=== PATIENT | male | born 1955 | race Caucasian/White ===

== ENCOUNTER 2020-11-08 12:16 | Outpatient (REF) | payer MEDICARE, MEDICAID, SELFPAY ==
--- NOTE | ~2020-11-08 | XR_ITS ---
EXAMINATION: XR knee LT 2V, XR knee standing BI CLINICAL INFORMATION: Reason for Exam M25.562 - Pain in left knee COMPARISON: None available at the time of this dictation. TECHNIQUE: frontal, lateral, tunnel and patella sunrise views FINDINGS: BONES: No fracture or dislocation is present. JOINTS: Narrowing of joint spaces and developed osteophytes from the edges of articular surfaces suggest degenerative osteoarthritis. SOFT TISSUE: There is knee joint effusion. There is 1.4 cm ossified structure probably accessory ossicle or calcified soft tissue anterior to the distal left femur. XR/XR knee LT 2V IMPRESSION: Moderate Tricompartment degenerative osteoarthritis significantly involving left more than right knee Left knee joint effusion. Accessory ossicle or calcified soft tissue structure found within the soft tissue anterior to the distal femur. MRI could be utilized for further characterization if clinically indicated.
--- NOTE | ~2020-11-08 | XR_ITS ---
EXAMINATION: XR knee LT 2V, XR knee standing BI CLINICAL INFORMATION: Reason for Exam M25.562 - Pain in left knee COMPARISON: None available at the time of this dictation. TECHNIQUE: frontal, lateral, tunnel and patella sunrise views FINDINGS: BONES: No fracture or dislocation is present. JOINTS: Narrowing of joint spaces and developed osteophytes from the edges of articular surfaces suggest degenerative osteoarthritis. SOFT TISSUE: There is knee joint effusion. There is 1.4 cm ossified structure probably accessory ossicle or calcified soft tissue anterior to the distal left femur. XR/XR knee standing BI IMPRESSION: Moderate Tricompartment degenerative osteoarthritis significantly involving left more than right knee Left knee joint effusion. Accessory ossicle or calcified soft tissue structure found within the soft tissue anterior to the distal femur. MRI could be utilized for further characterization if clinically indicated.
== END 2020-11-08 12:17 | disposition home or self-care (01) ==
LOC: HO.HOSX 12:16
PROVIDERS: Visit Provider Physician Assistant
DX: M17.12 Unilateral primary osteoarthritis, left knee (principal); M25.561 Pain in right knee; Z96.641 Presence of right artificial hip joint
CPT/HCPCS: 20610; 73560; 73565; 99202; J1040

== ENCOUNTER 2021-01-22 12:02 | Outpatient (REF) | payer MEDICARE, MEDICAID, SELFPAY ==
--- NOTE | ~2021-01-22 | XR_ITS ---
EXAMINATION: XR PELVIS CLINICAL INFORMATION: Hip pain. COMPARISON: None TECHNIQUE: AP view of the pelvis. FINDINGS: Total hip arthroplasty present on the right. The prosthesis is in good position. Mild degenerative changes present in the left hip with superior joint space narrowing and sclerosis, osteophytes and some subchondral cyst formation. Incidental note made of degenerative changes in the visualized lower lumbosacral spine. XR/XR pelvis 1-2V IMPRESSION: Right hip total arthroplasty intact. Mild degenerative changes left hip.
== END 2021-01-22 12:03 | disposition home or self-care (01) ==
LOC: HO.HOSX 12:02
PROVIDERS: Visit Provider Orthopaedic Surgery
DX: M25.551 Pain in right hip (principal)
CPT/HCPCS: 72170; 99212

== ENCOUNTER → 2021-02-07 13:29 | Outpatient (BNVA) | payer MEDICARE, MEDICAID, SELFPAY | PROVIDERS: Visit Provider Physician Assistant | DX: M17.12 Unilateral primary osteoarthritis, left knee (principal) | CPT/HCPCS: 20610; 99212; J1040 ==

== ENCOUNTER → 2021-05-10 12:50 | Outpatient (BNVA) | payer MEDICARE, MEDICAID, SELFPAY | PROVIDERS: Visit Provider Physician Assistant | DX: M17.12 Unilateral primary osteoarthritis, left knee (principal) | CPT/HCPCS: 20610; 99212; J1040 ==

== ENCOUNTER → 2021-06-18 14:24 | Outpatient (BNVA) | payer MEDICARE, MEDICAID, SELFPAY | PROVIDERS: Visit Provider Orthopaedic Surgery | DX: M75.102 Unspecified rotator cuff tear or rupture of left shoulder, not specified as traumatic (principal); M17.12 Unilateral primary osteoarthritis, left knee | CPT/HCPCS: 20610; 99212; J1100 ==

== ENCOUNTER 2021-06-28 12:51 | Outpatient (REF) | payer MEDICARE, MEDICAID, SELFPAY ==
--- NOTE | ~2021-06-28 | MR_ITS ---
EXAMINATION: MRI SHOULDER WITHOUT CONTRAST, LEFT CLINICAL INFORMATION: Left shoulder pain. Evaluate for rotator cuff tendon tear. COMPARISON: Left shoulder radiograph dated 10/12/2018. TECHNIQUE: Multisequence MR imaging of the left shoulder was obtained without contrast on a high-field strength scanner. FINDINGS: Evaluation significantly limited secondary to patient motion. ROTATOR CUFF: Complete, full-thickness tear of the supraspinatus tendon with a near-complete full-thickness tear of the infraspinatus tendon. There appear to be a few posterior bursal surface infraspinatus tendon fibers remaining intact. Overall tearing measures approximately 4.5 x 4.5 cm (AP by ML) with retraction of the tendon fibers to the level of the glenohumeral articulation. Subscapularis tendinosis with high-grade articular surface partial tearing with probable full-thickness components. This measures up to 4.2 cm in ML dimension and thin bursal surface tendon fibers remaining intact. No muscle atrophy or fatty infiltration. BICEPS: Medial subluxation of the proximal long head biceps tendon over the lesser tuberosity. CORACOACROMIAL ARCH: The undersurface of the acromion is curved with no subacromial spur. Severe acromioclavicular osteoarthritis. LABRUM/CAPSULE: No displaced labral tear. GLENOHUMERAL JOINT/MARROW: Superior subluxation of the humeral head related to the rotator cuff tendon tears. Moderate glenohumeral joint effusion. MR/MR shoulder LT wo con IMPRESSION: 1. Complete tear of the supraspinatus tendon with a near-complete tear of the infraspinatus tendon. There appear to be a few posterior bursal surface tendon fibers remaining intact. Near-complete tear of the subscapularis tendon with a few bursal surface tendon fibers remaining intact. The torn tendon fibers retracted to the level of the glenohumeral articulation. Superior subluxation of the humeral head related to the rotator cuff tendon tears. 2. Medial subluxation of the proximal long head biceps tendon over the lesser tuberosity. 3. Severe acromioclavicular osteoarthritis. 4. Moderate glenohumeral joint effusion.
== END 2021-06-28 12:52 | disposition home or self-care (01) ==
LOC: HO.MRI 12:51
PROVIDERS: Visit Provider Orthopaedic Surgery
DX: M75.102 Unspecified rotator cuff tear or rupture of left shoulder, not specified as traumatic (principal)
CPT/HCPCS: 73221

== ENCOUNTER → 2021-07-19 11:30 | Outpatient (BNVA) | payer MEDICARE, MEDICAID, SELFPAY | PROVIDERS: Visit Provider Orthopaedic Surgery | DX: M75.102 Unspecified rotator cuff tear or rupture of left shoulder, not specified as traumatic (principal) | CPT/HCPCS: Q3014 ==

== ENCOUNTER → 2021-08-09 12:39 | Outpatient (BNVA) | payer MEDICARE, MEDICAID, SELFPAY | PROVIDERS: Visit Provider Physician Assistant | DX: M17.12 Unilateral primary osteoarthritis, left knee (principal) | CPT/HCPCS: 20610; 99212; J1040 ==

== ENCOUNTER → 2021-11-08 13:10 | Outpatient (BNVA) | payer MEDICARE, MEDICAID, SELFPAY | PROVIDERS: Visit Provider Physician Assistant | DX: M75.22 Bicipital tendinitis, left shoulder (principal); M17.12 Unilateral primary osteoarthritis, left knee | CPT/HCPCS: 20610; 99212; J1040 ==

== ENCOUNTER 2021-12-14 14:07 | Outpatient (REF) | payer MEDICARE, MEDICAID, SELFPAY ==
[2021-12-14 15:18] LABS: Estimated Average Glucose 111 mg/dL; Hemoglobin A1c % 5.5 %
== END 2021-12-14 14:08 | disposition home or self-care (01) ==
LOC: HO.LAB 14:07
PROVIDERS: PCP Nurse Practitioner Family; Visit Provider Nurse Practitioner Family
DX: G62.9 Polyneuropathy, unspecified (principal); M75.22 Bicipital tendinitis, left shoulder; M75.102 Unspecified rotator cuff tear or rupture of left shoulder, not specified as traumatic
CPT/HCPCS: 36415; 83036; 99202

== ENCOUNTER → 2021-12-17 10:24 | Outpatient (BNVA) | payer MEDICARE, MEDICAID, SELFPAY | PROVIDERS: PCP Nurse Practitioner Family; Visit Provider Internal Medicine | DX: M75.22 Bicipital tendinitis, left shoulder (principal) | CPT/HCPCS: 20550; J2795; J3300 ==

== ENCOUNTER → 2022-02-01 11:13 | Outpatient (BNVA) | payer MEDICARE, MEDICAID, SELFPAY | PROVIDERS: PCP Nurse Practitioner Family; Visit Provider Internal Medicine | DX: M54.16 Radiculopathy, lumbar region (principal); R20.2 Paresthesia of skin; M75.22 Bicipital tendinitis, left shoulder; M17.12 Unilateral primary osteoarthritis, left knee | CPT/HCPCS: Q3014 ==

== ENCOUNTER → 2022-02-11 12:22 | Outpatient (BNVA) | payer MEDICARE, MEDICAID, SELFPAY | PROVIDERS: PCP Nurse Practitioner Family; Visit Provider Physician Assistant | DX: M17.12 Unilateral primary osteoarthritis, left knee (principal) | CPT/HCPCS: 20610; 99212; J1040 ==

== ENCOUNTER → 2022-03-04 10:37 | Outpatient (BNVA) | payer MEDICARE, MEDICAID, SELFPAY | PROVIDERS: PCP Nurse Practitioner Family; Visit Provider Internal Medicine | DX: M25.562 Pain in left knee (principal); M25.462 Effusion, left knee; M17.12 Unilateral primary osteoarthritis, left knee; M75.22 Bicipital tendinitis, left shoulder; Z96.642 Presence of left artificial hip joint | CPT/HCPCS: Q3014 ==

== ENCOUNTER → 2022-03-18 11:18 | Outpatient (BNVA) | payer MEDICARE, MEDICAID, SELFPAY | PROVIDERS: PCP Nurse Practitioner Family; Visit Provider Nurse Practitioner Family | DX: R13.10 Dysphagia, unspecified (principal); R14.0 Abdominal distension (gaseous); K21.9 Gastro-esophageal reflux disease without esophagitis | CPT/HCPCS: 99202 ==

== ENCOUNTER 2022-05-08 06:18 | Outpatient (REF) | payer MEDICARE, MEDICAID, SELFPAY ==
--- NOTE | ~2022-05-08 | XR_ITS ---
EXAMINATION: XR SHOULDER, RIGHT CLINICAL INFORMATION: Pain COMPARISON: None available. TECHNIQUE: AP external rotation, Grashey, scapular Y, and axillary views of the right shoulder. FINDINGS: No acute fracture or dislocation. There is mild elevation of the humeral head relative to the glenoid fossa which may reflect underlying rotator cuff pathology. Degenerative changes of the right acromioclavicular joint with joint space narrowing and osteophytosis. XR/XR shoulder RT min 2V IMPRESSION: 1. Mild elevation of the humeral head relative to the glenoid fossa which may reflect underlying rotator cuff pathology. 2. Degenerative changes of the right acromioclavicular joint.
--- NOTE | ~2022-05-08 | XR_ITS ---
EXAMINATION: XR HIP, LEFT CLINICAL INFORMATION: Left hip pain. COMPARISON: 01/22/2021 pelvic radiograph. TECHNIQUE: Two views of the left hip. FINDINGS: Mild left hip degenerative joint changes are seen. There is no acute fracture or dislocation. The visualized left ribs are intact with the soft tissues are unremarkable. XR/XR hip LT min 2V IMPRESSION: Mild left hip osteoarthritis without overt acute abnormality.
--- NOTE | ~2022-05-08 | FL_ITS ---
EXAMINATION: XR FLUOROSCOPY WITH IMAGES CLINICAL INFORMATION: Unilateral primary osteoarthritis, left knee. COMPARISON: Plain film study of 11/08/2020. TECHNIQUE: Fluoroscopy Supervised By: Dr. Marciano Bridges. Fluoroscopy Time: 0.4 minutes. Cumulative Dose: 1.45 mGy. DAP: 0.169 Gy-cm2. Images: 4. FINDINGS: Images demonstrate a needle overlying the anterior aspect of the left knee joint space. Contrast is seen within the joint and suprapatellar bursa. Degenerative spurring is identified with some joint space narrowing. Involving the medial and lateral joint space compartments. FL/FL guidance in treatment room IMPRESSION: Intraoperative fluoroscopy for pain management procedure.
== END 2022-05-08 06:19 | disposition home or self-care (01) ==
LOC: HO.XRAY 06:18
PROVIDERS: PCP Nurse Practitioner Family; Visit Provider Internal Medicine
DX: M17.12 Unilateral primary osteoarthritis, left knee (principal); M25.511 Pain in right shoulder; M16.12 Unilateral primary osteoarthritis, left hip
CPT/HCPCS: 20610; 73030; 73502

== ENCOUNTER → 2022-05-24 11:27 | Outpatient (BNVA) | payer MEDICARE, MEDICAID, SELFPAY | PROVIDERS: PCP Nurse Practitioner Family; Visit Provider Internal Medicine | DX: M75.22 Bicipital tendinitis, left shoulder (principal); M54.16 Radiculopathy, lumbar region; M25.511 Pain in right shoulder; M16.12 Unilateral primary osteoarthritis, left hip; M17.12 Unilateral primary osteoarthritis, left knee; Z96.642 Presence of left artificial hip joint | CPT/HCPCS: 20550; 20552; 99212; J2795; J3301 ==

== ENCOUNTER 2022-06-17 08:28 | Outpatient (REF) | payer MEDICARE, MEDICAID, SELFPAY ==
--- NOTE | ~2022-06-17 | XR_ITS ---
EXAMINATION: XR KNEE, AP BILATERAL XR KNEE, LEFT CLINICAL INDICATIONS: Pain. COMPARISON: None available. FINDINGS: AP BILATERAL KNEE: There is severe loss of medial and lateral compartment joint space left knee and mild loss of lateral compartment joint space. No acute fracture or loose body seen. LEFT KNEE: There are hypertrophic enthesophytes along the superior anterior intracondylar surface of distal femur, posterior medial condyle, anterior tibial eminence and posterior tibiofibular joint. No acute fracture or dislocation seen. There is mild suprapatellar joint effusion. XR/XR knee standing BI IMPRESSION: Hypertrophic enthesophytes along the left knee joint space likely from previous traumatic injury or degenerative changes. Severe degenerative changes medial and lateral compartment left knee.
--- NOTE | ~2022-06-17 | XR_ITS ---
EXAMINATION: XR KNEE, AP BILATERAL XR KNEE, LEFT CLINICAL INDICATIONS: Pain. COMPARISON: None available. FINDINGS: AP BILATERAL KNEE: There is severe loss of medial and lateral compartment joint space left knee and mild loss of lateral compartment joint space. No acute fracture or loose body seen. LEFT KNEE: There are hypertrophic enthesophytes along the superior anterior intracondylar surface of distal femur, posterior medial condyle, anterior tibial eminence and posterior tibiofibular joint. No acute fracture or dislocation seen. There is mild suprapatellar joint effusion. XR/XR knee LT 2V IMPRESSION: Hypertrophic enthesophytes along the left knee joint space likely from previous traumatic injury or degenerative changes. Severe degenerative changes medial and lateral compartment left knee.
== END 2022-06-17 08:29 | disposition home or self-care (01) ==
LOC: HO.HOSX 08:28
PROVIDERS: Visit Provider Orthopaedic Surgery
DX: M17.12 Unilateral primary osteoarthritis, left knee (principal); M54.16 Radiculopathy, lumbar region
CPT/HCPCS: 73560; 73565; 99212

== ENCOUNTER 2022-06-24 12:39 | Outpatient (REF) | payer MEDICARE, MEDICAID, SELFPAY ==
[2022-06-24 14:05] LABS: MANUAL DIFF FLAG NO
[2022-06-24 14:22] LABS: Basophils Percent Auto 0.4 % (0-2); Eosinophils Absolute Auto 0.2 X10*3/uL (0.0-0.4); Eosinophils Percent Auto 2.6 % (0-4); Hematocrit 40.2 % (42.0-52.0); Hemoglobin 13.2 g/dl (14.0-18.0); Imm Gran Abs Auto 0.03 X10*3/uL (0.00-0.03); Imm Gran Pct Auto 0.4 % (0.0-0.4); Lymphocytes Absolute Auto 1.1 X10*3/uL (1.2-4.9); Lymphocytes Percent Auto 14.3 % (20-40); Mean Corpuscular HGB Conc 32.8 g/dl (31.0-36.0); Mean Corpuscular Hemoglobin 28.6 pg (27.0-33.0); Mean Platelet Volume 8.8 fL (9.4-12.4); Monocytes Absolute Auto 0.6 X10*3/uL (0.1-1.2); Monocytes Percent Auto 8.5 % (2-11); Neutrophils Absolute Auto 5.5 x10*3/uL (2.0-8.3); Neutrophils Percent Auto 73.8 % (45-73); Platelet Count 326 X10*3/uL (160-400); Red Blood Count 4.62 X10*6/uL (4.60-5.80); Red Cell Distribution Width 13.4 % (11.0-16.0); White Blood Count 7.4 X10*3/uL (4.8-10.8)
[2022-06-24 15:01] LABS: Alanine Aminotransferase 15 U/L (0-40); Albumin Level 4.5 g/dL (3.5-5.0); Alkaline Phosphatase 118 U/L (39-117); Anion Gap 13 (12-20); Aspartate Amino Transferase 18 U/L (5-37); Bilirubin Total 0.5 mg/dL (0.0-1.0); Blood Urea Nitrogen 12 mg/dL (9-16); Calcium 9.6 mg/dL (8.4-10.2); Carbon Dioxide 29 mmol/L (22-29); Chloride 98 mmol/L (96-108); Estimated Glomerular Filt Rate > 60; Glucose Random 108 mg/dL (60-115); Potassium 4.8 mmol/L (3.3-5.1); Sodium 135 mmol/L (135-145)
[2022-06-24 15:24] LABS: Ferritin 248 ng/mL (20-250); Folate 16.9 ng/mL (> or = 4.0); TSH reflex Free T4 1.04 uIU/mL (0.32-4.0); Vitamin B12 441 pg/mL (200-900); Vitamin D 25-OH Total 48.1 ng/mL (>30)
[2022-06-26 18:49] LABS: Gliadin Deamidated IgA Ab <1.0 U/mL; Gliadin Deamidated IgG Ab <1.0 U/mL; Transglutaminase Ab IgG <1.0 U/mL; Transglutaminase IgA <1.0 U/mL
[2022-06-28 14:38] LABS: Zinc 67 mcg/dL (60-130)
[2022-06-28 16:44] LABS: Vitamin B6 24.2 ng/mL (2.1-21.7)
[2022-06-29 14:52] LABS: Vitamin B1 26 nmol/L (8-30)
[2022-06-29 15:43] LABS: Nicotinamide <20 ng/mL; Vit B3 - Nicotinic Acid <20 ng/mL; Vitamin B5 (Pantothenic Acid) 110 ng/mL (<275)
[2022-06-30 18:07] LABS: Vitamin A 37 mcg/dL (38-98)
== END 2022-06-24 12:40 | disposition home or self-care (01) ==
LOC: HO.LAB 12:39
PROVIDERS: PCP Nurse Practitioner Family; Visit Provider Internal Medicine Gastroenterology
DX: R10.33 Periumbilical pain (principal); G89.29 Other chronic pain; G62.9 Polyneuropathy, unspecified; R09.89 Other specified symptoms and signs involving the circulatory and respiratory systems; E46 Unspecified protein-calorie malnutrition; R20.2 Paresthesia of skin; R19.7 Diarrhea, unspecified; K75.81 Nonalcoholic steatohepatitis (NASH)
CPT/HCPCS: 36415; 80053; 82180; 82306; 82607; 82728; 82746; 83088; 83520; 84207; 84425; 84443; 84590; 84591; 84630; 85025; 86258; 86364; 99212

== ENCOUNTER 2022-07-15 15:35 | Outpatient (REF) | payer MEDICARE, MEDICAID, SELFPAY ==
--- NOTE | ~2022-07-15 | CT_ITS ---
EXAMINATION: CT SOFT TISSUE NECK WITH CONTRAST CLINICAL INFORMATION: Globus sensation. Rule out impingement. Retroverted epiglottis. Needle syndrome, other compressive pathology. COMPARISON: None TECHNIQUE: Following the administration of 100 mL of Omnipaque 300 intravenous contrast, helical imaging was performed in the axial plane with generation of coronal and sagittal reformatted images. This CT examination was performed using dose optimization techniques as appropriate, variously including the following: *Automated exposure control *Adjustment of mA and/or kV according to patient size (this includes techniques or standardized protocols for targeted exams where dose is matched to indication/reason for exam; i.e. extremities or head) *Use of iterative reconstruction technique DLP: 304 mGy-cm FINDINGS: The nasopharynx appears normal. The palatine tonsils and base of tongue appear normal. No laryngeal lesion is seen. The epiglottis is unremarkable. The vocal folds appear symmetric. The left styloid processes are elongated and extends to the region of the left base of tongue as seen on series 3 image 210/467. The parotid and submandibular glands appear normal. No enlarged or suspicious appearing cervical chain lymph nodes are seen. The thyroid gland appears normal. There are no enlarged upper mediastinal lymph nodes. There is scarring/pleural parenchymal thickening along the periphery of the left upper lung. There is no acute intracranial abnormality. Multilevel degenerative changes are seen within the spine. There is severe disc height loss with degenerative endplate changes at the C6-C7 level. Degenerative changes are also seen in the thoracic spine. There are postoperative findings related to prior functional endoscopic sinus surgery. There is moderate polypoid thickening within the paranasal sinuses. 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 CT/CT soft tissue neck w IV con IMPRESSION: No neck mass or suspicious lymphadenopathy identified. The left styloid process is elongated and extends to the region of the left base of tongue. Postoperative findings related to prior functional endoscopic sinus surgery. Moderate polypoid thickening throughout the paranasal sinuses.
[2022-07-15] MEDS: iohexoL 350 MG/ML 100 ML INFUS..BTL IV (16:55)
== END 2022-07-15 15:36 | disposition home or self-care (01) ==
LOC: HO.CT 15:35
PROVIDERS: PCP Nurse Practitioner Family; Visit Provider Internal Medicine Gastroenterology
DX: R09.89 Other specified symptoms and signs involving the circulatory and respiratory systems (principal); G62.9 Polyneuropathy, unspecified; E46 Unspecified protein-calorie malnutrition; R20.2 Paresthesia of skin
CPT/HCPCS: 70491; Q9967

== ENCOUNTER 2022-07-17 06:03 | Outpatient (REF) | payer MEDICARE, MEDICAID, SELFPAY ==
--- NOTE | ~2022-07-17 | FL_ITS ---
EXAMINATION: XR FLUOROSCOPY WITH IMAGES CLINICAL INFORMATION: Lumbar radiculopathy COMPARISON: None available. TECHNIQUE: Fluoroscopy Supervised By: Dr. Marciano Bridges. Fluoroscopy Time: 0.2 min. Cumulative Dose: 5 mGy. DAP: 0.3 Gycm2. Images: 2. FINDINGS: Images demonstrate needle placement and contrast injection over the lower lumbar spine FL/FL guidance in treatment room IMPRESSION: Fluoroscopic guidance for pain management procedure.
== END 2022-07-17 06:04 | disposition home or self-care (01) ==
LOC: CF 06:03
PROVIDERS: Visit Provider Internal Medicine
DX: M54.16 Radiculopathy, lumbar region (principal)
CPT/HCPCS: 62323; J1040

== ENCOUNTER 2022-08-06 12:20 | Day surgery (SDC) | payer MEDICARE, MEDICAID, SELFPAY ==
[2022-08-02 11:58] VITALS: BMI 25.6
--- NOTE | 2022-08-05 10:53 | HO.ANESPROP2 ---
Documented by User: Nicole Salinas NP 08/05/22 10:54 HPI - Anesthesia Eval Consult details Narrative: 67yo M for Upper Endo APC Erbe Jet 2 PMFSH Active Problems Active Problems: All Active Problems (Updated 06/24/22 @ 13:20 by Roxanna Aiken MD) Malnutrition (Acute) Globus pharyngeus (Acute) Osteoarthritis of left hip (Acute) Right shoulder pain (Acute) Osteoarthritis of left knee (Acute) Lumbar radiculopathy (Acute) Paresthesia of bilateral legs (Acute) Peripheral neuropathy (Acute) Biceps tendonitis on left (Acute) Left rotator cuff tear (Acute) Piriformis syndrome of right side (Acute) Tricompartment osteoarthritis of left knee (Acute) Past Medical History Medical History Anxiety and depression Diverticulosis Hyperlipidemia Hypertension Insomnia PTSD (post-traumatic stress disorder) Surgical History Surgical History History of left hip replacement Hx of colonoscopy Social History Social History Alcohol intake: never Patient Tobacco Use Status: Former Tobacco user Are you DNR?: No Advance Directives: No Advance Directives Information Provided: Yes Current occupational status: employed and disabled Current occupation: rt handed Meds Allergies Allergy/AdvReac Type Severity Reaction Status Date / Time No Known Allergies Allergy Verified 07/17/22 11:02 Home Medications Medication Instructions Recorded Confirmed Last Taken Type clonidine HCl 0.1 mg tablet 0.1 mg PO BID 05/10/21 08/02/22 Unknown History diazepam 2 mg tablet 4 mg PO BID PRN Anxiety 05/10/21 08/02/22 08/06/22 History lisinopril 30 mg tablet 30 mg PO DAILY 05/10/21 08/02/22 Unknown History pravastatin 10 mg tablet 10 mg PO BEDTIME 05/10/21 08/02/22 Unknown History trazodone 100 mg tablet 100 mg PO BEDTIME 05/10/21 08/02/22 Unknown History esomeprazole magnesium 40 mg 40 mg PO DAILY 06/24/22 08/02/22 Unknown History capsule,delayed release pregabalin 75 mg capsule 75 mg PO BID 06/24/22 08/02/22 08/06/22 History Exam Exam Date and Time: August 05, 2022 1053 Height,Weight and Vital Signs: Height 5 ft 5 in Weight 69.853 kg Pertinent Lab Results Pertinent Lab Results: Laboratory Tests 06/24/22 06/24/22 14:04 14:04 WBC 7.4 Hgb 13.2 L Hct 40.2 L Plt Count 326 Sodium 135 Potassium 4.8 Chloride 98 Carbon Dioxide 29 BUN 12 Creatinine 0.83 Assessment and Plan Assessment Anesthesia Assessment: Chart Reviewed Documented by User: Marciano Bridges MD 08/06/22 13:02 REPLACED BY [facility] Past Medical History Medical History Anxiety and depression Diverticulosis Hyperlipidemia Hypertension Insomnia PTSD (post-traumatic stress disorder) Family History Family history of problems with anesthesia: No Surgical History Surgical History History of left hip replacement Hx of colonoscopy History of Problems with Anesthesia: No Social History Social History Alcohol intake: never Patient Tobacco Use Status: Former Tobacco user Are you DNR?: No Advance Directives: No Advance Directives Information Provided: Yes Current occupational status: employed and disabled Current occupation: rt handed Meds Allergies Allergy/AdvReac Type Severity Reaction Status Date / Time No Known Allergies Allergy Verified 07/17/22 11:02 Home Medications Medication Instructions Recorded Confirmed Last Taken Type clonidine HCl 0.1 mg tablet 0.1 mg PO BID 05/10/21 08/02/22 Unknown History diazepam 2 mg tablet 4 mg PO BID PRN Anxiety 05/10/21 08/02/22 08/06/22 History lisinopril 30 mg tablet 30 mg PO DAILY 05/10/21 08/02/22 Unknown History pravastatin 10 mg tablet 10 mg PO BEDTIME 05/10/21 08/02/22 Unknown History trazodone 100 mg tablet 100 mg PO BEDTIME 05/10/21 08/02/22 Unknown History esomeprazole magnesium 40 mg 40 mg PO DAILY 06/24/22 08/02/22 Unknown History capsule,delayed release pregabalin 75 mg capsule 75 mg PO BID 06/24/22 08/02/22 08/06/22 History Exam Airway Mallampati Class: II TM Dist: >3cm Neck ROM: Full Loose/Missing/Broken Teeth: Yes Assessment and Plan Assessment Anesthesia Assessment: Anesthesia Plan Discussed Final Anesthetic Review Family History of Problems with Anesthesia: No History of Problems with Anesthesia: No NPO: Yes ASA Class: II Final Preanesthetic Review: No Changes in Pt Med Stat, Meds/Allgs Chart Reviewed, Consent Obtained/Reviewed and Anes Risks/Benef Reviewed Patient Risk: Low Procedure Risk: Low Anesthetic Plan Anesthetic Plan: MAC: Disposition: Standard PACU
--- OUTSIDE RECORDS SUMMARY | 2022-08-06 12:23 | XMS_ITS | Continuity of Care Document ---
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 Name Role Phone Nicole Day NP Primary Care Physician Encounter [facility] Date(s): 07/05/22 - 08/04/22 [facility] [address] [place] [address]- Allergies, Adverse Reactions, Alerts No Known Allergies Immunizations Given and Recorded Vaccine Date Status Refusal Reason tetanus/diphtheria/pertussis, acel(Tdap) 07/09/18 Given Medications CeleBREX 200 mg oral capsule 1 capsule = 200 mg, By Mouth, 2 times a day, 0 Refills, Maintenance, 04/30/21 13:17:00 EST, Capsule, Partial fill upon patient request if the prescription is for a schedule II opioid drug. Start Date: 04/30/21 Status: Ordered cloNIDine 0.1 mg oral tablet 1, tablet, By Mouth, 2 times a day, # 180 tablet, Refills 11, Tot. Refills 11, Maintenance, 07/05/22 15:54:00 EDT, Route to Pharmacy Electronically, [facility] #[id number], 165, cm, 06/21/22 14:07:00 EDT, Height, 71.5, kg, 09/20/20 13:46:00 EDT,... Start Date: 07/05/22 Status: Ordered dexlansoprazole 30 mg oral delayed release capsule 1 capsule = 30 mg, By Mouth, Daily, # 30 capsule, 5 Refills, Maintenance, 07/12/19 12:17:00 EDT, [facility]/pharmacy #[id number], 164, cm, 06/30/19 14:28:00 EDT, Height, 79, kg, 04/28/19 12:58:00 EST, Dry Weight Start Date: 07/12/19 Stop Date: 01/08/20 Status: Ordered diazepam 2 mg oral tablet 4 mg, 2, tablet, By Mouth, 2 times a day, # 120 tablet, Refills 6, Tot. Refills 6, Soft Stop, 07/05/22 15:50:00 EDT, Route to Pharmacy Electronically, [facility] #[id number], 165, cm, 06/21/22 14:07:00 EDT, Height, 71.5, kg, 09/20/20 13:46:00 EDT... Start Date: 07/05/22 Stop Date: 01/31/23 Status: Ordered hydrocortisone 1% topical cream 1 application, Topically, 2 times a day, # 45 Gm, 0 Refills, Maintenance, 01/08/21 17:21:00 EST, Cream, [facility]/pharmacy #[id number], Partial fill upon patient request if the prescription is for a schedule II opioid drug., 1 application Topically 2 times a day,... Start Date: 01/08/21 Status: Ordered lisinopril 30 mg oral tablet 1 tablet = 30 mg, By Mouth, Daily, # 90 tablet, 3 Refills, Maintenance, 02/27/21 15:03:00 EST, Tablet, [facility]/pharmacy #[id number], 165, cm, 12/25/20 14:31:00 EDT, Height, 71.5, kg, 09/20/20 13:46:00 EDT, DryWeight Start Date: 02/27/21 Stop Date: 02/22/22 Status: Ordered Multivitamin Daily, 0 Refills, Maintenance, 06/08/18 14:18:26 EDT Start Date: 06/08/18 Status: Ordered pravastatin 10 mg oral tablet 1 tablet, By Mouth, Daily at bedtime, # 90 tablet, 3 Refills, Maintenance, 03/20/22 8:15:00 EST, [id number], 165, cm, 12/19/21 15:12:00 EDT, Height, 71.5, kg, 09/20/20 13:46:00 EDT, Dry Weight Start Date: 03/20/22 Status: Ordered pregabalin 75 mg oral capsule 1 capsule = 75 mg, By Mouth, 2 times a day, # 180 capsule, 0 Refills, Maintenance, 06/21/22 14:10:00 EDT, Capsule, Partial fill upon patient request if the prescription is for a schedule II opioid drug. Start Date: 06/21/22 Status: Ordered traZODone 100 mg oral tablet 1, tablet, By Mouth, Daily at bedtime, # 90 tablet, Refills 11, Tot. Refills 11, 07/05/22 15:53:00 EDT, Route to Pharmacy Electronically, [facility] #[id number], 165, cm, 06/21/22 14:07:00 EDT, Height, 71.5, kg, 09/20/20 13:46:00 EDT, Dry Weight Start Date: 07/05/22 Status: Ordered Problem List Condition Confirmation Course Effective Dates Status H ealth Status Informant Anxiety and depression Confirmed Active Diverticulosis Confirmed Active Dysphagia Confirmed Active Hyperlipidemia Confirmed Active Hypertension Confirmed Active Insomnia Confirmed Active PTSD (post-traumatic stress disorder) Confirmed Active Social History Social History Type Response Smoking Status Never smoker; Type: Cigarettes entered on: 04/14/17 Sex Patient Care team information Care Team Personnel Name: Evelio Serrano MD Position: [facility] Physician - Gastroenterology Member Role: Lifetime Consulting Physician Address: Address: [address] [place] [address], [address] [facility] [place] [address]- Name: Gosia Collins RN Position: [facility] RN Member Role: Primary Care Nurse Name: Nicole Day NP Position: [facility] PCO Associate Professional Member Role: PCP Address: Address: [address] [place] [id number]- Name: Missy Lancaster RN Position: [facility] RN Member Role: Primary Care Nurse Name: Amy Del Toro RN Position: [facility] ED RN W/OE and Tasks Member Role: Primary Care Nurse Name: Rachael Garcia RN Position: [facility] AMB Nurse Member Role: Primary Care Nurse Name: Sole Rodriguez RN Position: [facility] Hospital Software Test And Validation Engineer Member Role: Primary Care Nurse Care Team Related Persons Name: OZIEL MACK Address: [place], [place] Name: OZIEL MACK Address: [place], [place] Name: GHADA QUISPE Address: home [address] [place] [address]
[2022-08-06 12:35] VITALS: BP 138/68; PULSE 74; RESP 20; TEMP 36.4; O2SAT 98
[2022-08-06] MEDS: Lactated Ringers 1,000 ML 100 ML IVCONT (13:12)
--- NOTE | 2022-08-06 13:34 | P.HPSUR_ITS ---
Pre-Procedural Eval Section A Date of Service: 08/06/22 Section B Chief Complaint: globus sensation Relevant Family History (Specify if Yes): No Relevant Social History: None Present Medications: see Short Stay Collaborative assessment Medical History: Significant History (Anxiety and depression Diverticulosis Hyperlipidemia Hypertension Insomnia PTSD (post-traumatic stress disorder)) History of Previous Operations: Relevant previous surgery/procedure and date(s) (hip replacement, EGd,colonoscopy) Allergies: Allergies Allergy/AdvReac Type Severity Reaction Status Date / Time No Known Allergies Allergy Verified 07/17/22 11:02 Review of Systems Sugical H&P ROS: Negative: Constitution, Cardiovascular, Respiratory, Neurological, Psychiatric, Hem-Onc, Allergic/Immunologic, Gastrointestinal, Genitourinary, Musculoskeletal, Integumentary, Endocrine and E yes/Ears/Nose/Throat Exam Surgical H&P Exam: Normal: HEENT, Normal: Heart, Normal: Lungs, Normal: Extremities, Normal: Abdomen, Normal: Skin and Normal: Neurological Plan Diagnosis/Plan: Unchanged I have reviewed the history and physical and performed a pertinent physical examination on my patient. No changes have occurred unless specified. Time Spent With Patient Time: Total time managing care of this patient today ____ minutes.
--- NOTE | 2022-08-06 13:35 | W.PM.OPN ---
Operative Note Operative Note Date of Service: 08/06/22 Narrative: Procedure Description: EGD Indication: globus sensation Anesthesia: MAC FLEXIBLE TRANSORAL UPPER GASTROINTESTINAL ENDOSCOPY UPPER ENDOSCOPY Consent: Indications for the procedure and potential complications of bleeding, perforation, reaction to medications and missed diagnosis were discussed with the patient and informed consent was obtained. Instrument: Olympus GIF H 190 J mid size upper endoscope Monitoring: Vital signs and clinical assessment, continuous EKG monitoring, Pulse oximetry, Carbon Dioxide monitoring and blood pressure monitoring were done throughout the procedure. Procedure: The patient was placed in the left lateral decubitis position and pre-procedure medications were administered and a bite block was placed. The endoscope was inserted into the mouth and advanced under direct vision to the third part of duodenum. A careful inspection was made as the upper endoscope was withdrawn including a retroflexed examination of the proximal stomach; Findings and interventions are described below. Findings: Larynx:normal Esophagus: GE junction at 40 cm, diaphragm hiatus at 40 cm, bogginess and erythema around GEJ, bx taken as well as from distal and proximal esophagus. Savary dilation done using 17 mm bougie over wire. Stomach: Normal mucosa. Grade 2 flap valve on retroflexed examination of the cardia. 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
[2022-08-06 14:12] VITALS: BP 97/55; PULSE 62; RESP 20; TEMP 36.3; O2SAT 99
[2022-08-06 14:27] VITALS: BP 113/80; PULSE 71; RESP 18; O2SAT 99
[2022-08-06 14:42] VITALS: BP 122/71; PULSE 72; RESP 16; TEMP 36.8; O2SAT 99
--- NOTE | 2022-08-06 14:54 | PC.NURSE ---
Carlitos notified that patient is scheduled to take [employer] van home at 4:10 pm. Carlitos approved of this plan. Instructed that patient needs to notify her when he gets home and phone number was provided to the patient. Patient instructed to call [phone]. Patient agreeable of this plan.
--- NOTE | 2022-08-06 15:25 | PC.NURSE ---
Carlitos allowing patient to sit downstairs in the lobby until ride gets here with raphael Winchester.
== END 2022-08-06 15:26 | disposition home or self-care (01) ==
PROVIDERS: Visit Provider Internal Medicine Gastroenterology
PROC: (CPT 43248; principal; 2022-08-06 13:20)
DX: K20.80 Other esophagitis without bleeding (principal); R13.10 Dysphagia, unspecified; K44.9 Diaphragmatic hernia without obstruction or gangrene; F41.8 Other specified anxiety disorders; F43.10 Post-traumatic stress disorder, unspecified; I10 Essential (primary) hypertension; E78.5 Hyperlipidemia, unspecified; G62.9 Polyneuropathy, unspecified; E46 Unspecified protein-calorie malnutrition; Z79.899 Other long term (current) drug therapy; Z87.891 Personal history of nicotine dependence
CPT/HCPCS: 43248; 43239; 88305; C1769

== ENCOUNTER 2022-08-15 | Outpatient (REF) | payer MEDICARE, MEDICAID, SELFPAY | END 2022-08-15 00:01 | disposition home or self-care (01) | LOC: CF | PROVIDERS: Visit Provider Internal Medicine | DX: M75.21 Bicipital tendinitis, right shoulder (principal); M75.22 Bicipital tendinitis, left shoulder | CPT/HCPCS: 20550 ==

== ENCOUNTER → 2022-08-22 12:59 | Outpatient (BNVA) | payer MEDICARE, MEDICAID, SELFPAY | PROVIDERS: PCP Nurse Practitioner Family; Visit Provider Orthopaedic Surgery | DX: M17.12 Unilateral primary osteoarthritis, left knee (principal) | CPT/HCPCS: 99212 ==

== ENCOUNTER 2022-08-26 13:38 | Outpatient (REF) | payer MEDICARE, MEDICAID, SELFPAY ==
--- NOTE | ~2022-08-26 | XR_ITS ---
EXAMINATION: XR CHEST CLINICAL INFORMATION: Weight loss, cough COMPARISON: None available. TECHNIQUE: 2 views of the chest were obtained. FINDINGS: Small left pleural effusion with streaky peripheral opacity in the lateral left upper lobe and linear scarring at the left lung base. The right lung appears clear. Normal cardiomediastinal silhouette. XR/XR chest 2V IMPRESSION: Small left pleural effusion with peripheral opacities in the lateral left upper lobe. These findings could be due to an atypical infectious process. Recommend follow-up to clearing and/or chest CT for further evaluation.
== END 2022-08-26 13:39 | disposition home or self-care (01) ==
LOC: HO.XRAY 13:38
PROVIDERS: Visit Provider Internal Medicine Gastroenterology
DX: E46 Unspecified protein-calorie malnutrition (principal); R63.4 Abnormal weight loss
CPT/HCPCS: 71046; 99212

== ENCOUNTER 2022-08-30 13:07 | Outpatient (REF) | payer MEDICARE, MEDICAID, SELFPAY ==
[2022-08-30 13:24] LABS: Anion Gap 14 (12-20); Blood Urea Nitrogen 18 mg/dL (9-16); Calcium 9.8 mg/dL (8.4-10.2); Carbon Dioxide 25 mmol/L (22-29); Chloride 99 mmol/L (96-108); Estimated Glomerular Filt Rate > 60; Glucose Random 108 mg/dL (60-115); Potassium 4.6 mmol/L (3.3-5.1); Sodium 133 mmol/L (135-145)
== END 2022-08-30 13:08 | disposition home or self-care (01) ==
LOC: HO.CT 13:07
PROVIDERS: PCP Nurse Practitioner Family; Visit Provider Internal Medicine Gastroenterology
DX: N18.30 Chronic kidney disease, stage 3 unspecified (principal); R63.4 Abnormal weight loss
CPT/HCPCS: 36415; 74177; 80048; Q9967

== ENCOUNTER 2022-10-07 10:45 | Outpatient (REF) | payer MEDICARE, MEDICAID, SELFPAY ==
--- NOTE | ~2022-10-07 | CT_ITS ---
EXAMINATION: CT CHEST WITH CONTRAST CLINICAL INFORMATION: Pleural effusion, not elsewhere classified. Abnormal chest x-ray with pleural effusion. COMPARISON: Chest x-ray August [address] of the abdomen and pelvis August 2022. TECHNIQUE: Multidetector volumetric CT imaging of the chest was obtained after the administration of 65 mL of Omnipaque 350 intravenous contrast without immediate adverse reactions. Axial MIP volume rendering provided. Sagittal and coronal reformatted images were obtained. This CT examination was performed using dose optimization techniques as appropriate, variously including the following: *Automated exposure control *Adjustment of mA and/or kV according to patient size (this includes techniques or standardized protocols for targeted exams where dose is matched to indication/reason for exam; i.e. extremities or head) *Use of iterative reconstruction technique DLP: 142 mGy-cm FINDINGS: LUNGS: 3 mm calcified left upper lobe nodule axial image 71 series 5. 3 mm right upper lobe nodule axial image 85 series 5. Increased linear markings in the left upper and left lower lobes probably representing scarring or chronic subsegmental atelectasis. MEDIASTINUM: Small mediastinal and bilateral hilar lymph nodes. Some mediastinal lymph nodes may be calcified. Small cardiophrenic angle or anterior diaphragmatic mediastinal lymph nodes. Normal heart size. Mild coronary artery calcification. No pericardial effusion. Question pericardial calcification versus diaphragmatic calcification. Normal caliber thoracic aorta. Question wall thickening and edema of the distal thoracic esophagus. PLEURA: Small left pleural effusion and pleural thickening. No right pleural effusion. AXILLA: No lymphadenopathy. UPPER ABDOMEN: Unremarkable OSSEOUS STRUCTURES: Unremarkable. CT/CT chest w IV con IMPRESSION: Small left pleural effusion and pleural thickening. Extensive adjacent left upper and left lower lobe scarring or subsegmental atelectasis. This is similar to previous chest x-ray and abdominal and pelvic CT August 2022. Small 3 mm calcified and noncalcified pulmonary nodules. According to the UPDATED 2017 Fleischner Society recommendations, the advised follow-up imaging for less than 6 mm solid nodule: Low risk, no chest CT followup and high risk, optional chest CT followup in one year. If followup chest CT is stable, no additional followup recommended. Question old granulomatous disease. Question wall thickening and edema of the distal thoracic esophagus. Fleischner guidelines were followed.
[2022-10-07] MEDS: iohexoL 350 MG/ML 100 ML INFUS..BTL 65 ML IV (11:14)
== END 2022-10-07 10:46 | disposition home or self-care (01) ==
LOC: HO.CT 10:45
PROVIDERS: PCP Nurse Practitioner Family; Visit Provider Internal Medicine Gastroenterology
DX: J90 Pleural effusion, not elsewhere classified (principal); R93.89 Abnormal findings on diagnostic imaging of other specified body structures
CPT/HCPCS: 71260; Q9967

== ENCOUNTER 2022-10-09 06:06 | Outpatient (REF) | payer MEDICARE, MEDICAID, SELFPAY ==
--- NOTE | ~2022-10-09 | FL_ITS ---
EXAMINATION: XR FLUOROSCOPY WITH IMAGES CLINICAL INFORMATION: Unilateral primary osteoarthritis, left knee. COMPARISON: Knee radiographs 06/17/2022. TECHNIQUE: Fluoroscopy Supervised By: Dr. Adriane Bui. Fluoroscopy Time: 0.1 minute. Cumulative Dose: 0.520 mGy. DAP: 0.0966 Gycm2. Images: 3. FINDINGS: 3 images again demonstrate marked degenerative changes in the knee along with a needle in the joint space with contrast injection. Please see Dr. Adriane Bui's procedure note for complete details. FL/FL guidance in treatment room IMPRESSION: Fluoroscopy and spot films provided during left knee injection.
== END 2022-10-09 06:07 | disposition home or self-care (01) ==
LOC: CF 06:06
PROVIDERS: Visit Provider Internal Medicine
DX: M17.12 Unilateral primary osteoarthritis, left knee (principal)
CPT/HCPCS: 20610

== ENCOUNTER 2022-10-09 10:51 | Outpatient (AMB) | payer MEDICARE, MEDICAID, SELFPAY ==
[2022-10-09 10:57] VITALS: BP 120/64; PULSE 78; RESP 14; O2SAT 100
--- NOTE | 2022-10-09 10:57 | A.OFFVIS_ITS ---
Intake Vital Signs 10/09/22 10:57 10/09/22 11:31 BP 120/64 118/68 Blood Pressure Location Rt brachial Rt brachial Position Sitting Standing Respiration 14 14 Pulse 78 78 Pulse Source Pulse Oximeter Pulse Oximeter Pulse Oximetry (%) 100 100 Oxygen Delivery Method Room Air Room Air Intake Visit Reasons: synvisc one left knee Allergies No Known Allergies Allergy (Verified 08/26/22 13:58) HPI synvisc one left knee HPI Details Patient presents for scheduled procedure. Denies any recent cough, cold, infection, fever or other significant changes in medical history since last office visit. [facility] Medical History (Updated 09/10/22 @ 07:18 by Roxanna Aiken MD) Anxiety and depression Diverticulosis Hyperlipidemia Hypertension Insomnia PTSD (post-traumatic stress disorder) Surgical History (Updated 08/26/22 @ 13:58 by GURPREET Barrera) History of esophagogastroduodenoscopy (EGD) History of left hip replacement Hx of colonoscopy Social History Alcohol intake: never Patient Tobacco Use Status: Former Tobacco user Current occupational status: employed and disabled Current occupation: rt handed Physical Exam Vital Signs: Last Vital Signs Pulse 78 10/09/22 10:57 Resp 14 10/09/22 10:57 BP 120/64 10/09/22 10:57 Pulse Ox 100 10/09/22 10:57 Oxygen Delivery Method Room Air 10/09/22 10:57 Office Procedures Joint Injection/Drain Joint Injection/Drain Primary Site: left knee Prep: site was prepped using sterile technique Injected: in the joint and other (Synvisc One) Approach Used: anterolateral Procedure: The patient tolerated the procedure well Coding 58361 - Large joint (under fluoroscopy) Procedure code (CPT) selection complete Assessment & Plan Assessment & Plan (1) Osteoarthritis of left knee: Code(s): M17.12 - Unilateral primary osteoarthritis, left knee Plan Patient is status post left knee Synvisc One injection intra-articularly under fluoroscopy. Patient tolerated procedure well and was discharged home in stable condition with discharge instructions. All questions were answered. We will follow-up via telephone or in clinic to assess response to therapy. A follow-up appointment was made during today's visit. Orders: Orders FL guidance in treatment room Today M17.12 - Unilateral primary osteoarthritis, left knee Coding Level of Care Code Procedure Only Diagnoses Osteoarthritis of left knee M17.12 CPT Codes Coding - 23531 Large joint: 30697 - Large joint ([id number])
[2022-10-09 11:31] VITALS: BP 118/68; PULSE 78; RESP 14; O2SAT 100
== END 2022-10-09 11:29 | disposition home or self-care (01) ==
PROVIDERS: PCP Nurse Practitioner Family; Visit Provider Internal Medicine
DX: M17.12 Unilateral primary osteoarthritis, left knee (principal)
CPT/HCPCS: 20610; 77002

== ENCOUNTER 2022-10-16 06:01 | Outpatient (REF) | payer MEDICARE, MEDICAID, SELFPAY ==
--- NOTE | ~2022-10-16 | FL_ITS ---
EXAMINATION: XR FLUOROSCOPY WITH IMAGES CLINICAL INFORMATION: Radiculopathy, lumbar region. COMPARISON: None available. TECHNIQUE: Fluoroscopy Supervised By: Dr. Marciano Bridges. Fluoroscopy Time: 0.2 minutes. Cumulative Dose: 2.98 mGy. DAP: 0.293 Gycm2. Images: 4. FINDINGS: Images demonstrate needle and and left epidural contrast injection at the L5-S1 level FL/FL guidance in treatment room IMPRESSION: Fluoroscopy guidance for pain procedure
== END 2022-10-16 06:02 | disposition home or self-care (01) ==
LOC: CF 06:01
PROVIDERS: Visit Provider Internal Medicine
DX: M54.16 Radiculopathy, lumbar region (principal)
CPT/HCPCS: 62323; J1040; Q9967

== ENCOUNTER 2022-10-16 11:27 | Outpatient (AMB) | payer MEDICARE, MEDICAID, SELFPAY ==
[2022-10-16 13:01] VITALS: BP 130/72; PULSE 76; RESP 14; O2SAT 100
--- NOTE | 2022-10-16 13:01 | A.OFFVIS_ITS ---
Intake Vital Signs 10/16/22 13:01 10/16/22 13:02 BP 130/72 140/70 H Blood Pressure Location Rt brachial Rt brachial Position Sitting Sitting Respiration 14 14 Pulse 76 78 Pulse Source Pulse Oximeter Pulse Oximeter Pulse Oximetry (%) 100 100 Oxygen Delivery Method Room Air Room Air Intake Visit Reasons: right L5-S1 interlaminar parasagittal JOYCE Allergies No Known Allergies Allergy (Verified 08/26/22 13:58) HPI right L5-S1 interlaminar parasagittal JOYCE HPI Details Patient presents for scheduled procedure. Denies any recent cough, cold, infection, fever or other significant changes in medical history since last office visit. [facility] Medical History (Updated 10/16/22 @ 12:13 by Marciano Bridges MD) Anxiety and depression Diverticulosis Hyperlipidemia Hypertension Insomnia PTSD (post-traumatic stress disorder) Surgical History (Updated 08/26/22 @ 13:58 by GURPREET Barrera) History of esophagogastroduodenoscopy (EGD) History of left hip replacement Hx of colonoscopy Social History Alcohol intake: never Patient Tobacco Use Status: Former Tobacco user Current occupational status: employed and disabled Current occupation: rt handed Physical Exam Vital Signs: Last Vital Signs Pulse 78 10/16/22 13:02 Resp 14 10/16/22 13:02 BP 140/70 H 10/16/22 13:02 Pulse Ox 100 10/16/22 13:02 Oxygen Delivery Method Room Air 10/16/22 13:02 Office Procedures Joint Injection/Drain Joint Injection/Drain Details: Interlaminar epidural steroid injection, L5-S1, right parasaggital After obtaining written consent, pre-procedure blood pressure and heart rate were stable and recorded in the nursing record. The patient was placed in the prone position. The lumbosacral area was widely prepped with chloraprep and draped in sterile fashion. Fluoroscopic guidance was used to identify the L5/S1 interlaminar space and for needle placement. Subcutaneous 0.5% lidocaine was used to anesthetize the skin overlying the target. A 20-gauge Randle needle was advanced to the epidural space using loss of resistance to contrast technique under fluoroscopic AP and contralateral oblique views. There was no evidence of heme or CSF and no paresthesias were elicited with needle placement. Confirmation of epidural needle placement was performed with 1cc of omnipaque 180. Next 3 ml 0.5% lidocaine mixed with 80 mg methylprednisolone was administered epidurally with no pain elicited on injection. The needle tract tubing was then cleared with 1 ml of 0.5% lidocaine. The needle was removed, skin cleansed and a sterile bandage was applied. The patient tolerated the procedure well and no complications were encountered. Following the procedure the patient's vital signs were stable. The patient was discharged home in good condition with post-procedural instructions. Time Out: Immediately prior to the procedure, the following was verbally confirmed that there is a signed consent form and that the correct patient, planned procedure, site and side are consistent with documentation and that necessary equipment and/or blood products are available prior to the start of the case. Complications: none EBL: <5 cc Coding 31955 - Caudal/Lumbar Epidural/Interlaminar with fluoroscopy Procedure code (CPT) selection complete Results Reviewed Results Reviewed: 10/16/22 11:31 methylPREDNISolone acetate [DEPO-MedroL] 80 mg .ROUTE .STK-MED ONE 10/16/22 11:35 Lidocaine HCl 2 % MPF [Xylocaine 2 % MPF] 5 ml .ROUTE .STK-MED ONE Assessment & Plan Assessment & Plan (1) Abnormal CT lung screening: Code(s): R91.8 - Other nonspecific abnormal finding of lung field (2) Lumbar radiculopathy: Code(s): M54.16 - Radiculopathy, lumbar region Plan Patient is status post right parasagittal interlaminar L5-S1 JOYCE. Patient tolerated procedure well and was discharged home in stable condition with discharge instructions. All questions were answered. We will follow-up via telephone or in clinic to assess response to therapy. A follow-up appointment was made during today's visit. The patient also brought results of his recent chest CT showing multiple small nodules as well as pleural thickening and requested a discussion of these results. Per his request a referral was placed for pulmonary medicine consult for further evaluation and planning of testing as indicated. Orders: Orders FL guidance in treatment room Today M54.16 - Radiculopathy, lumbar region Adriane Bui, [employer], [employer]IVIL [employer] CLERK Referrals Pulmonary Medicine Referral R91.8 - Other nonspecific abnormal finding of lung field Marciano Bridges MD Coding Level of Care Code Procedure Only Diagnoses Abnormal CT lung screening R91.8 Lumbar radiculopathy M54.16 CPT Codes Coding - Joint 11: 69015 - Caudal/Lumbar Epidural/Interlaminar with fluoroscopy ([id number])
[2022-10-16 13:02] VITALS: BP 140/70; PULSE 78; RESP 14; O2SAT 100
== END 2022-10-16 12:06 | disposition home or self-care (01) ==
LOC: HO.PMCPRC 11:27
PROVIDERS: PCP Nurse Practitioner Family; Visit Provider Internal Medicine
DX: M54.16 Radiculopathy, lumbar region (principal); R91.8 Other nonspecific abnormal finding of lung field
CPT/HCPCS: 62323

== ENCOUNTER 2022-11-04 12:41 | Outpatient (AMB) | payer MEDICARE, MEDICAID, SELFPAY ==
--- NOTE | 2022-11-04 12:46 | A.OFFVIS_ITS ---
Intake Intake Visit Reasons: latanya biceps tendonitis inj Allergies No Known Allergies Allergy (Verified 08/26/22 13:58) HPI latanya biceps tendonitis inj HPI Details 67-year-old male presenting today for a bilateral biceps? tendonitis injection. Denies any recent cough, cold, infection, fever or other significant changes in medical history since last office visit. Past procedures 10/16/22: Interlaminar epidural steroid injection, L5-S1, right parasaggital: 60% relief. 10/09/22: left knee Synvisc One injectio n intra-articular: 75% relief. 08/15/22: bilateral bicipital tendon inj ections: 80% relief. 07/17/22: Interlaminar epidural steroid injection, L5/S1, Right parasaggital: 60% relief. 05/24/22: right bicipital tendon and sup raspinatus tendon injection: 80% relief. 05/08/2022: Left knee Synvisc one inject ion under fluoroscopy - 75% relief for 2 weeks. 12/17/21: Left Bicep Tendon Injection US guided ? 90% relief for 3 months. [facility] Medical History (Updated 10/16/22 @ 12:13 by Marciano Bridges MD) Anxiety and depression Diverticulosis Hyperlipidemia Hypertension Insomnia PTSD (post-traumatic stress disorder) Surgical History (Updated 08/26/22 @ 13:58 by GURPREET Barrera) History of esophagogastroduodenoscopy (EGD) Hx of colonoscopy History of left hip replacement Social History Alcohol intake: never Patient Tobacco Use Status: Former Tobacco user Current occupational status: employed and disabled Current occupation: rt handed Review of Systems Const All systems reviewed & are unremarkable except as noted in HPI and below Physical Exam General: Appears afebrile. Alert and oriented. Mood and affect appropriate. Follows and participates in conversation appropriately. Respiratory effort is unlabored. Able to transition from sit to stand unassisted. Ambulates with bilaterally normal heel strike and toe off. Office Procedures Joint Injection/Drain Joint Injection/Drain Primary Site: right shoulder Secondary Site: left shoulder Prep: site was prepped using sterile technique Injected: 20 mg of, Kenalog, with 1 mL of, 0.25% bupivacaine and other (in the bicipital groove) Approach Used: anterior Procedure: The patient tolerated the procedure well Coding Details: A permanent US image of the injection was saved in the patient's record. 13131 - Bicipital Groove Injection (under US guidance) Procedure code (CPT) selection complete Results Reviewed Results Reviewed: No imaging is available for review. Assessment & Plan Assessment & Plan (1) Biceps tendonitis of both shoulders: Code(s): M75.21 - Bicipital tendinitis, right shoulder; M75.22 - Bicipital tendinitis, left shoulder Plan Patient is status post bilateral biceps? tendonitis injection. Patient tolerated procedure well and was discharged home in stable condition with discharge instructions. All questions were answered. We will follow-up in two weeks via telephone or in clinic to assess response to therapy. A follow-up appointment was made during today's visit. Scribed for Dr. Bridges by Jermain Chris, medical record administrator, on 11/04/2022. I, Dr. Bridges, have personally reviewed and agree with the information entered by the scribe. Coding Level of Care Code Procedure Only Diagnoses Biceps tendonitis of both shoulders M75.21; M75.22 CPT Codes Coding - Joint 1: 44379 - Bicipital Groove Injection ([id number])
== END 2022-11-04 13:09 | disposition home or self-care (01) ==
PROVIDERS: PCP Nurse Practitioner Family; Visit Provider Internal Medicine
DX: M75.21 Bicipital tendinitis, right shoulder (principal); M75.22 Bicipital tendinitis, left shoulder
CPT/HCPCS: 20550

== ENCOUNTER → 2022-11-04 12:41 | Outpatient (BNVA) | payer MEDICARE, MEDICAID, SELFPAY | PROVIDERS: PCP Nurse Practitioner Family; Visit Provider Internal Medicine | DX: M75.21 Bicipital tendinitis, right shoulder (principal); M75.22 Bicipital tendinitis, left shoulder | CPT/HCPCS: 20550; J3301 ==

== ENCOUNTER 2022-11-18 14:10 | Outpatient (AMB) | payer MEDICARE, MEDICAID, SELFPAY ==
--- NOTE | 2022-11-18 14:30 | A.OFFVIS_ITS ---
Intake Vital Signs 11/18/22 14:42 Height 5 ft 5 in Weight 152 lb 5.177 oz BMI 25.3 Intake Visit Reasons: 2 month follow up Intake Note: Mateus presents in the office as a 2 month follow up. CC: He states that he fees like Dr Jo Ann albertsed [facility] He was advised to take nitroglycerin for the episodes he has that are anxiety and they seem to work. Allergies No Known Allergies Allergy (Verified 11/18/22 14:43) HPI 2 month follow up HPI Details 67 yr old m here for f/u RECAP: Saw Arlene originally he had been having issues with dysphagia had balloon dilations x 5 with variable success he has had manometry at [facility] as well he had low vit A which has been replaced He had EGD 07/2022-- dilated with 17 mm bougie --there was no inlet patch He had seen Jo Ann recently, and was given nitroglycerin CT chest with scarred lungs and nodules INTERIM: He tried the Nitroglyverin and he was v happy with it He takes it as needed he wants clarification on why it is working he was referred to ENT for further assessment 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 VITAL SIGNS:see workflow HEENT: Nonicteric sclerae, PERRLA, EOMI. Oropharynx clear. Moist mucous membranes. Conjunctivae appear well perfused. No thyroid mass. CHEST: Chest wall is nontender. HEART: Regular rate and rhythm without murmurs. LUNGS: Clear to auscultation bilaterally. ABDOMEN: Soft, positive bowel sounds, tender epigastrium, no organomegaly.no flank tenderness SKIN: No rash, no excessive bruising, petechiae, or purpura. NEUROLOGIC: Cranial nerves II-XII intact without motor/sensory deficit. Pscyh: pressure of speech A/P: 1/ glbus sensation, possible mechanical, nutritonal, functional, eagles syndrome from the elongated styloid process, or post nasal drip, imrpovement with Nitro prn 2/ Concern for weight loss with poor alyson etite, ? related to lung disease, thinks may have had asbestos inhalation in past PLAN: 1/ cont with Vit A 2/ cont nexium, anit histamine, flonase and cromolyn 3/ await ENT for assessement for Carlin s yndrome [facility] Medical History Anxiety and depression Diverticulosis Hyperlipidemia Hypertension Insomnia PTSD (post-traumatic stress disorder) Surgical History History of esophagogastroduodenoscopy (EGD) Hx of colonoscopy History of left hip replacement Social History Alcohol intake: never Patient Tobacco Use Status: Former Tobacco user Current occupational status: employed and disabled Current occupation: rt handed Physical Exam Vital Signs: BMI result Body Mass Index 25.3 Coding Level of Care Code Est Pt Level 3 (63613)
[2022-11-18 14:42] VITALS: BMI 25.3
== END 2022-11-18 15:21 | disposition home or self-care (01) ==
PROVIDERS: PCP Nurse Practitioner Family; Visit Provider Internal Medicine Gastroenterology
DX: J84.10 Pulmonary fibrosis, unspecified (principal)
CPT/HCPCS: 99213

== ENCOUNTER → 2022-11-18 14:10 | Outpatient (BNVA) | payer MEDICARE, MEDICAID, SELFPAY | PROVIDERS: Visit Provider Internal Medicine Gastroenterology | DX: R09.89 Other specified symptoms and signs involving the circulatory and respiratory systems (principal); J84.10 Pulmonary fibrosis, unspecified | CPT/HCPCS: 99212 ==

== ENCOUNTER 2022-11-19 10:43 | Outpatient (AMB) | payer MEDICARE, MEDICAID, SELFPAY ==
[2022-11-19 10:55] VITALS: BP 138/68; PULSE 76; O2SAT 99; BMI 25.7
--- NOTE | 2022-11-19 10:55 | A.OFFVIS_ITS ---
Intake Vital Signs 11/19/22 10:55 Height 5 ft 5 in Weight 154 lb 5.177 oz BMI 25.7 BP 138/68 Blood Pressure Location Rt brachial Position Sitting Pulse 76 Pulse Source Doppler Pulse Oximetry (%) 99 Oxygen Delivery Method Room Air Intake Visit Reasons: Pulmonary nodules Allergies No Known Allergies Allergy (Verified 11/19/22 10:59) HPI Pulmonary nodules HPI Details 67-year-old gentleman, minimal smoker in his 20, with no history of exposure to industrial dusts referred for evaluation of abnormal CT scan that showed left diffuse pleural thickening and small 3 mm pulmonary nodules. Patient denies unintended weight loss or chest pain. He does have family history of lung cancer in his father. [facility] Medical History Anxiety and depression Diverticulosis Hyperlipidemia Hypertension Insomnia PTSD (post-traumatic stress disorder) Surgical History History of esophagogastroduodenoscopy (EGD) Hx of colonoscopy History of left hip replacement Social History Alcohol intake: never Patient Tobacco Use Status: Former Tobacco user Current occupational status: employed and disabled Current occupation: rt handed Review of Systems Const Denies daytime sleepiness, Denies excessive sweating, Denies fatigue, Denies fever(s), Denies lethargy, Denies malaise, Denies night sweats, Denies snoring and Denies weight loss Eyes Denies blurry vision and Denies itchy eyes ENT Denies nasal congestion, Denies post nasal drip, Denies sinus pain, Denies sinus pressure and Denies other ( Thrush) Card Denies chest pain, Denies pedal edema, Denies dyspnea, Denies orthopnea and Denies paroxysmal nocturnal dyspnea Resp Denies cough, Denies hemoptysis, Denies excessive phlegm production, Denies dyspnea, Denies snoring and Denies wheezing GI Denies abdominal pain and Denies heartburn Musc Denies myalgias, Denies arthralgias and Denies joint swelling Skin/Breast Denies rash Neuro Denies memory loss and Denies seizure-like activity Psych Denies abnormal sleep pattern, Denies anxiety and Denies memory loss Endo Denies excessive sweating, Denies fatigue and Denies heat intolerance Balwinder/Lymph Denies easy bruising Aller/Immun Denies itchy eyes, Denies seasonal rhinorrhea and Denies wheezing Physical Exam Vital Signs: Last Vital Signs Pulse 76 11/19/22 10:55 BP 138/68 11/19/22 10:55 Pulse Ox 99 11/19/22 10:55 Oxygen Delivery Method Room Air 11/19/22 10:55 BMI result Body Mass Index 25.7 Const General: no acute distress and alert Nutritional Appearance: not obese Orientation/consciousness: Other orientation findings ( oriented) HEENT Head: Yes atraumatic Eyes General: appearance normal, both eyes and all related structures Sclerae: sclerae normal EOM: EOMs intact bilaterally Neck Neck: Yes supple Lymphatic: no lymphadenopathy noted Resp Effort & Inspection: normal respiratory effort and no use of accessory muscles Auscultation: clear to auscultation bilaterally Cardio Rate: regular rate Rhythm: regular rhythm Heart sounds: no gallops, no murmurs and no rubs Skin General skin exam: other ( warm) Extrem General: No clubbing, No cyanosis and No edema Assessment & Plan Assessment & Plan (1) Abnormal CT lung screening: Code(s): R91.8 - Other nonspecific abnormal finding of lung field (2) Pulmonary nodules: Code(s): R91.8 - Other nonspecific abnormal finding of lung field Plan Diffuse left-sided pleural thickening of unclear etiology and significance. Small pulmonary nodules. No history of prolonged asbestos or other industrial dusts exposure. No history of trauma or systemic inflammatory diseases. Will repeat CT chest in 6 months. Orders: Orders CT chest wo IV con 04/30/23 R91.8 - Other nonspecific abnormal finding of lung field Coding Level of Care Code New Pt Level 4 (91746) Diagnoses Abnormal CT lung screening R91.8 Pulmonary nodules R91.8
== END 2022-11-19 11:31 | disposition home or self-care (01) ==
PROVIDERS: PCP Nurse Practitioner Family; Visit Provider Internal Medicine Pulmonary Disease
DX: R91.8 Other nonspecific abnormal finding of lung field (principal)
CPT/HCPCS: 99204

== ENCOUNTER → 2022-11-19 10:43 | Outpatient (BNVA) | payer MEDICARE, MEDICAID, SELFPAY | PROVIDERS: PCP Nurse Practitioner Family; Visit Provider Internal Medicine Pulmonary Disease ==

== ENCOUNTER 2023-01-08 06:16 | Outpatient (REF) | payer MEDICARE, MEDICAID, SELFPAY | END 2023-01-08 06:17 | disposition home or self-care (01) | LOC: CF 06:16 | PROVIDERS: Visit Provider Internal Medicine | DX: M17.12 Unilateral primary osteoarthritis, left knee (principal) | CPT/HCPCS: 20610; J2795; J3301 ==

== ENCOUNTER 2023-01-08 10:54 | Outpatient (AMB) | payer MEDICARE, MEDICAID, SELFPAY ==
--- OUTSIDE RECORDS SUMMARY | 2023-01-08 10:56 | XMS_ITS | Continuity of Care Document ---
Author Name Unknown Organization [facility] Address [address] [place] [address]- Care Team Providers Care Fleet Assistant Name Role Phone Nicole Day NP Primary Care Physician Encounter [facility] Date(s): 02/01/22 - 08/16/22 [facility] [address] [place] [address]- Attending Physician: Nicole Day NP Allergies, Adverse Reactions, Alerts No Known Allergies [...] 07/05/22 15:54:00 EDT, [id number], 165, cm, 06/21/22 14:07:00 EDT, Height, 71.5, kg, 09/20/20 13:46:00 EDT,... Start Date: 07/05/22 Status: Ordered dexlansoprazole 30 mg oral delayed release capsule 1 capsule = 30 mg, By Mouth, Daily, # 30 capsule, 5 Refills, Maintenance, 07/12/19 12:17:00 EDT, [facility]pharmacy [id number], 164, cm, 06/30/19 14:28:00 EDT, Height, 79, kg, 04/28/19 12:58:00 EST, Dry Weight Start Date: 07/12/19 Stop Date: 01/08/20 Status: Ordered diazepam 2 mg oral tablet 4 mg, 2, tablet, By Mouth, 2 times a day, # 120 tablet, Refills 6, Tot. Refills 6, Soft Stop, 07/05/22 15:50:00 EDT, Route to Pharmacy Electronically, [facility] #[id number], 165, cm, 06/21/22 14:07:00 EDT, Height, 71.5, kg, 09/20/20 13:46:00 EDT... Start Date: 07/05/22 Stop Date: 01/31/23 Status: Ordered hydrocortisone 1% topical cream 1 application, Topically, 2 times a day, # 45 Gm, 0 Refills, Maintenance, 01/08/21 17:21:00 EST, Cream, [facility]/pharmacy #[id number], Partial fill upon patient request if the prescription is for a schedule II opioid drug., 1 application Topically 2 times a day,... Start Date: 01/08/21 Status: Ordered lisinopril 30 mg oral tablet 1 tablet = 30 mg, By Mouth, Daily, # 90 tablet, 3 Refills, Maintenance, 02/27/21 15:03:00 EST, Tablet, [facility]/pharmacy #[id number], 165, cm, 12/25/20 14:31:00 EDT, Height, 71.5, kg, 09/20/20 13:46:00 EDT, DryWeight Start Date: 02/27/21 Stop Date: 02/22/22 Status: Ordered Multivitamin Daily, 0 Refills, Maintenance, 06/08/18 14:18:26 EDT Start Date: 06/08/18 Status: Ordered pravastatin 10 mg oral tablet 1 tablet, By Mouth, Daily at bedtime, # 90 tablet, 3 Refills, Maintenance, 03/20/22 8:15:00 EST, [id number], 165, cm, 12/19/21 15:12:00 EDT, Height, 71.5, [...] 07/05/22 15:53:00 EDT, Route to Pharmacy Electronically, [facility] #[id number], 165, cm, 06/21/22 14:07:00 EDT, Height, 71.5, [...] Team Personnel Name: Evelio Serrano MD Position: [facility] Physician - Gastroenterology Member Role: Lifetime Consulting Physician Address: Address: [address] [place] [address], [address] [facility] [place] [address]- Name: Gosia Collins RN Position: [facility] RN Member Role: Primary Care Nurse Name: Nicole Day NP Position: [facility] PCO Associate Professional Member Role: PCP Address: Address: [address] [place] [address] 3rd [place] [address]- Name: Missy Lancaster RN Position: [facility] RN Member Role: Primary Care Nurse Name: Amy Del Toro RN Position: [facility] ED RN W/OE and Tasks Member Role: Primary Care Nurse Name: Rachael Garcia RN Position: [facility] AMB Nurse Member Role: Primary Care Nurse Name: Sole Rodriguez RN Position: [facility] Hospital Informatics Scientist Member Role: Primary Care Nurse Care Team Related Persons Name: OZIEL MACK Address: [place] [address] Name: OZIEL MACK Address: home [place], [place] Name: GHADA QUISPE Address: home [address] [place] [id number]
--- OUTSIDE RECORDS SUMMARY | 2023-01-08 10:56 | XMS_ITS | Continuity of Care Document ---
Author Name Unknown Organization [facility] Address [address] [place] [address]- Care Team Providers Care Solar Photovoltaic Installer Name Role Phone Shay MCDOWELL, Nicole Grider Primary Care Physician Encounter [facility] [place] [place] Date(s): 10/10/22 - 11/09/22 [facility] [address] [place] [address]- [place] Allergies, Adverse Reactions, Alerts No Known Allergies [...] 07/05/22 15:54:00 EDT, [id number], 165, cm, 06/21/22 14:07:00 EDT, Height, 71.5, kg, 09/20/20 13:46:00 EDT,... Start Date: 07/05/22 Status: Ordered dexlansoprazole 30 mg oral delayed release capsule 1 capsule = 30 mg, By Mouth, Daily, # 30 capsule, 5 Refills, Maintenance, 07/12/19 12:17:00 EDT, [facility]/pharmacy #[id number], 164, cm, 06/30/19 14:28:00 EDT, Height, 79, kg, 04/28/19 12:58:00 EST, Dry Weight Start Date: 07/12/19 Stop Date: 01/08/20 Status: Ordered diazepam 2 mg oral tablet 4 mg, 2, tablet, By Mouth, 2 times a day, # 120 tablet, Refills 6, Tot. Refills 6, Soft Stop, 07/05/22 15:50:00 EDT, Route to Pharmacy Electronically, [facility] #[id number], 165, cm, 06/21/22 14:07:00 EDT, Height, 71.5, kg, 09/20/20 13:46:00 EDT... Start Date: 07/05/22 Stop Date: 01/31/23 Status: Ordered hydrocortisone 1% topical cream 1 application, Topically, 2 times a day, # 45 Gm, 0 Refills, Maintenance, 01/08/21 17:21:00 EST, Cream, [facility]/pharmacy #[id number], Partial fill upon patient request if the prescription is for a schedule II opioid drug., 1 application Topically 2 times a day,... Start Date: 01/08/21 Status: Ordered lisinopril 30 mg oral tablet 1 tablet = 30 mg, By Mouth, Daily, # 90 tablet, 3 Refills, Maintenance, 02/27/21 15:03:00 EST, Tablet, [facility]/pharmacy #[id number], 165, cm, 12/25/20 14:31:00 EDT, Height, 71.5, kg, 09/20/20 13:46:00 EDT, DryWeight Start Date: 02/27/21 Stop Date: 02/22/22 Status: Ordered Multivitamin Daily, 0 Refills, Maintenance, 06/08/18 14:18:26 EDT Start Date: 06/08/18 Status: Ordered nitroglycerin 0.4 mg sublingual tablet 1 tablet = 0.4 mg, Sublingual, Every 5 minutes, PRN for chest pain, # 100 tablet, 1 Refills, Maintenance, 09/02/22 13:18:00 EDT, Tablet, [facility] #[id number], Partial fill upon patient requestif the prescription is for a schedule II opioid uma... Start Date: 09/02/22 Status: Ordered pravastatin 10 mg oral tablet 1 tablet, By Mouth, Daily at bedtime, # 90 tablet, 3 Refills, Maintenance, 03/20/22 8:15:00 EST, [id number], 165, cm, 12/19/21 15:12:00 EDT, Height, 71.5, [...] 07/05/22 15:53:00 EDT, [id number], 165, cm, 06/21/22 14:07:00 EDT, Height, 71.5, [...] Team Personnel Name: Evelio Serrano MD Position: [facility] Physician - Gastroenterology Member Role: Lifetime Consulting Physician Address: Address: [address] [place] [address], [address] [facility] [place] [address]- Name: Gosia Collins RN Position: [facility] RN Member Role: Primary Care Nurse Name: Nicole Day NP Position: [facility] PCO Associate Professional Member Role: PCP Address: Address: [address] [place] [address] 3rd [place] [address]- Name: Missy Lancaster RN Position: [facility] RN Member Role: Primary Care Nurse Name: Amy Del Toro RN Position: [facility] ED RN W/OE and Tasks Member Role: Primary Care Nurse Name: Rachael Garcia RN Position: [facility] AMB Nurse Member Role: Primary Care Nurse Name: Sole Rodriguez RN Position: [facility] Associate Judge Member Role: Primary Care Nurse Care Team Related Persons Name: OZIEL MACK Address: [place] [address] Name: OZIEL MACK Address: [place] [address] Name: GHADA QUISPE Address: home [address] [place] [address]
--- OUTSIDE RECORDS SUMMARY | 2023-01-08 10:56 | XMS_ITS | Continuity of Care Document ---
Author Name Unknown Organization [facility] Address [address] [place] [address]- Care Team Providers Care Floor Mechanic Name Role Phone Nicole Day NP Primary Care Physician En[facility] Date(s): 11/15/22 - 12/15/22 [facility] [address] [place] [address]- Allergies, Adverse Reactions, Alerts No Known Allergies [...] 07/05/22 15:54:00 EDT, Route to Pharmacy Electronically, [facility] #[id number], 165, cm, 06/21/22 14:07:00 EDT, Height, 71.5, kg, 09/20/20 13:46:00 EDT,... Start Date: 07/05/22 Status: Ordered dexlansoprazole 30 mg oral delayed release capsule 1 capsule = 30 mg, By Mouth, Daily, # 30 capsule, 5 Refills, Maintenance, 07/12/19 12:17:00 EDT, [facility]/pharmacy #1706, 164, cm, 06/30/19 14:28:00 EDT, Height, 79, kg, 04/28/19 12:58:00 EST, Dry Weight Start Date: 07/12/19 Stop Date: 01/08/20 Status: Ordered diazepam 2 mg oral tablet 4 mg, 2, tablet, By Mouth, 2 times a day, # 120 tablet, Refills 6, Tot. Refills 6, Soft Stop, 07/05/22 15:50:00 EDT, Route to Pharmacy Electronically, [facility] #[id number], 165, cm, 06/21/22 14:07:00 EDT, Height, 71.5, kg, 09/20/20 13:46:00 EDT... Start Date: 07/05/22 Stop Date: 01/31/23 Status: Ordered hydrocortisone 1% topical cream 1 application, Topically, 2 times a day, # 45 Gm, 0 Refills, Maintenance, 01/08/21 17:21:00 EST, Cream, [facility]/pharmacy #[id number], Partial fill upon patient request if the prescription is for a schedule II opioid drug., 1 application Topically 2 times a day,... Start Date: 01/08/21 Status: Ordered lisinopril 30 mg oral tablet 1 tablet = 30 mg, By Mouth, Daily, # 90 tablet, 1 Refills, Maintenance, 11/15/22 13:42:00 EDT, Tablet, [facility] #[id number], 165, cm, 06/21/22 14:07:00 EDT, Height Start Date: 11/15/22 Status: Ordered Multivitamin Daily, 0 Refills, Maintenance, 06/08/18 14:18:26 EDT Start Date: 06/08/18 Status: Ordered nitroglycerin 0.4 mg sublingual tablet 1 tablet = 0.4 mg, Sublingual, Every 5 minutes, PRN for chest pain, # 100 tablet, 9 Refills, Maintenance, 12/09/22 11:18:00 EDT, Tablet, [facility] #[id number], Partial fill upon patient requestif the prescription is for a schedule II opioid uma... Start Date: 12/09/22 Status: Ordered pravastatin 10 mg oral tablet 1 tablet, By Mouth, Daily at bedtime, # 90 tablet, 3 Refills, Maintenance, 03/20/22 8:15:00 EST, [facility], 165, cm, 12/19/21 15:12:00 EDT, Height, 71.5, [...] 07/05/22 15:53:00 EDT, Route to Pharmacy Electronically, [facility] #[id number], 165, cm, 06/21/22 14:07:00 EDT, Height, 71.5, [...] Team Personnel Name: Evelio Serrano MD Position: [facility] Physician - Gastroenterology Member Role: Lifetime Consulting Physician Address: Address: [address] [place] [address], [address] [facility] [place] [address]- Name: Gosia Collins RN Position: [facility] RN Member Role: Primary Care Nurse Name: Nicole Day NP Position: [facility] PCO Associate Professional Member Role: PCP Address: Address: [address] [place] [address] [address] [place] [address]- Name: Missy Lancaster RN Position: [facility] RN Member Role: Primary Care Nurse Name: Amy Del Toro RN Position: [facility] ED RN W/OE and Tasks Member Role: Primary Care Nurse Name: Rachael Garcia RN Position: [facility] AMB Nurse Member Role: Primary Care Nurse Name: Sole Rodriguez RN Position: [facility] Change Agent Member Role: Primary Care Nurse Care Team Related Persons Name: OZIEL MACK Address: [place] [address] Name: OZIEL MACK Address: [place] [address] Name: GHADA QUISPE Address: home [address] [place] [address]
--- OUTSIDE RECORDS SUMMARY | 2023-01-08 10:57 | XMS_ITS | Continuity of Care Document ---
Author Name Unknown Organization [facility] Address [address] [place] [address]- Care Team Providers Care Game Tester Name Role Phone Nicole Day NP Primary Care Physician Encounter [facility] [place] Date(s): 08/07/22 - 09/06/22 [facility] [address] [place] [address]- Allergies, Adverse Reactions, Alerts No Known Allergies [...] 07/05/22 15:54:00 EDT, Route to Pharmacy Electronically, [facility] #[id number], 165, cm, 06/21/22 14:07:00 EDT, Height, 71.5, kg, 09/20/20 13:46:00 EDT,... Start Date: 07/05/22 Status: Ordered dexlansoprazole 30 mg oral delayed release capsule 1 capsule = 30 mg, By Mouth, Daily, # 30 capsule, 5 Refills, Maintenance, 07/12/19 12:17:00 EDT, [facility]/pharmacy #[id number], 164, cm, 06/30/19 14:28:00 EDT, Height, 79, kg, 04/28/19 12:58:00 EST, Dry Weight Start Date: 07/12/19 Stop Date: 01/08/20 Status: Ordered diazepam 2 mg oral tablet 4 mg, 2, tablet, By Mouth, 2 times a day, # 120 tablet, Refills 6, Tot. Refills 6, Soft Stop, 07/05/22 15:50:00 EDT, Route to Pharmacy Electronically, [facility] #[id number], 165, cm, 06/21/22 14:07:00 EDT, Height, 71.5, kg, 09/20/20 13:46:00 EDT... Start Date: 07/05/22 Stop Date: 01/31/23 Status: Ordered hydrocortisone 1% topical cream 1 application, Topically, 2 times a day, # 45 Gm, 0 Refills, Maintenance, 01/08/21 17:21:00 EST, Cream, [facility]/pharmacy #[id number], Partial fill upon patient request if the prescription is for a schedule II opioid drug., 1 application Topically 2 times a day,... Start Date: 01/08/21 Status: Ordered lisinopril 30 mg oral tablet 1 tablet = 30 mg, By Mouth, Daily, # 90 tablet, 3 Refills, Maintenance, 02/27/21 15:03:00 EST, Tablet, [facility]/pharmacy #[id number], 165, cm, 12/25/20 14:31:00 EDT, Height, 71.5, kg, 09/20/20 13:46:00 EDT, DryWeight Start Date: 02/27/21 Stop Date: 02/22/22 Status: Ordered Multivitamin Daily, 0 Refills, Maintenance, 06/08/18 14:18:26 EDT Start Date: 06/08/18 Status: Ordered nitroglycerin 0.4 mg sublingual tablet 1 tablet = 0.4 mg, Sublingual, Every 5 minutes, PRN for chest pain, # 100 tablet, 1 Refills, Maintenance, 09/02/22 13:18:00 EDT, Tablet, [facility] #[id number], Partial fill upon patient requestif the prescription is for a schedule II opioid uma... Start Date: 09/02/22 Status: Ordered pravastatin 10 mg oral tablet 1 tablet, By Mouth, Daily at bedtime, # 90 tablet, 3 Refills, Maintenance, 03/20/22 8:15:00 EST, [id number], 165, cm, 12/19/21 15:12:00 EDT, Height, 71.5, [...] 07/05/22 15:53:00 EDT, Route to Pharmacy Electronically, [facility] #[id number], 165, cm, 06/21/22 14:07:00 EDT, Height, 71.5, [...] Team Personnel Name: Evelio Serrano MD Position: [facility] Physician - Gastroenterology Member Role: Lifetime Consulting Physician Address: Address: [address] [place] [address], [address] [facility] [place] [address]- Name: Gosia Collins RN Position: [facility] RN Member Role: Primary Care Nurse Name: Nicole Day NP Position: [facility] PCO Associate Professional Member Role: PCP Address: Address: [address] [place] [address] 3rd [place] [address]- Name: Missy Lancaster RN Position: [facility] RN Member Role: Primary Care Nurse Name: Amy Del Toro RN Position: [facility] ED RN W/OE and Tasks Member Role: Primary Care Nurse Name: Rachael Garcia RN Position: [facility] Nurse Member Role: Primary Care Nurse Name: Sole Rodriguez RN Position: [facility] Hospital Event Promotions Coordinator Member Role: Primary Care Nurse Care Team Related Persons Name: OZIEL MACK Address: [place] [address] Name: OZIEL MACK Address: [place] [address] Name: GHADA QUISPE Address: home [address] [place] [address]
--- OUTSIDE RECORDS SUMMARY | 2023-01-08 10:58 | XMS_ITS | Continuity of Care Document ---
Author Name Unknown Organization [facility] Address [facility] [place] [address]- Care Team Providers Care Arboriculture Teacher Name Role Phone Shay MCDOWELL, Nicole Grider Primary [id number] Date[facility]s): 07/30/22 - 09/04/22 [facility] [address] [place] [address]- Attending Physician: Miguel Cherry MD Admitting Physician: Miguel Cherry MD Referring Physician: Nicole Day NP Allergies, Adverse Reactions, [...] 07/05/22 15:54:00 EDT, [facility] to [facility]ically[facility][id number], 165, cm, 06/21/22 14:07:00 EDT, Height, 71.5, kg, 09/20/20 13:46:00 EDT,... Start Date: 07/05/22 Status: Ordered dexlansoprazole 30 mg oral delayed release capsule 1 capsule = 30 mg, By Mouth, Daily, # 30 capsule, 5 Refills, Maintenance, 07/12/19 12:17:00 EDT, [facility]/pharmacy #1206, 164, cm, 06/30/19 14:28:00 EDT, Height, 79, kg, 04/28/19 12:58:00 EST, Dry Weight Start Date: 07/12/19 Stop Date: 01/08/20 Status: Ordered diazepam 2 mg oral tablet 4 mg, 2, tablet, By Mouth, 2 times a day, # 120 tablet, Refills 6, Tot. Refills 6, Soft Stop, 07/05/22 15:50:00 EDT, Route to Pharmacy Electronically, [facility] #[id number], 165, cm, 06/21/22 14:07:00 EDT, Height, 71.5, [...] 1 Refills, Maintenance, 09/02/22 13:18:00 EDT, Tablet, [facility] #[id number], Partial fill upon patient requestif the prescription is for a schedule II opioid uma... Start Date: 09/02/22 Status: Ordered pravastatin 10 mg oral tablet 1 tablet, By Mouth, Daily at bedtime, # 90 tablet, 3 Refills, Maintenance, 03/20/22 8:15:00 EST, [facility] 98[facility], 165, cm, 12/19/21 15:12:00 EDT, Height, 71.5, [...] 07/05/22 15:53:00 EDT, Route to Pharmacy Electronically, [facility] #[id number], 165, cm, 06/21/22 14:07:00 EDT, Height, 71.5, [...] Team Personnel Name: Evelio Serrano MD Position: [facility] Physician - Gastroenterology Member Role: Lifetime Consulting Physician Address: Address: [address] [place] [address], [address] [facility] [place] [address]- Name: Gosia Collins RN Position: [facility] RN Member Role: Primary Care Nurse Name: Nicole Day NP Position: [facility] PCO Associate Professional Member Role: PCP Address: Address: [address] [place] [address] 3rd [place] [address]- Name: Missy Lancaster RN Position: S RN Member Role: Primary Care Nurse Name: Amy Del Toro RN Position: [facility] ED RN W/OE and Tasks Member Role: Primary Care Nurse Name: Rachael Garcia RN Position: [facility] Nurse Member Role: Primary Care Nurse Name: Sole Rodriguez RN Position: [facility] Hospital Jet Blade Polisher Member Role: Primary Care Nurse Care Team Related Persons Name: OZIEL MACK Address: [place] [address] Name: OZIEL MACK Address: [place] [address] Name: GHADA QUISPE Address: home [address] [place] [address]
--- OUTSIDE RECORDS SUMMARY | 2023-01-08 11:00 | XMS_ITS | Continuity of Care Document ---
Author Name Unknown Organization [facility] Address [address] [place] [address]- Care Team Providers Care Prospecting Observer Name Role Phone Shay MCDOWELL, Nicole Grider Primary Care Physician Encounter [facility] [place] Date(s): 07/31/22 - 08/30/22 [facility] [address] [place] [address]- [place] Allergies, Adverse Reactions, Alerts No Known [...] 07/05/22 15:54:00 EDT, [id number], 165, cm, 06/21/22 14:07:00 EDT, Height, 71.5, kg, 09/20/20 13:46:00 EDT,... Start Date: 07/05/22 Status: Ordered dexlansoprazole 30 mg oral delayed release capsule 1 capsule = 30 mg, By Mouth, Daily, # 30 capsule, 5 Refills, Maintenance, 07/12/19 12:17:00 EDT, [facility]/pharmacy #[id number], 164, cm, 06/30/19 14:28:00 EDT, Height, 79, kg, 04/28/19 12:58:00 EST, Dry Weight Start Date: 07/12/19 Stop Date: 01/08/20 Status: Ordered diazepam 2 mg oral tablet 4 mg, 2, tablet, By Mouth, 2 times a day, # 120 tablet, Refills 6, Tot. Refills 6, Soft Stop, 07/05/22 15:50:00 EDT, Route to Pharmacy Electronically, [facility] #[id number], 165, cm, 06/21/22 14:07:00 EDT, Height, 71.5, kg, 09/20/20 13:46:00 EDT... Start Date: 07/05/22 Stop Date: 01/31/23 Status: Ordered hydrocortisone 1% topical cream 1 application, Topically, 2 times a day, # 45 Gm, 0 Refills, Maintenance, 01/08/21 17:21:00 EST, Cream, [facility]/pharmacy #[id number], Partial fill upon patient request if the prescription is for a schedule II opioid drug., 1 application Topically 2 times a day,... Start Date: 01/08/21 Status: Ordered lisinopril 30 mg oral tablet 1 tablet = 30 mg, By Mouth, Daily, # 90 tablet, 3 Refills, Maintenance, 02/27/21 15:03:00 EST, Tablet, [facility]/pharmacy #2476, 165, cm, 12/25/20 14:31:00 EDT, Height, 71.5, kg, 09/20/20 13:46:00 EDT, DryWeight Start Date: 02/27/21 Stop Date: 02/22/22 Status: Ordered Multivitamin Daily, 0 Refills, Maintenance, 06/08/18 14:18:26 EDT Start Date: 06/08/18 Status: Ordered pravastatin 10 mg oral tablet 1 tablet, By Mouth, Daily at bedtime, # 90 tablet, 3 Refills, Maintenance, 03/20/22 8:15:00 EST, [id number], 165, cm, 12/19/21 15:12:00 EDT, Height, 71.5, [...] 07/05/22 15:53:00 EDT, Route to Pharmacy Electronically, [facility] #[id number], 165, cm, 06/21/22 14:07:00 EDT, Height, 71.5, [...] Team Personnel Name: Evelio Serrano MD Position: [facility] Physician - Gastroenterology Member Role: Lifetime Consulting Physician Address: Address: [address] [place] [address], [address] [facility] [place] [address]- Name: Gosia Collins RN Position: [facility] RN Member Role: Primary Care Nurse Name: Niocle Day NP Position: [facility] PCO Associate Professional Member Role: PCP Address: Address: [address] [place] [address] 3rd [place] [address]- Name: Missy Lancaster RN Position: [facility] RN Member Role: Primary Care Nurse Name: Amy Del Toro RN Position: [facility] ED RN W/OE and Tasks Member Role: Primary Care Nurse Name: Rachael Garcia RN Position: [facility] AMB Nurse Member Role: Primary Care Nurse Name: Sole Rodriguez RN Position: [facility] Hospital Community Facilitator Member Role: Primary Care Nurse Care Team Related Persons Name: OZIEL MACK Address: home [place], [place] Name: OZIEL MACK Address: home [place], [place] Name: GHADA QUISPE Address: home [address] [place] [id number]
--- OUTSIDE RECORDS SUMMARY | 2023-01-08 11:01 | XMS_ITS | Continuity of Care Document ---
Author Name Unknown Organization [facility] Address [facility] [place] [address]- Care Team Providers Care Concrete Crusher Loader Operator Name Role Phone Shay MCDOWELL, Nicole Grider Primary Care Physician [place] [facility] [place](s): 07/30/22 - 08/29/22 [facility] [address] [place] [phone]- [place] Allergies, Adverse Reactions, Alerts No Known [...] 07/05/22 15:54:00 EDT, [id number], 165, cm, 06/21/22 14:07:00 EDT, Height, 71.5, kg, 09/20/20 13:46:00 EDT,... Start Date: 07/05/22 Status: Ordered dexlansoprazole 30 mg oral delayed release capsule 1 capsule = 30 mg, By Mouth, Daily, # 30 capsule, 5 Refills, Maintenance, 07/12/19 12:17:00 EDT, [facility]/pharmacy #[id number], 164, cm, 06/30/19 14:28:00 EDT, Height, 79, kg, 04/28/19 12:58:00 EST, Dry Weight Start Date: 07/12/19 Stop Date: 01/08/20 Status: Ordered diazepam 2 mg oral tablet 4 mg, 2, tablet, By Mouth, 2 times a day, # 120 tablet, Refills 6, Tot. Refills 6, Soft Stop, 07/05/22 15:50:00 EDT, Route to Pharmacy Electronically, [facility] #[id number], 165, cm, 06/21/22 14:07:00 EDT, Height, 71.5, kg, 09/20/20 13:46:00 EDT... Start Date: 07/05/22 Stop Date: 01/31/23 Status: Ordered hydrocortisone 1% topical cream 1 application, Topically, 2 times a day, # 45 Gm, 0 Refills, Maintenance, 01/08/21 17:21:00 EST, Cream, [facility]/pharmacy #[id number], Partial fill upon patient request if the prescription is for a schedule II opioid drug., 1 application Topically 2 times a day,... Start Date: 01/08/21 Status: Ordered lisinopril 30 mg oral tablet 1 tablet = 30 mg, By Mouth, Daily, # 90 tablet, 3 Refills, Maintenance, 02/27/21 15:03:00 EST, Tablet, [facility]/pharmacy #[id number], 165, cm, 12/25/20 14:31:00 EDT, Height, 71.5, kg, 09/20/20 13:46:00 EDT, DryWeight Start Date: 02/27/21 Stop Date: 02/22/22 Status: Ordered Multivitamin Daily, 0 Refills, Maintenance, 06/08/18 14:18:26 EDT Start Date: 06/08/18 Status: Ordered pravastatin 10 mg oral tablet 1 tablet, By Mouth, Daily at bedtime, # 90 tablet, 3 Refills, Maintenance, 03/20/22 8:15:00 EST, [id number], 165, cm, 12/19/21 15:12:00 EDT, Height, 71.5, [...] 07/05/22 15:53:00 EDT, Route to Pharmacy Electronically, [facility] #[id number], 165, cm, 06/21/22 14:07:00 EDT, Height, 71.5, [...] Team Personnel Name: Evelio Serrano MD Position: [facility] Physician - Gastroenterology Member Role: Lifetime Consulting Physician Address: Address: [address] [place] [address], [address] [facility] [place] [address]- Name: Gosia Collins RN Position: [facility] RN Member Role: Primary Care Nurse Name: Nicole Day NP Position: [facility] PCO Associate Professional Member Role: PCP Address: Address: [address] [place] [address] 3rd [place] [address]- Name: Missy Lancaster RN Position: [facility] RN Member Role: Primary Care Nurse Name: Amy Del Toro RN Position: [facility] ED RN W/OE and Tasks Member Role: Primary Care Nurse Name: Rachael Garcia RN Position: [facility] AMB Nurse Member Role: Primary Care Nurse Name: Sole Rodriguez RN Position: [facility] Hospital Digital Marketing Officer Member Role: Primary Care Nurse Care Team Related Persons Name: OZIEL MACK Address: home [place], [place] Name: OZIEL MACK Address: home [place], [place] Name: GHADA QUISPE Address: home [address] [place] [address]
[2023-01-08 11:03] VITALS: BP 126/70; PULSE 84; RESP 12; O2SAT 99
--- NOTE | 2023-01-08 11:03 | MHC.OFFVIS ---
Intake Vital Signs 01/08/23 11:03 BP 126/70 Blood Pressure Location Rt brachial Position Sitting Respiration 12 Pulse 84 Pulse Source Pulse Oximeter Pulse Oximetry (%) 99 Oxygen Delivery Method Room Air Intake Visit Reasons: Left knee steroid inj Allergies No Known Allergies Allergy (Verified 01/08/23 11:04) HPI Left knee steroid inj HPI Details Patient presents for scheduled procedure. Denies any recent cough, cold, infection, fever or other significant changes in medical history since last office visit. ON LICENSE OF [facility] Medical History Anxiety and depression Diverticulosis Hyperlipidemia Hypertension Insomnia PTSD (post-traumatic stress disorder) Surgical History History of esophagogastroduodenoscopy (EGD) Hx of colonoscopy History of left hip replacement Social History Alcohol intake: never Patient Tobacco Use Status: Former Tobacco user Current occupational status: employed and disabled Current occupation: rt handed Physical Exam Vital Signs: Last Vital Signs Pulse 84 01/08/23 11:03 Resp 12 01/08/23 11:03 BP 126/70 01/08/23 11:03 Pulse Ox 99 01/08/23 11:03 Oxygen Delivery Method Room Air 01/08/23 11:03 Office Procedures Joint Injection/Drain Joint Injection/Drain Primary Site: left knee Injected: 40 mg of, Kenalog, with 3 mL of (ropivacaine 0.5%) and in the joint Approach Used: anteromedial Procedure: The patient tolerated the procedure well Coding 66309 - Large joint Procedure code (CPT) selection complete Results Reviewed Results Reviewed: 01/08/23 11:12 Triamcinolone Acetonide [Kenalog-40] 40 mg .ROUTE .STK-MED ONE 01/08/23 11:13 ROPivacaine HCl/PF 0.5% [Naropin 0.5%] 150 mg .ROUTE .STK-MED ONE Assessment & Plan Assessment & Plan (1) Osteoarthritis of left knee: Code(s): M17.12 - Unilateral primary osteoarthritis, left knee Plan Patient is status post left knee intra-articular corticosteroid injection. Patient tolerated procedure well and was discharged home in stable condition with discharge instructions. All questions were answered. We will follow-up via telephone or in clinic to assess response to therapy. A follow-up appointment was made during today's visit. Orders: Orders FL guidance in treatment room Today M17.12 - Unilateral primary osteoarthritis, left knee Coding Level of Care Code Procedure Only Diagnoses Osteoarthritis of left knee M17.12 CPT Codes Coding - 94043 Large joint: 20757 - Large joint ([id number])
== END 2023-01-08 11:27 | disposition home or self-care (01) ==
LOC: HO.PMCPRC 10:54
PROVIDERS: PCP Nurse Practitioner Family; Visit Provider Internal Medicine
DX: M17.12 Unilateral primary osteoarthritis, left knee (principal)
CPT/HCPCS: 20610

== ENCOUNTER 2023-02-10 12:30 | Outpatient (AMB) | payer MEDICARE, MEDICAID, SELFPAY ==
--- OUTSIDE RECORDS SUMMARY | 2023-02-10 12:32 | XMS_ITS | Continuity of Care Document ---
Author Name Unknown Organization [facility] Address [address] [place] [address]- Care Team Providers Care Laborer Driver Name Role Phone Shay MCDOWELL, Nicole Grider Primary Care Physician [place] [facility] [place](s): 09/11/22 - 01/09/23 [facility] [address] [place] [address]- Attending Physician: Miguel Cherry MD Admitting Physician: [...] 07/05/22 15:54:00 EDT, [id number], 165, cm, 06/21/22 14:07:00 EDT, Height, 71.5, kg, 09/20/20 13:46:00 EDT,... Start Date: 07/05/22 Status: Ordered dexlansoprazole 30 mg oral delayed release capsule 1 capsule = 30 mg, By Mouth, Daily, # 30 capsule, 5 Refills, Maintenance, 07/12/19 12:17:00 EDT, [facility]/pharmacy #[id number], 164, cm, 06/30/19 14:28:00 EDT, Height, 79, kg, 04/28/19 12:58:00 EST, Dry Weight Start Date: 07/12/19 Stop Date: 01/08/20 Status: Ordered diazepam 2 mg oral tablet 4 mg, 2, tablet, By Mouth, 2 times a day, # 120 tablet, Refills 6, Tot. Refills 6, Soft Stop, 07/05/22 15:50:00 EDT, Route to Pharmacy Electronically, [facility] #[id number], 165, cm, 06/21/22 14:07:00 EDT, Height, 71.5, kg, 09/20/20 13:46:00 EDT... Start Date: 07/05/22 Stop Date: 01/31/23 Status: Ordered hydrocortisone 1% topical cream 1 application, Topically, 2 times a day, # 45 Gm, 0 Refills, Maintenance, 01/08/21 17:21:00 EST, Cream, [facility]/pharmacy #[id number], Partial fill upon patient request if the prescription is for a schedule II opioid drug., 1 application Topically 2 times a day,... Start Date: 01/08/21 Status: Ordered lisinopril 30 mg oral tablet 1 tablet = 30 mg, By Mouth, Daily, # 90 tablet, 1 Refills, Maintenance, 11/15/22 13:42:00 EDT, Tablet, [facility] #[id number], 165, cm, 06/21/22 14:07:00 EDT, Height Start Date: 11/15/22 Status: Ordered Multivitamin Daily, 0 Refills, Maintenance, 06/08/18 14:18:26 EDT Start Date: 06/08/18 Status: Ordered nitroglycerin 0.4 mg sublingual tablet 1 tablet = 0.4 mg, Sublingual, Every 5 minutes, PRN for chest pain, # 100 tablet, 9 Refills, Maintenance, 12/09/22 11:18:00 EDT, Tablet, [facility] #[id number], Partial fill upon patient requestif the prescription is for a schedule II opioid uma... Start Date: 12/09/22 Status: Ordered pravastatin 10 mg oral tablet 1 tablet, By Mouth, Daily at bedtime, # 90 tablet, 3 Refills, Maintenance, 03/20/22 8:15:00 EST, [id number], 165, cm, 12/19/21 15:12:00 EDT, Height, 71.5, [...] 07/05/22 15:53:00 EDT, [id number], 165, cm, 06/21/22 14:07:00 EDT, Height, 71.5, [...] Team Personnel Name: Evelio Serrano MD Position: [facility] Physician - Gastroenterology Member Role: Lifetime Consulting Physician Address: Address: [address] [place] [address], [address] [facility] [place] [address]- Name: Gosia Collins RN Position: [facility] RN Member Role: Primary Care Nurse Name: Nicole Day NP Position: [facility] PCO Associate Professional Member Role: PCP Address: Address: [address] [place] [address] 3rd [place] [address]- Name: Missy Lancaster RN Position: [facility] RN Member Role: Primary Care Nurse Name: Amy Del Toro RN Position: [facility] ED RN W/OE and Tasks Member Role: Primary Care Nurse Name: Rachael Garcia RN Position: [facility] AMB Nurse Member Role: Primary Care Nurse Name: Sole Rodriguez RN Position: [facility] Photo Editor Member Role: Primary Care Nurse Care Team Related Persons Name: OZIEL MACK Address: [place] [address] Name: OZIEL MACK Address: [place] [address] Name: GHADA QUISPE Address: home [address] [place] [address]
--- OUTSIDE RECORDS SUMMARY | 2023-02-10 12:34 | XMS_ITS | Continuity of Care Document ---
Author Name Unknown Organization [facility] Address [address] [place] [address]- Care Team Providers Care Inspector Wire Products Name Role Phone Shay MCDOWELL, Nicole Grider Primary Care Physician [place] [facility] [place] 12/09/22 - 01/08/23 [facility] [address] [place] [address]- [place] Allergies, Adverse Reactions, Alerts No Known [...] 07/05/22 15:54:00 EDT, Route to Pharmacy Electronically, [facility] #[id number], 165, cm, 06/21/22 14:07:00 EDT, Height, 71.5, kg, 09/20/20 13:46:00 EDT,... Start Date: 07/05/22 Status: Ordered dexlansoprazole 30 mg oral delayed release capsule 1 capsule = 30 mg, By Mouth, Daily, # 30 capsule, 5 Refills, Maintenance, 07/12/19 12:17:00 EDT, [facility]/pharmacy #[id number], 164, cm, 06/30/19 14:28:00 EDT, Height, 79, kg, 04/28/19 12:58:00 EST, Dry Weight Start Date: 07/12/19 Stop Date: 01/08/20 Status: Ordered diazepam 2 mg oral tablet 4 mg, 2, tablet, By Mouth, 2 times a day, # 120 tablet, Refills 6, Tot. Refills 6, Soft Stop, 07/05/22 15:50:00 EDT, Route to Pharmacy Electronically, [facility] #[id number], 165, cm, 06/21/22 14:07:00 EDT, Height, 71.5, kg, 09/20/20 13:46:00 EDT... Start Date: 07/05/22 Stop Date: 01/31/23 Status: Ordered hydrocortisone 1% topical cream 1 application, Topically, 2 times a day, # 45 Gm, 0 Refills, Maintenance, 01/08/21 17:21:00 EST, Cream, [facility]/pharmacy #[id number], Partial fill upon patient request if the prescription is for a schedule II opioid drug., 1 application Topically 2 times a day,... Start Date: 01/08/21 Status: Ordered lisinopril 30 mg oral tablet 1 tablet = 30 mg, By Mouth, Daily, # 90 tablet, 1 Refills, Maintenance, 11/15/22 13:42:00 EDT, Tablet, [facility] #[id number], 165, cm, 06/21/22 14:07:00 EDT, Height Start Date: 11/15/22 Status: Ordered Multivitamin Daily, 0 Refills, Maintenance, 06/08/18 14:18:26 EDT Start Date: 06/08/18 Status: Ordered nitroglycerin 0.4 mg sublingual tablet 1 tablet = 0.4 mg, Sublingual, Every 5 minutes, PRN for chest pain, # 100 tablet, 9 Refills, Maintenance, 12/09/22 11:18:00 EDT, Tablet, [facility] #10735, Partial fill upon patient requestif the prescription is for a schedule II opioid uma... Start Date: 12/09/22 Status: Ordered pravastatin 10 mg oral tablet 1 tablet, By Mouth, Daily at bedtime, # 90 tablet, 3 Refills, Maintenance, 03/20/22 8:15:00 EST, [facility], 165, cm, 12/19/21 15:12:00 EDT, Height, 71.5, [...] 07/05/22 15:53:00 EDT, Route to Pharmacy Electronically, [facility] #[id number], 165, cm, 06/21/22 14:07:00 EDT, Height, 71.5, [...] Team Personnel Name: Evelio Serrano MD Position: [facility] Physician - Gastroenterology Member Role: Lifetime Consulting Physician Address: Address: [address] [place] [address], [address] [place] [address]- Name: Gosia Collins RN Position: [facility] RN Member Role: Primary Care Nurse Name: Nicole Day NP Position: [facility] PCO Associate Professional Member Role: PCP Address: Address: [address] [place] [address] 3rd [place] [address]- Name: Missy Lancaster RN Position: [facility] RN Member Role: Primary Care Nurse Name: Amy Del Toro RN Position: [facility] ED RN W/OE and Tasks Member Role: Primary Care Nurse Name: Rachael Garcia RN Position: [facility] AMB Nurse Member Role: Primary Care Nurse Name: Sole Rodriguez RN Position: [facility] Hospital Seismographer Member Role: Primary Care Nurse Care Team Related Persons Name: OZIEL MACK Address: [place] [address] Name: OZIEL MACK Address: [place] [address] Name: GHADA QUISPE Address: home [address] [place] [address]
--- OUTSIDE RECORDS SUMMARY | 2023-02-10 12:35 | XMS_ITS | Continuity of Care Document ---
Author Name Unknown Organization [facility] Address [address] [place] [address]- Care Team Providers Care Cereal Maker Name Role Phone Nicole Day NP Primary Care Physician Encounter [facility] [place] Date(s): 12/13/22 - 01/12/23 [facility] [address] [place] [address]- Allergies, Adverse Reactions, Alerts No Known Allergies [...] 07/05/22 15:54:00 EDT, [id number], 165, cm, 06/21/22 14:07:00 EDT, Height, 71.5, kg, 09/20/20 13:46:00 EDT,... Start Date: 07/05/22 Status: Ordered dexlansoprazole 30 mg oral delayed release capsule 1 capsule = 30 mg, By Mouth, Daily, # 30 capsule, 5 Refills, Maintenance, 07/12/19 12:17:00 EDT, [facility]/pharmacy #[id number], 164, cm, 06/30/19 14:28:00 EDT, Height, 79, kg, 04/28/19 12:58:00 EST, Dry Weight Start Date: 07/12/19 Stop Date: 01/08/20 Status: Ordered diazepam 2 mg oral tablet 4 mg, 2, tablet, By Mouth, 2 times a day, # 120 tablet, Refills 6, Tot. Refills 6, Soft Stop, 07/05/22 15:50:00 EDT, Route to Pharmacy Electronically, [facility] #[id number], 165, cm, 06/21/22 14:07:00 EDT, Height, 71.5, kg, 09/20/20 13:46:00 EDT... Start Date: 07/05/22 Stop Date: 01/31/23 Status: Ordered hydrocortisone 1% topical cream 1 application, Topically, 2 times a day, # 45 Gm, 0 Refills, Maintenance, 01/08/21 17:21:00 EST, Cream, [facility]/pharmacy #[id number], Partial fill upon patient request if the prescription is for a schedule II opioid drug., 1 application Topically 2 times a day,... Start Date: 01/08/21 Status: Ordered lisinopril 30 mg oral tablet 1 tablet = 30 mg, By Mouth, Daily, # 90 tablet, 1 Refills, Maintenance, 11/15/22 13:42:00 EDT, Tablet, [facility] #[id number], 165, cm, 06/21/22 14:07:00 EDT, Height Start Date: 11/15/22 Status: Ordered Multivitamin Daily, 0 Refills, Maintenance, 06/08/18 14:18:26 EDT Start Date: 06/08/18 Status: Ordered nitroglycerin 0.4 mg sublingual tablet 1 tablet = 0.4 mg, Sublingual, Every 5 minutes, PRN for chest pain, # 100 tablet, 9 Refills, Maintenance, 12/09/22 11:18:00 EDT, Tablet, [facility] #[id number], Partial fill upon patient requestif the prescription is for a schedule II opioid uma... Start Date: 12/09/22 Status: Ordered pravastatin 10 mg oral tablet 1 tablet, By Mouth, Daily at bedtime, # 90 tablet, 3 Refills, Maintenance, 03/20/22 8:15:00 EST, [facility], 165, cm, 12/19/21 15:12:00 EDT, Height, 71.5, [...] 07/05/22 15:53:00 EDT, Route to Pharmacy Electronically, [facility] #[id number], 165, cm, 06/21/22 14:07:00 EDT, Height, 71.5, [...] Team Personnel Name: Evelio Serrano MD Position: [facility] Physician - Gastroenterology Member Role: Lifetime Consulting Physician Address: Address: [address] [place] [address], [address] [facility] [place] [address]- Name: Gosia Collins RN Position: [facility] RN Member Role: Primary Care Nurse Name: Nicole Day NP Position: [facility] PCO Associate Professional Member Role: PCP Address: Address: [address] [place] [address] [address] [place] [address]- Name: Missy Lancaster RN Position: [facility] RN Member Role: Primary Care Nurse Name: Amy Del Toro RN Position: [facility] ED RN W/OE and Tasks Member Role: Primary Care Nurse Name: Rachael Garcia RN Position: [facility] AMB Nurse Member Role: Primary Care Nurse Name: Sole Rodriguez RN Position: [facility] Software Design Analyst Member Role: Primary Care Nurse Care Team Related Persons Name: OZIEL MACK Address: [place] [address] Name: OZIEL MACK Address: [place] [address] Name: GHADA QUISPE Address: home [address] [place] [address]
--- OUTSIDE RECORDS SUMMARY | 2023-02-10 12:36 | XMS_ITS | Continuity of Care Document ---
Author Name Unknown Organization [facility] Address [address] [place] [address]- Care Team Providers Care Green Inspector Name Role Phone Shay MCDOWELL, Nicole Grider Primary Care Physician Encounter [facility] Date(s): 12/23/22 - 01/22/23 [facility] [address] [place] [address]- [place] Allergies, Adverse Reactions, Alerts No Known [...] 07/05/22 15:54:00 EDT, [facility] to [facility], [id number], 165, cm, 06/21/22 14:07:00 EDT, Height, 71.5, kg, 09/20/20 13:46:00 EDT,... Start Date: 07/05/22 Status: Ordered dexlansoprazole 30 mg oral delayed release capsule 1 capsule = 30 mg, By Mouth, Daily, # 30 capsule, 5 Refills, Maintenance, 07/12/19 12:17:00 EDT, [facility]/pharmacy #7656, 164, cm, 06/30/19 14:28:00 EDT, Height, 79, kg, 04/28/19 12:58:00 EST, Dry Weight Start Date: 07/12/19 Stop Date: 01/08/20 Status: Ordered diazepam 2 mg oral tablet 4 mg, 2, tablet, By Mouth, 2 times a day, # 120 tablet, Refills 6, Tot. Refills 6, Soft Stop, 07/05/22 15:50:00 EDT, Route to Pharmacy Electronically, [facility] #[id number], 165, cm, 06/21/22 14:07:00 EDT, Height, 71.5, kg, 09/20/20 13:46:00 EDT... Start Date: 07/05/22 Stop Date: 01/31/23 Status: Ordered hydrocortisone 1% topical cream 1 application, Topically, 2 times a day, # 45 Gm, 0 Refills, Maintenance, 01/08/21 17:21:00 EST, Cream, [facility]/pharmacy #[id number], Partial fill upon patient request if the prescription is for a schedule II opioid drug., 1 application Topically 2 times a day,... Start Date: 01/08/21 Status: Ordered lisinopril 30 mg oral tablet 1 tablet = 30 mg, By Mouth, Daily, # 90 tablet, 1 Refills, Maintenance, 11/15/22 13:42:00 EDT, Tablet, [facility] #[id number], 165, cm, 06/21/22 14:07:00 EDT, Height Start Date: 11/15/22 Status: Ordered Multivitamin Daily, 0 Refills, Maintenance, 06/08/18 14:18:26 EDT Start Date: 06/08/18 Status: Ordered nitroglycerin 0.4 mg sublingual tablet 1 tablet = 0.4 mg, Sublingual, Every 5 minutes, PRN for chest pain, # 100 tablet, 9 Refills, Maintenance, 12/09/22 11:18:00 EDT, Tablet, [facility] #[id number], Partial fill upon patient requestif the prescription is for a schedule II opioid uma... Start Date: 12/09/22 Status: Ordered pravastatin 10 mg oral tablet 1 tablet, By Mouth, Daily at bedtime, # 90 tablet, 3 Refills, Maintenance, 03/20/22 8:15:00 EST, [facility], 165, cm, 12/19/21 15:12:00 EDT, Height, 71.5, [...] 07/05/22 15:53:00 EDT, Route to Pharmacy Electronically, [facility] #[id number], 165, cm, 06/21/22 14:07:00 EDT, Height, 71.5, [...] Personnel Name: Evelio Serrano MD Position: [facility] Physician - Gastroenterology Member Role: Lifetime Consulting Physician Address: Address: [address] [place] [address], [address] [place] [address]- Name: Gosia Collins RN Position: [facility] RN Member Role: Primary Care Nurse Name: Nicole Day NP Position: [facility] PCO Associate Professional Member Role: PCP Address: Address: [address] [place] [address] 3rd [place] [address]- Name: Missy Lancaster RN Position: [facility] RN Member Role: Primary Care Nurse Name: Amy Del Toro RN Position: [facility] ED RN W/OE and Tasks Member Role: Primary Care Nurse Name: Rachael Garcia RN Position: [facility] AMB Nurse Member Role: Primary Care Nurse Name: Sole Rodriguez RN Position: [facility] Hospital Construction Sales Representative Member Role: Primary Care Nurse Care Team Related Persons Name: OZIEL MACK Address: [place] [address] Name: OZIEL MACK Address: [place] [address] Name: GHADA QUISPE Address: home [address] [place] [address]
[2023-02-10 13:00] VITALS: BP 136/84; PULSE 73; RESP 12; BMI 25.6
--- NOTE | 2023-02-10 13:00 | MHC.OFFVIS ---
Intake Vital Signs 02/10/23 13:00 Height 5 ft 5 in Weight 154 lb BMI 25.6 BP 136/84 Blood Pressure Location Lt brachial Position Sitting Respiration 12 Pulse 73 Pulse Source Pulse Oximeter Intake Visit Reasons: Parth bicipital tendinitis inj Allergies No Known Allergies Allergy (Verified 02/10/23 13:01) Medication List - Last Reconciled 02/10/23 by Chelsea Delaney LPN celecoxib 200 mg PO BID clonidine HCl 0.1 mg PO BID cromolyn 200 mg (10 mL) PO QID 30 days diazepam 4 mg PO BID PRN esomeprazole magnesium 40 mg PO DAILY fexofenadine (Carolyn Allergy) 180 mg PO DAILY fluticasone propionate 50 mcg/actuation 1 spray intranasal BID lisinopril 30 mg PO DAILY loratadine (Claritin) 10 mg PO DAILY nitroglycerin mg sublingual pravastatin 10 mg PO BEDTIME pregabalin 75 mg PO BID trazodone 100 mg PO BEDTIME vitamin A 1 cap PO DAILY HPI Parth bicipital tendinitis inj HPI Details 67-year-old male who presents today to the office for a bilateral bicipital tendon injection. Denies any recent cough, cold, infection, fever or other significant changes in medical history since last office visit. The patient reports worsening knee and shoulder pain. He performs exercises twice every day. He reports pain in the arm while doing a pushup. He had difficulty climbing stairs, and his pain is worse when going down. His recent imaging showed a spot on his lungs, and he will follow up with a electrical maintenance supervisor in May 2023. He has a history of behavioral problems and PTSD. He is on disability. Past procedures 01/08/23: left knee intra-articular corticosteroid injection: 50% relief for 3-4 weeks. 10/16/22: Interlaminar epidural steroid injection, L5-S1, right parasaggital: 60% relief. 10/09/22: left knee Synvisc One injection intra-articular: 75% relief. 08/15/22: bilateral bicipital tendon injections: 80% relief. 07/17/22: Interlaminar epidural steroid injection, L5/S1, Right parasaggital: 60% relief. 05/24/22: right bicipital tendon and supraspinatus tendon injection: 80% relief. 05/08/2022: Left knee Synvisc one injection under fluoroscopy - 75% relief for 2 weeks. 12/17/21: Left Bicep Tendon Injection US guided ? 90% relief for 3 months. [facility] Medical History Anxiety and depression Diverticulosis Hyperlipidemia Hypertension Insomnia PTSD (post-traumatic stress disorder) Surgical History History of esophagogastroduodenoscopy (EGD) Hx of colonoscopy History of left hip replacement Social History Alcohol intake: never Patient Tobacco Use Status: Former Tobacco user Current occupational status: employed and disabled Current occupation: rt handed Review of Systems Const All systems reviewed & are unremarkable except as noted in HPI and below Physical Exam Vital Signs: Last Vital Signs Pulse 73 02/10/23 13:00 Resp 12 02/10/23 13:00 BP 136/84 02/10/23 13:00 BMI result Body Mass Index 25.6 General: Appears afebrile. Alert and oriented. Mood and affect appropriate. Follows and participates in conversation appropriately. Respiratory effort is unlabored. Able to transition from sit to stand unassisted. Ambulates with bilaterally normal heel strike and toe off. Office Procedures Joint Injection/Drain Joint Injection/Drain Details: Bilateral bicipital tendon injections, ultrasound guided Primary Site: left shoulder Secondary Site: right shoulder Prep: site was prepped using aseptic technique and site was prepped using sterile technique Injected: 40 mg of, Kenalog, with 3 mL of, 1% plain lidocaine and other (around each tendon) Approach Used: anterior Procedure: The patient tolerated the procedure well Coding Details: An ultrasound image of the injection was taken and stored in the permanent record. 38137 - Bicipital Groove Injection (bilateral, ultrasound guided) Procedure code (CPT) selection complete Results Reviewed Results Reviewed: No imaging is available for review. Assessment & Plan Assessment & Plan (1) Biceps tendonitis of both shoulders: Code(s): M75.21 - Bicipital tendinitis, right shoulder; M75.22 - Bicipital tendinitis, left shoulder (2) Osteoarthritis of left knee: Code(s): M17.12 - Unilateral primary osteoarthritis, left knee Plan Mateus is quite disappointed that he has been ruled out for a left knee replacement despite having significant osteoarthritis and pain. He requested that I arrange for him to see a different orthopedic surgeon to get his knee replaced. I encouraged him to follow-up with the orthopedics office and apprise them of his current situation. For today he is status post bilateral bicipital tendon injections, ultrasound guided. Patient tolerated procedure well and was discharged home in stable condition with discharge instructions. All questions were answered. Scribed for Dr. Bridges by Jermain Chris, medical diagnostic radiographer, on 02/10/2023. I, Dr. Bridges, have personally reviewed and agree with the information entered by the scribe. Coding Level of Care Code Est Pt Level 3 (48093) Diagnoses Biceps tendonitis of both shoulders M75.21; M75.22 Osteoarthritis of left knee M17.12 CPT Codes Coding - Joint 1: 54676 - Bicipital Groove Injection ([id number])
== END 2023-02-10 13:44 | disposition home or self-care (01) ==
PROVIDERS: PCP Nurse Practitioner Family; Visit Provider Internal Medicine
DX: M75.21 Bicipital tendinitis, right shoulder (principal); M75.22 Bicipital tendinitis, left shoulder
CPT/HCPCS: 20550

== ENCOUNTER → 2023-02-10 12:30 | Outpatient (BNVA) | payer MEDICARE, MEDICAID, SELFPAY | PROVIDERS: PCP Nurse Practitioner Family; Visit Provider Internal Medicine | DX: M75.21 Bicipital tendinitis, right shoulder (principal); M75.22 Bicipital tendinitis, left shoulder; M17.12 Unilateral primary osteoarthritis, left knee | CPT/HCPCS: 20550; J0665; J3301 ==

== ENCOUNTER 2023-03-20 06:21 | Outpatient (REF) | payer MEDICARE, MEDICAID, SELFPAY ==
--- NOTE | ~2023-03-20 | FL_ITS ---
EXAMINATION: XR FLUOROSCOPY WITH IMAGES CLINICAL INFORMATION: Knee pain. Unilateral primary osteoarthritis of left knee. COMPARISON: 10/09/2022 TECHNIQUE: Fluoroscopy Supervised By: Dr. Bui. Fluoroscopy Time: 6.7 sec Cumulative Dose: 0.45 mGy. DAP: This information is not given on the dose data summary sheet. Images: 1 FL/FL guidance in treatment room FINDINGS AND IMPRESSION: Lateral view of the left knee shows chronic osteoarthritic deformity and osteochondral bodies of the knee. There is a well-positioned injection needle with iodinated contrast opacification seen within the tibiofemoral joint space. Please refer to the procedure report.
--- NOTE | ~2023-03-20 | FL_ITS ---
EXAMINATION: XR FLUOROSCOPY WITH IMAGES CLINICAL INFORMATION: L5-S1 epidural steroid injection. COMPARISON: 10/16/2022 TECHNIQUE: Fluoroscopy Supervised By: Dr. Bui. Fluoroscopy Time: 12.9 sec Cumulative Dose: 3.45 mGy. DAP: This information is not provided on the dose summary sheet. Images: 4 FL/FL guidance in treatment room FINDINGS AND IMPRESSION: Multilevel degenerative loss of disc height and osteophyte formation of lumbar spine. Mild degenerative retrolisthesis at L3-L4 and L4-L5. Fluoroscopic imaging equipment was utilized during the epidural steroid injection procedure at L5-S1 level by Dr. Bui. Please refer to the procedure report.
== END 2023-03-20 06:22 | disposition home or self-care (01) ==
LOC: CF 06:21
PROVIDERS: Visit Provider Internal Medicine
DX: M17.12 Unilateral primary osteoarthritis, left knee (principal); M54.16 Radiculopathy, lumbar region
CPT/HCPCS: 20610; 62323; J1100; J2795; J3301; Q9967

== ENCOUNTER 2023-03-20 14:02 | Outpatient (AMB) | payer MEDICARE, MEDICAID, SELFPAY ==
[2023-03-20 14:04] VITALS: BP 162/100; PULSE 118; O2SAT 99
--- NOTE | 2023-03-20 14:04 | A.OFFVIS_ITS ---
Intake Vital Signs 03/20/23 14:04 03/20/23 15:20 Height 5 ft 5 in BP 162/100 H 144/78 H Blood Pressure Location Lt brachial Lt brachial Position Sitting Sitting Pulse 118 H 82 Pulse Source Doppler Doppler Pulse Oximetry (%) 99 98 Oxygen Delivery Method Room Air Room Air Intake Visit Reasons: r L5-S1 parasag interlaminar JOYCE/L knee synvisc Allergies No Known Allergies Allergy (Verified 02/10/23 13:01) HPI r L5-S1 parasag interlaminar JOYCE/L knee synvisc HPI Details Patient presents for scheduled procedure. Denies any recent cough, cold, infection, fever or other significant changes in medical history since last office visit. [facility] Medical History Anxiety and depression Diverticulosis Hyperlipidemia Hypertension Insomnia PTSD (post-traumatic stress disorder) Surgical History History of esophagogastroduodenoscopy (EGD) Hx of colonoscopy History of left hip replacement Social History Alcohol intake: never Patient Tobacco Use Status: Former Tobacco user Current occupational status: employed and disabled Current occupation: rt handed Physical Exam Vital Signs: Last Vital Signs Pulse 82 03/20/23 15:20 BP 144/78 H 03/20/23 15:20 Pulse Ox 98 03/20/23 15:20 Oxygen Delivery Method Room Air 03/20/23 15:20 Office Procedures Joint Injection/Drain Joint Injection/Drain Details: Interlaminar epidural steroid injection, L5-S1, right parasaggital After obtaining written consent, pre-procedure blood pressure and heart rate were stable and recorded in the nursing record. The patient was placed in the prone position. The lumbosacral area was widely prepped with chloraprep and draped in sterile fashion. Fluoroscopic guidance was used to identify the desired interlaminar space and for needle placement. Subcutaneous 0.5% lidocaine was used to anesthetize the skin overlying the targe t. A 20-gauge Randle needle was advanced to the epidural space using loss of resistance to contrast technique under fluoroscopic AP and contralateral oblique views. There was no evidence of heme or CSF and no paresthesias were elicited with needle placement. Confirmation of epidural needle placement was performed with 1cc of omnipaque 180. Next 3 ml 0.5% lidocaine mixed with 80 mg triamcinolone was administered epidurally with no pain elicited on injection. The needle tract tubing was then cleared with 1 ml of 0.5% lidocaine. The needle was removed, skin cleansed and a sterile bandage was applied. The patient tolerated the procedure well and no complications were encountered. Following the procedure the patient's vital signs were stable. The patient was discharged home in good condition with post-procedural instructions. Time Out: Immediately prior to the procedure, the following was verbally confirmed that there is a signed consent form and that the correct patient, planned procedure, site and side are consistent with documentation and that necessary equipment and/or blood products are available prior to the start of the case. Complications: none EBL: <5 cc Coding 52533 - Caudal/Lumbar Epidural/Interlaminar with fluoroscopy Procedure code (CPT) selection complete Joint Injection/Drain Joint Injection/Drain Primary Site: left knee Prep: site was prepped using sterile technique Approach Used: anteromedial Coding Details: The left knee was visualized using fluoroscopy. A 25 gauge needle was advanced intra-articularly under fluoroscopy and placement was confirmed with Omnipaque 1 cc 180 milligrams/mL. Following intra-articular confirmation, the prepackaged Synvisc-One syringe was retrieved and administered to the joint. The patient tolerated the procedure well. Synvisc Lot # [id number] Exp Date 2025-08-23 - Large joint (Hylan Injection ) Procedure code (CPT) selection complete Assessment & Plan Assessment & Plan (1) Osteoarthritis of left knee: Code(s): M17.12 - Unilateral primary osteoarthritis, left knee (2) Lumbar radiculopathy: Code(s): M54.16 - Radiculopathy, lumbar region Plan Patient is status post right parasagittal L5-S1 interlaminar JOYCE as well as left knee intra-articular Synvisc-One injection. Patient tolerated procedure well and was discharged home in stable condition with discharge instructions. All questions were answered. We will follow-up via telephone or in clinic to assess response to therapy. A follow-up appointment was made during today's visit. Orders: Orders FL guidance in treatment room 03/20/23 M54.16 - Radiculopathy, lumbar region FL guidance in treatment room 03/20/23 M17.12 - Unilateral primary osteoarthritis, left knee Coding Level of Care Code Procedure Only Diagnoses Osteoarthritis of left knee M17.12 Lumbar radiculopathy M54.16 CPT Codes Coding - Joint 11: 39417 - Caudal/Lumbar Epidural/Interlaminar with fluoroscopy ([id number]) Coding - 73592 Large joint: 45000 - Large joint ([id number])
--- OUTSIDE RECORDS SUMMARY | 2023-03-20 14:07 | XMS_ITS | Continuity of Care Document ---
Author Name Unknown Organization [facility] Address [facility] [place] [address]- Care Team Providers Care Supervisor Telephone Clerks Name Role Phone Shay MCDOWELL, Nicole Grider Primary Care Physician [place] [facility] [place]): 01/13/23 - 02/12/23 [facility] [address] [place] [address]- [place] Allergies, Adverse Reactions, Alerts No Known [...] 07/05/22 15:54:00 EDT, [id number], 165, cm, 06/21/22 14:07:00 EDT, Height, 71.5, kg, 09/20/20 13:46:00 EDT,... Start Date: 07/05/22 Status: Ordered dexlansoprazole 30 mg oral delayed release capsule 1 capsule = 30 mg, By Mouth, Daily, # 30 capsule, 5 Refills, Maintenance, 07/12/19 12:17:00 EDT, [facility]/pharmacy #[id number], 164, cm, 06/30/19 14:28:00 EDT, Height, 79, kg, 04/28/19 12:58:00 EST, Dry Weight Start Date: 07/12/19 Stop Date: 01/08/20 Status: Ordered diazepam 2 mg oral tablet 4 mg, 2, tablet, By Mouth, 2 times a day, # 120 tablet, Refills 6, Tot. Refills 6, Soft Stop, 07/05/22 15:50:00 EDT, Route to Pharmacy Electronically, [facility] #[id number], 165, cm, 06/21/22 14:07:00 EDT, Height, 71.5, kg, 09/20/20 13:46:00 EDT... Start Date: 07/05/22 Stop Date: 01/31/23 Status: Ordered hydrocortisone 1% topical cream 1 application, Topically, 2 times a day, # 45 Gm, 0 Refills, Maintenance, 01/08/21 17:21:00 EST, Cream, [facility]/pharmacy #[id number], Partial fill upon patient request if the prescription is for a schedule II opioid drug., 1 application Topically 2 times a day,... Start Date: 01/08/21 Status: Ordered lisinopril 30 mg oral tablet 1 tablet = 30 mg, By Mouth, Daily, # 90 tablet, 1 Refills, Maintenance, 11/15/22 13:42:00 EDT, Tablet, [facility] #[id number], 165, cm, 06/21/22 14:07:00 EDT, Height Start Date: 11/15/22 Status: Ordered Multivitamin Daily, 0 Refills, Maintenance, 06/08/18 14:18:26 EDT Start Date: 06/08/18 Status: Ordered nitroglycerin 0.4 mg sublingual tablet 1 tablet = 0.4 mg, Sublingual, Every 5 minutes, PRN for chest pain, # 100 tablet, 9 Refills, Maintenance, 12/09/22 11:18:00 EDT, Tablet, [facility] #[id number], Partial fill upon patient requestif the prescription is for a schedule II opioid uma... Start Date: 12/09/22 Status: Ordered pravastatin 10 mg oral tablet 1 tablet, By Mouth, Daily at bedtime, # 90 tablet, 3 Refills, Maintenance, 03/20/22 8:15:00 EST, [id number], 165, cm, 12/19/21 15:12:00 EDT, Height, 71.5, [...] 07/05/22 15:53:00 EDT, Route to Pharmacy Electronically, [facility] #[id number], 165, cm, 06/21/22 14:07:00 EDT, Height, 71.5, [...] Team Personnel Name: Evelio Serrano MD Position: [facility] Physician - Gastroenterology Member Role: Lifetime Consulting Physician Address: Address: [address] [place] [address], [address] [place] [address]- Name: Gosia Collins RN Position: [facility] RN Member Role: Primary Care Nurse Name: Nicole Day NP Position: [facility] PCO Associate Professional Member Role: PCP Address: Address: [address] [place] [address] [address] [place] [address]- Name: Missy Lancaster RN Position: [facility] RN Member Role: Primary Care Nurse Name: Amy Del Toro RN Position: [facility] ED RN W/OE and Tasks Member Role: Primary Care Nurse Name: Rachael Garcia RN Position: [facility] AMB Nurse Member Role: Primary Care Nurse Name: Sole Rodriguez RN Position: [facility] Hospital Stretcher And Drier Member Role: Primary Care Nurse Care Team Related Persons Name: OZIEL MACK Address: [place] [address] Name: OZIEL MACK Address: [place] [address] Name: GHADA QUISPE Address: home [address] [place] [address]
--- OUTSIDE RECORDS SUMMARY | 2023-03-20 14:09 | XMS_ITS | Continuity of Care Document ---
Author Name Unknown Organization [facility] Address [address] [place] [address]- Care Team Providers Care Sponge Buffer Name Role Phone Shay MCDOWELL, Nicole Grider Primary [id number] Date(s[facility]/09/22 - 03/06/23 [facility] [address] [place] [address]- Attending Physician: Miguel Cherry MD Admitting Physician: [...] 07/05/22 15:54:00 EDT, [id number], 165, cm, 06/21/22 14:07:00 EDT, Height, 71.5, kg, 09/20/20 13:46:00 EDT,... Start Date: 07/05/22 Status: Ordered dexlansoprazole 30 mg oral delayed release capsule 1 capsule = 30 mg, By Mouth, Daily, # 30 capsule, 5 Refills, Maintenance, 07/12/19 12:17:00 EDT, [facility]/pharmacy #[id number], 164, cm, 06/30/19 14:28:00 EDT, Height, 79, kg, 04/28/19 12:58:00 EST, Dry Weight Start Date: 07/12/19 Stop Date: 01/08/20 Status: Ordered diazepam 2 mg oral tablet 4 mg, 2, tablet, By Mouth, 2 times a day, # 120 tablet, Refills 6, Tot. Refills 6, Soft Stop, 07/05/22 15:50:00 EDT, Route to Pharmacy Electronically, [facility] #[id number], 165, cm, 06/21/22 14:07:00 EDT, Height, 71.5, kg, 09/20/20 13:46:00 EDT... Start Date: 07/05/22 Stop Date: 01/31/23 Status: Ordered hydrocortisone 1% topical cream 1 application, Topically, 2 times a day, # 45 Gm, 0 Refills, Maintenance, 01/08/21 17:21:00 EST, Cream, [facility]/pharmacy #[id number], Partial fill upon patient request if the prescription is for a schedule II opioid drug., 1 application Topically 2 times a day,... Start Date: 01/08/21 Status: Ordered lisinopril 30 mg oral tablet 1 tablet = 30 mg, By Mouth, Daily, # 90 tablet, 1 Refills, Maintenance, 11/15/22 13:42:00 EDT, Tablet, [facility] #[id number], 165, cm, 06/21/22 14:07:00 EDT, Height Start Date: 11/15/22 Status: Ordered Multivitamin Daily, 0 Refills, Maintenance, 06/08/18 14:18:26 EDT Start Date: 06/08/18 Status: Ordered nitroglycerin 0.4 mg sublingual tablet 1 tablet = 0.4 mg, Sublingual, Every 5 minutes, PRN for chest pain, # 100 tablet, 9 Refills, Maintenance, 12/09/22 11:18:00 EDT, Tablet, [facility] #[id number], Partial fill upon patient requestif the prescription is for a schedule II opioid uma... Start Date: 12/09/22 Status: Ordered pravastatin 10 mg oral tablet 1 tablet, By Mouth, Daily at bedtime, # 90 tablet, 3 Refills, Maintenance, 03/20/22 8:15:00 EST, [id number], 165, cm, 12/19/21 15:12:00 EDT, Height, 71.5, [...] 07/05/22 15:53:00 EDT, [id number], 165, cm, 06/21/22 14:07:00 EDT, Height, 71.5, [...] Member Role: Lifetime Consulting Physician Address: Address: [address] [place] [address], [address] [facility] [place] [address]- Name: Gosia Collins RN Position: [facility] RN Member Role: Primary Care Nurse Name: Nicole Day NP Position: [facility] PCO Associate Professional Member Role: PCP Address: Address: [address] [place] [address] [address] [place] [address]- Name: Missy Lancaster RN Position: [facility] RN Member Role: Primary Care Nurse Name: Amy Del Toro RN Position: [facility] ED RN W/OE and Tasks Member Role: Primary Care Nurse Name: Rachael Garcia RN Position: [facility] AMB Nurse Member Role: Primary Care Nurse Name: Sole Rodriguez RN Position: [facility] Yacht Rigger Member Role: Primary Care Nurse Care Team Related Persons Name: OZIEL MACK Address: [place] [address] Name: OZIEL MACK Address: [place] [address] Name: GHADA QUISPE Address: home [address] [place] [id number]
[2023-03-20 15:20] VITALS: BP 144/78; PULSE 82; O2SAT 98
== END 2023-03-20 15:15 | disposition home or self-care (01) ==
LOC: HO.PMCPRC 14:02
PROVIDERS: PCP Nurse Practitioner Family; Visit Provider Internal Medicine
DX: M54.16 Radiculopathy, lumbar region (principal); M17.12 Unilateral primary osteoarthritis, left knee
CPT/HCPCS: 20610; 62323; 77002

== ENCOUNTER 2023-04-22 13:07 | Outpatient (AMB) | payer MEDICARE, MEDICAID, SELFPAY ==
[2023-04-22 13:08] VITALS: BMI 25.6
--- NOTE | 2023-04-22 13:08 | MHC.OFFVIS ---
Intake Vital Signs 04/22/23 13:08 Height 5 ft 5 in Weight 154 lb BMI 25.6 Intake Visit Reasons: new Prob- Right shoulder pain Intake Note: Mateus is a 67 year old male who presents with bilateral shoulder pain. Patient reports his pain has been going on for about 6 months and is a 10 on the 1-10 pain scale. He states that he has had bilateral bicipital groove injection in January which gave some relief. The patient reports weakness when lifting his right hand above shoulder height. He has taken Tylenol and anti-inflammatory medicines which gave him minimal relief. He has also done physical therapy exercises which aggravated his pain. The patient states that he exercises as much as possible. He is not able to do pull-ups. He has increased pain and weakness when trying to do pushups. Allergies No Known Allergies Allergy (Verified 04/22/23 13:17) Medication List - Last Reconciled 04/22/23 by Arpit Aragon MD celecoxib 200 mg PO BID clonidine HCl 0.1 mg PO BID cromolyn 200 mg (10 mL) PO QID 30 days cromolyn (Nasalcrom) 1 spray intranasal TID diazepam 4 mg PO BID PRN esomeprazole magnesium 40 mg PO DAILY fexofenadine (Carolyn Allergy) 180 mg PO DAILY fluticasone propionate 50 mcg/actuation 1 spray intranasal BID lisinopril 30 mg PO DAILY loratadine (Claritin) 10 mg PO DAILY nitroglycerin mg sublingual pravastatin 10 mg PO BEDTIME pregabalin 75 mg PO BID trazodone 100 mg PO BEDTIME vitamin A 1 cap PO DAILY [facility] Medical History Anxiety and depression Diverticulosis Hyperlipidemia Hypertension Insomnia PTSD (post-traumatic stress disorder) Surgical History History of esophagogastroduodenoscopy (EGD) Hx of colonoscopy History of left hip replacement Social History Alcohol intake: never Patient Tobacco Use Status: Former Tobacco user Current occupational status: employed and disabled Current occupation: rt handed Physical Exam Vital Signs: BMI result Body Mass Index 25.6 Extrem Other: Right shoulder examination shows slightly decreased range of motion when compared to his left shoulder, 4+ out of 5 strength with supraspinatus testing, positive impingement signs, tenderness over his acromioclavicular joint Results Reviewed Results Reviewed: X-rays of the patient's right shoulder show severe acromioclavicular joint narrowing, a type 3 acromion, no acute bony abnormalities Assessment & Plan Assessment & Plan (1) Impingement of right shoulder: Code(s): M25.811 - Other specified joint disorders, right shoulder Plan Mr. Beyer presents with right shoulder pain and weakness due to impingement syndrome and possible rotator cuff tearing. Thus, I will send the patient for an MRI of his right shoulder for further evaluation. I will see him back once the MRI is completed to discuss the findings and treatment options. Feel free to call me at any time should questions regarding his orthopedic management arise. Thank you very much for asking me to see this very friendly gentleman. I spent 22 minutes in reviewing the patient's records and imaging studies, seeing the patient and documenting in the medical record. Orders: Orders MR shoulder RT wo con 05/01/23 M75.101 - Unspecified rotator cuff tear or rupture of right shoulder, not specified as traumatic Coding Level of Care Code Est Pt Level 2 (31938) Diagnoses Impingement of right shoulder M25.811
== END 2023-04-22 13:48 | disposition home or self-care (01) ==
PROVIDERS: PCP Nurse Practitioner Family; Visit Provider Orthopaedic Surgery
DX: M25.811 Other specified joint disorders, right shoulder (principal)
CPT/HCPCS: 99213

== ENCOUNTER → 2023-04-22 13:07 | Outpatient (BNVA) | payer MEDICARE, MEDICAID, SELFPAY | PROVIDERS: PCP Nurse Practitioner Family; Visit Provider Orthopaedic Surgery | DX: M25.811 Other specified joint disorders, right shoulder (principal) | CPT/HCPCS: 99212 ==

== ENCOUNTER 2023-05-01 12:49 | Outpatient (REF) | payer MEDICARE, MEDICAID, SELFPAY ==
--- NOTE | ~2023-05-01 | CT_ITS ---
EXAMINATION: CT CHEST WITHOUT CONTRAST CLINICAL INFORMATION: Abnormal CT lung screening. COMPARISON: CT chest 10/07/2022. TECHNIQUE: Multidetector volumetric CT imaging of the chest was done. Axial MIP volume rendering provided. Sagittal and coronal reformatted images were obtained. This CT examination was performed using dose optimization techniques as appropriate, variously including the following: *Automated exposure control *Adjustment of mA and/or kV according to patient size (this includes techniques or standardized protocols for targeted exams where dose is matched to indication/reason for exam; i.e. extremities or head) *Use of iterative reconstruction technique DLP: 175 mGy-cm FINDINGS: LUNGS: Scattered areas of peripheral scarring are again seen in the left lung, completely unchanged when compared to 10/07/2022. A few tiny micronodules are present and unchanged including a left upper lobe calcified granuloma. The lungs are otherwise clear with no evidence of worrisome masses/nodules. MEDIASTINUM: Some unchanged calcifications are seen along the pericardium. The mediastinum is otherwise unremarkable. CORONARY ARTERY CALCIFICATION: Mild. PLEURA: There is no pleural effusion. No pleural mass or thickening. AXILLA: No lymphadenopathy. UPPER ABDOMEN: There is probable cholelithiasis without evidence of cholecystitis (5:592). This could be confirmed with ultrasound if needed. OSSEOUS STRUCTURES: Degenerative changes are present in the spine. No bony destructive lesions. CT/CT chest wo IV con IMPRESSION: 1. No worrisome pulmonary nodules are seen. 2. Incidental note made of pericardial calcifications, probable cholelithiasis and degenerative changes in the spine. Fleischner guidelines were followed.
== END 2023-05-01 12:50 | disposition home or self-care (01) ==
LOC: HO.CT 12:49
PROVIDERS: PCP Nurse Practitioner Family; Visit Provider Internal Medicine Pulmonary Disease
DX: R91.8 Other nonspecific abnormal finding of lung field (principal); M25.312 Other instability, left shoulder; M25.512 Pain in left shoulder; Z79.899 Other long term (current) drug therapy
CPT/HCPCS: 71250; 73030; 99212

== ENCOUNTER 2023-05-01 13:19 | Outpatient (AMB) | payer MEDICARE, MEDICAID, SELFPAY ==
[2023-05-01 13:50] VITALS: BMI 25.6
--- NOTE | 2023-05-01 13:50 | MHC.OFFVIS ---
Intake Vital Signs 05/01/23 13:50 Height 5 ft 5 in Weight 154 lb BMI 25.6 Intake Visit Reasons: New Prob- Left Shoulder pain Intake Note: Mateus is a 67 year old Right hand dominate male who presents with Left shoulder pain and weakness. The patient states that he injured his shoulder approximately 5 years ago. Since that time his symptoms have gotten worse. He has weakness when lifting his left hand above shoulder height. He has had multiple injections in the past which gave him minimal relief. The patient has tried Tylenol and anti-inflammatory medicines which gave him minimal relief. He has also done physical therapy which aggravated his pain. Allergies No Known Allergies Allergy (Verified 05/01/23 13:58) Medication List - Last Reconciled 05/01/23 by Arpit Aragon MD celecoxib 200 mg PO BID clonidine HCl 0.1 mg PO BID cromolyn 200 mg (10 mL) PO QID 30 days cromolyn (Nasalcrom) 1 spray intranasal TID diazepam 4 mg PO BID PRN esomeprazole magnesium 40 mg PO DAILY fexofenadine (Carolyn Allergy) 180 mg PO DAILY fluticasone propionate 50 mcg/actuation 1 spray intranasal BID lisinopril 30 mg PO DAILY loratadine (Claritin) 10 mg PO DAILY nitroglycerin mg sublingual pravastatin 10 mg PO BEDTIME pregabalin 75 mg PO BID trazodone 100 mg PO BEDTIME vitamin A 1 cap PO DAILY PFSH Medical History Anxiety and depression Diverticulosis Hyperlipidemia Hypertension Insomnia PTSD (post-traumatic stress disorder) Surgical History History of esophagogastroduodenoscopy (EGD) Hx of colonoscopy History of left hip replacement Social History Alcohol intake: never Patient Tobacco Use Status: Former Tobacco user Current occupational status: employed and disabled Current occupation: rt handed Physical Exam Vital Signs: BMI result Body Mass Index 25.6 Const Other: Well-nourished well-developed very friendly male awake alert and oriented x3 in no acute distress Extrem Other: Bilateral upper extremity examination shows good capillary refill, no skin lesions noted, normal sensation light touch Left shoulder examination shows decreased range of motion when compared to his right shoulder, 4/5 strength with supraspinatus testing, positive impingement signs, tenderness over his acromioclavicular joint, no instability Results Reviewed Results Reviewed: X-rays of the patient's left shoulder taken today show severe acromioclavicular joint narrowing, a type 3 acromion, no acute bony abnormalities Assessment & Plan Assessment & Plan (1) Rotator cuff insufficiency of left shoulder: Code(s): M25.312 - Other instability, left shoulder Plan Mr. Beyer presents with progressively worsening left shoulder pain weakness due to impingement syndrome and possible full-thickness rotator cuff tearing. Thus, I will send the patient for an MRI of his left shoulder to further evaluate the status of his rotator cuff tendons. I will see him back once the MRI is completed to discuss the findings and treatment options. Feel free to call me at any time should questions regarding his orthopedic management arise. I spent 22 minutes in reviewing the patient's records and imaging studies, seeing the patient and documenting in the medical record. Orders: Orders XR shoulder LT min 2V Today M25.512 - Pain in left shoulder MR shoulder LT wo con Today M75.102 - Unspecified rotator cuff tear or rupture of left shoulder, not specified as traumatic Coding Level of Care Code Est Pt Level 2 (36888) Diagnoses Rotator cuff insufficiency of left shoulder M25.312
== END 2023-05-01 14:26 | disposition home or self-care (01) ==
LOC: HO.HOS 13:20
PROVIDERS: PCP Nurse Practitioner Family; Visit Provider Orthopaedic Surgery
DX: M25.312 Other instability, left shoulder (principal)
CPT/HCPCS: 99213

== ENCOUNTER 2023-05-01 14:10 | Outpatient (REF) | payer MEDICARE, MEDICAID, SELFPAY ==
--- NOTE | ~2023-05-01 | XR_ITS ---
EXAMINATION: XR SHOULDER, LEFT CLINICAL INFORMATION: Left shoulder pain. COMPARISON: MR left shoulder of 06/28/2021. Radiographs left shoulder of 10/12/2018. TECHNIQUE: 2 views of the left shoulder. FINDINGS: Progression of advanced degenerative changes in the acromioclavicular joint. Glenohumeral alignment preserved. Mild hypertrophic change along the inferior aspect of the glenohumeral joint. Degenerative changes are very limited views of the upper thoracic spine. XR/XR shoulder LT min 2V IMPRESSION: Progression of advanced degenerative changes in the acromioclavicular joint.
== END 2023-05-01 14:11 | disposition home or self-care (01) ==
LOC: HO.HOSX 14:10
PROVIDERS: Visit Provider Orthopaedic Surgery
DX: Z13.89 Encounter for screening for other disorder (principal)
CPT/HCPCS: 73030

== ENCOUNTER 2023-05-05 10:48 | Outpatient (AMB) | payer MEDICARE, MEDICAID, SELFPAY ==
--- NOTE | 2023-05-05 11:39 | A.OFFVIS_ITS ---
Intake Intake Visit Reasons: Parth biceps tendinitis inj Allergies No Known Allergies Allergy (Verified 05/01/23 13:58) HPI Parth biceps tendinitis inj HPI Details 67-year-old male who presents today to t he office for a bilateral biceps? tendinitis injection. Denies any recent cough, cold, infection, fever or other significant changes in medical history since last office visit. The patient reports shoulder/biceps pain that radiates down to his arm. He has a limited ROM. He is unable to lift the arm overhead to remove or wear a t-shirt. He is not able to lift a gallon of milk. He has a bilateral shoulder MRI scan ordered and scheduled for May 16, 2023. He completed the CT scan on 05/01/23 and he will follow-up Dr. Campo on 06/20/23. Past procedures: 03/20/23: Interlaminar epidural steroid injection, L5-S1, right parasaggital: >50% relief. 02/10/23: Bilateral bicipital tendon inj ections, ultrasound guided: >50% relief. 01/08/23: left knee intra-articular vanessa icosteroid injection: 50% relief for 3-4 weeks. 10/16/22: Interlaminar epidural steroid injection, L5-S1, right parasaggital: 60% relief. 10/09/22: left knee Synvisc One injectio n intra-articular: 75% relief. 08/15/22: bilateral bicipital tendon inj ections: 80% relief. 07/17/22: Interlaminar epidural steroid injection, L5/S1, Right parasaggital: 60% relief. 05/24/22: right bicipital tendon and sup raspinatus tendon injection: 80% relief. 05/08/2022: Left knee Synvisc one inject ion under fluoroscopy - 75% relief for 2 weeks. 12/17/21: Left Bicep Tendon Injection US guided ? 90% relief for 3 months. [facility] Medical History Anxiety and depression Diverticulosis Hyperlipidemia Hypertension Insomnia PTSD (post-traumatic stress disorder) Surgical History History of esophagogastroduodenoscopy (EGD) Hx of colonoscopy History of left hip replacement Social History Alcohol intake: never Patient Tobacco Use Status: Former Tobacco user Current occupational status: employed and disabled Current occupation: rt handed Review of Systems Const All systems reviewed & are unremarkable except as noted in HPI and below Physical Exam General: Appears afebrile. Alert and oriented. Mood and affect appropriate. Follows and participates in conversation appropriately. Respiratory effort is unlabored. Able to transition from sit to stand unassisted. Ambulates with bilaterally normal heel strike and toe off. Office Procedures Joint Injection/Drain Joint Injection/Drain Details: Right elbow extensor tendon injection, US guided. After informed written consent was obtained, the patient was placed in the lateral position. Pre-procedure oxygen saturation, heart rate, and blood pressure were recorded. The skin was prepped with Chloroprep, and draped in a sterile fashion. Ultrasound guidance used to visualize the right extensor tendon. Needle advanced to the tendon under ultrasound guidance and 30 mg of Kenalog were injected. The patient tolerated the procedure well and no complications were encountered. Following the procedure the patient's vital signs were stable. The patient was discharged home in good condition with post-procedural instructions. Time Out: Immediately prior to the procedure, the following was verbally conf irmed that there is a signed consent form and that the correct patient, planned procedure, site and side are consistent with documentation and that necessary equipment and/or blood products are available prior to the start of the case. An ultrasound image of the injection was taken and stored in the permanent record. Coding Additional procedure code (CPT) needed Joint Injection/Drain Joint Injection/Drain Details: Bilateral bicipital tendon injections, ultrasound guided Primary Site: right shoulder Secondary Site: left shoulder Prep: site was prepped using aseptic technique and site was prepped using sterile technique Injected: 20 mg of, Kenalog, with 3 mL of, 1% plain lidocaine and other (around each tendon) Approach Used: anterior Procedure: there was some relief with the local anesthesia Coding Details: An ultrasound image of the injection was taken and stored in the permanent record. 68807 - Bicipital Groove Injection (bilateral, ultrasound guided) Procedure code (CPT) selection complete Results Reviewed Results Reviewed: No imaging is available for review. Assessment & Plan Assessment & Plan (1) Impingement of right shoulder: Code(s): M25.811 - Other specified joint disorders, right shoulder (2) Biceps tendonitis of both shoulders: Code(s): M75.21 - Bicipital tendinitis, right shoulder; M75.22 - Bicipital tendinitis, left shoulder (3) Lateral epicondylitis: Code(s): M77.10 - Lateral epicondylitis, unspecified elbow Plan Patient is status post right elbow extensor tendon and bilateral bicipital tendon injections, ultrasound guided. Patient tolerated procedure well and was discharged home in stable condition with discharge instructions. All questions were answered. The patient will follow-up in three months for repeat biceps tendon injections. We will review his shoulder MRI at the time. If it continues to have an upper extremity weakness, we will consider ordering a cervical spine MRI.A prescription of methocarbamol 500 mg t.i.d was provided today. I had a long discussion with the patient regarding his treatment options. It does seem that some of his symptoms if not all our office cervical origin with h is history of progressive muscle loss and weakness. He is scheduled for shoulder MRIs and is following orthopedics as well so will see what that shows. I do not think any further injections to his shoulder would be helpful at this time until a more clear plan of action is put in place. If his weakness in the arms and hands continues to get worse, he would benefit from an MRI of the cervical spine for consideration of surgical decompression. More than 40 minutes were spent in counseling and documentation of this visit. Scribed for Dr. Bridges by Jermain Chris, medical director/head team physician, on 05/05/2023. I, Dr. Bridges, have personally reviewed and agree with the information entered by the scribe. Medications: New methocarbamol 500 mg PO TID 90 tabs 0RF Coding Level of Care Code Est Pt Level 5 (18095) Diagnoses Impingement of right shoulder M25.811 Biceps tendonitis of both shoulders M75.21; M75.22 Lateral epicondylitis M77.10 CPT Codes Coding - Joint 1: 08801 - Bicipital Groove Injection ([id number])
== END 2023-05-05 12:36 | disposition home or self-care (01) ==
PROVIDERS: PCP Nurse Practitioner Family; Visit Provider Internal Medicine
DX: M75.21 Bicipital tendinitis, right shoulder (principal); M75.22 Bicipital tendinitis, left shoulder; M77.11 Lateral epicondylitis, right elbow
CPT/HCPCS: 20550; 99215

== ENCOUNTER → 2023-05-05 10:48 | Outpatient (BNVA) | payer MEDICARE, MEDICAID, SELFPAY | PROVIDERS: PCP Nurse Practitioner Family; Visit Provider Internal Medicine | DX: M75.22 Bicipital tendinitis, left shoulder (principal); M75.21 Bicipital tendinitis, right shoulder; M77.11 Lateral epicondylitis, right elbow; M25.811 Other specified joint disorders, right shoulder | CPT/HCPCS: 20550; 99212; J2795; J3301 ==

== ENCOUNTER 2023-06-02 10:47 | Outpatient (AMB) | payer MEDICARE, MEDICAID, SELFPAY ==
[2023-06-02 10:54] VITALS: BP 175/81; PULSE 85; RESP 16; O2SAT 100; BMI 24.6
--- NOTE | 2023-06-02 10:54 | A.OFFVIS_ITS ---
Intake Vital Signs 06/02/23 10:54 Height 5 ft 5 in Weight 148 lb BMI 24.6 BP 175/81 H Blood Pressure Location Rt brachial Position Sitting Respiration 16 Pulse 85 Pulse Source Pulse Oximeter Pulse Oximetry (%) 100 Oxygen Delivery Method Room Air Intake Visit Reasons: elbow pain Allergies No Known Allergies Allergy (Verified 06/02/23 10:57) Medication List - Last Reconciled 06/02/23 by Chelsea Delaney LPN celecoxib 200 mg PO BID clonidine HCl 0.1 mg PO BID cromolyn 200 mg (10 mL) PO QID 30 days cromolyn (Nasalcrom) 1 spray intranasal TID diazepam 4 mg PO BID PRN esomeprazole magnesium 40 mg PO DAILY fexofenadine (Carolyn Allergy) 180 mg PO DAILY fluticasone propionate 50 mcg/actuation 1 spray intranasal BID ibuprofen 400 mg PO TID PRN lisinopril 30 mg PO DAILY loratadine (Claritin) 10 mg PO DAILY methocarbamol 500 mg PO TID nitroglycerin mg sublingual pravastatin 10 mg PO BEDTIME pregabalin 75 mg PO BID trazodone 100 mg PO BEDTIME vitamin A 1 cap PO DAILY HPI elbow pain HPI Details 67-year-old male who presents today to t he office for right shoulder discomfort and inability with extreme right arm flexion. He reports paralyzing sensations and loss of mobility in his arm and hand since the the last right biceps tendon injection. His left biceps and right lateral epicondyle injection were uneventful. The patient reports pain and limited ROM. He developed tremors in his right hand and fingers. He is unable to write. He also reports muscle spasms in his hand and finger. He has not noticed these symptoms in the past. He has been anxious and has a history of ADHD. He is taking ibuprofen and methocarbamol with minimal relief. He is not taking Celebrex. Past procedures: 05/05/23: Right elbow extensor tendon in jection, US guided: Relief of elbow pain 05/05/23: Bilateral bicipital tendon inj ections, ultrasound guided: Left-sided relief, aggravation of right-sided symptoms with potential right biceps tendon tear 03/20/23: Interlaminar epidural steroid injection, L5-S1, right parasaggital: >50% relief. 03/20/23: left knee intra-articular Synv isc-One injection: 02/10/23: Bilateral bicipital tendon inj ections, ultrasound guided: >50% relief. 01/08/23: left knee intra-articular vanessa icosteroid injection: 50% relief for 3-4 weeks. 10/16/22: Interlaminar epidural steroid injection, L5-S1, right parasaggital: 60% relief. 10/09/22: left knee Synvisc One injectio n intra-articular: 75% relief. 08/15/22: bilateral bicipital tendon inj ections: 80% relief. 07/17/22: Interlaminar epidural steroid injection, L5/S1, Right parasaggital: 60% relief. 05/24/22: right bicipital tendon and sup raspinatus tendon injection: 80% relief. 05/08/22: Left knee Synvisc one injectio n under fluoroscopy - 75% relief for 2 weeks. 12/17/21: Left Bicep Tendon Injection US guided ? 90% relief for 3 months. [facility] Medical History Anxiety and depression Diverticulosis Hyperlipidemia Hypertension Insomnia PTSD (post-traumatic stress disorder) Surgical History History of esophagogastroduodenoscopy (EGD) Hx of colonoscopy History of left hip replacement Social History Alcohol intake: never Patient Tobacco Use Status: Former Tobacco user Current occupational status: employed and disabled Current occupation: rt handed Review of Systems Const All systems reviewed & are unremarkable except as noted in HPI and below Physical Exam Vital Signs: Last Vital Signs Pulse 85 06/02/23 10:54 Resp 16 06/02/23 10:54 BP 175/81 H 06/02/23 10:54 Pulse Ox 100 06/02/23 10:54 Oxygen Delivery Method Room Air 06/02/23 10:54 BMI result Body Mass Index 24.6 General: Appears afebrile. Alert and oriented. Mood and affect appropriate. Follows and participates in conversation appropriately. Respiratory effort is unlabored. Able to transition from sit to stand unassisted. Ambulates with bilaterally normal heel strike and toe off. Right arm flexion and forearm supination is subjectively weak. Neurologic exam of the bilateral upper extremities and hands is within normal limits with 5/5 strength across all 5 fingers on both sides. Results Reviewed Results Reviewed: PROCEDURE: MR RIGHT SHOULDER without CONTRAST, MR LEFT SHOULDER without CONTRAST INDICATION: Unspecified rotator cuff tear, rupture of the left shoulder and right shoulder. Right shoulder, right arm and right biceps pain for six months. TECHNIQUE: Multi planar fat and water sensitive sequences of the left and right shoulder were obtained without intravenous contrast. COMPARISON: None available. FINDINGS: LEFT SHOULDER: Large central rotator cuff tear involving supraspinatus and infraspinatus tendons approximately 4 x 3 cm in size. Moderate partial tearing subscapularis tendon involving up to 50% of the cross-sectional fibers present. Signal and morphology of the teres minor tendon is within normal limits. There is no appreciable rotator cuff muscle atrophy or edema. Medial biceps tendon subluxation with partial tearing present. There mild to moderate AC degenerative change. Glenohumeral joint demonstrates no appreciable degenerative change. Marrow signal is within normal limits. Small glenohumeral joint effusion present. RIGHT SHOULDER: Large central rotator cuff tear involving supraspinatus and anterior infraspinatus tendon approximately 4.7 x 4 cm in the transverse and AP dimension. Diffuse attenuation subscapularis tendon 2 cm in size likely a chronic partial thickness tear involving at least 30% of the cross-sectional fibers. Signal and morphology of the teres minor tendon is within normal limits. Severe atrophy teres minor muscle present. No mass in the quadrilateral space present. Anterior biceps tendon is not visualized presumably torn. Moderate glenohumeral joint effusion seen. Moderate AC degenerative change with high riding humeral head present. Glenohumeral joint demonstrates mild degenerative change. Marrow signal is within normal limits. IMPRESSION: LEFT SHOULDER: 1. Large central rotator cuff tear. 2. Moderate partial tearing subscapularis tendon. 3. Medial biceps tendon subluxation with partial tear. 4. Mild to moderate AC degenerative change. 5. Small glenohumeral joint effusion. RIGHT SHOULDER: 1. Large central rotator cuff tear. 2. Moderate AC degenerative change with high riding humeral head. 3. Chronic appearing partial tear subscapularis tendon. 4. Anterior biceps tendon tear. 5. Severe atrophy teres minor muscle. No mass in the quadrilateral space present. Assessment & Plan Assessment & Plan (1) Impingement of right shoulder: Code(s): M25.811 - Other specified joint disorders, right shoulder (2) Biceps tendonitis of both shoulders: Code(s): M75.21 - Bicipital tendinitis, right shoulder; M75.22 - Bicipital tendinitis, left shoulder Plan 67-year-old male with significant rotator cuff injury based on history, physical and MR imaging. His most recent issue has been with right arm flexion and hand supination likely secondary to right anterior biceps tendon tear. I had a long discussion with him regarding his treatment options. I do not think he would benefit from any further steroid injections and some of his recent biceps tendinopathy may be secondary to repeated cortisone injections around the biceps tendon. His rotator cuff tendinopathy proceed the injections probably old. I encouraged him to follow-up with Dr. Aragon to discuss if there is any role of an arthroscopic clean up to help improve his symptoms. If that is the case, we can consider arthroscopic surgery followed by PRP injection to the rotator cuff and anterior biceps tendon on the right side. His bothersome issue is on the right side at this time and his left is relatively well-controlled. He has been taking anti-inflammatories including ibuprofen, celecoxib, meloxicam with no particular relief. He is interested in a stronger anti-inflammatory medication to help with his recent flare. I will prescribe a round of a Medrol Dosepak to be taken once. Follow-up regarding shoulder after consultation with Dr. Aragon. More than 50 minutes were spent in consultation and documentation of this visit. Scribed for Dr. Bridges by Jermain Chris, medical program specialist, on 06/02/2023. I, Dr. Bridges, have personally reviewed and agree with the information entered by the scribe. Medications: New methylprednisolone PO PER PKG DIR for 6 days 21 ea 0RF Coding Level of Care Code Est Pt Level 5 (23986) Diagnoses Impingement of right shoulder M25.811 Biceps tendonitis of both shoulders M75.21; M75.22
== END 2023-06-02 11:56 | disposition home or self-care (01) ==
PROVIDERS: PCP Nurse Practitioner Family; Visit Provider Internal Medicine
DX: M25.811 Other specified joint disorders, right shoulder (principal); M75.21 Bicipital tendinitis, right shoulder; M75.22 Bicipital tendinitis, left shoulder
CPT/HCPCS: 99215

== ENCOUNTER → 2023-06-02 10:47 | Outpatient (BNVA) | payer MEDICARE, MEDICAID, SELFPAY | PROVIDERS: PCP Nurse Practitioner Family; Visit Provider Internal Medicine | DX: M25.811 Other specified joint disorders, right shoulder (principal); M75.21 Bicipital tendinitis, right shoulder; M75.22 Bicipital tendinitis, left shoulder | CPT/HCPCS: 99212 ==

== ENCOUNTER 2023-06-19 06:16 | Outpatient (REF) | payer MEDICARE, MEDICAID, SELFPAY ==
--- NOTE | ~2023-06-19 | FL_ITS ---
EXAMINATION: XR FLUOROSCOPY WITH IMAGES CLINICAL INFORMATION: Fluoroscopic guidance provided for left knee procedure. COMPARISON: None available. TECHNIQUE: Fluoroscopy Supervised By: Dr. Marciano Bridges Fluoroscopy Time: 0.0 Cumulative Dose: 2.42 mGy-cm DAP: 0.32915 Gy-cm2 Images: 1. FINDINGS: Fluoroscopic guidance provided for procedure. Radiopaque needle and presumed contrast material project over joint. Please refer to operative report for detailed evaluation. FL/FL guidance in treatment room IMPRESSION: Fluoroscopic guidance provided for procedure. Please refer to operative report for detailed evaluation.
== END 2023-06-19 06:17 | disposition home or self-care (01) ==
LOC: CF 06:16
PROVIDERS: Visit Provider Internal Medicine
DX: M54.16 Radiculopathy, lumbar region (principal); M17.12 Unilateral primary osteoarthritis, left knee; R91.8 Other nonspecific abnormal finding of lung field; M25.511 Pain in right shoulder; M25.512 Pain in left shoulder; M75.101 Unspecified rotator cuff tear or rupture of right shoulder, not specified as traumatic; M75.102 Unspecified rotator cuff tear or rupture of left shoulder, not specified as traumatic; M12.811 Other specific arthropathies, not elsewhere classified, right shoulder; Z87.891 Personal history of nicotine dependence
CPT/HCPCS: 20610; 99212; Q9967

== ENCOUNTER 2023-06-19 13:00 | Outpatient (AMB) | payer MEDICARE, MEDICAID, SELFPAY ==
--- OUTSIDE RECORDS SUMMARY | 2023-06-19 13:02 | XMS_ITS | Continuity of Care Document ---
Author Organization [facility] Address [address] [place] [address]- Care Team Providers Care Asphalt Surface Heater Operator Name Role Phone Shay MCDOWELL, Nicole Grider Primary Care Physician Encounter [facility] [place] Date(s): 03/07/23 - 04/06/23 [facility] [address] [place] [address]- Attending Physician: Maty Patel Admitting Physician: Maty Patel Referring Physician: trMaty Allergies, Adverse Reactions, Alerts No Known Allergies [...] 07/05/22 15:54:00 EDT, Route to Pharmacy Electronically, [facility] #[id number], 165, cm, 06/21/22 14:07:00 EDT, Height, 71.5, kg, 09/20/20 13:46:00 EDT,... Start Date: 07/05/22 Status: Ordered dexlansoprazole 30 mg oral delayed release capsule 1 capsule = 30 mg, By Mouth, Daily, # 30 capsule, 5 Refills, Maintenance, 07/12/19 12:17:00 EDT, [facility]/pharmacy #[id number], 164, cm, 06/30/19 14:28:00 EDT, Height, 79, kg, 04/28/19 12:58:00 EST, Dry Weight Start Date: 07/12/19 Stop Date: 01/08/20 Status: Ordered diazepam 2 mg oral tablet 4 mg, 2, tablet, By Mouth, 2 times a day, # 120 tablet, Refills 6, Tot. Refills 6, Soft Stop, 07/05/22 15:50:00 EDT, Route to Pharmacy Electronically, [facility] #[id number], 165, cm, 06/21/22 14:07:00 EDT, Height, 71.5, kg, 09/20/20 13:46:00 EDT... Start Date: 07/05/22 Stop Date: 01/31/23 Status: Ordered hydrocortisone 1% topical cream 1 application, Topically, 2 times a day, # 45 Gm, 0 Refills, Maintenance, 01/08/21 17:21:00 EST, Cream, [facility]/pharmacy #[id number], Partial fill upon patient request if the prescription is for a schedule II opioid drug., 1 application Topically 2 times a day,... Start Date: 01/08/21 Status: Ordered lisinopril 30 mg oral tablet 1 tablet = 30 mg, By Mouth, Daily, # 90 tablet, 1 Refills, Maintenance, 11/15/22 13:42:00 EDT, Tablet, [facility] #[id number], 165, cm, 06/21/22 14:07:00 EDT, Height Start Date: 11/15/22 Status: Ordered Multivitamin Daily, 0 Refills, Maintenance, 06/08/18 14:18:26 EDT Start Date: 06/08/18 Status: Ordered nitroglycerin 0.4 mg sublingual tablet 1 tablet = 0.4 mg, Sublingual, Every 5 minutes, PRN for chest pain, # 100 tablet, 9 Refills, Maintenance, 12/09/22 11:18:00 EDT, Tablet, [facility] #[id number], Partial fill upon patient requestif the prescription is for a schedule II opioid uma... Start Date: 12/09/22 Status: Ordered pravastatin 10 mg oral tablet 1 tablet, By Mouth, Daily at bedtime, # 90 tablet, 3 Refills, Maintenance, 03/20/22 8:15:00 EST, [id number], 165, cm, 12/19/21 15:12:00 EDT, Height, 71.5, [...] 07/05/22 15:53:00 EDT, Route to Pharmacy Electronically, [id number], 165, cm, 06/21/22 14:07:00 EDT, Height, 71.5, [...] Team Personnel Name: Evelio Serrano MD Position: [facility] Physician - Gastroenterology Member Role: Lifetime Consulting Physician Address: Address: [address] [place] [address], [address] [facility] [place] [address]- Name: Gosia Collins RN Position: [facility] RN Member Role: Primary Care Nurse Name: Nicole Day NP Position: [facility] PCO Associate Professional Member Role: PCP Address: Address: [address] [place] [address] 3rd [place] [address]- Name: Missy Lancaster RN Position: [facility] RN Member Role: Primary Care Nurse Name: Amy Del Toro RN Position: [facility] ED RN W/OE and Tasks Member Role: Primary Care Nurse Name: Rachael Garcia RN Position: [facility] AMB Nurse Member Role: Primary Care Nurse Name: Sole Rodriguez RN Position: [facility] Medication Technician Member Role: Primary Care Nurse Care Team Related Persons Name: OZIEL MACK Address: [place] [address] Name: OZIEL MACK Address: [place] [address] Name: GHADA QUISPE Address: home [address] [place] [address]
--- OUTSIDE RECORDS SUMMARY | 2023-06-19 13:02 | XMS_ITS | Continuity of Care Document ---
Author Organization [facility] Adult Address [address] [place] [address]- Care Team Providers Care Polymer Scientist Name Role Phone Nicole Day NP Primary Care Physician [place] [facility] [place] - 06/13/23 [facility] Adult [address] [place] [address]- Allergies, Adverse Reactions, Alerts No Known Allergies [...] 07/05/22 15:54:00 EDT, Route to Pharmacy Electronically, [facility] #[id number], 165, cm, 06/21/22 14:07:00 EDT, Height, 71.5, kg, 09/20/20 13:46:00 EDT,... Start Date: 07/05/22 Status: Ordered dexlansoprazole 30 mg oral delayed release capsule 1 capsule = 30 mg, By Mouth, Daily, # 30 capsule, 5 Refills, Maintenance, 07/12/19 12:17:00 EDT, [facility]/pharmacy #[id number], 164, cm, 06/30/19 14:28:00 EDT, Height, 79, kg, 04/28/19 12:58:00 EST, Dry Weight Start Date: 07/12/19 Stop Date: 01/08/20 Status: Ordered diazepam 2 mg oral tablet 4 mg, 2, tablet, By Mouth, 2 times a day, # 120 tablet, Refills 6, Tot. Refills 6, Soft Stop, 04/24/23 12:43:00 EST, Route to Pharmacy Electronically, [facility] #[id number], 165, cm, 03/07/23 13:49:00 EST, Height Start Date: 04/24/23 Stop Date: 11/20/23 Status: Ordered hydrocortisone 1% topical cream 1 application, Topically, 2 times a day, # 45 Gm, 0 Refills, Maintenance, 01/08/21 17:21:00 EST, Cream, [facility]/pharmacy #[id number], Partial fill upon patient request if the prescription is for a schedule II opioid drug., 1 application Topically 2 times a day,... Start Date: 01/08/21 Status: Ordered lisinopril 30 mg oral tablet 1 tablet = 30 mg, By Mouth, Daily, # 90 tablet, 1 Refills, Maintenance, 11/15/22 13:42:00 EDT, Tablet, [facility] #[id number], 165, cm, 06/21/22 14:07:00 EDT, Height Start Date: 11/15/22 Status: Ordered Multivitamin Daily, 0 Refills, Maintenance, 06/08/18 14:18:26 EDT Start Date: 06/08/18 Status: Ordered nitroglycerin 0.4 mg sublingual tablet 1 tablet = 0.4 mg, Sublingual, Every 5 minutes, PRN for chest pain, # 100 tablet, 9 Refills, Maintenance, 12/09/22 11:18:00 EDT, Tablet, [facility] #[id number], Partial fill upon patient requestif the prescription is for a schedule II opioid uma... Start Date: 12/09/22 Status: Ordered pravastatin 10 mg oral tablet 1 tablet, By Mouth, Daily at bedtime, # 90 tablet, 3 Refills, Maintenance, 04/29/23 11:18:00 EST, [facility] #[id number], 165, cm, 03/07/23 13:49:00 EST, Height Start Date: 04/29/23 Status: Ordered pregabalin 75 mg oral capsule [...] 07/05/22 15:53:00 EDT, Route to Pharmacy Electronically, [facility] #[id number], 165, cm, 06/21/22 14:07:00 EDT, Height, 71.5, [...] Team Personnel Name: Evelio Serrano MD Position: [facility] Physician - Gastroenterology Member Role: Lifetime Consulting Physician Address: Address: [address] [place] [address], [address] [facility] [place] [address]- Name: Gosia Collins RN Position: [facility] RN Member Role: Primary Care Nurse Name: Nicole Day NP Position: [facility] PCO Associate Professional Member Role: PCP Address: Address: [address] [place] [address] 3rd [place] [address]- Name: Missy Lnacaster RN Position: [facility] RN Member Role: Primary Care Nurse Name: Amy Del Toro RN Position: [facility] ED RN W/OE and Tasks Member Role: Primary Care Nurse Name: Rachael Garcia RN Position: [facility] AMB Nurse Member Role: Primary Care Nurse Name: Sole Rodriguez RN Position: [facility] Hospital Rotogravure Press Operator Member Role: Primary Care Nurse Care Team Related Persons Name: OZIEL MACK Address: [place] [address] Name: OZIEL MACK Address: home [place], [place] Name: GHADA QUISPE Address: home [address] [place] [address]
--- OUTSIDE RECORDS SUMMARY | 2023-06-19 13:03 | XMS_ITS | Continuity of Care Document ---
Author Organization [facility] Adult Address [address] [place] [address]- Care Team Providers Care Pillowcase Cleaner Name Role Phone Shay MCDOWELL, Nicole Grider Primary Care Physician Encounter [facility] [place] Date(s): 04/24/23 - 05/24/23 [facility] Adult [address] [place] [address]- Allergies, Adverse Reactions, Alerts No Known Allergies [...] 07/05/22 15:54:00 EDT, [id number], 165, cm, 06/21/22 14:07:00 EDT, Height, 71.5, kg, 09/20/20 13:46:00 EDT,... Start Date: 07/05/22 Status: Ordered dexlansoprazole 30 mg oral delayed release capsule 1 capsule = 30 mg, By Mouth, Daily, # 30 capsule, 5 Refills, Maintenance, 07/12/19 12:17:00 EDT, [facility]/pharmacy #[id number], 164, cm, 06/30/19 14:28:00 EDT, Height, 79, kg, 03/04/20 12:58:00 EST, Dry Weight Start Date: 07/12/19 Stop Date: 01/08/20 Status: Ordered diazepam 2 mg oral tablet 4 mg, 2, tablet, By Mouth, 2 times a day, # 120 tablet, Refills 6, Tot. Refills 6, Soft Stop, 04/24/23 12:43:00 EST, Route to Pharmacy Electronically, [facility] #[id number], 165, cm, 03/07/23 13:49:00 EST, Height Start Date: 04/24/23 Stop Date: 11/20/23 Status: Ordered hydrocortisone 1% topical cream 1 application, Topically, 2 times a day, # 45 Gm, 0 Refills, Maintenance, 01/08/21 17:21:00 EST, Cream, [facility]/pharmacy #[id number], Partial fill upon patient request if the prescription is for a schedule II opioid drug., 1 application Topically 2 times a day,... Start Date: 01/08/21 Status: Ordered lisinopril 30 mg oral tablet 1 tablet = 30 mg, By Mouth, Daily, # 90 tablet, 1 Refills, Maintenance, 11/15/22 13:42:00 EDT, Tablet, [facility] #[id number], 165, cm, 06/21/22 14:07:00 EDT, Height Start Date: 11/15/22 Status: Ordered Multivitamin Daily, 0 Refills, Maintenance, 06/08/18 14:18:26 EDT Start Date: 06/08/18 Status: Ordered nitroglycerin 0.4 mg sublingual tablet 1 tablet = 0.4 mg, Sublingual, Every 5 minutes, PRN for chest pain, # 100 tablet, 9 Refills, Maintenance, 12/09/22 11:18:00 EDT, Tablet, [facility] #[id number], Partial fill upon patient requestif the prescription is for a schedule II opioid uma... Start Date: 12/09/22 Status: Ordered pravastatin 10 mg oral tablet 1 tablet, By Mouth, Daily at bedtime, # 90 tablet, 3 Refills, Maintenance, 04/29/23 11:18:00 EST, [facility] #[id number], 165, cm, 03/07/23 13:49:00 EST, Height Start [...] 07/05/22 15:53:00 EDT, Route to Pharmacy Electronically, [facility] #[id number], 165, cm, 06/21/22 14:07:00 EDT, Height, 71.5, [...] Team Personnel Name: Evelio Serrano MD Position: [facility] Physician - Gastroenterology Member Role: Lifetime Consulting Physician Address: Address: [address] [place] [address], [address] [facility] [place] [address]- Name: Gosia Collins RN Position: [facility] RN Member Role: Primary Care Nurse Name: Nicole Day NP Position: [facility] PCO Associate Professional Member Role: PCP Address: Address: [address] [place] [address] 3rd [place] [address]- Name: Missy Lancaster RN Position: [facility] RN Member Role: Primary Care Nurse Name: Amy Del Toro RN Position: [facility] ED RN W/OE and Tasks Member Role: Primary Care Nurse Name: Rachael Garcia RN Position: [facility] AMB Nurse Member Role: Primary Care Nurse Name: Sole Rodriguez RN Position: [facility] Hospital Critical Care Physician Member Role: Primary Care Nurse Care Team Related Persons Name: OZIEL MACK Address: [place] [address] Name: OZIEL MACK Address: [place] [address] Name: GHADA QUISPE Address: home [address] [place] [address]
--- OUTSIDE RECORDS SUMMARY | 2023-06-19 13:04 | XMS_ITS | Continuity of Care Document ---
Author Organization [facility] Adult Address [address] [place] [address]- Care Team Providers Care Body Technician Name Role Phone Shay MCDOWELL, Nicole Grider Primary Care Physician Encounter [facility] [place] Date(s): 04/29/23 - 05/29/23 [facility] [address] [place] [address]- Allergies, Adverse Reactions, Alerts No Known Allergies [...] 07/05/22 15:54:00 EDT, [id number], 165, cm, 06/21/22 14:07:00 EDT, Height, 71.5, kg, 09/20/20 13:46:00 EDT,... Start Date: 07/05/22 Status: Ordered dexlansoprazole 30 mg oral delayed release capsule 1 capsule = 30 mg, By Mouth, Daily, # 30 capsule, 5 Refills, Maintenance, 07/12/19 12:17:00 EDT, [facility]/pharmacy #[id number], 164, cm, 06/30/19 14:28:00 EDT, Height, 79, kg, 04/28/19 12:58:00 EST, Dry Weight Start Date: 07/12/19 Stop Date: 01/08/20 Status: Ordered diazepam 2 mg oral tablet 4 mg, 2, tablet, By Mouth, 2 times a day, # 120 tablet, Refills 6, Tot. Refills 6, Soft Stop, 04/24/23 12:43:00 EST, Route to Pharmacy Electronically, [facility] #[id number], 165, cm, 03/07/23 13:49:00 EST, Height Start Date: 04/24/23 Stop Date: 11/20/23 Status: Ordered hydrocortisone 1% topical cream 1 application, Topically, 2 times a day, # 45 Gm, 0 Refills, Maintenance, 01/08/21 17:21:00 EST, Cream, [facility]/pharmacy #[id number], Partial fill upon patient request if the prescription is for a schedule II opioid drug., 1 application Topically 2 times a day,... Start Date: 01/08/21 Status: Ordered lisinopril 30 mg oral tablet 1 tablet = 30 mg, By Mouth, Daily, # 90 tablet, 1 Refills, Maintenance, 11/15/22 13:42:00 EDT, Tablet, [facility] #02865, 165, cm, 06/21/22 14:07:00 EDT, Height Start Date: 11/15/22 Status: Ordered Multivitamin Daily, 0 Refills, Maintenance, 06/08/18 14:18:26 EDT Start Date: 06/08/18 Status: Ordered nitroglycerin 0.4 mg sublingual tablet 1 tablet = 0.4 mg, Sublingual, Every 5 minutes, PRN for chest pain, # 100 tablet, 9 Refills, Maintenance, 12/09/22 11:18:00 EDT, Tablet, [facility] #[id number], Partial fill upon patient requestif the prescription is for a schedule II opioid uma... Start Date: 12/09/22 Status: Ordered pravastatin 10 mg oral tablet 1 tablet, By Mouth, Daily at bedtime, # 90 tablet, 3 Refills, Maintenance, 04/29/23 11:18:00 EST, [facility] #[id number], 165, cm, 03/07/23 13:49:00 EST, Height Start [...] 07/05/22 15:53:00 EDT, Route to Pharmacy Electronically, [facility] #[id number], 165, cm, 06/21/22 14:07:00 EDT, Height, 71.5, [...] Team Personnel Name: Evelio Serrano MD Position: [facility] Physician - Gastroenterology Member Role: Lifetime Consulting Physician Address: Address: [address] [place] [address], [address] [facility] [place] [address]- Name: Gosia Collins RN Position: [facility] RN Member Role: Primary Care Nurse Name: Nicole Day NP Position: [facility] PCO Associate Professional Member Role: PCP Address: Address: [address] [place] [address] [address]rd [place] [address]- Name: Missy Lancaster RN Position: [facility] RN Member Role: Primary Care Nurse Name: Amy Del Toro RN Position: [facility] ED RN W/OE and Tasks Member Role: Primary Care Nurse Name: Rachael Garcia RN Position: [facility] AMB Nurse Member Role: Primary Care Nurse Name: Sole Rodriguez RN Position: [facility] Hospital Coal Bagger Member Role: Primary Care Nurse Care Team Related Persons Name: OZIEL MACK Address: [place] [address] Name: OZIEL MACK Address: home [place], [place] Name: GHADA QUISPE Address: home [address] [place] [address]
--- NOTE | 2023-06-19 13:09 | MHC.OFFVIS ---
Vital Signs 06/19/23 13:10 06/19/23 13:56 Height 5 ft 5 in 5 ft 5 in Weight 148 lb 148 lb BMI 24.6 24.6 BP 140/68 H 136/80 Blood Pressure Location Lt brachial Lt brachial Position Sitting Sitting Respiration 12 12 Pulse 93 60 Pulse Source Pulse Oximeter Pulse Oximeter Pulse Oximetry (%) 100 100 Oxygen Delivery Method Room Air Room Air Comment pre-op post-op Intake Visit Reasons: Right L5-S1 para interlaminar JOYCE/ L knee Synvisc Allergies No Known Allergies Allergy (Verified 06/19/23 14:42) HPI HPI Right L5-S1 para interlaminar JOYCE/ L knee Synvisc: Details: Patient presents for scheduled procedure. Denies any recent cough, cold, infection, fever or other significant changes in medical history since last office visit. [facility] Medical History Anxiety and depression Diverticulosis Hyperlipidemia Hypertension Insomnia PTSD (post-traumatic stress disorder) Surgical History History of esophagogastroduodenoscopy (EGD) Hx of colonoscopy History of left hip replacement Social History Alcohol intake: never Patient Tobacco Use Status: Former Tobacco user Current occupational status: employed and disabled Current occupation: rt handed Physical Exam Vital Signs: Last Vital Signs Pulse 60 06/19/23 13:56 Resp 12 06/19/23 13:56 BP 136/80 06/19/23 13:56 Pulse Ox 100 06/19/23 13:56 Oxygen Delivery Method Room Air 06/19/23 13:56 BMI result Body Mass Index 24.6 Office Procedures Joint Injection/Drain Joint Injection/Drain Details: Left knee Synvisc-One injection The left knee was visualized using fluoroscopy. A 25 gauge needle was advanced intra-articularly under fluoroscopy and placement was confirmed with Omnipaque 1-2 cc 180 milligrams/mL. Following intra-articular confirmation, the prepackaged Synvisc-One syringe containing 6 mL hyaluronic acid was retrieved and administered to the joint. The patient tolerated the procedure well. Synvisc Lot # [id number] Exp Date 11/23/2025 Coding 06122 - Large joint Additional procedure code (CPT) needed Assessment & Plan Assessment & Plan (1) Osteoarthritis of left knee: Code(s): M17.12 - Unilateral primary osteoarthritis, left knee Category: Medical Plan Patient is status post left knee Synvisc-One injection under fluoroscopy. Patient tolerated procedure well and was discharged home in stable condition with discharge instructions. All questions were answered. Follow-up in 3 weeks for left knee A2M injection and right rotator cuff PRP injection per patient request. Orders: Orders FL guidance in treatment room Today M54.16 - Radiculopathy, lumbar region Coding Level of Care Code Procedure Only Diagnoses Osteoarthritis of left knee M17.12 CPT Codes Coding - 83226 Large joint: 12490 - Large joint ([id number])
[2023-06-19 13:10] VITALS: BP 140/68; PULSE 93; RESP 12; O2SAT 100; BMI 24.6
[2023-06-19 13:56] VITALS: BP 136/80; PULSE 60; RESP 12; O2SAT 100; BMI 24.6
== END 2023-06-19 13:52 | disposition home or self-care (01) ==
LOC: HO.PMCPRC 13:00
PROVIDERS: PCP Nurse Practitioner Family; Referring Provider Nurse Practitioner Family; Visit Provider Internal Medicine
DX: M17.12 Unilateral primary osteoarthritis, left knee (principal)
CPT/HCPCS: 20610; 77002

== ENCOUNTER 2023-06-19 13:58 | Outpatient (AMB) | payer MEDICARE, MEDICAID, SELFPAY ==
--- NOTE | 2023-06-19 14:05 | A.OFFVIS_ITS ---
Intake Visit Reasons: OV- MRI Review B/L Shoulder Intake Note: Mateus is a 67 year old male who presents for his bilateral shoulder MRI review. The patient describes his shoulder pains as sharp in nature. He has had multiple injections. The most recent injection given into his right biceps seemed to aggravate his pain. The patient states that he is due to get a PRP injection in the near future. Allergies No Known Allergies Allergy (Verified 06/19/23 14:42) Medication List - Last Reconciled 06/20/23 by Arpit Aragon MD celecoxib 200 mg PO BID clonidine HCl 0.1 mg PO BID cromolyn 200 mg (10 mL) PO QID 30 days cromolyn (Nasalcrom) 1 spray intranasal TID diazepam 4 mg PO BID PRN esomeprazole magnesium 40 mg PO DAILY fexofenadine (Carolyn Allergy) 180 mg PO DAILY fluticasone propionate 50 mcg/actuation 1 spray intranasal BID ibuprofen 400 mg PO TID PRN linaclotide 72 mcg PO DAILY lisinopril 30 mg PO DAILY loratadine (Claritin) 10 mg PO DAILY methocarbamol 500 mg PO TID methylprednisolone PO PER PKG DIR for 6 days nitroglycerin mg sublingual pravastatin 10 mg PO BEDTIME pregabalin 75 mg PO BID trazodone 100 mg PO BEDTIME vitamin A 1 cap PO DAILY PFSH Medical History Anxiety and depression Diverticulosis Hyperlipidemia Hypertension Insomnia PTSD (post-traumatic stress disorder) Surgical History History of esophagogastroduodenoscopy (EGD) Hx of colonoscopy History of left hip replacement Social History Alcohol intake: never Patient Tobacco Use Status: Former Tobacco user Current occupational status: employed and disabled Current occupation: rt handed Physical Exam Const Other: Well-nourished well-developed very friendly male awake alert and oriented x3 in no acute distress Extrem Other: Bilateral upper extremity examination shows good capillary refill, no skin lesions noted, normal sensation light touch Bilateral shoulder examination shows pain with range of motion, 4/5 strength with supraspinatus testing Results Reviewed Results Reviewed: MRI reports of both shoulder show chronic rotator cuff tearing as well as high riding humeral heads consistent with bilateral rotator cuff tear arthropathy Assessment & Plan Assessment & Plan (1) Rotator cuff tear arthropathy of both shoulders: Code(s): M75.101 - Unspecified rotator cuff tear or rupture of right shoulder, not specified as traumatic; M12.811 - Other specific arthropathies, not elsewhere cl assified, right shoulder; M12.812 - Other specific arthropathies, not elsewhere classified, left shoulder; M75.102 - Unspecified rotator cuff tear or rupture of left shoulder, not specified as traumatic Category: Medical Plan Mr. Beyer presents with bilateral shoulder pains and weakness due to bilateral rotator cuff tear arthropathy. I a lengthy discussion patient regarding the treatment options. The patient may be candidate for total shoulder replacement surgery. The patient understands that he can follow up with Dr. Manning here at [facility]. Dr. Manning performs this type of surgery. The patient could also choose to see Dr. Marielle Overton at [facility] if he wishes. The patient will continue with his range of motion exercises meantime. Feel free to call me at any time should questions regarding his orthopedic management arise. I spent 22 minutes in reviewing the patient's records and imaging studies, seeing the patient and documenting in the medical record. Coding Level of Care Code Est Pt Level 2 (42888) Diagnoses Rotator cuff tear arthropathy of both shoulders M75.101; M12.811; M12.812; M75.102
== END 2023-06-19 14:31 | disposition home or self-care (01) ==
PROVIDERS: PCP Nurse Practitioner Family; Visit Provider Orthopaedic Surgery
DX: M75.101 Unspecified rotator cuff tear or rupture of right shoulder, not specified as traumatic (principal); M12.811 Other specific arthropathies, not elsewhere classified, right shoulder; M12.812 Other specific arthropathies, not elsewhere classified, left shoulder; M75.102 Unspecified rotator cuff tear or rupture of left shoulder, not specified as traumatic
CPT/HCPCS: 99213

== ENCOUNTER 2023-06-19 14:38 | Outpatient (AMB) | payer MEDICARE, MEDICAID, SELFPAY ==
[2023-06-19 14:39] VITALS: BP 160/88; PULSE 91; O2SAT 99; BMI 24.8
--- NOTE | 2023-06-19 14:39 | A.OFFVIS_ITS ---
Vital Signs 06/19/23 14:39 Height 5 ft 5 in Weight 148 lb 12.992 oz BMI 24.8 BP 160/88 H Blood Pressure Location Lt brachial Position Sitting Pulse 91 Pulse Source Doppler Pulse Oximetry (%) 99 Oxygen Delivery Method Room Air Intake Visit Reasons: Pulmonary nodules Allergies No Known Allergies Allergy (Verified 06/19/23 14:42) HPI HPI Pulmonary nodules: Details: 67-year-old gentleman, minimal smoker in his 20, with no history of exposure to industrial dusts referred for evaluation of abnormal CT scan that showed left diffuse pleural thickening and small 3 mm pulmonary nodules. Patient denies unintended weight loss or chest pain. He does have family history of lung cancer in his father. After the last office visit patient had a six-month follow-up CT chest that shows stable pulmonary nodules. [facility] Medical History Anxiety and depression Diverticulosis Hyperlipidemia Hypertension Insomnia PTSD (post-traumatic stress disorder) Surgical History History of esophagogastroduodenoscopy (EGD) Hx of colonoscopy History of left hip replacement Social History Alcohol intake: never Patient Tobacco Use Status: Former Tobacco user Current occupational status: employed and disabled Current occupation: rt handed Review of Systems Const Denies daytime sleepiness, Denies excessive sweating, Denies fatigue, Denies fever(s), Denies lethargy, Denies malaise, Denies night sweats, Denies snoring and Denies weight loss Eyes Denies blurry vision and Denies itchy eyes ENT Denies nasal congestion, Denies post nasal drip, Denies sinus pain, Denies sinus pressure and Denies other ( Thrush) Card Denies chest pain, Denies pedal edema, Denies dyspnea, Denies orthopnea and Denies paroxysmal nocturnal dyspnea Resp Denies cough, Denies hemoptysis, Denies excessive phlegm production, Denies dyspnea, Denies snoring and Denies wheezing GI Denies abdominal pain and Denies heartburn Skin/Breast Denies rash Neuro Denies memory loss and Denies seizure-like activity Psych Denies abnormal sleep pattern, Denies anxiety and Denies memory loss Endo Denies excessive sweating, Denies fatigue and Denies heat intolerance Balwinder/Lymph Denies easy bruising Aller/Immun Denies itchy eyes, Denies seasonal rhinorrhea and Denies wheezing Physical Exam Vital Signs: Last Vital Signs Pulse 91 06/19/23 14:39 BP 160/88 H 06/19/23 14:39 Pulse Ox 99 06/19/23 14:39 Oxygen Delivery Method Room Air 06/19/23 14:39 BMI result Body Mass Index 24.8 Const General: no acute distress and alert Nutritional Appearance: not obese Orientation/consciousness: Other orientation findings ( oriented) HEENT Head: Yes atraumatic Eyes General: appearance normal, both eyes and all related structures Sclerae: sclerae normal EOM: EOMs intact bilaterally Neck Neck: Yes supple Lymphatic: no lymphadenopathy noted Resp Effort & Inspection: normal respiratory effort and no use of accessory muscles Auscultation: clear to auscultation bilaterally Cardio Rate: regular rate Rhythm: regular rhythm Heart sounds: no gallops, no murmurs and no rubs Skin General skin exam: other ( warm) Extrem General: No clubbing, No cyanosis and No edema Assessment & Plan Assessment & Plan (1) Pulmonary nodules: Code(s): R91.8 - Other nonspecific abnormal finding of lung field Category: Medical Plan: Results of follow-up CT chest reviewed, stable small bilateral pulmonary nodules. Will repeat CT chest in 12 months. Ordered. Orders: Orders CT chest wo IV con 05/18/24 R91.8 - Other nonspecific abnormal finding of lung field Coding Level of Care Code Est Pt Level 3 (87237) Diagnoses Pulmonary nodules R91.8
== END 2023-06-19 15:01 | disposition home or self-care (01) ==
PROVIDERS: PCP Nurse Practitioner Family; Visit Provider Internal Medicine Pulmonary Disease
DX: R91.8 Other nonspecific abnormal finding of lung field (principal)
CPT/HCPCS: 99213

== ENCOUNTER 2023-07-01 07:54 | Outpatient (RCR) | payer MEDICARE, MEDICAID, SELFPAY | END 2023-09-23 09:27 | disposition home or self-care (01) | LOC: HO.PT 07:54 | PROVIDERS: PCP Nurse Practitioner Family; Visit Provider Registered Nurse Emergency | DX: M75.21 Bicipital tendinitis, right shoulder (principal); M25.511 Pain in right shoulder; M25.512 Pain in left shoulder | CPT/HCPCS: 97110; 97161 ==

== ENCOUNTER 2023-07-10 07:12 | Outpatient (REF) | payer MEDICARE, MEDICAID, SELFPAY | END 2023-07-10 07:13 | disposition home or self-care (01) | LOC: CF 07:12 | PROVIDERS: PCP Nurse Practitioner Family; Visit Provider Internal Medicine | DX: Z13.89 Encounter for screening for other disorder (principal) ==

== ENCOUNTER 2023-07-10 12:52 | Outpatient (AMB) | payer SELFPAY ==
--- NOTE | 2023-07-10 13:10 | MHC.OFFVIS ---
Vital Signs 07/10/23 14:38 Height 5 ft 5 in Weight 148 lb BMI 24.6 BP 160/86 H Blood Pressure Location Lt brachial Position Sitting Respiration 18 Pulse 90 Pulse Source Pulse Oximeter Pulse Oximetry (%) 99 Oxygen Delivery Method Room Air Comment Pre-Op Intake Visit Reasons: PRP right shoulder/left knee Allergies No Known Allergies Allergy (Verified 06/19/23 14:42) PFSH Medical History Anxiety and depression Diverticulosis Hyperlipidemia Hypertension Insomnia PTSD (post-traumatic stress disorder) Surgical History History of esophagogastroduodenoscopy (EGD) Hx of colonoscopy History of left hip replacement Social History Alcohol intake: never Patient Tobacco Use Status: Former Tobacco user Current occupational status: employed and disabled 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 Procedures Platelet Rich Plasma Injection PRP Joint Injection After informed written consent was obtained, pre-procedure oxygen saturation, heart rate, and blood pressure were recorded. An 18 gauge butterfly needle was used to obtain 50 mL of whole blood from the left antecubital fossa. This was then mixed with 9 mL anticoagulant citrate dextrose solution. The 60 mL mixture was counter balanced to within 1 g and spun at 3500 rpm for 10 minutes. Platelet poor plasma was then drawn using a bench top press model. 6 mL of slightly leukocyte rich PRP was isolated in a 10 cc syringe. The platelet poor plasma syringe was then connected to a protein concentrating filter. A vaclock syringe was also attached to the filter. The PPP was then flushed back and forth through the protein concentrating filter and 4 mL of A2M protein concentrate was isolated. For the right shoulder, ultrasound guidance was used to visualize the supraspinatus tendon, the subscapularis tendon and the biceps tendon. 2 mL of PRP was injected using a 25 gauge needle at each of the sites under direct ultrasound visualization. For the left knee, the anteromedial intra-articular knee access point was visualized with ultrasound guidance and marked using a sterile marker. A 25 gauge needle was then used to access the intra-articular space and 4 mL of A2M protein concentrate was injected. The patient tolerated the procedure well without any complications. Oxycodone 10 mg was given orally following the procedure for postprocedure pain. Primary Site: right shoulder Secondary Site: left knee Prep: site was prepped using sterile technique and injection warnings given Procedure: The patient tolerated the procedure well XCELL Platelet Plasma - 0232T 60 mL w/ Filter All charges added?: Procedure code (CPT) selection complete Assessment & Plan Assessment & Plan (1) Osteoarthritis of left knee: Code(s): M17.12 - Unilateral primary osteoarthritis, left knee Category: Medical (2) Rotator cuff tear arthropathy of both shoulders: Code(s): M75.101 - Unspecified rotator cuff tear or rupture of right shoulder, not specified as traumatic; M12.811 - Other specific arthropathies, not elsewhere classified, right shoulder; M12.812 - Other specific arthropathies, not elsewhere classified, left shoulder; M75.102 - Unspecified rotator cuff tear or rupture of left shoulder, not specified as traumatic Category: Medical Plan Patient is status post right rotator cuff PRP injections and left knee intra-articular A2M injection. Patient tolerated procedure well and was discharged home in stable condition with discharge instructions. All questions were answered. Percocet 5-325 mg 20 tablets were sent to the pharmacy for postprocedure pain since the patient was advised not to take his NSAIDs for the following 2 weeks. Orders: Orders US guide needle placement Today Adriane Bui APRN, SPEECH LANGUAGE THERAPIST M12.811 - Other specific arthropathies, not elsewhere classified, right shoulder, M12.812 - Other specific arthropathies, not elsewhere classified, left shoulder, M75.101 - Unspecified rotator cuff tear or rupture of right shoulder, not specified as traumatic, M75.102 - Unspecified rotator cuff tear or rupture of left shoulder, not specified as traumatic AMB Platelet Rich Plasma (PRP) Injection Today Marciano Bridges MD M12.811 - Other specific arthropathies, not elsewhere classified, right shoulder, M12.812 - Other specific arthropathies, not elsewhere classified, left shoulder, M17.12 - Unilateral primary osteoarthritis, left knee, M75.101 - Unspecified rotator cuff tear or rupture of right shoulder, not specified as traumatic, M75.102 - Unspecified rotator cuff tear or rupture of left shoulder, not specified as traumatic Medications: New oxycodone-acetaminophen 5-325 mg Partial Fill upon patient request. 1 tab PO BID PRN 20 tabs 0RF pain Marciano Valeria Bridges MD Coding Level of Care Code Procedure Only Diagnoses Osteoarthritis of left knee M17.12 Rotator cuff tear arthropathy of both shoulders M75.101; M12.811; M12.812; M75.102 CPT Codes XCELL Kit 60mL Filter ([id number])
[2023-07-10 14:38] VITALS: BP 160/86; PULSE 90; RESP 18; O2SAT 99; BMI 24.6
== END 2023-07-10 14:26 | disposition home or self-care (01) ==
LOC: HO.PMCPRC 12:52
PROVIDERS: PCP Nurse Practitioner Family; Visit Provider Internal Medicine
DX: M17.12 Unilateral primary osteoarthritis, left knee (principal); M75.101 Unspecified rotator cuff tear or rupture of right shoulder, not specified as traumatic; M12.811 Other specific arthropathies, not elsewhere classified, right shoulder; M12.812 Other specific arthropathies, not elsewhere classified, left shoulder; M75.102 Unspecified rotator cuff tear or rupture of left shoulder, not specified as traumatic
CPT/HCPCS: 0232T

== ENCOUNTER 2023-08-07 13:16 | Outpatient (AMB) | payer MEDICARE, MEDICAID, SELFPAY ==
--- NOTE | 2023-08-07 13:45 | A.OFFVIS_ITS ---
Vital Signs 08/07/23 13:47 Height 5 ft 5 in Weight 148 lb BMI 24.6 Intake Visit Reasons: OV- B/L Shoulder Intake Note: Mateus is a 68 year old male who presents today for a follow up of his right shoulder. He was last seen with pain management on 07/10/23 where he received a PRP injection in the right shoulder. He also has upcoming appointments with pain mgmt for back injections and discussion of Sprint device . Additionally he is booked for egd with salivary dilation for dysphagia at the end of august Allergies No Known Allergies Allergy (Verified 06/19/23 14:42) HPI HPI OV- B/L Shoulder: Details: Mateus comes in today to discuss his right shoulder. He had an injection with Dr Bridges (PRP) approximately 5 weeks ago and has focal anterior deltoid pain. He describes pain with push ups and pain with overhead activity. Mateus is well known to our practice and has a long history of shoulder and knee pain. He is very vocal that his right shoulder ROM is good but that his daily practice of push-ups is painful. He had an MRI of his right shoulder. [facility] Medical History Anxiety and depression Diverticulosis Hyperlipidemia Hypertension Insomnia PTSD (post-traumatic stress disorder) Surgical History History of esophagogastroduodenoscopy (EGD) Hx of colonoscopy History of left hip replacement Social History Alcohol intake: never Patient Tobacco Use Status: Former Tobacco user Current occupational status: employed and disabled Current occupation: rt handed Physical Exam Vital Signs: BMI result Body Mass Index 24.6 Extrem Other: Full ROM bilateral shoulder. 4+/5 EC on the right. Neg lift off. There is ttp over the anterior deltoid in the region of the bicipital groove but slightly more lateral. There is no obvious STS although he states it is swollen. Results Reviewed Results Reviewed: I personally reviewed the MR images. High riding humeral head and teres minor atrophy and lg central RTC tear. Chronic partial subscapularis tear Presumptive biceps tear as it is not visualized in the groove Assessment & Plan Assessment & Plan (1) Rotator cuff tear arthropathy of both shoulders: Code(s): M75.101 - Unspecified rotator cuff tear or rupture of right shoulder, not specified as traumatic; M12.811 - Other specific arthropathies, not elsewhere classified, right shoulder; M12.812 - Other specific arthropathies, not elsewhere classified, left shoulder; M75.102 - Unspecified rotator cuff tear or rupture of left shoulder, not specified as traumatic Category: Medical Plan: RTC arthropathy with excellent motion. I do not think he is a candidate for repair given the chronic nature of the tear as well as my concern that post operative restrictions would be difficult for Mateus. I recommend PT with a strong focus on the poterior chain and the periscapular musculature. I can see him back after PT although surical intervention is not recommended. Orders: Orders PT Evaluation and Treatment Today M12.811 - Other specific arthropathies, not elsewhere classified, right shoulder, M12.812 - Other specific arthropathies, not elsewhere classified, left shoulder, M75.101 - Unspecified rotator cuff tear or rupture of right shoulder, not specified as traumatic, M75.102 - Unspecified rotator cuff tear or rupture of left shoulder, not specified as traumatic Coding Level of Care Code Est Pt Level 4 (29259) Diagnoses Rotator cuff tear arthropathy of both shoulders M75.101; M12.811; M12.812; M75.102
[2023-08-07 13:47] VITALS: BMI 24.6
== END 2023-08-07 14:30 | disposition home or self-care (01) ==
PROVIDERS: PCP Nurse Practitioner Family; Visit Provider Orthopaedic Surgery
DX: M75.101 Unspecified rotator cuff tear or rupture of right shoulder, not specified as traumatic (principal); M12.811 Other specific arthropathies, not elsewhere classified, right shoulder; M75.102 Unspecified rotator cuff tear or rupture of left shoulder, not specified as traumatic; M12.812 Other specific arthropathies, not elsewhere classified, left shoulder
CPT/HCPCS: 99214

== ENCOUNTER → 2023-08-07 13:16 | Outpatient (BNVA) | payer MEDICARE, MEDICAID, SELFPAY | PROVIDERS: PCP Nurse Practitioner Family; Visit Provider Orthopaedic Surgery | DX: M75.101 Unspecified rotator cuff tear or rupture of right shoulder, not specified as traumatic (principal); M12.811 Other specific arthropathies, not elsewhere classified, right shoulder; M12.812 Other specific arthropathies, not elsewhere classified, left shoulder; M75.102 Unspecified rotator cuff tear or rupture of left shoulder, not specified as traumatic | CPT/HCPCS: 99212 ==

== ENCOUNTER 2023-08-14 06:26 | Outpatient (REF) | payer MEDICARE, MEDICAID, SELFPAY ==
--- NOTE | ~2023-08-14 | FL_ITS ---
EXAMINATION: XR FLUOROSCOPY WITH IMAGES CLINICAL INFORMATION: Radiculopathy lumbar region. COMPARISON: None available. TECHNIQUE: Fluoroscopy Supervised By: Dr. Marciano Bridges. Fluoroscopy Time: 0.1 minute. Cumulative Dose: 2.13 mGy. DAP: 0.229 Gycm2. Images: 2. FINDINGS: Intraoperative fluoroscopy and spot films were performed during a procedure in the OR. A transforaminal approach needle is seen on the right at what is likely L5. Contrast media is seen in the epidural space. Precise levels can not be ascertained secondary to marked coning of the images with lack of appropriate landmarks. Please correlate with Dr. Marciano Bridges's report for complete details. FL/FL guidance in treatment room IMPRESSION: Intraoperative fluoroscopy and spot films were obtained. Please see Dr. Marciano Bridges's report for complete details.
== END 2023-08-14 06:27 | disposition home or self-care (01) ==
LOC: CF 06:26
PROVIDERS: Visit Provider Internal Medicine
DX: M54.16 Radiculopathy, lumbar region (principal); M25.512 Pain in left shoulder
CPT/HCPCS: 62323; 99212; J3301; Q9967

== ENCOUNTER 2023-08-14 12:51 | Outpatient (AMB) | payer MEDICARE, MEDICAID, SELFPAY ==
--- NOTE | 2023-08-14 14:58 | MHC.OFFVIS ---
Intake Visit Reasons: Right L5-S1 parasagittal interlaminar JOYCE Allergies No Known Allergies Allergy (Verified 06/19/23 14:42) HPI HPI Right L5-S1 parasagittal interlaminar JOYCE: Details: Patient presents for scheduled procedure. Denies any recent cough, cold, infection, fever or other significant changes in medical history since last office visit. [facility] Medical History Anxiety and depression Diverticulosis Hyperlipidemia Hypertension Insomnia PTSD (post-traumatic stress disorder) Surgical History History of esophagogastroduodenoscopy (EGD) Hx of colonoscopy History of left hip replacement Social History Alcohol intake: never Patient Tobacco Use Status: Former Tobacco user Current occupational status: employed and disabled 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 Procedures Joint Injection/Drain Joint Injection/Drain Details: Interlaminar epidural steroid injection, L5-S1, right parasaggital After obtaining written consent, pre-procedure blood pressure and heart rate were stable and recorded in the nursing record. The patient was placed in the prone position. The lumbar area was widely prepped with chloraprep and draped in sterile fashion. Fluoroscopic guidance was used to identify the desired interlaminar space and for needle placement. Subcutaneous 0.5% lidocaine was used to anesthetize the skin overlying the target. A 20-gauge Randle needle was advanced to the epidural space using loss of resistance to contrast technique under fluoroscopic AP and contralateral oblique views. There was no evidence of heme or CSF and no paresthesias were elicited with needle placement. Confirmation of epidural needle placement was performed with 1cc of omnipaque 180. Next 3 ml 0.5% lidocaine mixed with 80 mg triamcinilone was administered epidurally with no pain elicited on injection. The needle tract tubing was then cleared with 1 ml of 0.5% lidocaine. The needle was removed, skin cleansed and a sterile bandage was applied. The patient tolerated the procedure well and no complications were encountered. Following the procedure the patient's vital signs were stable. The patient was discharged home in good condition with post-procedural instructions. Time Out: Immediately prior to the procedure, the following was verbally confirmed that there is a signed consent form and that the correct patient, planned procedure, site and side are consistent with documentation and that necessary equipment and/or blood products are available prior to the start of the case. Complications: none EBL: <2 cc Coding 29083 - Caudal/Lumbar Epidural/Interlaminar with fluoroscopy Procedure code (CPT) selection complete Assessment & Plan Assessment & Plan (1) Left shoulder pain: Code(s): M25.512 - Pain in left shoulder Category: Medical (2) Lumbar radiculopathy: Code(s): M54.16 - Radiculopathy, lumbar region Category: Medical Plan Patient is status post right parasagittal interlaminar L5-S1 JOYCE. Patient tolerated procedure well and was discharged home in stable condition with discharge instructions. All questions were answered. He continues to have significant left shoulder pain and discomfort that has not been responsive to multiple corticosteroid injections, physical therapy as well as PRP injection. He is interested in trialing nerve stimulation as a next step for his intractable left shoulder pain. He will return to us for placement of temporary left suprascapular nerve stimulator placement. Orders: Orders FL guidance in treatment room Today M54.16 - Radiculopathy, lumbar region Coding Level of Care Code Est Pt Level 3 (55594) Diagnoses Left shoulder pain M25.512 Lumbar radiculopathy M54.16 CPT Codes Coding - Joint 11: 17451 - Caudal/Lumbar Epidural/Interlaminar with fluoroscopy ([id number])
--- OUTSIDE RECORDS SUMMARY | 2023-08-21 06:18 | XMS_ITS | Continuity of Care Document ---
Author Organization [facility] ter Address [address] [place] [id number]- Care Team Providers Care Pneumatic Tool Repairer Name Role Phone Shay MCDOWELL, Nicole Grider Primary Care Physician Encounter [facility] Date(s): 06/11/23 - 07/12/[address] [address]- Attending Physician: Miguel Cherry MD Admitting Physician: Miguel Cherry MD Allergies, Adverse Reactions, Alerts No Known Allergies [...] 07/05/22 15:54:00 EDT, [id number], 165, cm, 06/21/22 14:07:00 EDT, Height, 71.5, kg, 09/20/20 13:46:00 EDT,... Start Date: 07/05/22 Status: Ordered dexlansoprazole 30 mg oral delayed release capsule 1 capsule = 30 mg, By Mouth, Daily, # 30 capsule, 5 Refills, Maintenance, 07/12/19 12:17:00 EDT, [facility]/pharmacy #[id number], 164, cm, 06/30/19 14:28:00 EDT, Height, 79, kg, 04/28/19 12:58:00 EST, Dry Weight Start Date: 07/12/19 Stop Date: 01/08/20 Status: Ordered diazepam 2 mg oral tablet 4 mg, 2, tablet, By Mouth, 2 times a day, # 120 tablet, Refills 6, Tot. Refills 6, Soft Stop, 04/24/23 12:43:00 EST, Route to Pharmacy Electronically, [facility] #[id number], 165, cm, 03/07/23 13:49:00 EST, Height Start Date: 04/24/23 Stop Date: 11/20/23 Status: Ordered hydrocortisone 1% topical cream 1 application, Topically, 2 times a day, # 45 Gm, 0 Refills, Maintenance, 01/08/21 17:21:00 EST, Cream, [facility]/pharmacy #[id number], Partial fill upon patient request if the prescription is for a schedule II opioid drug., 1 application Topically 2 times a day,... Start Date: 01/08/21 Status: Ordered lisinopril 30 mg oral tablet 1 tablet = 30 mg, By Mouth, Daily, # 90 tablet, 1 Refills, Maintenance, 11/15/22 13:42:00 EDT, Tablet, [facility] #[id number], 165, cm, 06/21/22 14:07:00 EDT, Height Start Date: 11/15/22 Status: Ordered Multivitamin Daily, 0 Refills, Maintenance, 06/08/18 14:18:26 EDT Start Date: 06/08/18 Status: Ordered nitroglycerin 0.4 mg sublingual tablet 1 tablet = 0.4 mg, Sublingual, Every 5 minutes, PRN for chest pain, # 100 tablet, 9 Refills, Maintenance, 12/09/22 11:18:00 EDT, Tablet, [facility] #[id number], Partial fill upon patient requestif the prescription is for a schedule II opioid uma... Start Date: 12/09/22 Status: Ordered pravastatin 10 mg oral tablet 1 tablet, By Mouth, Daily at bedtime, # 90 tablet, 3 Refills, Maintenance, 04/29/23 11:18:00 EST, [facility] #[id number], 165, cm, 03/07/23 13:49:00 EST, Height Start [...] 07/05/22 15:53:00 EDT, Route to Pharmacy Electronically, [facility] #[id number], 165, cm, 06/21/22 14:07:00 EDT, Height, 71.5, [...] Team Personnel Name: Evelio Serrano MD Position: [facility] Physician - Gastroenterology Member Role: [employer] Consulting Physician Address: Address: [address] [place] [address], [address] [facility] [place] [address]- Name: Gosia Collins RN Position: [facility] RN Member Role: Primary Care Nurse Name: Nicole Day NP Position: [facility] PCO Associate Professional Member Role: PCP Address: Address: [address] [place] [address] [address] [place] [address]- Name: Missy Lancaster RN Position: [facility] RN Member Role: Primary Care Nurse Name: Amy Del Toro RN Position: [facility] ED RN W/OE and Tasks Member Role: Primary Care Nurse Name: Rachael Garcia RN Position: [facility] AMB Nurse Member Role: Primary Care Nurse Name: Sole Rodriguez RN Position: [facility] Hospital Transmitter Operator Member Role: Primary Care Nurse Care Team Related Persons Name: OZIEL MACK Address: [place] [address] Name: OZIEL MACK Address: [place] [address] Name: GHADA QUISPE Address: home [address] [place] [address]
--- OUTSIDE RECORDS SUMMARY | 2023-08-21 06:19 | XMS_ITS | Continuity of Care Document ---
Author Organization [facility] Adult Address [address] [place] [address]- Care Team Providers Care Hub Lead Name Role Phone Nicole Day NP Primary Care Physician Encounter [facility] Date(s): 07/17/23 - 07/24/23 [facility] [address] [place] [id number]- Encounter Diagnosis Physical exam(Discharge Diagnosis) - 07/17/23 Anxiety and depression(Discharge Diagnosis) - 07/17/23 Diverticulosis(Discharge Diagnosis) - 07/17/23 Dysphagia(Discharge Diagnosis) - 07/17/23 Hyperlipidemia(Discharge Diagnosis) - 07/17/23 Hypertension(Discharge Diagnosis) - 07/17/23 Insomnia(Discharge Diagnosis) - 07/17/23 PTSD (post-traumatic stress disorder)(Discharge Diagnosis) - 07/17/23 Medicare annual wellness visit, subsequent(Discharge Diagnosis) - 07/17/23 Attending Physician: Nicole Day NP Allergies, Adverse [...] 07/05/22 15:54:00 EDT, Route to Pharmacy Electronically, [facility] #[id number], 165, cm, 06/21/22 14:07:00 EDT, Height, 71.5, kg, 09/20/20 13:46:00 EDT,... Start Date: 07/05/22 Status: Ordered dexlansoprazole 30 mg oral delayed release capsule 1 capsule = 30 mg, By Mouth, Daily, # 30 capsule, 5 Refills, Maintenance, 07/12/19 12:17:00 EDT, [facility]/pharmacy #[id number], 164, cm, 06/30/19 14:28:00 EDT, Height, 79, kg, 04/28/19 12:58:00 EST, Dry Weight Start Date: 07/12/19 Stop Date: 01/08/20 Status: Ordered diazepam 2 mg oral tablet 4 mg, 2, tablet, By Mouth, 2 times a day, # 120 tablet, Refills 6, Tot. Refills 6, Soft Stop, 04/24/23 12:43:00 EST, Route to Pharmacy Electronically, [facility] #[id number], 165, cm, 03/07/23 13:49:00 EST, Height Start Date: 04/24/23 Stop Date: 11/20/23 Status: Ordered hydrocortisone 1% topical cream 1 application, Topically, 2 times a day, # 45 Gm, 0 Refills, Maintenance, 01/08/21 17:21:00 EST, Cream, [facility]/pharmacy #[id number], Partial fill upon patient request if the prescription is for a schedule II opioid drug., 1 application Topically 2 times a day,... Start Date: 01/08/21 Status: Ordered lisinopril 30 mg oral tablet 1 tablet = 30 mg, By Mouth, Daily, # 90 tablet, 1 Refills, Maintenance, 11/15/22 13:42:00 EDT, Tablet, [facility] #[id number], 165, cm, 06/21/22 14:07:00 EDT, Height Start Date: 11/15/22 Status: Ordered Multivitamin Daily, 0 Refills, Maintenance, 06/08/18 14:18:26 EDT Start Date: 06/08/18 Status: Ordered nitroglycerin 0.4 mg sublingual tablet 1 tablet = 0.4 mg, Sublingual, Every 5 minutes, PRN for chest pain, # 100 tablet, 9 Refills, Maintenance, 12/09/22 11:18:00 EDT, Tablet, [facility] #[id number], Partial fill upon patient requestif the prescription is for a schedule II opioid uma... Start Date: 12/09/22 Status: Ordered pravastatin 10 mg oral tablet 1 tablet, By Mouth, Daily at bedtime, # 90 tablet, 3 Refills, Maintenance, 04/29/23 11:18:00 EST, [facility] #[id number], 165, cm, 03/07/23 13:49:00 EST, Height Start [...] 07/05/22 15:53:00 EDT, Route to Pharmacy Electronically, [facility] #[id number], 165, cm, 06/21/22 14:07:00 EDT, Height, 71.5, kg, 09/20/20 13:46:00 EDT, Dry Weight Start Date: 07/05/22 Status: Ordered Problem List Condition Confirmation Course Effective Dates Status H ealt Status Informant Anxiety and depression Confirmed Active Diverticulosis Confirmed Active Dysphagia Confirmed Active Hyperlipidemia Confirmed Active Hypertension Confirmed Active Insomnia Confirmed Active PTSD (post-traumatic stress disorder) Confirmed Active Diagnosis Diagnosis Type Effective Dates Health Status Clinical Service Informant Physical exam Discharge Diagnosis 07/17/23 Anxiety and depression Discharge Diagnosis 07/17/23 Diverticulosis Discharge Diagnosis 07/17/23 Dysphagia Discharge Diagnosis 07/17/23 Hyperlipidemia Discharge Diagnosis 07/17/23 Hypertension Discharge Diagnosis 07/17/23 Insomnia Discharge Diagnosis 07/17/23 PTSD (post-traumatic stress disorder) Discharge Diagnosis 07/17/23 Medicare annual wellness visit, subsequent Discharge Diagnosis 07/17/23 Vital Signs Most recent to oldest [Reference Range]: 1 2 Height 165 cm (07/17/23 1:38 PM) 165 cm (07/17/23 12:57 PM) Weight 68.7 kg (07/17/23 12:57 PM) Oxygen Saturation [94-100 %] 98 % (07/17/23 12:57 PM) Pulse Rate [55-90 bpm] 78 bpm (07/17/23 12:57 PM) Body Mass Index [18.5-24.99 kg/m2] 25.23 kg/m2 *H* (07/17/23 12:57 PM) Blood Pressure [90-138/55-84 mm Hg] 126/ 78mm Hg (07/17/23 1:38 PM) 122/64mm Hg (07/17/23 12:57 PM) Temperature [96.8-100.4 DegF] 98.2 DegF (07/17/23 12:57 PM) Mode of Delivery (Oxygen) Room air (07/17/23 12:57 PM) Blood pressure sites Arm, left (07/17/23 1:38 PM) Arm, left (07/17/23 12:57 PM) Temperature Route Oral (07/17/23 12:57 PM) Weight Obtained Via Standing scale (07/17/23 12:57 PM) Social History Social History Type Response Smoking Status Never smoker; Type: Cigarettes entered on: 04/14/17 Sex Patient Care team information Care Team Personnel Name: Evelio Serrano MD Position: [facility] Physician - Gastroenterology Member Role: Lifetime Consulting Physician Address: Address: [address] [place] [address], [facility] [address] [place], [place] [address] Name: Gosia Collins RN Position: [facility] RN Member Role: Primary Care Nurse Name: Nicole Day NP Position: [facility] PCO Associate Professional Member Role: PCP Address: Address: [address] [place] [address] 3rd [place] [address]- Name: Missy Lancaster RN Position: [facility] RN Member Role: Primary Care Nurse Name: Amy Del Toro RN Position: [facility] ED RN W/OE and Tasks Member Role: Primary Care Nurse Name: Rachael Garcia RN Position: [facility] AMB Nurse Member Role: Primary Care Nurse Name: Sole Rodriguez RN Position: [facility] Hospital Sole Molding Machine Operator Member Role: Primary Care Nurse Care Team Related Persons Name: OZIEL MACK Address: [place] [address] Name: OZIEL MACK Address: [place] [address] Name: GHADA QUISPE Address: home [address] [place] [address]
--- OUTSIDE RECORDS SUMMARY | 2023-08-21 06:19 | XMS_ITS | Continuity of Care Document ---
Author Organization [facility] Address [address] [place] [address]- Care Team Providers Care Marine Diesel Mechanic Name Role Phone Shay MCDOWELL, Nicole Grider Primary Care Physician Encounter [facility] Date(s): 06/11/23 - 07/11/23 [facility] [address] [place] [phone]- [place] Allergies, Adverse Reactions, Alerts No Known [...] 07/05/22 15:54:00 EDT, [id number], 165, cm, 06/21/22 14:07:00 EDT, Height, 71.5, kg, 09/20/20 13:46:00 EDT,... Start Date: 07/05/22 Status: Ordered dexlansoprazole 30 mg oral delayed release capsule 1 capsule = 30 mg, By Mouth, Daily, # 30 capsule, 5 Refills, Maintenance, 07/12/19 12:17:00 EDT, [facility]/pharmacy #[id number], 164, cm, 06/30/19 14:28:00 EDT, Height, 79, kg, 04/28/19 12:58:00 EST, Dry Weight Start Date: 5/18/20 Stop Date: 01/08/20 Status: Ordered diazepam 2 mg oral tablet 4 mg, 2, tablet, By Mouth, 2 times a day, # 120 tablet, Refills 6, Tot. Refills 6, Soft Stop, 04/24/23 12:43:00 EST, Route to Pharmacy Electronically, [facility] #[id number], 165, cm, 03/07/23 13:49:00 EST, Height Start Date: 04/24/23 Stop Date: 11/20/23 Status: Ordered hydrocortisone 1% topical cream 1 application, Topically, 2 times a day, # 45 Gm, 0 Refills, Maintenance, 01/08/21 17:21:00 EST, Cream, [facility]/pharmacy #[id number], Partial fill upon patient request if the prescription is for a schedule II opioid drug., 1 application Topically 2 times a day,... Start Date: 01/08/21 Status: Ordered lisinopril 30 mg oral tablet 1 tablet = 30 mg, By Mouth, Daily, # 90 tablet, 1 Refills, Maintenance, 11/15/22 13:42:00 EDT, Tablet, [facility] #[id number], 165, cm, 06/21/22 14:07:00 EDT, Height Start Date: 11/15/22 Status: Ordered Multivitamin Daily, 0 Refills, Maintenance, 06/08/18 14:18:26 EDT Start Date: 06/08/18 Status: Ordered nitroglycerin 0.4 mg sublingual tablet 1 tablet = 0.4 mg, Sublingual, Every 5 minutes, PRN for chest pain, # 100 tablet, 9 Refills, Maintenance, 12/09/22 11:18:00 EDT, Tablet, [facility] #[id number], Partial fill upon patient requestif the prescription is for a schedule II opioid uma... Start Date: 12/09/22 Status: Ordered pravastatin 10 mg oral tablet 1 tablet, By Mouth, Daily at bedtime, # 90 tablet, 3 Refills, Maintenance, 04/29/23 11:18:00 EST, [facility] #[id number], 165, cm, 03/07/23 13:49:00 EST, Height Start [...] 07/05/22 15:53:00 EDT, Route to Pharmacy Electronically, [facility] #[id number], 165, cm, 06/21/22 14:07:00 EDT, Height, 71.5, [...] team information Care Team Personnel Name: Evelio Serraon MD Position: [facility] Physician - Gastroenterology Member Role: Lifetime Consulting Physician Address: Address: [address] [place] [address], [address] [facility] [place] [address]- Name: Gosia Collins RN Position: [facility] RN Member Role: Primary Care Nurse Name: Nicole Day NP Position: [facility] PCO Associate Professional Member Role: PCP Address: Address: [address] [place] [address] [address] [place] [address]- Name: Missy Lancaster RN Position: [facility] RN Member Role: Primary Care Nurse Name: Amy Del Toro RN Position: [facility] ED RN W/OE and Tasks Member Role: Primary Care Nurse Name: Rachael Garcia RN Position: [facility] AMB Nurse Member Role: Primary Care Nurse Name: Sole Rodriguez RN Position: [facility] Hospital Wireless Engineer Member Role: Primary Care Nurse Care Team Related Persons Name: OZIEL MACK Address: [place] [address] Name: OZIEL MACK Address: [place] [address] Name: QUISPE, GHADA Address: home [address] [place] [address]
--- OUTSIDE RECORDS SUMMARY | 2023-08-21 06:20 | XMS_ITS | Continuity of Care Document ---
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 Start Date: 07/05/22 Status: Ordered dexlansoprazole 30 mg oral delayed release capsule 1 capsule = 30 mg, By Mouth, Daily, # 30 capsule, 5 Refills, Maintenance, 07/12/19 12:17:00 EDT, [facility]/pharmacy #[id number], 164, cm, 06/30/19 14:28:00 EDT, Height, 79, kg, 04/28/19 12:58:00 EST, Dry Weight Start Date: 5/18/20 Stop Date: 01/08/20 Status: Ordered diazepam 2 mg oral tablet 4 mg, 2, tablet, By Mouth, 2 times a day, # 120 tablet, Refills 6, Tot. Refills 6, Soft Stop, 04/24/23 12:43:00 EST, Route to Pharmacy Electronically, [facility] #[id number], 165, cm, 03/07/23 13:49:00 EST, Height Start Date: 04/24/23 Stop Date: 11/20/23 Status: Ordered hydrocortisone 1% topical cream 1 application, Topically, 2 times a day, # 45 Gm, 0 Refills, Maintenance, 01/08/21 17:21:00 EST, Cream, [facility]/pharmacy #[id number], Partial fill upon patient request if the prescription is for a schedule II opioid drug., 1 application Topically 2 times a day,... Start Date: 01/08/21 Status: Ordered lisinopril 30 mg oral tablet 1 tablet = 30 mg, By Mouth, Daily, # 90 tablet, 1 Refills, Maintenance, 11/15/22 13:42:00 EDT, Tablet, [facility] #[id number], 165, cm, 06/21/22 14:07:00 EDT, Height Start Date: 11/15/22 Status: Ordered Multivitamin Daily, 0 Refills, Maintenance, 06/08/18 14:18:26 EDT Start Date: 06/08/18 Status: Ordered nitroglycerin 0.4 mg sublingual tablet 1 tablet = 0.4 mg, Sublingual, Every 5 minutes, PRN for chest pain, # 100 tablet, 9 Refills, Maintenance, 12/09/22 11:18:00 EDT, Tablet, [facility] #[id number], Partial fill upon patient requestif the prescription is for a schedule II opioid uma... Start Date: 12/09/22 Status: Ordered pravastatin 10 mg oral tablet 1 tablet, By Mouth, Daily at bedtime, # 90 tablet, 3 Refills, Maintenance, 04/29/23 11:18:00 EST, [facility] #[id number], 165, cm, 03/07/23 13:49:00 EST, Height Start [...] 07/05/22 15:53:00 EDT, Route to Pharmacy Electronically, [facility] #[id number], 165, cm, 06/21/22 14:07:00 EDT, Height, 71.5, [...] Team Personnel Name: Evelio Serrano MD Position: [facility] Physician - Gastroenterology Member Role: Lifetime Consulting Physician Address: Address: [address] [place] [address], [address] [facility] [place] [address]- Name: Gosia Collins RN Position: [facility] RN Member Role: Primary Care Nurse Name: Nicole Day NP Position: [facility] PCO Associate Professional Member Role: PCP Address: Address: [address] [place] [address] [address] [place] [address]- Name: Missy Lancaster RN Position: [facility] RN Member Role: Primary Care Nurse Name: Amy Del Toro RN Position: [facility] ED RN W/OE and Tasks Member Role: Primary Care Nurse Name: Rachael Garcia RN Position: [facility] AMB Nurse Member Role: Primary Care Nurse Name: Sole Rodriguez RN Position: [facility] Hospital 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
--- OUTSIDE RECORDS SUMMARY | 2023-08-21 06:20 | XMS_ITS | Continuity of Care Document ---
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 Start Date: 07/05/22 Status: Ordered dexlansoprazole 30 mg oral delayed release capsule 1 capsule = 30 mg, By Mouth, Daily, # 30 capsule, 5 Refills, Maintenance, 07/12/19 12:17:00 EDT, [facility]/pharmacy #[id number], 164, cm, 06/30/19 14:28:00 EDT, Height, 79, kg, 04/28/19 12:58:00 EST, Dry Weight Start Date: 07/12/19 Stop Date: 01/08/20 Status: Ordered diazepam 2 mg oral tablet 4 mg, 2, tablet, By Mouth, 2 times a day, # 120 tablet, Refills 6, Tot. Refills 6, Soft Stop, 04/24/23 12:43:00 EST, Route to Pharmacy Electronically, [facility] #[id number], 165, cm, 03/07/23 13:49:00 EST, Height Start Date: 04/24/23 Stop Date: 11/20/23 Status: Ordered hydrocortisone 1% topical cream 1 application, Topically, 2 times a day, # 45 Gm, 0 Refills, Maintenance, 01/08/21 17:21:00 EST, Cream, [facility]/pharmacy #[id number], Partial fill upon patient request if the prescription is for a schedule II opioid drug., 1 application Topically 2 times a day,... Start Date: 01/08/21 Status: Ordered lisinopril 30 mg oral tablet 1 tablet = 30 mg, By Mouth, Daily, # 90 tablet, 1 Refills, Maintenance, 11/15/22 13:42:00 EDT, Tablet, [facility] #[id number], 165, cm, 06/21/22 14:07:00 EDT, Height Start Date: 11/15/22 Status: Ordered Multivitamin Daily, 0 Refills, Maintenance, 06/08/18 14:18:26 EDT Start Date: 06/08/18 Status: Ordered nitroglycerin 0.4 mg sublingual tablet 1 tablet = 0.4 mg, Sublingual, Every 5 minutes, PRN for chest pain, # 100 tablet, 9 Refills, Maintenance, 12/09/22 11:18:00 EDT, Tablet, [facility] #[id number], Partial fill upon patient requestif the prescription is for a schedule II opioid uma... Start Date: 12/09/22 Status: Ordered pravastatin 10 mg oral tablet 1 tablet, By Mouth, Daily at bedtime, # 90 tablet, 3 Refills, Maintenance, 04/29/23 11:18:00 EST, [facility] #[id number], 165, cm, 03/07/23 13:49:00 EST, Height Start [...] 07/05/22 15:53:00 EDT, Route to Pharmacy Electronically, [facility] #[id number], 165, cm, 06/21/22 14:07:00 EDT, Height, 71.5, [...] Member Role: Lifetime Consulting Physician Address: Address: [address] [place] [address], [address] [facility] [place] [address]- Name: Gosia Collins RN Position: [facility] RN Member Role: Primary Care Nurse Name: Nicole Day NP Position: [facility] PCO Associate Professional Member Role: PCP Address: Address: [address] [place] [address] 3rd [place] [address]- Name: Missy Lancaster RN Position: [facility] RN Member Role: Primary Care Nurse Name: Amy Del Toro RN Position: [facility] ED RN W/OE and Tasks Member Role: Primary Care Nurse Name: Rachael Garcia RN Position: [facility] AMB Nurse Member Role: Primary Care Nurse Name: Sole Rodriguez RN Position: [facility] Hospital Vp Construction Member Role: Primary Care Nurse Care Team Related Persons Name: OZIEL MACK Address: [place] [address] Name: OZIEL MACK Address: [place] [address] Name: GHADA QUISPE Address: home [address] [place] [address] [place] [address]
== END 2023-08-14 13:35 | disposition home or self-care (01) ==
LOC: HO.PMCPRC 12:51
PROVIDERS: PCP Nurse Practitioner Family; Visit Provider Internal Medicine
DX: M25.512 Pain in left shoulder (principal); M54.16 Radiculopathy, lumbar region
CPT/HCPCS: 62323; 99213

== ENCOUNTER 2023-08-21 06:14 | Outpatient (REF) | payer MEDICARE, MEDICAID, SELFPAY | END 2023-08-21 06:15 | disposition home or self-care (01) | LOC: CF 06:14 | PROVIDERS: Visit Provider Internal Medicine | DX: M25.811 Other specified joint disorders, right shoulder (principal); M75.101 Unspecified rotator cuff tear or rupture of right shoulder, not specified as traumatic; M12.811 Other specific arthropathies, not elsewhere classified, right shoulder; M12.812 Other specific arthropathies, not elsewhere classified, left shoulder; M75.102 Unspecified rotator cuff tear or rupture of left shoulder, not specified as traumatic | CPT/HCPCS: 64555; C1778 ==

== ENCOUNTER 2023-08-21 12:52 | Outpatient (AMB) | payer MEDICARE, MEDICAID, SELFPAY ==
[2023-08-21 13:06] VITALS: BP 160/81; PULSE 88; RESP 16; O2SAT 98
--- NOTE | 2023-08-21 13:06 | MHC.OFFVIS ---
Vital Signs 08/21/23 13:06 08/21/23 14:03 BP 160/81 H 146/86 H Blood Pressure Location Rt brachial Lt brachial Position Sitting Sitting Respiration 16 16 Pulse 88 76 Pulse Source Pulse Oximeter Pulse Oximeter Pulse Oximetry (%) 98 99 Oxygen Delivery Method Room Air Room Air Intake Visit Reasons: (R) Shoulder Sprint Allergies No Known Allergies Allergy (Verified 06/19/23 14:42) PFSH Medical History Anxiety and depression Diverticulosis Hyperlipidemia Hypertension Insomnia PTSD (post-traumatic stress disorder) Surgical History History of esophagogastroduodenoscopy (EGD) Hx of colonoscopy History of left hip replacement Social History Alcohol intake: never Patient Tobacco Use Status: Former Tobacco user Current occupational status: employed and disabled Current occupation: rt handed Physical Exam Vital Signs: Last Vital Signs Pulse 76 08/21/23 14:03 Resp 16 08/21/23 14:03 BP 146/86 H 08/21/23 14:03 Pulse Ox 99 08/21/23 14:03 Oxygen Delivery Method Room Air 08/21/23 14:03 Office Procedures Details: Peripheral Nerve Stimulation Temporary Lead Placement, Fluoroscopy-Guided, Axillary Nerve, Right ? After the risks, benefits and alternatives were discussed with the patient and informed consent was obtained, patient was placed in the sitting position and padded to foster comfort. Appropriate skin and bony landmarks were identified using ultrasound, including posterior circumflex artery. The skin overlying the needle entry site was prepped and draped in sterile fashion. After identifying and marking the intended target along the course of the axillary nerve, the skin around the planned entry point and the subcutaneous tissues were injected with local anesthetic. An introducer needle and stimulating probe were assembled, inserted and advanced along the intended course of the axillary nerve, taking care to maintain the proper depth of insertion as the introducer was advanced under ultrasound guidance. Bony contact was achieved with the humerus. The introducer needle was delivered to a location in proximity to the nerve. Multiple stimulation parameters were used to deliver stimulation to the axillary nerve in concert with stimulating at multiple positions around the nerve. Nerve target acquisition was confirmed noting generation of sensory and mild motor effects (paresthesia, muscle tension, etc) in the shoulder and proximal arm; corresponding to the distribution of the axillary nerve. Various electrical parameter combinations were tested, and the lead location was adjusted (physically relocated under image guidance) until the patient indicated shoulder paresthesia and tension overlapping the distribution of the patient?s typical region of pain. The stimulating probe was removed from the introducer and a percutaneous lead was guided through the needle and delivered to a location in similar proximity to the nerve. Final location was verified with electrical stimulation and documented. The introducer needle was removed, and the exposed end of the percutaneous lead was attached to an external stimulator unit. Various electrical parameter combinations were again tested until the patient indicated paresthesia and muscle tension overlapping the distribution of the patient?s typical region of pain. After confirming that lead impedance was in the normal range, the external unit was detached, the needle was removed, and the lead was anchored at the skin. The needle entry site was occluded with dermabond. The lead was threaded into the connector block and electrical continuity and desired patient response was confirmed. The connector block was attached to the external stimulator unit. The site was covered with a sterile occlusive dressing.? A final image was taken to document final placement. The patient was observed for stability of vital signs and comfort. Sprint PNS Device: Sprint PNS Device [id number] Percutaneous Peripheral Neuroelectrode Procedure: 37766 - Percutaneous Peripheral Neuroelectrode Procedure code (CPT) selection complete Office Meds lidocaine (PF) 50 mg/5 mL (1 %) injection syringe Performing Provider: Marciano Bridges MD Performing Location: [facility] Administered by: Chelsea Delaney LPN on 08/21/23 13:43 Dose Route Admin Location Dispensed Lot Number Expiration Date NDC Contact And Service Clerks Supervisor 5 mL subcut 5 mL Assessment & Plan Assessment & Plan (1) Impingement of right shoulder: Code(s): M25.811 - Other specified joint disorders, right shoulder Category: Medical (2) Rotator cuff tear arthropathy of both shoulders: Code(s): M75.101 - Unspecified rotator cuff tear or rupture of right shoulder, not specified as traumatic; M12.811 - Other specific arthropathies, not elsewhere classified, right shoulder; M12.812 - Other specific arthropathies, not elsewhere classified, left shoulder; M75.102 - Unspecified rotator cuff tear or rupture of left shoulder, not specified as traumatic Category: Medical (3) Right shoulder pain: Code(s): M25.511 - Pain in right shoulder Category: Medical Plan Patient is status post right axillary nerve temporary stimulator placement. Patient tolerated procedure well and was discharged home in stable condition with discharge instructions. All questions were answered. We will follow-up via telephone or in clinic to assess response to therapy. A follow-up appointment was made during today's visit. Orders: Orders AMB Sprint PNS Today M12.811 - Other specific arthropathies, not elsewhere classified, right shoulder, M12.812 - Other specific arthropathies, not elsewhere classified, left shoulder, M25.811 - Other specified joint disorders, right shoulder, M75.101 - Unspecified rotator cuff tear or rupture of right shoulder, not specified as traumatic, M75.102 - Unspecified rotator cuff tear or rupture of left shoulder, not specified as traumatic Coding Level of Care Code Procedure Only Diagnoses Impingement of right shoulder M25.811 Rotator cuff tear arthropathy of both shoulders M75.101; M12.811; M12.812; M75.102 Right shoulder pain M25.511 CPT Codes Sprint PNS - Sprint PNS Device: Sprint PNS Device ([id number]) Sprint PNS - SPRINT: 32652 - Percutaneous Peripheral Neuroelectrode ([id number]) Implantable Device Implantable Device Implantable Devices Qty Contact And Service Clerks Supervisor Implant Date Expiration Date Analgesic PENS system 1 [employer] 08/21/23 08/19/24
[2023-08-21 14:03] VITALS: BP 146/86; PULSE 76; RESP 16; O2SAT 99
== END 2023-08-21 14:22 | disposition home or self-care (01) ==
LOC: HO.PMCPRC 12:52
PROVIDERS: PCP Nurse Practitioner Family; Visit Provider Internal Medicine
DX: M25.811 Other specified joint disorders, right shoulder (principal); M75.101 Unspecified rotator cuff tear or rupture of right shoulder, not specified as traumatic; M12.811 Other specific arthropathies, not elsewhere classified, right shoulder; M12.812 Other specific arthropathies, not elsewhere classified, left shoulder; M75.102 Unspecified rotator cuff tear or rupture of left shoulder, not specified as traumatic; M25.511 Pain in right shoulder
CPT/HCPCS: 64555

== ENCOUNTER → 2023-08-22 09:27 | Outpatient (BNVA) | payer MEDICARE, MEDICAID, SELFPAY | PROVIDERS: PCP Nurse Practitioner Family; Visit Provider Internal Medicine ==

== ENCOUNTER 2023-09-08 08:33 | Emergency (ER) | payer MEDICARE, MEDICAID, SELFPAY ==
[2023-09-08 08:45] VITALS: BP 166/79; PULSE 88; RESP 18; TEMP 37; O2SAT 98; BMI 23.6
--- NOTE | 2023-09-08 09:55 | ED.GENADULT ---
HPI - General Adult General Chief complaint: General Medical Stated complaint: unable to stop shaking Time Seen by Provider: 09/08/23 09:51 Source: patient Mode of arrival: ambulatory Limitations: no limitations History of Present Illness ED Provider: Christine HILTON narrative: Patient is a 68-year-old male with history of anxiety and depression, PTSD, ADD, OCD, HTN, HLD, peripheral neuropathy presenting to the emergency department with complaint of feeling tremulous but is unable to state for what length of time. States that he saw his PCP on 07/17/2023 and advised her that he had this tremulous sensation at that time. He also complains of 10 lb weight loss which he states that he notified his PCP of as well at that visit. He reports that he has not currently seeing a therapist or psychiatrist but is feeling very anxious at all times. Takes 2mg of diazepam daily for anxiety but states this is currently not helping his symptoms. Repeatedly stating that he feels as though he has Parkinson's. States PCP referred him to neurology but they are unable to see him for 7-8 months. He denies chest or abdominal pain. Denies dyspnea, palpitations, nausea, vomiting, diarrhea, fevers. MD complaint: anxiety/tremulous Onset (ago): unknown Related Data Home Medications ?Medication ?Instructions ?Recorded ?Confirmed clonidine HCl 0.1 mg tablet 0.1 mg PO BID 05/10/21 06/20/23 diazepam 2 mg tablet 4 mg PO BID PRN Anxiety 05/10/21 06/20/23 lisinopril 30 mg tablet 30 mg PO DAILY 05/10/21 06/20/23 pravastatin 10 mg tablet 10 mg PO BEDTIME 05/10/21 06/20/23 trazodone 100 mg tablet 100 mg PO BEDTIME 05/10/21 06/20/23 nitroglycerin 0.4 mg sublingual mg sublingual 11/18/22 06/20/23 tablet Previous Rx's ?Medication ?Instructions ?Recorded cromolyn 100 mg/5 mL oral 200 mg (10 mL) PO QID 30 days 08/26/22 concentrate #1,200 mL loratadine 10 mg tablet (Claritin) 10 mg PO DAILY #90 tabs 11/18/22 celecoxib 200 mg capsule 200 mg PO BID #60 caps 01/14/23 fexofenadine 180 mg tablet 180 mg PO DAILY #30 tabs 02/12/23 (Carolyn Allergy) fluticasone propionate 50 1 spray intranasal BID #48 grams 02/12/23 mcg/actuation nasal spray,suspension cromolyn 5.2 mg/spray (4 %) nasal 1 spray intranasal TID #26 mL 02/14/23 spray (Nasalcrom) esomeprazole magnesium 40 mg 40 mg PO DAILY #90 caps 03/10/23 capsule,delayed release pregabalin 75 mg capsule 75 mg PO BID #60 caps 04/25/23 methocarbamol 500 mg tablet 500 mg PO TID #90 tabs 05/05/23 ibuprofen 400 mg tablet 400 mg PO TID PRN pain #90 tabs 05/14/23 methylprednisolone 4 mg tablets in See Rx Instructions PO PER PKG DIR 06/02/23 a dose pack #21 ea linaclotide 72 mcg capsule 72 mcg PO DAILY #30 caps 06/17/23 nystatin 100,000 unit/mL oral 1 ml PO QID 14 days #56 mL 06/20/23 suspension rifaximin 550 mg tablet 550 mg PO TID 2 weeks #42 tabs 06/20/23 oxycodone-acetaminophen 5 mg-325 1 tab PO BID PRN pain #20 tabs 07/16/23 mg tablet vitamin A 3,000 mcg (10,000 unit) 1 cap PO DAILY #120 caps 08/27/23 capsule hydroxyzine HCl 25 mg tablet 25 mg PO TID PRN anxiety #10 tabs 09/08/23 Allergies Allergy/AdvReac Type Severity Reaction Status Date / Time No Known Allergies Allergy Verified 09/08/23 08:46 Review of Systems Review of Systems: As per HPI. Yes all other systems are reviewed and are negative Constitutional: Constitutional: Reports as per HPI [facility] Past Medical History Medical History Anxiety and depression Diverticulosis Hyperlipidemia Hypertension Insomnia PTSD (post-traumatic stress disorder) Surgical History History of esophagogastroduodenoscopy (EGD) Hx of colonoscopy History of left hip replacement Social History Social History Alcohol intake: never Patient Tobacco Use Status: Former Tobacco user Current occupational status: employed and disabled Current occupation: rt handed Physical Exam ED Vital Signs: Vital Signs - 24 hr 09/08/23 08:45 Temperature 98.6 F Pulse Rate 88 Respiratory Rate 18 Blood Pressure 166/79 H Pulse Oximetry 98 Oxygen Delivery Method Room Air BMI result Body Mass Index 23.6 Vital signs have been reviewed and appear to be correct. Blood pressure elevated. Heart rate normal. Respiratory rate normal. Temperature normal. Oxygen saturation normal. Const General: cooperative, healthy appearing and no acute distress Orientation/consciousness: oriented to person, oriented to place, oriented to time and patient oriented x3 Limitations: no limitations HENMT Head: Yes normocephalic and Yes atraumatic Ears: external ears normal General nose exam: Normal external nose present Face and sinus: Yes face symmetric Mouth: oropharynx normal and moist mucous membranes Throat: Yes uvula midline Eyes Pupils: Equal, round and reactive pupils present Neck Neck: Yes normal visual inspection and Yes supple Resp Effort & Inspection: normal respiratory effort and able to speak in complete sentences Auscultation: clear to auscultation bilaterally Cardio Rate: regular rate Rhythm: regular rhythm Heart sounds: S1 normal heart sound present and S2 normal heart sound present GI Palpation (GI): Soft to palpation and nontender Auscultation: normoactive bowel sounds General: Yes no CVA tenderness Back/Spine/Pelvis Back: no CVA tenderness Skin General skin exam: elasticity normal and turgor normal Neuro General: oriented to person, oriented to place, oriented to time, patient oriented x3, gait normal, tone normal, moves all extremities, Normal light touch and pain sensation, no focal motor deficits, CN's II-XI intact bilaterally and deep tendon reflexes 2+ bilaterally Cranial nerves: Yes Equal, round and reactive pupils present Cognition (Neuro): normal cognition Gait exam (Neuro): Normal gait present Motor exam (neuro): 5/5 motor strength present throughout, Pronator motor function not present, no tremor noted, no asterixis, Motor fasciculations not present, Normal motor muscle tone present throughout and Motor abnormalities not present Sensory Exam: Normal double simultaneous stimulation for sensation Coordination: [id number] test normal and [id number] test normal Romberg Test: Negative Extrem General: Yes full ROM, Yes no pedal edema and Yes no calf tenderness Psych Mental Status: mental status grossly normal Speech and movement: Pressured speech present Affect: Anxious affect present Attitude: cooperative Thought process: Tangential thought process present Thought content: suicidality, no homicidality and no hallucinations Insight: Limited insight present (Psych) Judgement: Limited judgement present (Psych) Medications Administered Discontinued Medications Generic Name Dose Route Start Last Admin Trade Name Billy PRN Reason Stop Dose Admin Hydroxyzine HCl 25 mg 09/08/23 13:00 09/08/23 13:55 Hydroxyzine Hcl 25 Mg Tablet PO 09/08/23 13:01 25 mg ONCE ONE Administration Medical Decision Making Medical Decision Making [facility] Narrative: Patient is a 68-year-old male with history of anxiety and depression, PTSD, ADD, OCD, HTN, HLD, peripheral neuropathy presenting to the emergency department with complaint of feeling tremulous but is unable to state for what length of time. On exam patient is awake, A+Ox3, BP elevated, VS otherwise WNL, afebrile, normal neurological exam without focal deficits, physical exam findings as above. Given reported symptoms and physical exam findings, initial differential includes anxiety, electrolyte abnormality, dehydration, alcohol withdrawal, drug intoxication. Labs notable for no leukocytosis, no anemia, no significant electrolyte abnormalities, no evidence of PRABHAKAR, normal TSH. No evidence of infection on urinalysis. Ethanol negative, urine drug screen positive for benzodiazepines and marijuana. Patient medicated with hydroxyzine in the emergency department with good effect. Will send prescription for hydroxyzine until patient can follow up with PCP. Return precautions discussed. Patient verbalized understanding of and agreement with plan. Differential Diagnosis Differential Diagnoses: The differential diagnosis associated with the presentation includes As per [facility] Lab Data [facility] Lab Attestation statement: I reviewed the patient's lab results. As per [facility] 09/08/23 10:44 09/08/23 10:44 Labs: Lab Results 09/08/23 09/08/23 Range/Units 10:44 12:19 WBC 5.4 (4.8-10.8) X10*3/uL RBC 4.66 (4.60-5.80) X10*6/uL Hgb 14.1 (14.0-18.0) g/dl Hct 40.6 L (42.0-52.0) % MCV 87.1 (80.0-98.0) fL MCH 30.3 (27.0-33.0) pg MCHC 34.7 (31.0-36.0) g/dl RDW 12.9 (11.0-16.0) % Plt Count 231 D (160-400) X10*3/uL MPV 8.1 L (9.4-12.4) fL Immature Gran % (Auto) 0.2 (0.0-0.4) % Neut % (Auto) 72.0 (45-73) % Lymph % (Auto) 15.3 L (20-40) % [place] % (Auto) 10.8 (2-11) % Eos % (Auto) 1.1 (0-4) % Baso % (Auto) 0.6 (0-2) % Lymph # (Auto) 0.8 L (1.2-4.9) X10*3/uL [place] # (Auto) 0.6 (0.1-1.2) X10*3/uL Eos # (Auto) 0.1 (0.0-0.4) X10*3/uL Baso # (Auto) 0.0 (0.0-0.2) X10*3/uL Abs Immat Gran (auto) 0.01 (0.00-0.03) X10*3/uL Absolute Neuts (auto) 3.9 (2.0-8.3) x10*3/uL Absolute Nucleated RBC 0.000 (0.0-0.012) X10*3/uL Nucleated RBC % (auto) 0.0 (0.0-0.2) /100WBC Sodium 133 L (135-145) mmol/L Potassium 4.8 (3.3-5.1) mmol/L Chloride 99 (96-108) mmol/L Carbon Dioxide 27 (22-29) mmol/L Anion Gap 12 (12-20) BUN 20 H (9-16) mg/dL Creatinine 0.82 (0.5-1.4) mg/dL Estim Creat Clear Calc 77.0 Estimated GFR > 60 Random Glucose 113 (60-115) mg/dL Calcium 10.0 (8.4-10.2) mg/dL Magnesium 2.0 (1.6-2.6) mg/dL Total Bilirubin 0.5 (0.0-1.0) mg/dL AST 19 (5-37) U/L ALT 19 (0-40) U/L Alkaline Phosphatase 84 (39-117) U/L Total Protein 7.0 (6.5-8.0) g/dL Albumin 4.7 (3.5-5.0) g/dL TSH 0.79 (0.32-4.0) uIU/mL Urine Color Dark Yellow Urine Appearance Clear Urine pH 6.0 (5.0-9.0) Ur Specific [place] 1.025 (1.005-1.025) Urine Protein Trace (Neg-Trace) mg/dL Urine Glucose (UA) Negative (Negative) mg/dL Urine Ketones Negative (Negative) mg/dL Urine Blood Trace H (Negative) Urine Nitrite Negative (Negative) Ur Leukocyte Esterase Negative (Negative) Urine RBC 11-20 H (0-2) /HPF Urine WBC 0-5 (0-5) /HPF Ur Squamous Epith Cells 0-2 (0-2) /HPF Urine Bacteria None Seen (None Seen) Hyaline Casts 0-2 (0-2) /LPF Urine Opiates Screen Not Detected (Not Detect) Ur Buprenorphine Scrn Not Detected (Not Detect) ng/mL Ur Oxycodone Screen Not Detected (Not Detect) ng/mL Urine Methadone Screen Not Detected (Not Detect) ng/mL Urine Fentanyl Screen Not Detected (Not Detect) Ur Barbiturates Screen Not Detected (Not Detect) Ur Phencyclidine Scrn Not Detected (Not Detect) Ur Amphetamines Screen Not Detected (Not Detect) U Benzodiazepines Scrn POSITIVE H (Not Detect) Urine Cocaine Screen Not Detected (Not Detect) U Marijuana (THC) Screen POSITIVE H (Not Detect) Ethyl Alcohol < 10 mg/dL External Record Review External record reviewed: Inpatient record, Office record and Outpatient record Prescription Management I considered prescription management with: Other Discharge Plan Discharge Clinical Impression: Anxiety Patient Disposition: Home, Self-Care Instructions: Generalized Anxiety Disorder (ED), Panic Disorder (ED), Anxiety (ED) Additional Instructions: Your labs and urinalysis did not show any conditions requiring emergent medical treatment at this time. Your symptoms improved with medication in the emergency department. You are being prescribed more of the same medication which you can use at home according to the prescribed instructions. We recommend that you follow-up with your primary care provider and neurologist for further evaluation of your symptoms. Return to the emergency department if you develop vision changes, recurrent vomiting, difficulty with normal activities, abnormal behavior, difficulty walking, numbness, weakness, or any other concerning symptoms. Prescriptions: New hydroxyzine HCl 25 mg tablet 25 mg PO TID PRN (Reason: anxiety) Qty: 10 0RF No Action loratadine [Claritin] 10 mg tablet 10 mg PO DAILY Qty: 90 1RF celecoxib 200 mg capsule 200 mg PO BID Qty: 60 6RF fexofenadine [Carolyn Allergy] 180 mg tablet 180 mg PO DAILY Qty: 30 3RF fluticasone propionate 50 mcg/actuation spray,suspension 1 spray intranasal BID Qty: 48 0RF cromolyn [Nasalcrom] 5.2 mg/spray (4 %) spray,non-aerosol 1 spray intranasal TID Qty: 26 0RF esomeprazole magnesium 40 mg capsule,delayed release(DR/EC) 40 mg PO DAILY Qty: 90 2RF pregabalin 75 mg capsule 75 mg PO BID Qty: 60 5RF ibuprofen 400 mg tablet 400 mg PO TID PRN (Reason: pain) Qty: 90 3RF linaclotide 72 mcg capsule 72 mcg PO DAILY Qty: 30 3RF nystatin 100,000 unit/mL suspension 1 ml PO QID 14 Days Qty: 56 0RF Rx Instructions: swish and swallow rifaximin 550 mg tablet 550 mg PO TID 14 Days Qty: 42 0RF oxycodone-acetaminophen 5-325 mg tablet 1 tab PO BID PRN (Reason: pain) Qty: 20 0RF Rx Instructions: Partial Fill upon patient request. vitamin A 3,000 mcg (10,000 unit) capsule 1 cap PO DAILY Qty: 120 0RF diazepam 2 mg tablet 4 mg PO BID PRN (Reason: Anxiety) clonidine HCl 0.1 mg tablet 0.1 mg PO BID lisinopril 30 mg tablet 30 mg PO DAILY pravastatin 10 mg tablet 10 mg PO BEDTIME trazodone 100 mg tablet 100 mg PO BEDTIME cromolyn 100 mg/5 mL concentrate 200 mg PO QID 30 Days Qty: 1200 3RF nitroglycerin 0.4 mg tablet, sublingual sublingual methocarbamol 500 mg tablet 500 mg PO TID Qty: 90 0RF methylprednisolone 4 mg tablets,dose pack See Rx Instructions PO PER PKG DIR Qty: 21 0RF Rx Instructions: PO PER PKG DIR for 6 days Print Language: [place]
--- OUTSIDE RECORDS SUMMARY | 2023-09-08 09:56 | XMS_ITS | Continuity of Care Document ---
Author Organization [facility] Adult Address [address] [place] [address]- Care Team Providers Care Cloth Printing Utility Worker Name Role Phone Nicole Day NP Primary Care Physician Encounter [facility] Date(s): 08/06/23 - 09/05/23 [facility] [address] [place] [id number]- Allergies, Adverse Reactions, Alerts No Known Allergies [...] times a day, # 180 tablet, Refills 3, Tot. Refills 3, Maintenance, 08/06/23 14:33:00 EDT, [facility]ically[id number], 165, cm, 07/17/23 13:38:00 EDT, Height Start Date: 08/06/23 Status: Ordered dexlansoprazole 30 mg oral delayed release capsule 1 capsule = 30 mg, By Mouth, Daily, # 30 capsule, 5 Refills, Maintenance, 07/12/19 12:17:00 EDT, [facility]/pharmacy #[id number], 164, cm, 06/30/19 14:28:00 EDT, Height, 79, kg, 04/28/19 12:58:00 EST, Dry Weight Start Date: 07/12/19 Stop Date: 01/08/20 Status: Ordered diazepam 2 mg oral tablet 4 mg, 2, tablet, By Mouth, 2 times a day, # 120 tablet, Refills 6, Tot. Refills 6, Soft Stop, 08/06/23 12:51:00 EDT, Route to Pharmacy Electronically, [facility] #[id number], 165, cm, 07/17/23 13:38:00 EDT, Height Start Date: 08/06/23 Stop Date: 03/03/24 Status: Ordered hydrocortisone 1% topical cream 1 application, Topically, 2 times a day, # 45 Gm, 0 Refills, Maintenance, 01/08/21 17:21:00 EST, Cream, [facility]/pharmacy #[id number], Partial fill upon patient request if the prescription is for a schedule II opioid drug., 1 application Topically 2 times a day,... Start Date: 01/08/21 Status: Ordered lisinopril 30 mg oral tablet 1 tablet = 30 mg, By Mouth, Daily, # 90 tablet, 1 Refills, Maintenance, 08/06/23 14:30:00 EDT, Tablet, [facility] #[id number], 165, cm, 07/17/23 13:38:00 EDT, Height Start Date: 08/06/23 Status: Ordered Multivitamin Daily, 0 Refills, Maintenance, 06/08/18 14:18:26 EDT Start Date: 06/08/18 Status: Ordered nitroglycerin 0.4 mg sublingual tablet 1 tablet = 0.4 mg, Sublingual, Every 5 minutes, PRN for chest pain, # 100 tablet, 9 Refills, Maintenance, 12/09/22 11:18:00 EDT, Tablet, [facility] #[id number], Partial fill upon patient requestif the prescription is for a schedule II opioid uma... Start Date: 12/09/22 Status: Ordered pravastatin 10 mg oral tablet 1 tablet, By Mouth, Daily at bedtime, # 90 tablet, 3 Refills, Maintenance, 04/29/23 11:18:00 EST, [facility] #[id number], 165, cm, 03/07/23 13:49:00 EST, Height Start [...] Daily at bedtime, # 90 tablet, Refills 3, Tot. Refills 3, 08/06/23 14:31:00 EDT, Route to Pharmacy Electronically, [facility] #[id number], 165, cm, 07/17/23 13:38:00 EDT, Height Start Date: 08/06/23 Status: Ordered Problem List Condition Confirmation Course [...] Member Role: Lifetime Consulting Physician Address: Address: [address] [place] [address], [address] [facility] [place] [address]- Name: Gosia Collins RN Position: [facility] RN Member Role: Primary Care Nurse Name: Nicole Day NP Position: [facility] PCO Associate Professional Member Role: PCP Address: Address: [address] [place] [address] [address] [place] [address]- Name: Missy Lancaster RN Position: [facility] RN Member Role: Primary Care Nurse Name: Amy Del Toro RN Position: [facility] ED RN W/OE and Tasks Member Role: Primary Care Nurse Name: Rachael Garcia RN Position: [facility] AMB Nurse Member Role: Primary Care Nurse Name: Sole Rodriguez RN Position: [facility] Hospital Blocker Hand Member Role: Primary Care Nurse Care Team Related Persons Name: OZIEL MACK Address: home [place], [place] Name: OZIEL MACK Address: home [place], [place] Name: GHADA QUISPE Address: home [address] [place] [id number]
--- OUTSIDE RECORDS SUMMARY | 2023-09-08 09:57 | XMS_ITS | Continuity of Care Document ---
Author Organization [facility] Adult Address [address] [place] [address]- Care Team Providers Care Cut Off Worker Name Role Phone Shay MCDOWELL, Nicole Grider Primary Care Physician Encounter [facility] [place] Date(s): 07/23/23 - 08/22/23 [facility] Adult [address] [place] [id number]- Allergies, Adverse Reactions, Alerts No Known Allergies [...] 08/06/23 14:33:00 EDT, [id number], [facility], cm, 07/17/23 13:38:00 EDT, Height Start Date: 08/06/23 Status: Ordered dexlansoprazole 30 mg oral delayed release capsule 1 capsule = 30 mg, By Mouth, Daily, # 30 capsule, 5 Refills, Maintenance, 07/12/19 12:17:00 EDT, [facility]/pharmacy #[id number], 164, cm, 06/30/19 14:28:00 EDT, Height, 79, kg, 04/28/19 12:58:00 EST, Dry Weight Start Date: 07/12/19 Stop Date: 01/08/20 Status: Ordered diazepam 2 mg oral tablet 4 mg, 2, tablet, By Mouth, 2 times a day, # 120 tablet, Refills 6, Tot. Refills 6, Soft Stop, 08/06/23 12:51:00 EDT, Route to Pharmacy Electronically, [facility] #[id number], 165, cm, 07/17/23 13:38:00 EDT, Height Start Date: 08/06/23 Stop Date: 03/03/24 Status: Ordered hydrocortisone 1% topical cream 1 application, Topically, 2 times a day, # 45 Gm, 0 Refills, Maintenance, 01/08/21 17:21:00 EST, Cream, [facility]/pharmacy #[id number], Partial fill upon patient request if the prescription is for a schedule II opioid drug., 1 application Topically 2 times a day,... Start Date: 01/08/21 Status: Ordered lisinopril 30 mg oral tablet 1 tablet = 30 mg, By Mouth, Daily, # 90 tablet, 1 Refills, Maintenance, 08/06/23 14:30:00 EDT, Tablet, [facility] #[id number], 165, cm, 07/17/23 13:38:00 EDT, Height Start Date: 08/06/23 Status: Ordered Multivitamin Daily, 0 Refills, Maintenance, 06/08/18 14:18:26 EDT Start Date: 06/08/18 Status: Ordered nitroglycerin 0.4 mg sublingual tablet 1 tablet = 0.4 mg, Sublingual, Every 5 minutes, PRN for chest pain, # 100 tablet, 9 Refills, Maintenance, 12/09/22 11:18:00 EDT, Tablet, [facility] #[id number], Partial fill upon patient requestif the prescription is for a schedule II opioid uma... Start Date: 12/09/22 Status: Ordered pravastatin 10 mg oral tablet 1 tablet, By Mouth, Daily at bedtime, # 90 tablet, 3 Refills, Maintenance, 04/29/23 11:18:00 EST, [facility] #[id number], 165, cm, 03/07/23 13:49:00 EST, Height Start [...] 08/06/23 14:31:00 EDT, Route to Pharmacy Electronically, [facility] #[id number], 165, cm, 07/17/23 13:38:00 EDT, Height Start [...] Name: Evelio Serrano MD Position: [facility] Physician - Gastroenterology Member Role: Lifetime Consulting Physician Address: Address: [address] [place] [address], [address] [facility] [place] [address]- Name: Gosia Collins RN Position: [facility] RN Member Role: Primary Care Nurse Name: Nicole Day NP Position: [facility] PCO Associate Professional Member Role: PCP Address: Address: [address] [place] [address] [address] [place] [address]- Name: Missy Lancaster RN Position: [facility] RN Member Role: Primary Care Nurse Name: Amy Del Toro RN Position: [facility] ED RN W/OE and Tasks Member Role: Primary Care Nurse Name: Rachael Garcia RN Position: [facility] AMB Nurse Member Role: Primary Care Nurse Name: Sole Rodriguez RN Position: [facility] Hospital Buyer Planner Member Role: Primary Care Nurse Care Team Related Persons Name: OZIEL MACK Address: home [place], [place] Name: OZIEL MACK Address: home [place], [place] Name: GHADA QUISPE Address: home [address] [place] [id number]
[2023-09-08 10:49] LABS: MANUAL DIFF FLAG NO
[2023-09-08 10:51] LABS: Basophils Percent Auto 0.6 % (0-2); Eosinophils Absolute Auto 0.1 X10*3/uL (0.0-0.4); Eosinophils Percent Auto 1.1 % (0-4); Hematocrit 40.6 % (42.0-52.0); Hemoglobin 14.1 g/dl (14.0-18.0); Imm Gran Abs Auto 0.01 X10*3/uL (0.00-0.03); Imm Gran Pct Auto 0.2 % (0.0-0.4); Lymphocytes Absolute Auto 0.8 X10*3/uL (1.2-4.9); Lymphocytes Percent Auto 15.3 % (20-40); Mean Corpuscular HGB Conc 34.7 g/dl (31.0-36.0); Mean Corpuscular Hemoglobin 30.3 pg (27.0-33.0); Mean Corpuscular Volume 87.1 fL (80.0-98.0); Mean Platelet Volume 8.1 fL (9.4-12.4); Monocytes Absolute Auto 0.6 X10*3/uL (0.1-1.2); Monocytes Percent Auto 10.8 % (2-11); Neutrophils Absolute Auto 3.9 x10*3/uL (2.0-8.3); Platelet Count 231 X10*3/uL (160-400); Red Blood Count 4.66 X10*6/uL (4.60-5.80); Red Cell Distribution Width 12.9 % (11.0-16.0); White Blood Count 5.4 X10*3/uL (4.8-10.8)
[2023-09-08 11:07] LABS: Alanine Aminotransferase 19 U/L (0-40); Albumin Level 4.7 g/dL (3.5-5.0); Alkaline Phosphatase 84 U/L (39-117); Anion Gap 12 (12-20); Aspartate Amino Transferase 19 U/L (5-37); Bilirubin Total 0.5 mg/dL (0.0-1.0); Blood Urea Nitrogen 20 mg/dL (9-16); Carbon Dioxide 27 mmol/L (22-29); Chloride 99 mmol/L (96-108); Estimated Glomerular Filt Rate > 60; Ethanol < 10 mg/dL; Glucose Random 113 mg/dL (60-115); Potassium 4.8 mmol/L (3.3-5.1); Sodium 133 mmol/L (135-145)
[2023-09-08 11:28] LABS: TSH reflex Free T4 0.79 uIU/mL (0.32-4.0)
[2023-09-08 12:27] LABS: Appearance Urine Clear; Color Urine Dark Yellow; Glucose Urine UA Negative (Negative); Leukocyte Esterase Urine Negative (Negative); Nitrite Urine Negative (Negative); Specific Gravity - Urine 1.025 (1.005-1.025); UMIC TRIGGER UACC YES; Urine Blood Trace (Negative); Urine Ketones Negative (Negative); Urine Protein Trace mg/dL (Neg-Trace)
[2023-09-08 12:30] LABS: Bacteria Urine None Seen (None Seen); Hyaline Casts Urine 0-2 /LPF (0-2); Squamous Epithelial Cell Urine 0-2 /HPF (0-2); WBC Urine 0-5 /HPF (0-5)
[2023-09-08 12:35] LABS: Amphetamine Screen Urine Not Detected (Not Detect); Barbiturates, Urine Not Detected (Not Detect); Benzodiazepines Screen Urine POSITIVE (Not Detect); Buprenorphine Scr Not Detected (Not Detect); Cannabinoid Screen Urine POSITIVE (Not Detect); Cocaine Screen Urine Not Detected (Not Detect); Fentanyl, urine Not Detected (Not Detect); Methadone Screen, Urine Not Detected (Not Detect); Opiate Screen Urine Not Detected (Not Detect); Oxycodone Screen Urine Not Detected (Not Detect); Phencyclidine Screen Urine Not Detected (Not Detect)
[2023-09-08] MEDS: hydrOXYzine HCL 25 MG TABLET PO (13:55)
[2023-09-08 14:59] VITALS: BP 147/85; PULSE 65; RESP 16; TEMP 36.5; O2SAT 99
== END 2023-09-08 15:00 | disposition home or self-care (01) ==
PROVIDERS: Registered Nurse Emergency; Emergency Provider Emergency Medicine; PCP Nurse Practitioner Family
DX: F41.1 Generalized anxiety disorder (principal); F43.0 Acute stress reaction; M25.50 Pain in unspecified joint; I10 Essential (primary) hypertension; Z79.899 Other long term (current) drug therapy; Z51.81 Encounter for therapeutic drug level monitoring
CPT/HCPCS: 36415; 80053; 80307; 81001; 83735; 84443; 85025; 99282; 99284

== ENCOUNTER 2023-09-16 10:32 | Day surgery (SDC) | payer MEDICARE, MEDICAID, SELFPAY ==
--- NOTE | 2023-09-15 12:10 | P.CONAN_ITS ---
Documented by User: Nicole Salinas NP 09/15/23 12:11 HPI - Anesthesia Eval Consult details Narrative: 68yo M for Upper Endoscopy PMF Active Problems Active Problems: All Active Problems Rotator cuff tear arthropathy of both shoulders (Acute) Lateral epicondylitis (Acute) Rotator cuff insufficiency of left shoulder (Acute) Left shoulder pain (Acute) Impingement of right shoulder (Acute) Pulmonary nodules (Acute) Abnormal CT lung screening (Acute) Abnormal CXR (Acute) Unintended weight loss (Acute) Biceps tendonitis of both shoulders (Acute) Malnutrition (Acute) Globus pharyngeus (Acute) Osteoarthritis of left hip (Acute) Right shoulder pain (Acute) Osteoarthritis of left knee (Acute) Lumbar radiculopathy (Acute) Paresthesia of bilateral legs (Acute) Peripheral neuropathy (Acute) Biceps tendonitis on left (Acute) Left rotator cuff tear (Acute) Piriformis syndrome of right side (Acute) Tricompartment osteoarthritis of left knee (Acute) Past Medical History Medical History Anxiety and depression Diverticulosis Hyperlipidemia Hypertension Insomnia PTSD (post-traumatic stress disorder) Family History Family history of problems with anesthesia: No Surgical History Surgical History History of esophagogastroduodenoscopy (EGD) Hx of colonoscopy History of left hip replacement History of Problems with Anesthesia: No Social History Social History Alcohol intake: never Patient Tobacco Use Status: Former Tobacco user Use of substances other than those prescribed or required for medical reasons: No Are you DNR?: No Advance Directives: No Advance Directives Information Provided: Yes Current occupational status: employed and disabled Current occupation: rt handed Meds Allergies Allergy/AdvReac Type Severity Reaction Status Date / Time No Known Allergies Allergy Verified 09/08/23 08:46 Home Medications ?Medication ?Instructions ?Recorded ?Confirmed ?Last Taken ?Type clonidine HCl 0.1 mg tablet 0.1 mg PO BID 05/10/21 06/20/23 Unknown History diazepam 2 mg tablet 4 mg PO BID PRN Anxiety 05/10/21 06/20/23 08/06/22 History lisinopril 30 mg tablet 30 mg PO DAILY 05/10/21 06/20/23 Unknown History pravastatin 10 mg tablet 10 mg PO BEDTIME 05/10/21 06/20/23 Unknown History trazodone 100 mg tablet 100 mg PO BEDTIME 05/10/21 06/20/23 Unknown History nitroglycerin 0.4 mg sublingual mg sublingual 11/18/22 06/20/23 Unknown History tablet Exam Pertinent Lab Results Pertinent Lab Results: Laboratory Tests 09/08/23 10:44 WBC 5.4 Hgb 14.1 Hct 40.6 L Plt Count 231 D Sodium 133 L Potassium 4.8 Chloride 99 Carbon Dioxide 27 BUN 20 H Creatinine 0.82 Assessment and Plan Assessment Anesthesia Assessment: Chart Reviewed Final Anesthetic Review Family History of Problems with Anesthesia: No History of Problems with Anesthesia: No Documented by User: Marlen Kaur MD 09/16/23 11:54 [facility] Past Medical History Medical History Anxiety and depression Diverticulosis Hyperlipidemia Hypertension Insomnia PTSD (post-traumatic stress disorder) Surgical History Surgical History History of esophagogastroduodenoscopy (EGD) Hx of colonoscopy History of left hip replacement Social History Social History Alcohol intake: never Patient Tobacco Use Status: Former Tobacco user Use of substances other than those prescribed or required for medical reasons: No Are you DNR?: No Advance Directives: No Advance Directives Information Provided: Yes Current occupational status: employed and disabled Current occupation: rt handed Meds Allergies Allergy/AdvReac Type Severity Reaction Status Date / Time No Known Allergies Allergy Verified 09/08/23 08:46 Home Medications ?Medication ?Instructions ?Recorded ?Confirmed ?Last Taken ?Type clonidine HCl 0.1 mg tablet 0.1 mg PO BID 05/10/21 06/20/23 Unknown History diazepam 2 mg tablet 4 mg PO BID PRN Anxiety 05/10/21 06/20/23 08/06/22 History lisinopril 30 mg tablet 30 mg PO DAILY 05/10/21 06/20/23 Unknown History pravastatin 10 mg tablet 10 mg PO BEDTIME 05/10/21 06/20/23 Unknown History trazodone 100 mg tablet 100 mg PO BEDTIME 05/10/21 06/20/23 Unknown History nitroglycerin 0.4 mg sublingual mg sublingual 11/18/22 06/20/23 Unknown History tablet Exam Airway Mallampati Class: II TM Dist: >3cm Neck ROM: Full Assessment and Plan Assessment Anesthesia Assessment: Anesthesia Plan Discussed Final Anesthetic Review NPO: Yes ASA Class: II Final Preanesthetic Review: No Changes in Pt Med Stat, Meds/Allgs Chart Reviewed, Consent Obtained/Reviewed and Anes Risks/Benef Reviewed Patient Risk: Low Procedure Risk: Low Anesthetic Plan Anesthetic Plan: TIVA Disposition: Standard PACU
--- OUTSIDE RECORDS SUMMARY | 2023-09-16 10:35 | XMS_ITS | Continuity of Care Document ---
Author Organization [facility] Adult Address [address] [place] [address]- Care Team Providers Care Solar Sales Manager Name Role Phone Nicole Day NP Primary Care Physician [place] [facility] [place]12[place]23 - 09/11/23 [facility] Adult [address] [place] [id number]- Allergies, Adverse Reactions, Alerts No Known Allergies [...] 14:33:00 EDT, [id number], 165, cm, 07/17/23 13:38:00 EDT, Height Start Date: 08/06/23 Status: Ordered dexlansoprazole 30 mg oral delayed release capsule 1 capsule = 30 mg, By Mouth, Daily, # 30 capsule, 5 Refills, Maintenance, 07/12/19 12:17:00 EDT, [facility]/pharmacy #[id number], 164, cm, 06/30/19 14:28:00 EDT, Height, 79, kg, 04/28/19 12:58:00 EST, Dry Weight Start Date: 07/12/19 Stop Date: 01/08/20 Status: Ordered diazepam 2 mg oral tablet 4 mg, 2, tablet, By Mouth, 2 times a day, # 120 tablet, Refills 6, Tot. Refills 6, Soft Stop, 08/06/23 12:51:00 EDT, Route to Pharmacy Electronically, [facility] #[id number], 165, cm, 07/17/23 13:38:00 EDT, Height Start Date: 08/06/23 Stop Date: 03/03/24 Status: Ordered hydrocortisone 1% topical cream 1 application, Topically, 2 times a day, # 45 Gm, 0 Refills, Maintenance, 01/08/21 17:21:00 EST, Cream, [facility]/pharmacy #[id number], Partial fill upon patient request if the prescription is for a schedule II opioid drug., 1 application Topically 2 times a day,... Start Date: 01/08/21 Status: Ordered lisinopril 30 mg oral tablet 1 tablet = 30 mg, By Mouth, Daily, # 90 tablet, 1 Refills, Maintenance, 08/06/23 14:30:00 EDT, Tablet, [facility] #[id number], 165, cm, 07/17/23 13:38:00 EDT, Height Start Date: 08/06/23 Status: Ordered Multivitamin Daily, 0 Refills, Maintenance, 06/08/18 14:18:26 EDT Start Date: 06/08/18 Status: Ordered nitroglycerin 0.4 mg sublingual tablet 1 tablet = 0.4 mg, Sublingual, Every 5 minutes, PRN for chest pain, # 100 tablet, 9 Refills, Maintenance, 12/09/22 11:18:00 EDT, Tablet, [facility] #[id number], Partial fill upon patient requestif the prescription is for a schedule II opioid uma... Start Date: 12/09/22 Status: Ordered pravastatin 10 mg oral tablet 1 tablet, By Mouth, Daily at bedtime, # 90 tablet, 3 Refills, Maintenance, 04/29/23 11:18:00 EST, [facility] #[id number], 165, cm, 03/07/23 13:49:00 EST, Height Start [...] 08/06/23 14:31:00 EDT, Route to Pharmacy Electronically, [facility] #[id number], 165, cm, 07/17/23 13:38:00 EDT, Height Start [...] Team Personnel Name: Evelio Serrano MD Position: [facility] Physician - Gastroenterology Member Role: Lifetime Consulting Physician Address: Address: [address] [place] [address], [address] [facility] [place] [address]- Name: Gosia Collins RN Position: [facility] RN Member Role: Primary Care Nurse Name: Nicole Day NP Position: [facility] PCO Associate Professional Member Role: PCP Address: Address: [address] [place] [address] [address] [place] [address]- Name: Missy Lancaster RN Position: [facility] RN Member Role: Primary Care Nurse Name: Amy Del Toro RN Position: [facility] ED RN W/OE and Tasks Member Role: Primary Care Nurse Name: Rachael Garcia RN Position: [facility] AMB Nurse Member Role: Primary Care Nurse Name: Sole Rodriguez RN Position: [facility] Hospital Airline Dispatcher Member Role: Primary Care Nurse Care Team Related Persons Name: OZIEL MACK Address: home [place], [place] Name: OZIEL MACK Address: home [place], [place] Name: GHADA QUISPE Address: home [address] [place] [id number]
[2023-09-16 10:53] VITALS: BP 133/72; PULSE 77; RESP 18; TEMP 36.1; O2SAT 100; BMI 24.1
[2023-09-16] MEDS: Lactated Ringers 1,000 ML 100 ML IVCONT (11:15)
--- NOTE | 2023-09-16 11:21 | P.HPSUR_ITS ---
Pre-Procedural Eval Section A - 24 Hr Update-Section A only Date of Service: 09/16/23 Section B - Complete if H&P > 30 days Chief Complaint: Dysphagia, unspecified Relevant Family History (Specify if Yes): No Relevant Social History: None Present Medications: see Short Stay Collaborative assessment Medical History: Significant History (Anxiety and depression Diverticulosis Hyperlipidemia Hypertension Insomnia PTSD (post-traumatic stress disorder)) History of Previous Operations: Relevant previous surgery/procedure and date(s) ( History of esophagogastroduodenoscopy (EGD) Hx of colonoscopy History of left hip replacement) Allergies: Allergies Allergy/AdvReac Type Severity Reaction Status Date / Time No Known Allergies Allergy Verified 09/08/23 08:46 Review of Systems Sugical H&P ROS: Negative: Constitution, Cardiovascular, Respiratory, Neurologic al, Psychiatric, Hem-Onc, Allergic/Immunologic, Gastrointestinal, Genitourinary, Musculoskeletal, Integumentary, Endocrine and Eyes/Ears/Nose/Throat Exam Surgical H&P Exam: Normal: HEENT, Normal: Heart, Normal: Lungs, Normal: Extremities, Normal: Abdomen, Normal: Skin and Normal: Neurological Plan Diagnosis/Plan: Unchanged I have reviewed the history and physical and performed a pertinent physical examination on my patient. No changes have occurred unless specified. Time Spent With Patient Time: Total time managing care of this patient today ____ minutes.
--- NOTE | 2023-09-16 11:24 | W.PM.OPN ---
Operative Note Operative Note Date of Service: 09/16/23 Narrative: Procedure Description: EGD Indication: dysphagia Anesthesia: MAC FLEXIBLE TRANSORAL UPPER GASTROINTESTINAL ENDOSCOPY UPPER ENDOSCOPY Consent: Indications for the procedure and potential complications of bleeding, perforation, reaction to medications and missed diagnosis were discussed with the patient and informed consent was obtained. Instrument: Olympus GIF H 190 J mid size upper endoscope Monitoring: Vital signs and clinical assessment, continuous EKG monitoring, Pulse oximetry, Carbon Dioxide monitoring and blood pressure monitoring were done throughout the procedure. Procedure: The patient was placed in the left lateral decubitis position and pre-procedure medications were administered and a bite block was placed. The endoscope was inserted into the mouth and advanced under direct vision to the third part of duodenum. A careful inspection was made as the upper endoscope was withdrawn including a retroflexed examination of the proximal stomach; Findings and interventions are described below. Findings: Larynx:normal Esophagus: GE junction at 36 cm, diaphragm hiatus at 40 cm, consistent with 4 cm sliding hiatal hernia, bx taken from GEJ, distal and proximal esophagus. Savary wire passed and esophagus dilated using an 18 mm bougie and then a 19 mm bougie, no tears seen. Stomach: normal . Grade 2 flap valve on retroflexed examination of the cardia. Duodenum: Normal bulb and descending duodenum, Intervention: Biopsies as noted above, savary wire dilation with bougie Impression/Findings: hiatal hernia PLAN: check if taking PPI GERD precautions
[2023-09-16 11:55] VITALS: BP 96/58; PULSE 68; RESP 20; TEMP 36.7; O2SAT 97
--- NOTE | 2023-09-16 11:58 | HO.ANESPROP2 ---
[facility] Active Problems Active Problems: All Active Problems (Updated 09/09/23 @ 00:02 by Wendy Guy) Rotator cuff tear arthropathy of both shoulders (Acute) Lateral epicondylitis (Acute) Rotator cuff insufficiency of left shoulder (Acute) Left shoulder pain (Acute) Impingement of right shoulder (Acute) Pulmonary nodules (Acute) Abnormal CT lung screening (Acute) Abnormal CXR (Acute) Unintended weight loss (Acute) Biceps tendonitis of both shoulders (Acute) Malnutrition (Acute) Globus pharyngeus (Acute) Osteoarthritis of left hip (Acute) Right shoulder pain (Acute) Osteoarthritis of left knee (Acute) Lumbar radiculopathy (Acute) Paresthesia of bilateral legs (Acute) Peripheral neuropathy (Acute) Biceps tendonitis on left (Acute) Left rotator cuff tear (Acute) Piriformis syndrome of right side (Acute) Tricompartment osteoarthritis of left knee (Acute) Past Medical History Medical History Anxiety and depression Diverticulosis Hyperlipidemia Hypertension Insomnia PTSD (post-traumatic stress disorder) Surgical History Surgical History History of esophagogastroduodenoscopy (EGD) Hx of colonoscopy History of left hip replacement Social History Social History Alcohol intake: never Patient Tobacco Use Status: Former Tobacco user Use of substances other than those prescribed or required for medical reasons: No Are you DNR?: No Advance Directives: No Advance Directives Information Provided: Yes Current occupational status: employed and disabled Current occupation: rt handed Meds Allergies Allergy/AdvReac Type Severity Reaction Status Date / Time No Known Allergies Allergy Verified 09/08/23 08:46 Active Medications: Current Medications Lactated Ringer's (Lr) 1,000 mls @ 100 mls/hr IVCONT .Q10H OLGA Last Admin: 09/16/23 11:15 Dose: 100 mls/hr Home Medications ?Medication ?Instructions ?Recorded ?Confirmed ?Last Taken ?Type clonidine HCl 0.1 mg tablet 0.1 mg PO BID 05/10/21 06/20/23 Unknown History diazepam 2 mg tablet 4 mg PO BID PRN Anxiety 05/10/21 06/20/23 08/06/22 History lisinopril 30 mg tablet 30 mg PO DAILY 05/10/21 06/20/23 Unknown History pravastatin 10 mg tablet 10 mg PO BEDTIME 05/10/21 06/20/23 Unknown History trazodone 100 mg tablet 100 mg PO BEDTIME 05/10/21 06/20/23 Unknown History nitroglycerin 0.4 mg sublingual mg sublingual 11/18/22 06/20/23 Unknown History tablet Exam Height,Weight and Vital Signs: Height 5 ft 5 in Weight 65.771 kg Last Vital Signs Temp 97.0 F 09/16/23 10:53 Pulse 77 09/16/23 10:53 Resp 18 09/16/23 10:53 BP 133/72 09/16/23 10:53 Pulse Ox 100 09/16/23 10:53 O2 Del Method Room Air 09/16/23 10:53 Airway Mallampati Class: II TM Dist: >3cm Neck ROM: Full
[2023-09-16 12:10] VITALS: BP 113/68; PULSE 71; RESP 18; TEMP 36.9; O2SAT 98
--- NOTE | 2023-09-16 13:21 | PC.NURSE ---
DR. RHODES SPOKE WITH PATIENT AND TOLD US IT WAS OK FOR THE PATIENT TO WAIT DOWNSTAIRS FOR THE SHUTTLE VAN BY HIMSELF RELATED TO HIS ANXIETY.
== END 2023-09-16 12:55 | disposition home or self-care (01) ==
PROVIDERS: PCP Nurse Practitioner Family; Visit Provider Internal Medicine Gastroenterology
PROC: 0DJ08ZZ Inspection of Upper Intestinal Tract, Via Natural or Artificial Opening Endoscopic (ICD-10-PCS; CPT 43235; principal; 2023-09-16 13:10)
DX: R13.10 Dysphagia, unspecified (principal); R09.89 Other specified symptoms and signs involving the circulatory and respiratory systems; K44.9 Diaphragmatic hernia without obstruction or gangrene; K57.30 Diverticulosis of large intestine without perforation or abscess without bleeding; I10 Essential (primary) hypertension; E78.5 Hyperlipidemia, unspecified; F41.8 Other specified anxiety disorders; G47.00 Insomnia, unspecified; F43.10 Post-traumatic stress disorder, unspecified; Z79.899 Other long term (current) drug therapy; Z87.891 Personal history of nicotine dependence
CPT/HCPCS: 43248; 43239; 88305; 88313; C1769; J2704

== ENCOUNTER → 2023-09-16 10:32 | Outpatient (BNV) | payer MEDICARE, MEDICAID, SELFPAY | PROVIDERS: PCP Nurse Practitioner Family; Visit Provider Internal Medicine Gastroenterology | DX: R13.10 Dysphagia, unspecified (principal) | CPT/HCPCS: 43239; 43248 ==

== ENCOUNTER 2023-09-18 12:46 | Outpatient (AMB) | payer MEDICARE, MEDICAID, SELFPAY ==
--- NOTE | 2023-09-18 13:13 | A.OFFVIS_ITS ---
Intake Visit Reasons: OV- B/L Shoulder-follow up Intake Note: Mateus is a 68 year old right hand dominant male who presents today for a follow up of his bilateral shoulder RTC arthropathy. Patient reports PRP done on right shoulder w/ pain management 10 weeks ago. Since the PRP his arm has been shaking and pain and inflammation is consistent. He expresses celecoxib is giving his relief but his concern is if he needs the dose to be increase. He express he only went to PT once, he has not returned due to pain with pulling activities. Allergies No Known Allergies Allergy (Verified 09/26/23 11:11) HPI HPI OV- B/L Shoulder-follow up: Details: Mateus is a 68 year old right hand dominant male who presents today for a follow up of his shoulder RTC arthropathy. Patient reports PRP done on right shoulder w/ pain management 10 weeks ago. Since the PRP his arm has been shaking and pain and inflammation is consistent. He expresses celecoxib is giving his relief but his concern is if he needs the dose to be increase. He express he only went to PT once, he has not returned due to pain with pulling activities. [facility] Medical History Anxiety and depression Diverticulosis Hyperlipidemia Hypertension Insomnia PTSD (post-traumatic stress disorder) Surgical History History of esophagogastroduodenoscopy (EGD) Hx of colonoscopy History of left hip replacement Social History Alcohol intake: never Patient Tobacco Use Status: Former Tobacco user Current occupational status: employed and disabled Current occupation: rt handed Physical Exam Extrem Other: Full ROM 4+/5 bilateral empty can Assessment & Plan Assessment & Plan (1) Rotator cuff tear arthropathy of both shoulders: Code(s): M75.101 - Unspecified rotator cuff tear or rupture of right shoulder, not specified as traumatic; M12.811 - Other specific arthropathies, not elsewhere classified, right shoulder; M12.812 - Other specific arthropathies, not elsewhere classified, left shoulder; M75.102 - Unspecified rotator cuff tear or rupture of left shoulder, not specified as traumatic Category: Medical Plan: Highly functional; with chornic shoulder rtc weakness. I do not recommend surgery. I do recommend counseling as he is having a hard time navigating daily life. I will set up a phone visit with a referral to a mental healthy specialist Coding Level of Care Code Est Pt Level 4 (35988) Diagnoses Rotator cuff tear arthropathy of both shoulders M75.101; M12.811; M12.812; M75.102 Time Spent (min) 30
== END 2023-09-18 13:55 | disposition home or self-care (01) ==
PROVIDERS: PCP Nurse Practitioner Family; Visit Provider Orthopaedic Surgery
DX: M75.101 Unspecified rotator cuff tear or rupture of right shoulder, not specified as traumatic (principal); M12.811 Other specific arthropathies, not elsewhere classified, right shoulder; M12.812 Other specific arthropathies, not elsewhere classified, left shoulder; M75.102 Unspecified rotator cuff tear or rupture of left shoulder, not specified as traumatic
CPT/HCPCS: 99214

== ENCOUNTER → 2023-09-18 12:46 | Outpatient (BNVA) | payer MEDICARE, MEDICAID, SELFPAY | PROVIDERS: PCP Nurse Practitioner Family; Visit Provider Orthopaedic Surgery | DX: M75.101 Unspecified rotator cuff tear or rupture of right shoulder, not specified as traumatic (principal); M75.102 Unspecified rotator cuff tear or rupture of left shoulder, not specified as traumatic; M12.812 Other specific arthropathies, not elsewhere classified, left shoulder; M12.811 Other specific arthropathies, not elsewhere classified, right shoulder | CPT/HCPCS: 99212 ==

== ENCOUNTER 2023-09-26 11:07 | Outpatient (AMB) | payer MEDICARE, MEDICAID, SELFPAY ==
--- NOTE | 2023-09-26 11:09 | A.OFFVIS_ITS ---
Vital Signs 09/26/23 11:10 Height 5 ft 5 in BP 153/71 H Blood Pressure Location Lt brachial Position Sitting Respiration 14 Pulse 91 Pulse Source Pulse Oximeter Pulse Oximetry (%) 96 Oxygen Delivery Method Room Air Intake Visit Reasons: Right shoulder Allergies No Known Allergies Allergy (Verified 09/26/23 11:11) Medication List - Last Reconciled 09/26/23 by Chelsea Delaney LPN celecoxib 200 mg PO BID clonidine HCl 0.1 mg PO BID cromolyn 200 mg (10 mL) PO QID 30 days cromolyn (Nasalcrom) 1 spray intranasal TID diazepam 4 mg PO BID PRN esomeprazole magnesium 40 mg PO DAILY fexofenadine (Carolyn Allergy) 180 mg PO DAILY fluticasone propionate 50 mcg/actuation 1 spray intranasal BID ibuprofen 400 mg PO TID PRN linaclotide 72 mcg PO DAILY lisinopril 30 mg PO DAILY loratadine (Claritin) 10 mg PO DAILY methocarbamol 500 mg PO TID methylprednisolone PO PER PKG DIR for 6 days nitroglycerin mg sublingual nystatin 1 mL PO QID 14 days oxycodone-acetaminophen 5-325 mg 1 tab PO BID PRN pregabalin 75 mg PO BID rifaximin 550 mg PO TID 2 weeks trazodone 100 mg PO BEDTIME vitamin A 1 cap PO DAILY HPI HPI Right shoulder: Details: 68-year-old male who presents today to the office for a right shoulder. He had PRP done on his right shoulder about 11 weeks ago. Since the PRP, his arm has been shaking, and pain and inflammation are consistent. He has been taking celecoxib with moderate relief. He has done physical therapy once in the past but stopped due to pain with pulling activities. He had bilateral shoulder RTC arthropathy in the past. He has not completed an MRI scan yet. He wants to discuss different treatment options instead of injections. He has scheduled appointment with Dr. Manning. Past procedures 08/21/23: Peripheral Nerve Stimulation Temporary Lead Placement, Fluoroscopy- Guided, Axillary Nerve, right: Stimulator removed prematurely 08/14/23: Interlaminar epidural steroid injection, L5-S1, right parasaggital: 50 % relief. 07/10/23: Right rotator cuff PRP injections and left knee intra-articular A2M injection: 20-30 % relief. 06/19/23: Left knee Synvisc-One injection: Greater than 50 % relief. 05/05/23: Right elbow extensor tendon injection, US guided: Relief of elbow pain 05/05/23: Bilateral bicipital tendon injections, ultrasound guided: Left-sided relief, aggravation of right-sided symptoms with potential right biceps tendon tear 03/20/23: Interlaminar epidural steroid injection, L5-S1, right parasaggital: >5 0% relief. 03/20/23: left knee intra-articular Synvisc-One injection: 02/10/23: Bilateral bicipital tendon injections, ultrasound guided: >50% relief. 01/08/23: left knee intra-articular corticosteroid injection: 50% relief for 3-4 weeks. 10/16/22: Interlaminar epidural steroid injection, L5-S1, right parasaggital: 60% relief. 10/09/22: left knee Synvisc One injection intra-articular: 75% relief. 08/15/22: bilateral bicipital tendon injections: 80% relief. 07/17/22: Interlaminar epidural steroid injection, L5/S1, Right parasaggital: 60% relief. 05/24/22: right bicipital tendon and supraspinatus tendon injection: 80% relief. 05/08/22: Left knee Synvisc one injection under fluoroscopy - 75% relief for 2 weeks. 12/17/21: Left Bicep Tendon Injection US guided ? 90% relief for 3 months . [facility] Medical History Anxiety and depression Diverticulosis Hyperlipidemia Hypertension Insomnia PTSD (post-traumatic stress disorder) Surgical History History of esophagogastroduodenoscopy (EGD) Hx of colonoscopy History of left hip replacement Social History Alcohol intake: never Patient Tobacco Use Status: Former Tobacco user Current occupational status: employed and disabled Current occupation: rt handed Review of Systems Const All systems reviewed & are unremarkable except as noted in HPI and below Physical Exam Vital Signs: Last Vital Signs Pulse 91 09/26/23 11:10 Resp 14 09/26/23 11:10 BP 153/71 H 09/26/23 11:10 Pulse Ox 96 09/26/23 11:10 Oxygen Delivery Method Room Air 09/26/23 11:10 General: Appears afebrile. Alert and oriented. Mood and affect appropriate. Follows and participates in conversation appropriately. Respiratory effort is unlabored. Able to transition from sit to stand unassisted. Ambulates with bilaterally normal heel strike and toe off. Office Procedures Joint Injection/Aspiration Joint Injection/Aspiration Details: Right glenohumeral injection with saline and Kenalog, US guided Primary Site: right shoulder Prep: site was prepped using aseptic technique and site was prepped using sterile technique Injected: 10 mg of (Kenalog and normal saline on right side) and in the joint Approach Used: posterolateral Procedure: The patient tolerated the procedure well Coding Details: An ultrasound image of the injection was taken and stored in the permanent record. - Glenohumeral with ultrasound guidance (Right) Procedure code (CPT) selection complete Results Reviewed Results Reviewed: No imaging is available for review. Assessment & Plan Assessment & Plan (1) Adhesive capsulitis of shoulder: Code(s): M75.00 - Adhesive capsulitis of unspecified shoulder Category: Medical Plan Patient is status post right glenohumeral injection with 10 ml of saline and Kenalog, US guided. Patient tolerated procedure well and was discharged home in stable condition with discharge instructions.? All questions were answered. We will follow-up in two weeks via telephone or in clinic to assess response to therapy. A follow-up appointment was made during today's visit. Scribed for Dr. Bridges by Jermain Chris, medical chemist, on 09/26/2023. I, Dr. Bridges, have personally reviewed and agree with the information entered by the scribe. Coding Level of Care Code Est Pt Level 4 (61071) Diagnoses Adhesive capsulitis of shoulder M75.00 CPT Codes Coding - Joint 8: - Glenohumeral with ultrasound guidance ([id number])
[2023-09-26 11:10] VITALS: BP 153/71; PULSE 91; RESP 14; O2SAT 96
== END 2023-09-26 12:00 | disposition home or self-care (01) ==
PROVIDERS: PCP Nurse Practitioner Family; Visit Provider Internal Medicine
DX: M75.01 Adhesive capsulitis of right shoulder (principal)
CPT/HCPCS: 20611; 99214

== ENCOUNTER → 2023-09-26 11:07 | Outpatient (BNVA) | payer MEDICARE, MEDICAID, SELFPAY | PROVIDERS: PCP Nurse Practitioner Family; Visit Provider Internal Medicine | DX: M75.00 Adhesive capsulitis of unspecified shoulder (principal) | CPT/HCPCS: 20611; 99212; J3301 ==

== ENCOUNTER 2023-10-02 14:36 | Outpatient (AMB) | payer MEDICARE, MEDICAID, SELFPAY ==
--- NOTE | 2023-10-02 14:38 | MHC.OFFVIS ---
Intake Visit Reasons: TEL-B/L Shoulder-follow up Intake Note: Mateus is a 68 year old male who presents today VIA telephone for a follow up of his bilateral shoulders Allergies No Known Allergies Allergy (Verified 09/26/23 11:11) HPI HPI TEL-B/L Shoulder-follow up: Details: Mateus is doing ok. He is anxious and busy and concerned about his shoulder pain. PFS Medical History (Updated 10/03/23 @ 09:08 by Richie Manning MD) Anxiety and depression Diverticulosis Hyperlipidemia Hypertension Insomnia PTSD (post-traumatic stress disorder) Surgical History History of esophagogastroduodenoscopy (EGD) Hx of colonoscopy History of left hip replacement Social History Alcohol intake: never Patient Tobacco Use Status: Former Tobacco user Current occupational status: employed and disabled Current occupation: rt handed Telehealth Telehealth Telehealth Platform: Telephone Location of provider rendering services: practice address Location of patient: address on file Patient Identification confirmed using: Name, : Yes Telehealth method: voice only Patient verbally consented to treatment: Yes Patient verbally consented to billing insurance company: Yes Patient informed of any privacy concerns related to visit: Yes Assessment & Plan Assessment & Plan (1) Anxiety and depression: Code(s): F41.9 - Anxiety disorder, unspecified; F32.A - Depression, unspecified Category: Medical Plan: AM trying to find a mental health counselor for Mateus. Will contact him next week as I don't currently have all the necessary details. Coding Level of Care Code Tele Est Pt Level 2 (64985) Diagnoses Anxiety and depression F41.9; F32.A
--- OUTSIDE RECORDS SUMMARY | 2023-10-02 14:40 | XMS_ITS | Continuity of Care Document ---
Author Organization [facility] Address [address] [place] [address]- Care Team Providers Care Carding Supervisor Name Role Phone Nicole Day NP Primary Care Physician Encounter [facility] Date(s): 09/01/23 - 10/01/23 [facility] [address] [place] [id number]- Allergies, Adverse Reactions, Alerts No Known Allergies [...] 08/06/23 14:33:00 EDT, Route to Pharmacy Electronically, [facility] #[id number], 165, cm, 07/17/23 13:38:00 EDT, Height Start Date: 08/06/23 Status: Ordered dexlansoprazole 30 mg oral delayed release capsule 1 capsule = 30 mg, By Mouth, Daily, # 30 capsule, 5 Refills, Maintenance, 07/12/19 12:17:00 EDT, [facility]/pharmacy #[id number], 164, cm, 06/30/19 14:28:00 EDT, Height, 79, kg, 04/28/19 12:58:00 EST, Dry Weight Start Date: 07/12/19 Stop Date: 01/08/20 Status: Ordered diazepam 2 mg oral tablet 4 mg, 2, tablet, By Mouth, 2 times a day, # 120 tablet, Refills 6, Tot. Refills 6, Soft Stop, 08/06/23 12:51:00 EDT, Route to Pharmacy Electronically, [facility] #[id number], 165, cm, 07/17/23 13:38:00 EDT, Height Start Date: 08/06/23 Stop Date: 03/03/24 Status: Ordered hydrocortisone 1% topical cream 1 application, Topically, 2 times a day, # 45 Gm, 0 Refills, Maintenance, 01/08/21 17:21:00 EST, Cream, [facility]/pharmacy #[id number], Partial fill upon patient request if the prescription is for a schedule II opioid drug., 1 application Topically 2 times a day,... Start Date: 01/08/21 Status: Ordered lisinopril 30 mg oral tablet 1 tablet = 30 mg, By Mouth, Daily, # 90 tablet, 1 Refills, Maintenance, 08/06/23 14:30:00 EDT, Tablet, [facility] #[id number], 165, cm, 07/17/23 13:38:00 EDT, Height Start Date: 08/06/23 Status: Ordered Multivitamin Daily, 0 Refills, Maintenance, 06/08/18 14:18:26 EDT Start Date: 06/08/18 Status: Ordered nitroglycerin 0.4 mg sublingual tablet 1 tablet = 0.4 mg, Sublingual, Every 5 minutes, PRN for chest pain, # 100 tablet, 9 Refills, Maintenance, 12/09/22 11:18:00 EDT, Tablet, [facility] #[id number], Partial fill upon patient requestif the prescription is for a schedule II opioid uma... Start Date: 12/09/22 Status: Ordered pravastatin 10 mg oral tablet 1 tablet, By Mouth, Daily at bedtime, # 90 tablet, 3 Refills, Maintenance, 04/29/23 11:18:00 EST, [facility] #[id number], 165, cm, 03/07/23 13:49:00 EST, Height Start [...] 08/06/23 14:31:00 EDT, Route to Pharmacy Electronically, [facility] #[id number], 165, cm, 07/17/23 13:38:00 EDT, Height Start [...] Member Role: Lifetime Consulting Physician Address: Address: [address] [place] [address], [address] [facility] [place] [address]- Name: Gosia Collins RN Position: [facility] RN Member Role: Primary Care Nurse Name: Nicole Day NP Position: [facility] PCO Associate Professional Member Role: PCP Address: Address: [address] [place] [address] [address]rd [place] [address]- Name: Missy Lancaster RN Position: [facility] RN Member Role: Primary Care Nurse Name: Amy Del Toro RN Position: [facility] ED RN W/OE and Tasks Member Role: Primary Care Nurse Name: Rachael Garcia RN Position: [facility] AMB Nurse Member Role: Primary Care Nurse Name: Sole Rodriguez RN Position: [facility] Hospital Doctor Chiropractic Member Role: Primary Care Nurse Care Team Related Persons Name: OZIEL MACK Address: [place], [place] Name: OZIEL MACK Address: home [place], [place] Name: GHADA QUISPE Address: home [address] [place] [id number]
--- OUTSIDE RECORDS SUMMARY | 2023-10-02 14:40 | XMS_ITS | Continuity of Care Document ---
Author Organization [facility] Address [address] [place] [address]- Care Team Providers Care Lockstitch Shoulder Joiner Name Role Phone Nicole Day NP Primary Care Physician [id number] Date(s): 09/23/23 - 09/30/23 [facility] [address] [place] [address]- Encounter Diagnosis Anxiety and depression(Discharge Diagnosis) - 09/23/23 PTSD (post-traumatic stress disorder)(Discharge Diagnosis) - 09/23/23 Attending Physician: Nicole Day NP Allergies, Adverse [...] 08/06/23 14:33:00 EDT, Route to Pharmacy Electronically, [facility] #[id number], 165, cm, 07/17/23 13:38:00 EDT, Height Start Date: 08/06/23 Status: Ordered dexlansoprazole 30 mg oral delayed release capsule 1 capsule = 30 mg, By Mouth, Daily, # 30 capsule, 5 Refills, Maintenance, 07/12/19 12:17:00 EDT, [facility]/pharmacy #[id number], 164, cm, 06/30/19 14:28:00 EDT, Height, 79, kg, 04/28/19 12:58:00 EST, Dry Weight Start Date: 07/12/19 Stop Date: 01/08/20 Status: Ordered diazepam 2 mg oral tablet 4 mg, 2, tablet, By Mouth, 2 times a day, # 120 tablet, Refills 6, Tot. Refills 6, Soft Stop, 08/06/23 12:51:00 EDT, Route to Pharmacy Electronically, [facility] #[id number], 165, cm, 07/17/23 13:38:00 EDT, Height Start Date: 08/06/23 Stop Date: 03/03/24 Status: Ordered hydrocortisone 1% topical cream 1 application, Topically, 2 times a day, # 45 Gm, 0 Refills, Maintenance, 01/08/21 17:21:00 EST, Cream, [facility]/pharmacy #[id number], Partial fill upon patient request if the prescription is for a schedule II opioid drug., 1 application Topically 2 times a day,... Start Date: 01/08/21 Status: Ordered lisinopril 30 mg oral tablet 1 tablet = 30 mg, By Mouth, Daily, # 90 tablet, 1 Refills, Maintenance, 08/06/23 14:30:00 EDT, Tablet, [facility] #[id number], 165, cm, 07/17/23 13:38:00 EDT, Height Start Date: 08/06/23 Status: Ordered Multivitamin Daily, 0 Refills, Maintenance, 06/08/18 14:18:26 EDT Start Date: 06/08/18 Status: Ordered nitroglycerin 0.4 mg sublingual tablet 1 tablet = 0.4 mg, Sublingual, Every 5 minutes, PRN for chest pain, # 100 tablet, 9 Refills, Maintenance, 12/09/22 11:18:00 EDT, Tablet, [facility] #[id number], Partial fill upon patient requestif the prescription is for a schedule II opioid uma... Start Date: 12/09/22 Status: Ordered pravastatin 10 mg oral tablet 1 tablet, By Mouth, Daily at bedtime, # 90 tablet, 3 Refills, Maintenance, 04/29/23 11:18:00 EST, [facility] #[id number], 165, cm, 03/07/23 13:49:00 EST, Height Start [...] 08/06/23 14:31:00 EDT, Route to Pharmacy Electronically, [facility] #[id number], 165, cm, 07/17/23 13:38:00 EDT, Height Start Date: 08/06/23 Status: Ordered Problem List Condition Confirmation Course Effective Dates Status H ealth Status Informant Anxiety and depression Confirmed Active Diverticulosis Confirmed Active Dysphagia Confirmed Active Hyperlipidemia Confirmed Active Hypertension Confirmed Active Insomnia Confirmed Active PTSD (post-traumatic stress disorder) Confirmed Active Diagnosis Diagnosis Type Effective Dates Health Status Clinical Service Informant Anxiety and depression Discharge Diagnosis 09/23/23 PTSD (post-traumatic stress disorder) Discharge Diagnosis 09/23/23 Vital Signs Most recent to oldest [Reference Range]: 1 Height 165 cm (09/23/23 12:57 PM) Weight 65.2 kg (09/23/23 12:57 PM) Oxygen Saturation [94-100 %] 97 % (09/23/23 12:57 PM) Pulse Rate [55-90 bpm] 84 bpm (09/23/23 12:57 PM) Body Mass Index [18.5-24.99 kg/m2] 23.95 kg/m2 (09/23/23 12:57 PM) Blood Pressure [90-138/55-84 mm Hg] 135/ 76mm Hg (09/23/23 12:57 PM) Temperature [96.8-100.4 DegF] 99 DegF (09/23/23 12:57 PM) Mode of Delivery (Oxygen) Room air (09/23/23 12:57 PM) Blood pressure sites Arm, left (09/23/23 12:57 PM) Temperature Route Temporal (09/23/23 12:57 PM) Weight Obtained Via Standing scale (09/23/23 12:57 PM) Social History Social History Type Response Smoking Status Never smoker; Type: Cigarettes entered on: 04/14/17 Sex Note * Kiera Pettit: PERFORM Event Display: Patient Education/Instruction Authored Date: [id number] Ambulatory Adult Visit Summary [facility] [address] [place] [address] Name: ZE GEE : 1955?? Visit: 09/23/2023 12:52?? Ambulatory Visit Instructions ?? Your Care Team Primary Care Provider Shay MCDOWELL, Nicole Grider? This Visit Provider Shay MCDOWELL, Nicole Grider Your Diagnosis Anxiety and depression PTSD (post-traumatic stress disorder) Vitals Signs Temperature: 99 DegF Height: 165 cm Pulse Rate: 84 bpm Weight: 65.2 kg Systolic Blood Pressure: 135 mm Hg Body Mass Index: 23.95 kg/m2 Diastolic Blood Pressure: 76 mm Hg Body surface area: 1.73 Oxygen Saturation: 97 % ?? What to do next Future Orders TSH Rfx on Abnormal to Free T4 - Routine, Once, 07/17/23 12:30:00 EDT, Future Order, [facility], Blood?? Medications The list below reflects the information in our records and provided by you today along with any changes made during this visit. Please continue your medications until treatment is completed or stopped by your provider. If this is different from the information you have or there are other questions,please contact the prescribing provider. What How Much When Instructions Unchanged Celecoxib (CeleBREX 200 mg oral capsule) 1 capsule Oral Twice a day Unchanged Clonidine (cloNIDine 0.1 mg oral tablet) 1 tab(s) Oral Twice a day Unchanged dexlansoprazole (dexlansoprazole 30 mg oral delayed release capsule) 1 capsule Oral Daily Duration: 30 Days Unchanged Diazepam (diazepam 2 mg oral tablet) 2 tab(s) Oral Twice a day Duration: 30 Days Unchanged Hydrocortisone Topical (hydrocortisone 1% topical cream) 1 alyson Topically Twice a day Unchanged Lisinopril (lisinopril 30 mg oral tablet) 1 tab(s) Oral Daily Unchanged Multivitamin Daily Unchanged Nitroglycerin (nitroglycerin 0.4 mg sublingual tablet) 1 tab(s) Sublingual Every 5 minutes as needed for for chest pain Unchanged Pravastatin (pravastatin 10 mg oral tablet) 1 tab(s) Oral Daily at Bedtime Unchanged Pregabalin (pregabalin 75 mg oral capsule) 1 capsule Oral Twice a day Unchanged Trazodone (traZODone 100 mg oral tablet) 1 tab(s) Oral Daily at Bedtime Medications and Immunizations Administered Medications Given During Visit No medications given during this visit.?? Allergies (NKA means No Known Allergies) NKA Common Emergency Awareness Tips IS IT A STROKE? Act FAST and Check for these signs: FACE Does the face look uneven? ARM Does one arm drift down? SPEECH Does their speech sound strange? TIME Call at any sign of stroke ?? Heart Attack Signs Chest discomfort: Most heart attacks involve discomfort in the center of the chest and lasts more than a few minutes, or goes away and comes back. It can feel like uncomfortable pressure, squeezing, fullness or pain. Discomfort in upper body: Symptoms can include pain or discomfort in one or both arms, back, neck, jaw or stomach. Shortness of breath: With or without discomfort. Other signs: Breaking out in a cold sweat, nausea, or lightheaded. Remember, MINUTES DO MATTER. If you experience any of these heart attack warning signs, call to get immediate medical attention! ?? Smoking can increase your chances of developing chronic health problems and can cause harmful effects to other family members in your house. If you smoke, you are strongly encouraged to quit. Please call [employer] Link at [phone] or 1-873-896[employer] (4326) or log in to [email or web address] for referrals to smoking cessation programs. ?? The National Suicide Prevention Hotline is available 16/09 if you or someone you know needs to find a reason to keep living. By calling 4-167-484-GoSave (6391) you'll be connected to a skilled, trained counselor at a crisis center in your area. [facility] Health Portal You can view and manage your care through the patient portal or by using a health care alyson of your choosing. [employer] is a website that allows you to securely view your medical information including your hospital discharge summary, office visit summaries, medications and follow-up visits. You can also request appointments, renew medications, and request access to your medical information using a health care alyson of your choosing, or just ask a question. You can enroll at [email or web address] or register during your next office visit. [facility], in keeping with [facility] guidance, no longer requires face masks for staff, patientsor visitors in most situations. Similiar to time spent indoors at other locations, there is the chance that you were exposed to repiratory viruses during your time with us (such as flu or COVID-19). If you develop symptoms concerning for a viral respiratory infection, please seek testing (and treatment if indicated) from your medical provider or home test kit. ?? Disclaimer: The information provided is of a general nature and is intended to be used in conjunction with the recommendations and advice of your health care practitioner. Every effort has been made to ensure that the information provided is accurate and complete at the time it is provided to you however, as your needs change, or, as new information becomes available, different or additional instructions may be required. ?? If you have questions, please consult with your primary care provider or pharmacist, as appropriate. This information is not intended to serve as substitution for assessment and evaluation by a qualified health care provider. If you do not have a primary care provider, you may find a [facility] provider by calling [facility] [employer] Link at [phone]. Patient Care team information Care Team Personnel Name: Evelio Serrano MD Position: [facility] Physician - Gastroenterology Member Role: Lifetime Consulting Physician Address: Address: [address] [place] [address], [address] [facility] [place] [address]- Name: Gosia Collins RN Position: [facility] RN Member Role: Primary Care Nurse Name: Nicole Day NP Position: [facility] PCO Associate Professional Member Role: PCP Address: Address: [address] [place] [address] [address]rd [place] [address]- [place] Name: Missy Lancaster RN Position: [facility] RN Member Role: Primary Care Nurse Name: Amy Del Toro RN Position: [facility] ED RN W/OE and Tasks Member Role: Primary Care Nurse Name: Rachael Garcia RN Position: [facility] AMB Nurse Member Role: Primary Care Nurse Name: Sole Rodriguez RN Position: [facility] Hospital Communications Technician Member Role: Primary Care Nurse Care Team Related Persons Name: OZIEL MACK Address: [place] [address] Name: OZIEL MACK Address: [place] [address] Name: GHADA QUISPE Address: home [address] [place] [address]
--- OUTSIDE RECORDS SUMMARY | 2023-10-02 14:41 | XMS_ITS | Continuity of Care Document ---
Author Organization [facility] Adult Address [address] [place] [address]- Care Team Providers Care Global Chief Creative Officer Name Role Phone Shay MCDOWELL, Nicole Grider Primary Care Physician Encounter [facility] [place] Date(s): 08/20/23 - 09/19/23 [facility] Adult [address] [place] [phone]- Allergies, Adverse Reactions, Alerts No Known Allergies [...] 08/06/23 14:33:00 EDT, [id number], 165, cm, 07/17/23 13:38:00 EDT, Height Start Date: 08/06/23 Status: Ordered dexlansoprazole 30 mg oral delayed release capsule 1 capsule = 30 mg, By Mouth, Daily, # 30 capsule, 5 Refills, Maintenance, 07/12/19 12:17:00 EDT, [facility]/pharmacy #[id number], 164, cm, 06/30/19 14:28:00 EDT, Height, 79, kg, 04/28/19 12:58:00 EST, Dry Weight Start Date: 07/12/19 Stop Date: 01/08/20 Status: Ordered diazepam 2 mg oral tablet 4 mg, 2, tablet, By Mouth, 2 times a day, # 120 tablet, Refills 6, Tot. Refills 6, Soft Stop, 08/06/23 12:51:00 EDT, Route to Pharmacy Electronically, [facility] #[id number], 165, cm, 07/17/23 13:38:00 EDT, Height Start Date: 08/06/23 Stop Date: 03/03/24 Status: Ordered hydrocortisone 1% topical cream 1 application, Topically, 2 times a day, # 45 Gm, 0 Refills, Maintenance, 01/08/21 17:21:00 EST, Cream, [facility]/pharmacy #[id number], Partial fill upon patient request if the prescription is for a schedule II opioid drug., 1 application Topically 2 times a day,... Start Date: 01/08/21 Status: Ordered lisinopril 30 mg oral tablet 1 tablet = 30 mg, By Mouth, Daily, # 90 tablet, 1 Refills, Maintenance, 08/06/23 14:30:00 EDT, Tablet, [facility] #[id number], 165, cm, 07/17/23 13:38:00 EDT, Height Start Date: 08/06/23 Status: Ordered Multivitamin Daily, 0 Refills, Maintenance, 06/08/18 14:18:26 EDT Start Date: 06/08/18 Status: Ordered nitroglycerin 0.4 mg sublingual tablet 1 tablet = 0.4 mg, Sublingual, Every 5 minutes, PRN for chest pain, # 100 tablet, 9 Refills, Maintenance, 12/09/22 11:18:00 EDT, Tablet, [facility] #[id number], Partial fill upon patient requestif the prescription is for a schedule II opioid uma... Start Date: 12/09/22 Status: Ordered pravastatin 10 mg oral tablet 1 tablet, By Mouth, Daily at bedtime, # 90 tablet, 3 Refills, Maintenance, 04/29/23 11:18:00 EST, [facility] #[id number], 165, cm, 03/07/23 13:49:00 EST, Height Start [...] 08/06/23 14:31:00 EDT, Route to Pharmacy Electronically, [facility] #[id number], 165, cm, 07/17/23 13:38:00 EDT, Height Start [...] Team Personnel Name: Evelio Serrano MD Position: [facility] Physician - Gastroenterology Member Role: Lifetime Consulting Physician Address: Address: [address] [place] [address], [address] [facility] [place] [address]- Name: Gosia Collins RN Position: [facility] RN Member Role: Primary Care Nurse Name: Nicole Day NP Position: [facility] PCO Associate Professional Member Role: PCP Address: Address: [address] [place] [address] [address]rd [place] [address]- Name: Missy Lancaster RN Position: [facility] RN Member Role: Primary Care Nurse Name: Amy Del Toro RN Position: [facility] ED RN W/OE and Tasks Member Role: Primary Care Nurse Name: Rachael Garcia RN Position: [facility] AMB Nurse Member Role: Primary Care Nurse Name: Sole Rodriguez RN Position: [facility] Hospital Voltage Tester Member Role: Primary Care Nurse Care Team Related Persons Name: OZIEL MACK Address: home [place], [place] Name: OZIEL MACK Address: home [place], [place] Name: GHADA QUISPE Address: home [address] [place] [id number]
== END 2023-10-02 15:08 | disposition home or self-care (01) ==
LOC: HO.HOS 14:36
PROVIDERS: PCP Nurse Practitioner Family; Visit Provider Orthopaedic Surgery
DX: M25.511 Pain in right shoulder (principal); M25.512 Pain in left shoulder; F41.9 Anxiety disorder, unspecified; F32.A Depression, unspecified
CPT/HCPCS: 99441

== ENCOUNTER → 2023-10-02 14:36 | Outpatient (BNVA) | payer MEDICARE, MEDICAID, SELFPAY | PROVIDERS: PCP Nurse Practitioner Family; Visit Provider Orthopaedic Surgery ==

== ENCOUNTER 2023-10-06 12:17 | Outpatient (REF) | payer MEDICARE, MEDICAID, SELFPAY ==
--- NOTE | ~2023-10-06 | MR_ITS ---
EXAMINATION: MR CERVICAL SPINE WITHOUT CONTRAST CLINICAL INFORMATION: Cervical radiculopathy. COMPARISON: None available. TECHNIQUE: MRI of the cervical spine was obtained using routine sequences without contrast. FINDINGS: Reversal of the normal cervical lordosis with prominent dextrocurvature of the cervical spine. Grade 1 anterolisthesis of C4-C5. Cervical vertebral body heights are maintained. Degenerative endplate sclerosis at C6-C7. There is prominent marrow edema in the right C5-C6 facet joint and to a lesser extent multilevel left-sided facet edema, likely on the basis of degenerative change/stress reaction. The cervical spinal cord is normal in signal intensity. C2-C3: Shallow disc osteophyte complex without significant spinal canal stenosis. Asymmetric left-sided uncovertebral and facet arthropathy with [id number] left neural foraminal stenosis. The right neural foramen is patent. C3-C4: Disc osteophyte complex indents the ventral thecal sac which is not significantly narrowed. Uncovertebral and facet arthropathy with vnwg-cw-gmkzzjnv left and mild right neural foraminal stenosis. C4-C5: Facet arthropathy. Ligamentum flavum redundancy. There is grade 1 anterolisthesis with uncovering of the intervertebral disc space. Moderate spinal canal stenosis. Asymmetric left-sided uncovertebral and facet arthropathy with severe left neural foraminal stenosis. Mild narrowing of the right neural foramen. C5-C6: Disc osteophyte complex without significant spinal canal stenosis. Asymmetric right-sided facet arthropathy. Minimal narrowing of the right neural foramen. The left neural foramen is patent. C6-C7: Disc osteophyte complex and facet arthropathy with ligamentum flavum redundancy. There is mild spinal canal stenosis. Right greater than left facet arthropathy and uncovertebral arthropathy with severe right and moderate left neural foraminal stenosis. C7-T1: No significant spinal canal or neural foraminal stenosis. Facet degeneration. Partially visualized multilevel degenerative changes of the upper thoracic spine with nhoxghmt-bv-swdnih right neural foraminal stenosis at T1-T2. Otherwise, no high-grade spinal canal or neural foraminal stenosis in the partially visualized thoracic spine. MR/MR cervical spine wo con IMPRESSION: Multilevel degenerative changes of the cervical spine with moderate spinal canal stenosis at C4-C5. Multilevel advanced neural foraminal stenoses as described above including severe left neural foraminal stenosis at C4-C5 and severe right neural foraminal stenosis at C6-C7.
== END 2023-10-06 12:18 | disposition home or self-care (01) ==
LOC: HO.MRI 12:17
PROVIDERS: PCP Nurse Practitioner Family; Visit Provider Internal Medicine
DX: M54.12 Radiculopathy, cervical region (principal)
CPT/HCPCS: 72141

== ENCOUNTER 2023-10-15 10:35 | Outpatient (AMB) | payer MEDICARE, MEDICAID, SELFPAY ==
[2023-10-15 10:46] VITALS: BP 136/69; PULSE 75; RESP 15; O2SAT 99; BMI 24.3
--- NOTE | 2023-10-15 10:46 | MHC.OFFVIS ---
Vital Signs 10/15/23 10:46 Height 5 ft 5 in Weight 146 lb BMI 24.3 BP 136/69 Blood Pressure Location Lt brachial Position Sitting Respiration 15 Pulse 75 Pulse Source Pulse Oximeter Pulse Oximetry (%) 99 Oxygen Delivery Method Room Air Intake Visit Reasons: MRI FOLLOW UP/RESULTS Allergies No Known Allergies Allergy (Verified 10/15/23 10:48) Medication List - Last Reconciled 10/15/23 by Chelsea Delaney LPN celecoxib 200 mg PO BID clonidine HCl 0.1 mg PO BID cromolyn 200 mg (10 mL) PO QID 30 days cromolyn (Nasalcrom) 1 spray intranasal TID diazepam 4 mg PO BID PRN esomeprazole magnesium 40 mg PO DAILY fexofenadine (Carolyn Allergy) 180 mg PO DAILY fluticasone propionate 50 mcg/actuation 1 spray intranasal BID ibuprofen 400 mg PO TID PRN linaclotide 72 mcg PO DAILY lisinopril 30 mg PO DAILY loratadine (Claritin) 10 mg PO DAILY methocarbamol 500 mg PO TID methylprednisolone PO PER PKG DIR for 6 days nitroglycerin 0.4 mg sublingual ONCE PRN nystatin 1 mL PO QID 14 days oxycodone-acetaminophen 5-325 mg 1 tab PO BID PRN pregabalin 75 mg PO BID rifaximin 550 mg PO TID 2 weeks trazodone 100 mg PO BEDTIME vitamin A 1 cap PO DAILY HPI HPI MRI FOLLOW UP/RESULTS: Details: 68-year-old male who presents today to the office to discuss MRI results. He also has radiating pain from the neck down to his shoulder and arm associated with restricted mobility. He reports he has been having shakes in his right arm and notices that his hands tremble on its own when he places his hand on the wall/when he bhagat his hair. He occasionally notices shakes in the whole body and imbalance while walking. He was previously seen by Dr. Manning for it. He stopped drinking alcohol, and he has been sober for the past 6 years. He has had positive response to the epidural steroid injection in the past, and is interested to repeat a cervical epidural injection to see if that might help with his radicular arm symptoms. He was seen in the ER for shakiness and was placed on anti-histamine, which made his symptoms worse. He eventually developed palpitations and anxiety the next day, for which he was again seen in the ER for Diazepam but they refused to increase the dose. Past procedures 09/26/23: Right glenohumeral injection: 50% relief. 08/21/23: Peripheral Nerve Stimulation Temporary Lead Placement, Fluoroscopy-Guided, Axillary Nerve, right: Stimulator removed prematurely 08/14/23: Interlaminar epidural steroid injection, L5-S1, right parasaggital: 50 % relief. 07/10/23: Right rotator cuff PRP injections and left knee intra-articular A2M injection: 20-30 % relief. 06/19/23: Left knee Synvisc-One injection: Greater than 50 % relief. 05/05/23: Right elbow extensor tendon injection, US guided: Relief of elbow pain 05/05/23: Bilateral bicipital tendon injections, ultrasound guided: Left-sided relief, aggravation of right-sided symptoms with potential right biceps tendon tear 03/20/23: Interlaminar epidural steroid injection, L5-S1, right parasaggital: >50% relief. 03/20/23: left knee intra-articular Synvisc-One injection: 02/10/23: Bilateral bicipital tendon injections, ultrasound guided: >50% relief. 01/08/23: left knee intra-articular corticosteroid injection: 50% relief for 3-4 weeks. 10/16/22: Interlaminar epidural steroid injection, L5-S1, right parasaggital: 60% relief. 10/09/22: left knee Synvisc One injection intra-articular: 75% relief. 08/15/22: bilateral bicipital tendon injections: 80% relief. 07/17/22: Interlaminar epidural steroid injection, L5/S1, Right parasaggital: 60% relief. 05/24/22: right bicipital tendon and supraspinatus tendon injection: 80% relief. 05/08/22: Left knee Synvisc one injection under fluoroscopy - 75% relief for 2 weeks. 12/17/21: Left Bicep Tendon Injection US guided ? 90% relief for 3 months. [facility] Medical History (Updated 10/21/23 @ 12:44 by Marciano Bridges MD) Anxiety and depression Diverticulosis Hyperlipidemia Hypertension Insomnia PTSD (post-traumatic stress disorder) Surgical History History of esophagogastroduodenoscopy (EGD) Hx of colonoscopy History of left hip replacement Social History Alcohol intake: never Patient Tobacco Use Status: Former Tobacco user Current occupational status: employed and disabled Current occupation: rt handed Physical Exam Vital Signs: Last Vital Signs Pulse 75 10/15/23 10:46 Resp 15 10/15/23 10:46 BP 136/69 10/15/23 10:46 Pulse Ox 99 10/15/23 10:46 Oxygen Delivery Method Room Air 10/15/23 10:46 BMI result Body Mass Index 24.3 Results Reviewed Results Reviewed: Date: 10/05/21 EXAMINATION: MR CERVICAL SPINE WITHOUT CONTRAST FINDINGS: Reversal of the normal cervical lordosis with prominent dextrocurvature of the cervical spine. Grade 1 anterolisthesis of C4-C5. Cervical vertebral body heights are maintained. Degenerative endplate sclerosis at C6-C7. There is prominent marrow edema in the right C5-C6 facet joint and to a lesser extent multilevel left-sided facet edema, likely on the basis of degenerative change/stress reaction. The cervical spinal cord is normal in signal intensity. C2-C3: Shallow disc osteophyte complex without significant spinal canal stenosis. Asymmetric left-sided uncovertebral and facet arthropathy with yffq-nh-bwjrjost left neural foraminal stenosis. The right neural foramen is patent. C3-C4: Disc osteophyte complex indents the ventral thecal sac which is not significantly narrowed. Uncovertebral and facet arthropathy with xqxj-zv-drjagwlw left and mild right neural foraminal stenosis. C4-C5: Facet arthropathy. Ligamentum flavum redundancy. There is grade 1 anterolisthesis with uncovering of the intervertebral disc space. Moderate spinal canal stenosis. Asymmetric left-sided uncovertebral and facet arthropathy with severe left neural foraminal stenosis. Mild narrowing of the right neural foramen. C5-C6: Disc osteophyte complex without significant spinal canal stenosis. Asymmetric right-sided facet arthropathy. Minimal narrowing of the right neural foramen. The left neural foramen is patent. C6-C7: Disc osteophyte complex and facet arthropathy with ligamentum flavum redundancy. There is mild spinal canal stenosis. Right greater than left facet arthropathy and uncovertebral arthropathy with severe right and moderate left neural foraminal stenosis. C7-T1: No significant spinal canal or neural foraminal stenosis. Facet degeneration. Partially visualized multilevel degenerative changes of the upper thoracic spine with qbjisabp-ra-zsshjf right neural foraminal stenosis at T1-T2. Otherwise, no high-grade spinal canal or neural foraminal stenosis in the partially visualized thoracic spine. IMPRESSION: Multilevel degenerative changes of the cervical spine with moderate spinal canal stenosis at C4-C5. Multilevel advanced neural foraminal stenoses as described above including severe left neural foraminal stenosis at C4-C5 and severe right neural foraminal stenosis at C6-C7. Assessment & Plan Assessment & Plan (1) Cervical radiculitis: Code(s): M54.12 - Radiculopathy, cervical region Category: Medical (2) Anxiety and depression: Code(s): F41.9 - Anxiety disorder, unspecified; F32.A - Depression, unspecified Category: Medical (3) Adhesive capsulitis of shoulder: Code(s): M75.00 - Adhesive capsulitis of unspecified shoulder Category: Medical Plan Will schedule for right C6-7 JOYCE cervical radicular symptoms towards the end of October. Agree with continuing to seek out mental health support to help with psychiatric comorbidities. Discussed the risks and benefits of the procedure with the patient in detail. All questions were answered. The patient is on board with the plan. Justification for interventional therapy: ? Patient with average pain > 6/10 ? Patient has exhausted conservative therapy ? Physical therapy and home exercises have not been helpful. . Patient has a good understanding of their pain condition and has appropriate mental and social support Scribed for Dr. Bridges by [facility] medical services assistant, on 10/15/2023. I, Dr. Bridges, have personally reviewed and agree with the information entered by the scribe. Coding Level of Care Code Est Pt Level 4 (50514) Diagnoses Cervical radiculitis M54.12 Anxiety and depression F41.9; F32.A Adhesive capsulitis of shoulder M75.00
== END 2023-10-15 11:35 | disposition home or self-care (01) ==
PROVIDERS: PCP Nurse Practitioner Family; Visit Provider Internal Medicine
DX: M54.12 Radiculopathy, cervical region (principal); F41.9 Anxiety disorder, unspecified; F32.A Depression, unspecified; M75.00 Adhesive capsulitis of unspecified shoulder
CPT/HCPCS: 99214

== ENCOUNTER → 2023-10-15 10:35 | Outpatient (BNVA) | payer MEDICARE, MEDICAID, SELFPAY | PROVIDERS: PCP Nurse Practitioner Family; Visit Provider Internal Medicine | DX: M54.12 Radiculopathy, cervical region (principal); M75.00 Adhesive capsulitis of unspecified shoulder; F41.9 Anxiety disorder, unspecified; F32.A Depression, unspecified | CPT/HCPCS: 99212 ==

== ENCOUNTER 2023-11-13 06:16 | Outpatient (REF) | payer MEDICARE, MEDICAID, SELFPAY | END 2023-11-13 06:17 | disposition home or self-care (01) | LOC: CF 06:16 | PROVIDERS: Visit Provider Internal Medicine | DX: M17.12 Unilateral primary osteoarthritis, left knee (principal); M54.12 Radiculopathy, cervical region | CPT/HCPCS: 20610; 62321; J1100; J3301; Q9967 ==

== ENCOUNTER 2023-11-13 12:44 | Outpatient (AMB) | payer MEDICARE, MEDICAID, SELFPAY ==
--- OUTSIDE RECORDS SUMMARY | 2023-11-13 12:46 | XMS_ITS | Continuity of Care Document ---
Author Organization [facility] Adult Address [address] [place] [address]- Care Team Providers Care Business Supervisor Name Role Phone Shay MCDOWELL, Nicole Grider Primary Care Physician Encounter [facility] [place] Date(s): 09/04/23 - 10/04/23 [facility] Adult [address] [place] [phone]- Allergies, Adverse Reactions, Alerts No Known Allergies [...] 08/06/23 14:33:00 EDT, [id number], 165, cm, 07/17/23 13:38:00 EDT, Height Start Date: 08/06/23 Status: Ordered dexlansoprazole 30 mg oral delayed release capsule 1 capsule = 30 mg, By Mouth, Daily, # 30 capsule, 5 Refills, Maintenance, 07/12/19 12:17:00 EDT, [facility]/pharmacy #[id number], 164, cm, 06/30/19 14:28:00 EDT, Height, 79, kg, 04/28/19 12:58:00 EST, Dry Weight Start Date: 07/12/19 Stop Date: 01/08/20 Status: Ordered diazepam 2 mg oral tablet 4 mg, 2, tablet, By Mouth, 2 times a day, # 120 tablet, Refills 6, Tot. Refills 6, Soft Stop, 08/06/23 12:51:00 EDT, Route to Pharmacy Electronically, [facility] #[id number], 165, cm, 07/17/23 13:38:00 EDT, Height Start Date: 08/06/23 Stop Date: 03/03/24 Status: Ordered hydrocortisone 1% topical cream 1 application, Topically, 2 times a day, # 45 Gm, 0 Refills, Maintenance, 01/08/21 17:21:00 EST, Cream, [facility]/pharmacy #[id number], Partial fill upon patient request if the prescription is for a schedule II opioid drug., 1 application Topically 2 times a day,... Start Date: 01/08/21 Status: Ordered lisinopril 30 mg oral tablet 1 tablet = 30 mg, By Mouth, Daily, # 90 tablet, 1 Refills, Maintenance, 08/06/23 14:30:00 EDT, Tablet, [facility] #[id number], 165, cm, 07/17/23 13:38:00 EDT, Height Start Date: 08/06/23 Status: Ordered Multivitamin Daily, 0 Refills, Maintenance, 06/08/18 14:18:26 EDT Start Date: 06/08/18 Status: Ordered nitroglycerin 0.4 mg sublingual tablet 1 tablet = 0.4 mg, Sublingual, Every 5 minutes, PRN for chest pain, # 100 tablet, 9 Refills, Maintenance, 12/09/22 11:18:00 EDT, Tablet, [facility] #[id number], Partial fill upon patient requestif the prescription is for a schedule II opioid uma... Start Date: 12/09/22 Status: Ordered pravastatin 10 mg oral tablet 1 tablet, By Mouth, Daily at bedtime, # 90 tablet, 3 Refills, Maintenance, 04/29/23 11:18:00 EST, [facility] #[id number], 165, cm, 03/07/23 13:49:00 EST, Height Start [...] 08/06/23 14:31:00 EDT, Route to Pharmacy Electronically, [facility] #[id number], 165, cm, 07/17/23 13:38:00 EDT, Height Start [...] Team Personnel Name: Evelio Serrano MD Position: [facility] Physician - Gastroenterology Member Role: Lifetime Consulting Physician Address: Address: [address] [place] [address], [address] [facility] [place] [address]- Name: Gosia Collins RN Position: [facility] RN Member Role: Primary Care Nurse Name: Nicole Day NP Position: [facility] PCO Associate Professional Member Role: PCP Address: Address: [address] [place] [address] [address]rd [place] [address]- Name: Missy Lancaster RN Position: [facility] RN Member Role: Primary Care Nurse Name: Amy Del Toro RN Position: [facility] ED RN W/OE and Tasks Member Role: Primary Care Nurse Name: Rachael Garcia RN Position: [facility] AMB Nurse Member Role: Primary Care Nurse Name: Sole Rodriguez RN Position: [facility] Hospital Pre Owned Sales Manager Member Role: Primary Care Nurse Care Team Related Persons Name: OZIEL MACK Address: home [place], [place] Name: OZIEL MACK Address: home [place], [place] Name: GHADA QUISPE Address: home [address] [place] [id number]
--- OUTSIDE RECORDS SUMMARY | 2023-11-13 12:46 | XMS_ITS | Continuity of Care Document ---
Author Organization [facility] Adult Address [address] [place] [address]- Care Team Providers Care Bin Packer Name Role Phone Shay MCDOWELL, Nicole Grider Primary Care Physician Encounter [facility] [place] Date(s): 09/23/23 - 10/23/23 [facility] Adult [address] [place] [address]- Attending Physician: Maty Patel Admitting Physician: AdmMaty mcginnis Referring Physician: AdmtrMaty Allergies, Adverse Reactions, Alerts No Known Allergies [...] 08/06/23 14:33:00 EDT, Route to [facility]ically, [facility][id number], 165, cm, 07/17/23 13:38:00 EDT, Height Start Date: 08/06/23 Status: Ordered dexlansoprazole 30 mg oral delayed release capsule 1 capsule = 30 mg, By Mouth, Daily, # 30 capsule, 5 Refills, Maintenance, 07/12/19 12:17:00 EDT, [facility]/pharm[facility] #[id number], 164, cm, 06/30/19 14:28:00 EDT, Height, 79, kg, 04/28/19 12:58:00 EST, Dry Weight Start Date: 07/12/19 Stop Date: 01/08/20 Status: Ordered diazepam 2 mg oral tablet 4 mg, 2, tablet, By Mouth, 2 times a day, # 120 tablet, Refills 6, Tot. Refills 6, Soft Stop, 08/06/23 12:51:00 EDT, Route to Pharmacy Electronically, [facility] #[id number], 165, cm, 07/17/23 13:38:00 EDT, Height Start Date: 08/06/23 Stop Date: 03/03/24 Status: Ordered hydrocortisone 1% topical cream 1 application, Topically, 2 times a day, # 45 Gm, 0 Refills, Maintenance, 01/08/21 17:21:00 EST, Cream, [facility]/pharmacy #[id number], Partial fill upon patient request if the prescription is for a schedule II opioid drug., 1 application Topically 2 times a day,... Start Date: 01/08/21 Status: Ordered lisinopril 30 mg oral tablet 1 tablet = 30 mg, By Mouth, Daily, # 90 tablet, 1 Refills, Maintenance, 08/06/23 14:30:00 EDT, Tablet, [facility] #[id number], 165, cm, 07/17/23 13:38:00 EDT, Height Start Date: 08/06/23 Status: Ordered Multivitamin Daily, 0 Refills, Maintenance, 06/08/18 14:18:26 EDT Start Date: 06/08/18 Status: Ordered nitroglycerin 0.4 mg sublingual tablet 1 tablet = 0.4 mg, Sublingual, Every 5 minutes, PRN for chest pain, # 100 tablet, 9 Refills, Maintenance, 12/09/22 11:18:00 EDT, Tablet, [facility] #[id number], Partial fill upon patient requestif the prescription is for a schedule II opioid uma... Start Date: 12/09/22 Status: Ordered pravastatin 10 mg oral tablet 1 tablet, By Mouth, Daily at bedtime, # 90 tablet, 3 Refills, Maintenance, 04/29/23 11:18:00 EST, [facility] #[id number], 165, cm, 03/07/23 13:49:00 EST, Height Start [...] 08/06/23 14:31:00 EDT, Route to Pharmacy Electronically, [facility] #[id number], 165, cm, 07/17/23 13:38:00 EDT, Height Start [...] smoker; Type: Cigarettes entered on: 04/14/17 Sex Laboratory * Event Display: Non Lab Results Authored Date: Radiology * Event Display: MRI Spine, Non- Authored Date: * Event Display: CT Scan Chest, Non- Authored Date: * Event Display: X-Ray Pelvis, Non- Authored Date: * Event Display: X-Ray Hip/Groin, Non- Authored Date: MR Knee * Event Display: MRI Knee Authored Date: Patient Care team information Care Team Personnel Name: Evelio Serrano MD Position: [facility] Physician - Gastroenterology Member Role: Lifetime Consulting Physician Address: Address: [address] [place] [address], [address] [facility] [place] [address]- Name: Gosia Collins RN Position: [facility] RN Member Role: Primary Care Nurse Name: Shay MCDOWELL, Nicole Grider Position: [facility] PCO Associate Professional Member Role: PCP Address: Address: [address] [place] [address] 3rd [place] [address]- [place] Name: Missy Lancaster RN Position: [facility] RN Member Role: Primary Care Nurse Name: Amy Del Toro RN Position: [facility] ED RN W/OE and Tasks Member Role: Primary Care Nurse Name: Rachael Garcia RN Position: [facility] Nurse Member Role: Primary Care Nurse Name: Sole Rodriguez RN Position: [facility] Hospital Computer Field Technician Member Role: Primary Care Nurse Care Team Related Persons Name: OZIEL MACK Address: [place] [address] Name: OZIEL MACK Address: [place] [address] Name: GHADA QUISPE Address: home [address] [place] [phone]
--- OUTSIDE RECORDS SUMMARY | 2023-11-13 12:48 | XMS_ITS | Continuity of Care Document ---
Author Organization [facility] Adult Address [address] [place] [address]- Care Team Providers Care Superannuation Clerk Name Role Phone Nicole Day NP Primary Care Physician [place] [facility] [place]/23 [facility] Adult [address] [place] [phone]- Allergies, Adverse Reactions, Alerts No Known Allergies [...] EDT, [id number], 165, cm, 07/17/23 13:38:00 EDT, Height Start Date: 08/06/23 Status: Ordered dexlansoprazole 30 mg oral delayed release capsule 1 capsule = 30 mg, By Mouth, Daily, # 30 capsule, 5 Refills, Maintenance, 07/12/19 12:17:00 EDT, [facility]/pharmacy #[id number], 164, cm, 06/30/19 14:28:00 EDT, Height, 79, kg, 04/28/19 12:58:00 EST, Dry Weight Start Date: 07/12/19 Stop Date: 01/08/20 Status: Ordered diazepam 2 mg oral tablet 4 mg, 2, tablet, By Mouth, 2 times a day, # 120 tablet, Refills 6, Tot. Refills 6, Soft Stop, 08/06/23 12:51:00 EDT, Route to Pharmacy Electronically, [facility] #[id number], 165, cm, 07/17/23 13:38:00 EDT, Height Start Date: 08/06/23 Stop Date: 03/03/24 Status: Ordered hydrocortisone 1% topical cream 1 application, Topically, 2 times a day, # 45 Gm, 0 Refills, Maintenance, 01/08/21 17:21:00 EST, Cream, [facility]/pharmacy #[id number], Partial fill upon patient request if the prescription is for a schedule II opioid drug., 1 application Topically 2 times a day,... Start Date: 01/08/21 Status: Ordered lisinopril 30 mg oral tablet 1 tablet = 30 mg, By Mouth, Daily, # 90 tablet, 1 Refills, Maintenance, 08/06/23 14:30:00 EDT, Tablet, [facility] #[id number], 165, cm, 07/17/23 13:38:00 EDT, Height Start Date: 08/06/23 Status: Ordered Multivitamin Daily, 0 Refills, Maintenance, 06/08/18 14:18:26 EDT Start Date: 06/08/18 Status: Ordered nitroglycerin 0.4 mg sublingual tablet 1 tablet = 0.4 mg, Sublingual, Every 5 minutes, PRN for chest pain, # 100 tablet, 9 Refills, Maintenance, 12/09/22 11:18:00 EDT, Tablet, [facility] #[id number], Partial fill upon patient requestif the prescription is for a schedule II opioid uma... Start Date: 12/09/22 Status: Ordered pravastatin 10 mg oral tablet 1 tablet, By Mouth, Daily at bedtime, # 90 tablet, 3 Refills, Maintenance, 04/29/23 11:18:00 EST, [facility] #[id number], 165, cm, 03/07/23 13:49:00 EST, Height Start [...] 08/06/23 14:31:00 EDT, Route to Pharmacy Electronically, [facility] #[id number], 165, cm, 07/17/23 13:38:00 EDT, Height Start [...] Member Role: Lifetime Consulting Physician Address: Address: [address] [place] [address], [address] [facility] [place] [address]- Name: Gosia Collins RN Position: [facility] RN Member Role: Primary Care Nurse Name: Nicole Day NP Position: [facility] PCO Associate Professional Member Role: PCP Address: Address: [address] [place] [address] 3rd [place] [address]- Name: Missy Lancaster RN [facility] [...] [facility] Hospital Vice President [employer] Member Role: Primary Care Nurse Care Team Related Persons Name: OZIEL MACK Address: home [place], [place] Name: OZIEL MACK Address: home [place], [place] Name: GHADA QUSIPE Address: home [address] [place] [address]
--- OUTSIDE RECORDS SUMMARY | 2023-11-13 12:48 | XMS_ITS | Continuity of Care Document ---
Author Organization [facility] Adult Address [address] [place] [address]- Care Team Providers Care Meat Hanger Name Role Phone Shay MCDOWELL, Nicole Grider Primary Care Physician Encounter [facility] [place] Date(s): 09/10/23 - 10/10/23 [facility] Adult [address] [place] [phone]- Allergies, Adverse Reactions, Alerts No Known Allergies [...] 08/06/23 14:33:00 EDT, [id number], 165, cm, 07/17/23 13:38:00 EDT, Height Start Date: 08/06/23 Status: Ordered dexlansoprazole 30 mg oral delayed release capsule 1 capsule = 30 mg, By Mouth, Daily, # 30 capsule, 5 Refills, Maintenance, 07/12/19 12:17:00 EDT, [facility]/pharmacy #[id number], 164, cm, 06/30/19 14:28:00 EDT, Height, 79, kg, 04/28/19 12:58:00 EST, Dry Weight Start Date: 07/12/19 Stop Date: 01/08/20 Status: Ordered diazepam 2 mg oral tablet 4 mg, 2, tablet, By Mouth, 2 times a day, # 120 tablet, Refills 6, Tot. Refills 6, Soft Stop, 08/06/23 12:51:00 EDT, Route to Pharmacy Electronically, [facility] #[id number], 165, cm, 07/17/23 13:38:00 EDT, Height Start Date: 08/06/23 Stop Date: 03/03/24 Status: Ordered hydrocortisone 1% topical cream 1 application, Topically, 2 times a day, # 45 Gm, 0 Refills, Maintenance, 01/08/21 17:21:00 EST, Cream, [facility]/pharmacy #[id number], Partial fill upon patient request if the prescription is for a schedule II opioid drug., 1 application Topically 2 times a day,... Start Date: 01/08/21 Status: Ordered lisinopril 30 mg oral tablet 1 tablet = 30 mg, By Mouth, Daily, # 90 tablet, 1 Refills, Maintenance, 08/06/23 14:30:00 EDT, Tablet, [facility] #[id number], 165, cm, 07/17/23 13:38:00 EDT, Height Start Date: 08/06/23 Status: Ordered Multivitamin Daily, 0 Refills, Maintenance, 06/08/18 14:18:26 EDT Start Date: 06/08/18 Status: Ordered nitroglycerin 0.4 mg sublingual tablet 1 tablet = 0.4 mg, Sublingual, Every 5 minutes, PRN for chest pain, # 100 tablet, 9 Refills, Maintenance, 12/09/22 11:18:00 EDT, Tablet, [facility] #[id number], Partial fill upon patient requestif the prescription is for a schedule II opioid uma... Start Date: 12/09/22 Status: Ordered pravastatin 10 mg oral tablet 1 tablet, By Mouth, Daily at bedtime, # 90 tablet, 3 Refills, Maintenance, 04/29/23 11:18:00 EST, [facility] #[id number], 165, cm, 03/07/23 13:49:00 EST, Height Start [...] 08/06/23 14:31:00 EDT, Route to Pharmacy Electronically, [facility] #[id number], 165, cm, 07/17/23 13:38:00 EDT, Height Start [...] Member Role: Lifetime Consulting Physician Address: Address: [address] [place] [address], [address] [facility] [place] [address]- Name: Gosia Collisn RN Position: [facility] RN Member Role: Primary Care Nurse Name: Nicole Day NP Position: [facility] PCO Associate Professional Member Role: PCP Address: Address: [address] [place] [address] 3rd [place] [address]- Name: Missy Lancaster RN Position: [facility] RN Member Role: Primary Care Nurse Name: Amy Del Toro RN Position: [facility] ED RN W/OE and Tasks Member Role: Primary Care Nurse Name: Rachael Garcia RN Position: [facility] AMB Nurse Member Role: Primary Care Nurse Name: Sole Rodriguez RN Position: [facility] Hospital Forest Landscape Ecology Professor Member Role: Primary Care Nurse Care Team Related Persons Name: OZIEL MACK Address: home [place], [place] Name: OZIEL MACK Address: home [place], [place] Name: GHADA QUISPE Address: home [address] [place] [address]
--- OUTSIDE RECORDS SUMMARY | 2023-11-13 12:49 | XMS_ITS | Continuity of Care Document ---
Author Organization [facility] Adult Address [address] [place] [address]- Care Team Providers Care Pc Tech Name Role Phone Shay MCDOWELL, Nicole Grider Primary Care Physician Encounter [facility] [place] Date(s): 09/03/23 - 10/03/23 [facility] Adult [address] [place] [address]- Allergies, Adverse Reactions, Alerts No Known Allergies [...] 08/06/23 14:33:00 EDT, [facility] to Pharmacy Electronically, [id number], 165, cm, 07/17/23 13:38:00 EDT, Height Start Date: 08/06/23 Status: Ordered dexlansoprazole 30 mg oral delayed release capsule 1 capsule = 30 mg, By Mouth, Daily, # 30 capsule, 5 Refills, Maintenance, 07/12/19 12:17:00 EDT, [facility]/pharmacy #[id number], 164, cm, 06/30/19 14:28:00 EDT, Height, 79, kg, 04/28/19 12:58:00 EST, Dry Weight Start Date: 07/12/19 Stop Date: 01/08/20 Status: Ordered diazepam 2 mg oral tablet 4 mg, 2, tablet, By Mouth, 2 times a day, # 120 tablet, Refills 6, Tot. Refills 6, Soft Stop, 08/06/23 12:51:00 EDT, Route to Pharmacy Electronically, [facility] #[id number], 165, cm, 07/17/23 13:38:00 EDT, Height Start Date: 08/06/23 Stop Date: 03/03/24 Status: Ordered hydrocortisone 1% topical cream 1 application, Topically, 2 times a day, # 45 Gm, 0 Refills, Maintenance, 01/08/21 17:21:00 EST, Cream, [facility]/pharmacy #[id number], Partial fill upon patient request if the prescription is for a schedule II opioid drug., 1 application Topically 2 times a day,... Start Date: 01/08/21 Status: Ordered lisinopril 30 mg oral tablet 1 tablet = 30 mg, By Mouth, Daily, # 90 tablet, 1 Refills, Maintenance, 08/06/23 14:30:00 EDT, Tablet, [facility] #[id number], 165, cm, 07/17/23 13:38:00 EDT, Height Start Date: 08/06/23 Status: Ordered Multivitamin Daily, 0 Refills, Maintenance, 06/08/18 14:18:26 EDT Start Date: 06/08/18 Status: Ordered nitroglycerin 0.4 mg sublingual tablet 1 tablet = 0.4 mg, Sublingual, Every 5 minutes, PRN for chest pain, # 100 tablet, 9 Refills, Maintenance, 12/09/22 11:18:00 EDT, Tablet, [facility] #[id number], Partial fill upon patient requestif the prescription is for a schedule II opioid uma... Start Date: 12/09/22 Status: Ordered pravastatin 10 mg oral tablet 1 tablet, By Mouth, Daily at bedtime, # 90 tablet, 3 Refills, Maintenance, 04/29/23 11:18:00 EST, [facility] #[id number], 165, cm, 03/07/23 13:49:00 EST, Height Start [...] 08/06/23 14:31:00 EDT, Route to Pharmacy Electronically, [facility] #[id number], 165, cm, 07/17/23 13:38:00 EDT, Height Start [...] Team Personnel Name: Evelio Serrano MD Position: [facility] Physician - Gastroenterology Member Role: Lifetime Consulting Physician Address: Address: [address] [place] [address], [address] [facility] [place] [address]- Name: Gosia Collins RN Position: [facility] RN Member Role: Primary Care Nurse Name: Nicole Day NP Position: [facility] PCO Associate Professional Member Role: PCP Address: Address: [address] [place] [address] 3rd [place] [address]- Name: Missy Lancaster RN Position: [facility] RN Member Role: Primary Care Nurse Name: Amy Del Toro RN Position: [facility] ED RN W/OE and Tasks Member Role: Primary Care Nurse Name: Rachael Garcia RN Position: [facility] AMB Nurse Member Role: Primary Care Nurse Name: Sole Rodriguez RN Position: [facility] Hospital Appraiser Timber Member Role: Primary Care Nurse Care Team Related Persons Name: OZIEL MACK Address: [place], [place] Name: OZIEL MACK Address: [place], [place] Name: GHADA QUISPE Address: home [address] [place] [phone]
--- OUTSIDE RECORDS SUMMARY | 2023-11-13 12:50 | XMS_ITS | Continuity of Care Document ---
Author Organization [facility] Adult Address [address] [place] [address]- Care Team Providers Care Bulb Tester Name Role Phone Shay MCDOWELL, Nicole Grider Primary Care Physician [place] [facility] [place](s): 11/04/23 - 11/11/23 [facility] Adult [address] [place] [phone]- Encounter Diagnosis Anxiety and depression(Discharge Diagnosis) - 11/04/23 PTSD (post-traumatic stress disorder)(Discharge Diagnosis) - 11/04/23 Attending Physician: Nicole Day NP Allergies, Adverse [...] 08/06/23 14:33:00 EDT, Route to Pharmacy Electronically, [facility] #[id number], 165, cm, 07/17/23 13:38:00 EDT, Height Start Date: 08/06/23 Status: Ordered dexlansoprazole 30 mg oral delayed release capsule 1 capsule = 30 mg, By Mouth, Daily, # 30 capsule, 5 Refills, Maintenance, 07/12/19 12:17:00 EDT, [facility]/pharmacy #[id number], 164, cm, 06/30/19 14:28:00 EDT, Height, 79, kg, 04/28/19 12:58:00 EST, Dry Weight Start Date: 07/12/19 Stop Date: 01/08/20 Status: Ordered hydrocortisone 1% topical cream 1 application, Topically, 2 times a day, # 45 Gm, 0 Refills, Maintenance, 01/08/21 17:21:00 EST, Cream, [facility]/pharmacy #[id number], Partial fill upon patient request if the prescription is for a schedule II opioid drug., 1 application Topically 2 times a day,... Start Date: 01/08/21 Status: Ordered lisinopril 30 mg oral tablet 1 tablet = 30 mg, By Mouth, Daily, # 90 tablet, 1 Refills, Maintenance, 08/06/23 14:30:00 EDT, Tablet, [facility] #[id number], 165, cm, 07/17/23 13:38:00 EDT, Height Start Date: 08/06/23 Status: Ordered Multivitamin Daily, 0 Refills, Maintenance, 06/08/18 14:18:26 EDT Start Date: 06/08/18 Status: Ordered nitroglycerin 0.4 mg sublingual tablet 1 tablet = 0.4 mg, Sublingual, Every 5 minutes, PRN for chest pain, # 100 tablet, 9 Refills, Maintenance, 12/09/22 11:18:00 EDT, Tablet, [facility] #[id number], Partial fill upon patient requestif the prescription is for a schedule II opioid uma... Start Date: 12/09/22 Status: Ordered pravastatin 10 mg oral tablet 1 tablet, By Mouth, Daily at bedtime, # 90 tablet, 3 Refills, Maintenance, 04/29/23 11:18:00 EST, [facility] #[id number], 165, cm, 03/07/23 13:49:00 EST, Height Start Date: 04/29/23 Status: Ordered pregabalin 75 mg oral capsule 1 capsule = 75 mg, By Mouth, 2 times a day, # 180 capsule, 0 Refills, Maintenance, 06/21/22 14:10:00 EDT, Capsule, Partial fill upon patient request if the prescription is for a schedule II opioid drug. Start Date: 06/21/22 Status: Ordered SEROquel 50 mg oral tablet 1 tablet = 50 mg, By Mouth, Daily at bedtime, # 30 tablet, 0 Refills, Maintenance, 11/04/23 20:18:00 EDT, Tablet, [facility] #[id number], Partial fill upon patient request if the prescription isfor a schedule II opioid drug., 165, cm, 11/04/23 1... Start Date: 11/04/23 Stop Date: 12/04/23 Status: Ordered Problem List Condition Confirmation Course Effective Dates Status H ealth Status Informant Anxiety and depression Confirmed Active Diverticulosis Confirmed Active Dysphagia Confirmed Active Hyperlipidemia Confirmed Active Hypertension Confirmed Active Insomnia Confirmed Active PTSD (post-traumatic stress disorder) Confirmed Active Diagnosis Diagnosis Type Effective Dates Health Status Clinical Service Informant Anxiety and depression Discharge Diagnosis 11/04/23 PTSD (post-traumatic stress disorder) Discharge Diagnosis 11/04/23 Vital Signs Most recent to oldest [Reference Range]: 1 Height 165 cm (11/04/23 1:20 PM) Social History Social History Type Response Smoking Status Never smoker; Type: Cigarettes entered on: 04/14/17 Sex Patient Care team information Care Team Personnel Name: Evelio Serrano MD Position: [facility] Physician - Gastroenterology Member Role: Lifetime Consulting Physician Address: Address: [address] [place] [address], [address] [facility] [place] [address]- Name: Gosia Collins RN Position: [facility] RN Member Role: Primary Care Nurse Name: Nicole Day NP Position: [facility] PCO Associate Professional Member Role: PCP Address: Address: [address] [place] [address]- Name: Missy Lancaster RN Position: [facility] RN Member Role: Primary Care Nurse Name: Amy Del Toro RN Position: [facility] ED RN W/OE and Tasks Member Role: Primary Care Nurse Name: Rachael Garcia RN Position: [facility] AMB Nurse Member Role: Primary Care Nurse Name: Sole Rodriguez RN Position: [facility] Hospital Check Writing Machine Operator Member Role: Primary Care Nurse Care Team Related Persons Name: OZIEL MACK Address: home [place], [place] Name: OZIEL MACK Address: home [place], [place] Name: GHADA QUISPE Address: home [address] [place] [id number]
--- OUTSIDE RECORDS SUMMARY | 2023-11-13 12:50 | XMS_ITS | Continuity of Care Document ---
Author Organization [facility] Adult Address [address] [place] [address]- Care Team Providers Care Business Management Intern Name Role Phone Shay MCDOWELL, Nicole Grider Primary Care Physician [place] [facility] [place] 09/08/23 - 10/08/23 [facility] Adult [address] [place] [phone]- Allergies, Adverse Reactions, Alerts No Known Allergies [...] 08/06/23 14:33:00 EDT, [id number], 165, cm, 07/17/23 13:38:00 EDT, Height Start Date: 08/06/23 Status: Ordered dexlansoprazole 30 mg oral delayed release capsule 1 capsule = 30 mg, By Mouth, Daily, # 30 capsule, 5 Refills, Maintenance, 07/12/19 12:17:00 EDT, [facility]/pharmacy #[id number], 164, cm, 06/30/19 14:28:00 EDT, Height, 79, kg, 04/28/19 12:58:00 EST, Dry Weight Start Date: 07/12/19 Stop Date: 01/08/20 Status: Ordered diazepam 2 mg oral tablet 4 mg, 2, tablet, By Mouth, 2 times a day, # 120 tablet, Refills 6, Tot. Refills 6, Soft Stop, 08/06/23 12:51:00 EDT, Route to Pharmacy Electronically, [facility] #[id number], 165, cm, 07/17/23 13:38:00 EDT, Height Start Date: 08/06/23 Stop Date: 03/03/24 Status: Ordered hydrocortisone 1% topical cream 1 application, Topically, 2 times a day, # 45 Gm, 0 Refills, Maintenance, 01/08/21 17:21:00 EST, Cream, [facility]/pharmacy #[id number], Partial fill upon patient request if the prescription is for a schedule II opioid drug., 1 application Topically 2 times a day,... Start Date: 01/08/21 Status: Ordered lisinopril 30 mg oral tablet 1 tablet = 30 mg, By Mouth, Daily, # 90 tablet, 1 Refills, Maintenance, 08/06/23 14:30:00 EDT, Tablet, [facility] #[id number], 165, cm, 07/17/23 13:38:00 EDT, Height Start Date: 08/06/23 Status: Ordered Multivitamin Daily, 0 Refills, Maintenance, 06/08/18 14:18:26 EDT Start Date: 06/08/18 Status: Ordered nitroglycerin 0.4 mg sublingual tablet 1 tablet = 0.4 mg, Sublingual, Every 5 minutes, PRN for chest pain, # 100 tablet, 9 Refills, Maintenance, 12/09/22 11:18:00 EDT, Tablet, [facility] #[id number], Partial fill upon patient requestif the prescription is for a schedule II opioid uma... Start Date: 12/09/22 Status: Ordered pravastatin 10 mg oral tablet 1 tablet, By Mouth, Daily at bedtime, # 90 tablet, 3 Refills, Maintenance, 04/29/23 11:18:00 EST, [facility] #[id number], 165, cm, 03/07/23 13:49:00 EST, Height Start [...] 08/06/23 14:31:00 EDT, Route to Pharmacy Electronically, [facility] #[id number], 165, cm, 07/17/23 13:38:00 EDT, Height Start [...] Member Role: Lifetime Consulting Physician Address: Address: [address] [place] [address], [address] [facility] [place] [address]- Name: Gosia Collins RN Position: [facility] RN Member Role: Primary Care Nurse Name: Nicole Day NP Position: [facility] PCO Associate Professional Member Role: PCP Address: Address: [address] [place] [address] 3rd [place] [address]- Name: Missy Lancaster RN Position: [facility] RN Member Role: Primary Care Nurse Name: Amy Del Toro RN Position: [facility] ED RN W/OE and Tasks Member Role: Primary Care Nurse Name: Racheal Garcia RN Position: [facility] AMB Nurse Member Role: Primary Care Nurse Name: Sole Rodriguez RN Position: [facility] Hospital Associate Relations Specialist Member Role: Primary Care Nurse Care Team Related Persons Name: OZIEL MACK Address: home [place], [place] Name: OZIEL MACK Address: home [place], [place] Name: GHADA QUISPE Address: home [address] [place] [address]
--- OUTSIDE RECORDS SUMMARY | 2023-11-13 12:50 | XMS_ITS | Continuity of Care Document ---
Author Organization [facility] Address [address] [place] [address]- Care Team Providers Care Video Game Tester Name Role Phone Shay MCDOWELL, Nicole Grider Primary Care Physician Encounter [facility] [place] Date(s): 09/30/23 - 10/30/23 [facility] [address] [place] [address]- Allergies, Adverse Reactions, Alerts No Known Allergies [...] 08/06/23 14:33:00 EDT, Route to Pharmacy Electronically, [facility] #[id number], 165, cm, 07/17/23 13:38:00 EDT, Height Start Date: 08/06/23 Status: Ordered dexlansoprazole 30 mg oral delayed release capsule 1 capsule = 30 mg, By Mouth, Daily, # 30 capsule, 5 Refills, Maintenance, 07/12/19 12:17:00 EDT, [facility]/pharmacy #[id number], 164, cm, 06/30/19 14:28:00 EDT, Height, 79, kg, 04/28/19 12:58:00 EST, Dry Weight Start Date: 07/12/19 Stop Date: 01/08/20 Status: Ordered diazepam 2 mg oral tablet 4 mg, 2, tablet, By Mouth, 2 times a day, # 120 tablet, Refills 6, Tot. Refills 6, Soft Stop, 08/06/23 12:51:00 EDT, Route to Pharmacy Electronically, [facility] #[id number], 165, cm, 07/17/23 13:38:00 EDT, Height Start Date: 08/06/23 Stop Date: 03/03/24 Status: Ordered hydrocortisone 1% topical cream 1 application, Topically, 2 times a day, # 45 Gm, 0 Refills, Maintenance, 01/08/21 17:21:00 EST, Cream, [facility]/pharmacy #[id number], Partial fill upon patient request if the prescription is for a schedule II opioid drug., 1 application Topically 2 times a day,... Start Date: 01/08/21 Status: Ordered lisinopril 30 mg oral tablet 1 tablet = 30 mg, By Mouth, Daily, # 90 tablet, 1 Refills, Maintenance, 08/06/23 14:30:00 EDT, Tablet, [facility] #[id number], 165, cm, 07/17/23 13:38:00 EDT, Height Start Date: 08/06/23 Status: Ordered Multivitamin Daily, 0 Refills, Maintenance, 06/08/18 14:18:26 EDT Start Date: 06/08/18 Status: Ordered nitroglycerin 0.4 mg sublingual tablet 1 tablet = 0.4 mg, Sublingual, Every 5 minutes, PRN for chest pain, # 100 tablet, 9 Refills, Maintenance, 12/09/22 11:18:00 EDT, Tablet, [facility] #[id number], Partial fill upon patient requestif the prescription is for a schedule II opioid uma... Start Date: 12/09/22 Status: Ordered pravastatin 10 mg oral tablet 1 tablet, By Mouth, Daily at bedtime, # 90 tablet, 3 Refills, Maintenance, 04/29/23 11:18:00 EST, [facility] #[id number], 165, cm, 03/07/23 13:49:00 EST, Height Start [...] 08/06/23 14:31:00 EDT, Route to Pharmacy Electronically, [facility] #[id number], 165, cm, 07/17/23 13:38:00 EDT, Height Start [...] Team Personnel Name: Evelio Serrano MD Position: [facility] Physician - Gastroenterology Member Role: Lifetime Consulting Physician Address: Address: [address] [place] [address], [address] [facility] [place] [address]- Name: Gosia Collins RN Position: [facility] RN Member Role: Primary Care Nurse Name: Nicole Day NP Position: [facility] PCO Associate Professional Member Role: PCP Address: Address: [address] [place] [address] 3rd [place] [address]- Name: Missy Lancsater RN Position: [facility] RN Member Role: Primary Care Nurse Name: Amy Del Toro RN Position: [facility] ED RN W/OE and Tasks Member Role: Primary Care Nurse Name: Rachael Garcia RN Position: [facility] AMB Nurse Member Role: Primary Care Nurse Name: Sole Rodriguez RN Position: [facility] Hospital Chicken Handler Member Role: Primary Care Nurse Care Team Related Persons Name: OZIEL MACK Address: home [place], [place] Name: OZIEL MACK Address: home [place], [place] Name: GHADA QUISPE Address: home [address] [place] [id number]
--- OUTSIDE RECORDS SUMMARY | 2023-11-13 12:50 | XMS_ITS | Continuity of Care Document ---
Author Organization [facility] Adult Address [address] [place] [address]- Care Team Providers Care Tobacco Sweeper Name Role Phone Shay MCDOWELL, Nicole Grider Primary Care Physician Encounter [facility] Date(s): 09/03/23 - 10/03/23 [facility] Adult [address] [place] [id number]- Allergies, Adverse Reactions, Alerts No Known Allergies [...] 08/06/23 14:33:00 EDT, [id number], 165, cm, 07/17/23 13:38:00 EDT, Height Start Date: 08/06/23 Status: Ordered dexlansoprazole 30 mg oral delayed release capsule 1 capsule = 30 mg, By Mouth, Daily, # 30 capsule, 5 Refills, Maintenance, 07/12/19 12:17:00 EDT, [facility]/pharmacy #[id number], 164, cm, 06/30/19 14:28:00 EDT, Height, 79, kg, 04/28/19 12:58:00 EST, Dry Weight Start Date: 07/12/19 Stop Date: 01/08/20 Status: Ordered diazepam 2 mg oral tablet 4 mg, 2, tablet, By Mouth, 2 times a day, # 120 tablet, Refills 6, Tot. Refills 6, Soft Stop, 08/06/23 12:51:00 EDT, Route to Pharmacy Electronically, [facility] #[id number], 165, cm, 07/17/23 13:38:00 EDT, Height Start Date: 08/06/23 Stop Date: 03/03/24 Status: Ordered hydrocortisone 1% topical cream 1 application, Topically, 2 times a day, # 45 Gm, 0 Refills, Maintenance, 01/08/21 17:21:00 EST, Cream, [facility]/pharmacy #[id number], Partial fill upon patient request if the prescription is for a schedule II opioid drug., 1 application Topically 2 times a day,... Start Date: 01/08/21 Status: Ordered lisinopril 30 mg oral tablet 1 tablet = 30 mg, By Mouth, Daily, # 90 tablet, 1 Refills, Maintenance, 08/06/23 14:30:00 EDT, Tablet, [facility] #[id number], 165, cm, 07/17/23 13:38:00 EDT, Height Start Date: 08/06/23 Status: Ordered Multivitamin Daily, 0 Refills, Maintenance, 06/08/18 14:18:26 EDT Start Date: 06/08/18 Status: Ordered nitroglycerin 0.4 mg sublingual tablet 1 tablet = 0.4 mg, Sublingual, Every 5 minutes, PRN for chest pain, # 100 tablet, 9 Refills, Maintenance, 12/09/22 11:18:00 EDT, Tablet, [facility] #[id number], Partial fill upon patient requestif the prescription is for a schedule II opioid uma... Start Date: 12/09/22 Status: Ordered pravastatin 10 mg oral tablet 1 tablet, By Mouth, Daily at bedtime, # 90 tablet, 3 Refills, Maintenance, 04/29/23 11:18:00 EST, [facility] #[id number], 165, cm, 03/07/23 13:49:00 EST, Height Start [...] 08/06/23 14:31:00 EDT, Route to Pharmacy Electronically, [facility] #[id number], 165, cm, 07/17/23 13:38:00 EDT, Height Start [...] Team Personnel Name: Evelio Serrano MD Position: [facility] Physician - Gastroenterology Member Role: Lifetime Consulting Physician Address: Address: [address] [place] [address], [address] [facility] [place] [address]- Name: Gosia Collins RN Position: [facility] RN Member Role: Primary Care Nurse Name: Nicole Day NP Position: [facility] PCO Associate Professional Member Role: PCP Address: Address: [address] [place] [address] [address] [place] [address]- Name: Missy Lancaster RN Position: [facility] RN Member Role: Primary Care Nurse Name: Amy Del Toro RN Position: [facility] ED RN W/OE and Tasks Member Role: Primary Care Nurse Name: Rachael Garcia RN Position: [facility] AMB Nurse Member Role: Primary Care Nurse Name: Sole Rodriguez RN Position: [facility] Hospital Conservation Engineer Member Role: Primary Care Nurse Care Team Related Persons Name: OZIEL MACK Address: home [place], [place] Name: OZIEL MACK Address: home [place], [place] Name: GHADA QUISPE Address: home [address] [place] [id number]
--- NOTE | 2023-11-13 12:54 | MHC.OFFVIS ---
Vital Signs 11/13/23 12:55 Height 5 ft 5 in BP 120/74 Blood Pressure Location Lt brachial Position Sitting Pulse 70 Pulse Source Pulse Oximeter Pulse Oximetry (%) 100 Oxygen Delivery Method Room Air Comment pre-op Intake Visit Reasons: Right parasagittal interlaminar C6-C7 JOYCE Allergies No Known Allergies Allergy (Verified 10/15/23 10:48) HPI HPI Right parasagittal interlaminar C6-C7 JOYCE: Details: Patient presents for scheduled procedure. Denies any recent cough, cold, infection, fever or other significant changes in medical history since last office visit. [facility] Medical History (Updated 10/21/23 @ 12:44 by Marciano Bridges MD) Anxiety and depression Diverticulosis Hyperlipidemia Hypertension Insomnia PTSD (post-traumatic stress disorder) Surgical History History of esophagogastroduodenoscopy (EGD) Hx of colonoscopy History of left hip replacement Social History Alcohol intake: never Patient Tobacco Use Status: Former Tobacco user Current occupational status: employed and disabled Current occupation: rt handed Physical Exam Vital Signs: Last Vital Signs Pulse 70 11/13/23 12:55 BP 120/74 11/13/23 12:55 Pulse Ox 100 11/13/23 12:55 Oxygen Delivery Method Room Air 11/13/23 12:55 Office Procedures Joint Injection/Aspiration Joint Injection/Aspiration Details: Interlaminar epidural steroid injection, C7-T1, left parasaggital After obtaining written consent, pre-procedure blood pressure and heart rate were stable and recorded in the nursing record. The patient was placed in the prone position. The cervicothoracic area was widely prepped with chloraprep and draped in sterile fashion. Fluoroscopic guidance was used to identify the desired interlaminar space and for needle placement. Subcutaneous 0.5% lidocaine was used to anesthetize the skin overlying the target. A 20-gauge Randle needle was advanced to the epidural space using loss of resistance to contrast technique under fluoroscopic AP and contralateral oblique views. There was no evidence of heme or CSF and no paresthesias were elicited with needle placement. Confirmation of epidural needle placement was performed with 1cc of omnipaque 180. Next 3 ml 0.5% lidocaine mixed with 80 mg triamcinilone was administered epidurally with no pain elicited on injection. The needle tract tubing was then cleared with 1 ml of 0.5% lidocaine. The needle was removed, skin cleansed and a sterile bandage was applied. The patient tolerated the procedure well and no complications were encountered. Following the procedure the patient's vital signs were stable. The patient was discharged home in good condition with post-procedural instructions. Time Out: Immediately prior to the procedure, the following was verbally confirmed that there is a signed consent form and that the correct patient, planned procedure, site and side are consistent with documentation and that necessary equipment and/or blood products are available prior to the start of the case. Complications: none EBL: <2 cc Coding 95606 - Cervical Epidural/Interlaminar with fluoroscopy Procedure code (CPT) selection complete Joint Injection/Aspiration Joint Injection/Aspiration Primary Site: left knee Prep: site was prepped using sterile technique Injected: 40 mg of, Kenalog and with 3 mL of (0.5% lidocaine) Approach Used: anteromedial Procedure: The patient tolerated the procedure well Coding 97312 - Large joint Procedure code (CPT) selection complete Assessment & Plan Assessment & Plan (1) Cervical radiculitis: Code(s): M54.12 - Radiculopathy, cervical region Category: Medical (2) Tricompartment osteoarthritis of left knee: Code(s): M17.12 - Unilateral primary osteoarthritis, left knee Category: Medical Plan Patient is status post left parasagittal interlaminar C7-T1 JOYCE as well as left knee intra-articular landmark guided injection. Patient tolerated procedure well and was discharged home in stable condition with discharge instructions. All questions were answered. We will follow-up via telephone or in clinic to assess response to therapy. A follow-up appointment was made during today's visit. Orders: Orders [place] guidance in treatment room Today Adriane Bui APRN, WO[employer]EN FURNITURE POLISHER M54.12 - Radiculopathy, cervical region Medications: Refilled pregabalin 75 mg PO BID 60 caps 5RF Marciano Bridges MD Coding Level of Care Code Procedure Only Diagnoses Cervical radiculitis M54.12 Tricompartment osteoarthritis of left knee M17.12 CPT Codes Coding - Joint 10: 75390 - Cervical Epidural/Interlaminar with fluoroscopy ([id number]) Coding - Large joint: - Large joint ([id number])
[2023-11-13 12:55] VITALS: BP 120/74; PULSE 70; O2SAT 100
== END 2023-11-13 13:28 | disposition home or self-care (01) ==
LOC: HO.PMCPRC 12:44
PROVIDERS: PCP Nurse Practitioner Family; Visit Provider Internal Medicine
DX: M54.12 Radiculopathy, cervical region (principal); M17.12 Unilateral primary osteoarthritis, left knee
CPT/HCPCS: 20610; 62321

== ENCOUNTER 2023-12-12 11:55 | Outpatient (AMB) | payer MEDICARE, MEDICAID, SELFPAY ==
--- NOTE | 2023-12-12 11:56 | A.OFFVIS_ITS ---
VS Expanded 12/12/23 12:02 BP 136/68 Blood Pressure Location Rt brachial Blood Pressure Position Sitting Pulse 70 Pulse Source Pulse Oximeter Temp 97.5 F Temperature Source Temporal Artery Scan Pulse Oximetry 99 Oxygen Delivery Method Room Air Height 5 ft 5 in Weight 148 lb 3.2 oz BMI 24.7 Intake Visit Reasons: OV Hiatal Hernia - Attila Referral Allergies No Known Allergies Allergy (Verified 12/12/23 12:08) Medication List - Last Reconciled 12/12/23 by Juanito Latif MD celecoxib 200 mg PO BID clonidine HCl 0.1 mg PO BID cromolyn 200 mg (10 mL) PO QID 30 days cromolyn (Nasalcrom) 1 spray intranasal TID diazepam 4 mg PO BID PRN esomeprazole magnesium 40 mg PO DAILY fexofenadine (Carolyn Allergy) 180 mg PO DAILY fluticasone propionate 50 mcg/actuation 1 spray intranasal BID ibuprofen 400 mg PO TID PRN linaclotide 72 mcg PO DAILY lisinopril 30 mg PO DAILY loratadine (Claritin) 10 mg PO DAILY methocarbamol 500 mg PO TID methylprednisolone PO PER PKG DIR for 6 days nitroglycerin 0.4 mg sublingual ONCE PRN nystatin 1 mL PO QID 14 days oxycodone-acetaminophen 5-325 mg 1 tab PO BID PRN pregabalin 75 mg PO BID rifaximin 550 mg PO TID 2 weeks trazodone 100 mg PO BEDTIME vitamin A 1 cap PO DAILY HPI Comments Details: Was referred by Dr. Aiken for a 4cm hiatal hernia. Denies any significant GERD or regurgitation or dysphagia. Was treated at [facility] by Dr. Adler for esophageal spasms with Nitroglycerin and that seems to work for him. Reviewed: EGD 09/16/23: 4cm HH. Path: mild GEJ inflammation CT- chest 05/01/23: no significant HH present [facility] Medical History (Updated 12/12/23 @ 12:48 by Juanito Latif MD) Anxiety and depression Diverticulosis Hyperlipidemia Hypertension Insomnia PTSD (post-traumatic stress disorder) Surgical History History of esophagogastroduodenoscopy (EGD) Hx of colonoscopy History of left hip replacement Social History (Reviewed 10/18/24 @ 12:02 by JADA Sanchez Alcohol intake: never Patient Tobacco Use Status: Former Tobacco user Current occupational status: employed and disabled Current occupation: rt handed Physical Exam Vital Signs: Last Vital Signs Temp 97.5 F 12/12/23 12:02 Pulse 70 12/12/23 12:02 BP 136/68 12/12/23 12:02 Pulse Ox 99 12/12/23 12:02 Oxygen Delivery Method Room Air 12/12/23 12:02 BMI result Body Mass Index 24.7 GI Inspection: Yes normal to inspection and Yes incision (well healed) Palpation (GI): Soft to palpation Extrem Right lower extremity: normal to inspection Left lower extremity: normal to inspection Assessment & Plan Assessment & Plan (1) GERD (gastroesophageal reflux disease): Code(s): K21.9 - Gastro-esophageal reflux disease without esophagitis Category: Medical Qualifiers: Esophagitis presence: without esophagitis Qualified Code(s): K21.9 - Gastro-esophageal reflux disease without esophagitis Plan: 1. I reassured him that he does not have a significant hiatal hernia. I jose f some pictures to explain how a hiatal hernia looks like compared to normal anatomy. 2. We will try to see if there was a manometry done at [facility] or [facility] in the recent past 3. I will prescribe Sucralfate Medications: New sucralfate 10 mL PO BID 600 mL 2RF K21.9 - Gastro-esophageal reflux disease without esophagitis
[2023-12-12 12:02] VITALS: BP 136/68; PULSE 70; TEMP 36.4; O2SAT 99; BMI 24.7
== END 2023-12-12 12:53 | disposition home or self-care (01) ==
PROVIDERS: PCP Nurse Practitioner Family; Visit Provider Surgery
DX: K21.9 Gastro-esophageal reflux disease without esophagitis (principal)
CPT/HCPCS: 99204

== ENCOUNTER → 2023-12-12 11:55 | Outpatient (BNVA) | payer MEDICARE, MEDICAID, SELFPAY | PROVIDERS: PCP Nurse Practitioner Family; Visit Provider Surgery | DX: K21.9 Gastro-esophageal reflux disease without esophagitis (principal) | CPT/HCPCS: 99202 ==

== ENCOUNTER 2024-01-01 06:26 | Outpatient (REF) | payer MEDICARE, MEDICAID, SELFPAY | END 2024-01-01 06:27 | disposition home or self-care (01) | LOC: CF 06:26 | PROVIDERS: Visit Provider Internal Medicine | DX: M54.16 Radiculopathy, lumbar region (principal); M25.511 Pain in right shoulder | CPT/HCPCS: 62323; J1100; J2003; J3300; J3301; Q9967 ==

== ENCOUNTER 2024-01-01 12:26 | Outpatient (AMB) | payer MEDICARE, MEDICAID, SELFPAY ==
[2024-01-01 12:36] VITALS: BP 118/74; PULSE 80; O2SAT 99
--- NOTE | 2024-01-01 12:36 | A.OFFVIS_ITS ---
Vital Signs 01/01/24 12:36 01/01/24 13:25 BP 118/74 134/82 Blood Pressure Location Lt brachial Lt brachial Position Sitting Sitting Pulse 80 93 Pulse Source Pulse Oximeter Pulse Oximeter Pulse Oximetry (%) 99 99 Oxygen Delivery Method Room Air Room Air Intake Visit Reasons: Right L5-S1 parasagittal interlaminar JOYCE Allergies No Known Allergies Allergy (Verified 12/12/23 12:08) HPI HPI Right L5-S1 parasagittal interlaminar JOYCE: Details: Patient presents for scheduled procedure. Denies any recent cough, cold, infection, fever or other significant changes in medical history since last office visit. [facility] Medical History (Updated 12/12/23 @ 12:48 by Juanito Latif MD) Anxiety and depression Diverticulosis Hyperlipidemia Hypertension Insomnia PTSD (post-traumatic stress disorder) Surgical History History of esophagogastroduodenoscopy (EGD) Hx of colonoscopy History of left hip replacement Social History Alcohol intake: never Patient Tobacco Use Status: Former Tobacco user Current occupational status: employed and disabled Current occupation: rt handed Physical Exam Vital Signs: Last Vital Signs Pulse 93 01/01/24 13:25 BP 134/82 01/01/24 13:25 Pulse Ox 99 01/01/24 13:25 Oxygen Delivery Method Room Air 01/01/24 13:25 Office Procedures AMB Joint Injection/Aspiration Joint Injection/Aspiration Details: Interlaminar epidural steroid injection, L5-S1 After obtaining written consent, pre-procedure blood pressure and heart rate were stable and recorded in the nursing record. The patient was placed in the prone position. The lumbar area was widely prepped with chloraprep and draped in sterile fashion. Fluoroscopic guidance was used to identify the desired interlaminar space and for needle placement. Subcutaneous 0.5% lidocaine was used to anesthetize the skin overlying the target. A 20-gauge Randle needle was advanced to the epidural space using loss of resistance to contrast technique under fluoroscopic AP and contralateral oblique views from both left and right parasagittal interlaminar windows in succession. There was no evidence of heme or CSF and no paresthesias were elicited with needle placement. Confirmation of epidural needle placement was performed with 1cc of omnipaque 180. Next 3 ml 0.5% lidocaine mixed with 40 mg triamcinilone was administered epidurally with no pain elicited on injection on either side of the L5 spinous process. The needle tract tubing was then cleared with 1 ml of 0.5% lidocaine. The needle was removed, skin cleansed and a sterile bandage was applied. The patient tolerated the procedure well and no complications were encountered. Following the procedure the patient's vital signs were stable. The patient was discharged home in good condition with post-procedural instructions. Time Out: Immediately prior to the procedure, the following was verbally confirmed that there is a signed consent form and that the correct patient, planned procedure, site and side are consistent with documentation and that necessary equipment and/or blood products are available prior to the start of the case. Complications: none EBL: <2 cc Coding 97080 - Caudal/Lumbar Epidural/Interlaminar with fluoroscopy Procedure code (CPT) selection complete Office Meds Kenalog 40 mg/mL suspension for injection Performing Provider: Marciano Bridges MD Performing Location: [facility] Administered by: Marciano Bridges MD on 01/01/24 13:54 Dose Route Admin Location Dispensed Lot Number Expiration Date [facility] Anime Designer 80 mg Infiltration 2 mL lidocaine (PF) 10 mg/mL (1 %) injection solution Performing Provider: Marciano Bridges MD Performing Location: [facility] Administered by: Marciano Bridges MD on 01/01/24 13:54 Dose Route Admin Location Dispensed Lot Number Expiration Date [facility] Anime Designer 10 mg Infiltration 10 mL Assessment & Plan Assessment & Plan (1) Right shoulder pain: Code(s): M25.511 - Pain in right shoulder Category: Medical (2) Lumbar radiculopathy: Code(s): M54.16 - Radiculopathy, lumbar region Category: Medical Plan Patient is status post interlaminar L5-S1 JOYCE. Patient tolerated procedure well and was discharged home in stable condition with discharge instructions. All questions were answered. We will follow-up via telephone or in clinic to assess response to therapy. A follow-up appointment was made during today's visit. Orders: Orders FL guidance in treatment room Today Adriane Bui APRN, PEWTER FABRICATOR M54.16 - Radiculopathy, lumbar region AMB Joint Injection/Aspiration Today Marciano Bridges MD M54.16 - Radiculopathy, lumbar region Referrals Orthopedics Referral Marciano Bridges MD M25.511 - Pain in right shoulder Medications: New lidocaine (PF) 10 mg Infiltration ONCE 2 mL 0RF Marciano Bridges MD M54.16 - Radiculopathy, lumbar region Kenalog (triamcinolone acetonide) 80 mg (2 mL) Infiltration ONCE 2 mL 0RF NS Marciano Bridges MD M54.16 - Radiculopathy, lumbar region Coding Level of Care Code Procedure Only Diagnoses Right shoulder pain M25.511 Lumbar radiculopathy M54.16 CPT Codes Coding - Joint 11: 95177 - Caudal/Lumbar Epidural/Interlaminar with fluoroscopy ([id number])
[2024-01-01 13:25] VITALS: BP 134/82; PULSE 93; O2SAT 99
== END 2024-01-01 13:31 | disposition home or self-care (01) ==
LOC: HO.PMCPRC 12:26
PROVIDERS: PCP Nurse Practitioner Family; Visit Provider Internal Medicine
DX: M54.16 Radiculopathy, lumbar region (principal)
CPT/HCPCS: 62323

== ENCOUNTER 2024-02-27 11:23 | Outpatient (AMB) | payer MEDICARE, MEDICAID, SELFPAY ==
--- NOTE | 2024-02-27 11:30 | MHC.OFFVIS ---
Vital Signs 02/27/24 11:40 Height 5 ft 5 in BP 139/74 Blood Pressure Location Lt brachial Position Sitting Respiration 17 Pulse 80 Pulse Source Pulse Oximeter Pulse Oximetry (%) 99 Oxygen Delivery Method Room Air Intake Visit Reasons: Left Knee Injection Allergies No Known Allergies Allergy (Verified 02/27/24 11:41) Medication List - Last Reconciled 02/27/24 by Chelsea Delaney LPN celecoxib 200 mg PO BID clonidine HCl 0.1 mg PO BID cromolyn 200 mg (10 mL) PO QID 30 days cromolyn (Nasalcrom) 1 spray intranasal TID diazepam 4 mg PO BID PRN esomeprazole magnesium 40 mg PO DAILY fexofenadine (Carolyn Allergy) 180 mg PO DAILY fluticasone propionate 50 mcg/actuation 1 spray intranasal BID ibuprofen 400 mg PO TID PRN linaclotide 72 mcg PO DAILY lisinopril 30 mg PO DAILY loratadine (Claritin) 10 mg PO DAILY methocarbamol 500 mg PO TID methylprednisolone PO PER PKG DIR for 6 days nitroglycerin 0.4 mg sublingual ONCE PRN nystatin 1 mL PO QID 14 days oxycodone-acetaminophen 5-325 mg 1 tab PO BID PRN pregabalin 75 mg PO BID rifaximin 550 mg PO TID 2 weeks sucralfate 10 mL PO BID trazodone 100 mg PO BEDTIME vitamin A 1 cap PO DAILY HPI HPI Left Knee Injection: Details: Here for left knee injection. Right shoulder appears to be improving. Range of motion has improved. Continues to be interested in left TKR. [facility] Medical History (Updated 12/12/23 @ 12:48 by Juanito Latif MD) Anxiety and depression Diverticulosis Hyperlipidemia Hypertension Insomnia PTSD (post-traumatic stress disorder) Surgical History History of esophagogastroduodenoscopy (EGD) Hx of colonoscopy History of left hip replacement Social History Alcohol intake: never Patient Tobacco Use Status: Former Tobacco user Current occupational status: employed and disabled Current occupation: rt handed Physical Exam Vital Signs: Last Vital Signs Pulse 80 02/27/24 11:40 Resp 17 02/27/24 11:40 BP 139/74 02/27/24 11:40 Pulse Ox 99 02/27/24 11:40 Oxygen Delivery Method Room Air 02/27/24 11:40 Office Procedures AMB Joint Injection/Aspiration Joint Injection/Aspiration Primary Site: left knee Prep: site was prepped using sterile technique Injected: 40 mg of, Kenalog, with 3 mL of (Ropivacaine 0.25%) and in the joint Approach Used: anterolateral Procedure: The patient tolerated the procedure well Coding 62472 - Large joint Procedure code (CPT) selection complete Assessment & Plan Assessment & Plan (1) Osteoarthritis of left knee: Code(s): M17.12 - Unilateral primary osteoarthritis, left knee Category: Medical Plan Status post left knee corticosteroid injection. Would like to revisit TKR with orthopedics and solicited my opinion. Encouraged him to discuss this with orthopedics as I am unable to provide a full risk benefit analysis. Follow-up as needed. Coding Level of Care Code Procedure Only Diagnoses Osteoarthritis of left knee M17.12 CPT Codes Coding - 60249 Large joint: 15331 - Large joint ([id number])
[2024-02-27 11:40] VITALS: BP 139/74; PULSE 80; RESP 17; O2SAT 99
== END 2024-02-27 12:00 | disposition home or self-care (01) ==
PROVIDERS: PCP Nurse Practitioner Family; Visit Provider Internal Medicine
DX: M17.12 Unilateral primary osteoarthritis, left knee (principal)
CPT/HCPCS: 20610

== ENCOUNTER → 2024-02-27 11:23 | Outpatient (BNVA) | payer MEDICARE, MEDICAID, SELFPAY | PROVIDERS: PCP Nurse Practitioner Family; Visit Provider Internal Medicine | DX: M17.12 Unilateral primary osteoarthritis, left knee (principal) | CPT/HCPCS: 20610 ==

== ENCOUNTER 2024-03-09 14:08 | Outpatient (AMB) | payer MEDICARE, MEDICAID, SELFPAY ==
[2024-03-09 14:11] VITALS: BMI 27.0
--- NOTE | 2024-03-09 14:11 | A.OFFVIS_ITS ---
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 Intake Note: Patient presents for tremors Allergies No Known Allergies Allergy (Verified 03/09/24 14:15) Medication List - Last Reconciled 03/09/24 by Lupe Brennan MD celecoxib 200 mg PO BID clonidine HCl 0.1 mg PO BID cromolyn 200 mg (10 mL) PO QID 30 days cromolyn (Nasalcrom) 1 spray intranasal TID diazepam 4 mg PO BID PRN esomeprazole magnesium 40 mg PO DAILY fexofenadine (Carolyn Allergy) 180 mg PO DAILY fluticasone propionate 50 mcg/actuation 1 spray intranasal BID ibuprofen 400 mg PO TID PRN linaclotide 72 mcg PO DAILY lisinopril 30 mg PO DAILY loratadine (Claritin) 10 mg PO DAILY methocarbamol 500 mg PO TID methylprednisolone PO PER PKG DIR for 6 days nitroglycerin 0.4 mg sublingual ONCE PRN nystatin 1 mL PO QID 14 days oxycodone-acetaminophen 5-325 mg 1 tab PO BID PRN pregabalin 75 mg PO BID rifaximin 550 mg PO TID 2 weeks sucralfate 10 mL PO BID trazodone 100 mg PO BEDTIME vitamin A 1 cap PO DAILY HPI Comments Details: 68 Right handed male comes for neurological evaluation of tremors. He has latanya rotator cuff issues, was seen by [place] pain management and had plasma injection to his Right shoulder in June 2023. Since then he started noticing t remors in both his hands -which he thinks is related to plasma injection. The inner shaking starts in certain postures and action and has intermittent jerky movements. Prior to June 2023 he had a right elbow injection - he reports right hand weakness since then. He also feels his right hand is weak and he cannot lift it. His right hand is weak and has trouble some trouble with dressing. Cognition- forgetful, writes everything down Sleep- takes clonidine , trazadone - sleeps 4-4 1/2 hrs Mood- depression, OCD anxiety ,PTSD ADHD- saw a psychiatrist.not on any medications. He declined medications.He has anger issues . He does not see a psychologist either. He talks about how his sister at age 25 and his nephew was killed. [facility] Medical History (Updated 03/09/24 @ 14:55 by Lupe Brennan MD) Occasional tremors Cervical spinal stenosis Hand weakness ADHD OCD (obsessive compulsive disorder) Anxiety and depression Diverticulosis Hyperlipidemia Hypertension Insomnia PTSD (post-traumatic stress disorder) Surgical History History of esophagogastroduodenoscopy (EGD) Hx of colonoscopy History of left hip replacement Social History Alcohol intake: never Patient Tobacco Use Status: Former Tobacco user Current occupational status: employed and disabled Current occupation: rt handed Physical Exam Vital Signs: BMI result Body Mass Index 27.0 Const General: alert, awake and anxious Nutritional Appearance: average body habitus Orientation/consciousness: patient oriented x3 Eyes Pupils: Equal, round and reactive pupils present Neuro Other: mild weakness in right shoulder General: patient oriented x3, gait normal, tone normal, moves all extremities and no focal motor deficits Cranial nerves: Yes Facial sensation intact/muscles of mastication intact, Yes Equal, round and reactive pupils present, Yes Bilaterally intact EOM present, Yes Nystagmus not present, Yes Normal facial strength present, Yes Midline tongue present, Yes Symmetric palate elevation present and Yes Ability to bilaterally elevate shoulders present Cognition (Neuro): abnormal cognition Gait exam (Neuro): Normal gait present Motor exam (neuro): 5/5 motor strength present throughout and Normal motor muscle tone present throughout Deep tendon reflexes (DTR's): Right triceps reflex intensity grade: 2+, Left triceps reflex intensity grade: 2+, Rt Biceps (C5, C6): 2+, Left biceps reflex intensity grade: 2+, Right brachioradialis reflex intensity grade: 2+, Left brachioradialis reflex intensity grade: 2+, Right patellar reflex intensity grade: 2+ and Left patellar reflex intensity grade: 2+ Coordination: [id number] test normal Psych Speech and movement: Pressured speech present and Psychomotor agitation in speech present Affect: Anxious affect present, Depressed mood present and Irritable affect present Attitude: cooperative Thought process: Tangential thought process present Assessment & Plan Assessment & Plan (1) Occasional tremors: Comment: exaggerated physiological tremors Code(s): R25.1 - Tremor, unspecified Category: Medical (2) Cervical spinal stenosis: Code(s): M48.02 - Spinal stenosis, cervical region Category: Medical Plan Reviewed his MRI C spine His tremors are likely related to poorly controlled mood, c spine stenosis Will refer to neurospine for Cervical spine stenosis. Orders: Orders OT Evaluation and Treatment Today R29.898 - Other symptoms and signs involving the musculoskeletal system PT Evaluation and Treatment Today M48.02 - Spinal stenosis, cervical region Referrals Neuro Spine Referral M48.02 - Spinal stenosis, cervical region Coding Level of Care Code Complex EM visit Add On G2211 Diagnoses Occasional tremors R25.1 Cervical spinal stenosis M48.02
== END 2024-03-09 15:04 | disposition home or self-care (01) ==
PROVIDERS: PCP Nurse Practitioner Family; Visit Provider Psychiatry & Neurology Neurology
DX: R25.1 Tremor, unspecified (principal); M48.02 Spinal stenosis, cervical region
CPT/HCPCS: 99203; G2211

== ENCOUNTER → 2024-03-09 14:08 | Outpatient (BNVA) | payer MEDICARE, MEDICAID, SELFPAY | PROVIDERS: PCP Nurse Practitioner Family; Visit Provider Psychiatry & Neurology Neurology | DX: R25.1 Tremor, unspecified (principal); M48.02 Spinal stenosis, cervical region; R29.898 Other symptoms and signs involving the musculoskeletal system | CPT/HCPCS: 99202 ==

== ENCOUNTER → 2024-03-26 11:38 | Outpatient (BNVA) | payer MEDICARE, MEDICAID, SELFPAY | PROVIDERS: PCP Nurse Practitioner Family; Visit Provider Internal Medicine | DX: M54.16 Radiculopathy, lumbar region (principal); M54.12 Radiculopathy, cervical region; M25.511 Pain in right shoulder | CPT/HCPCS: 99212 ==

== ENCOUNTER 2024-04-16 12:55 | Outpatient (AMB) | payer MEDICARE, MEDICAID, SELFPAY ==
--- NOTE | 2024-04-16 13:17 | HO.SPINEOV ---
Vital Signs 04/16/24 13:18 Height 5 ft 5 in Weight 159 lb BMI 26.5 Intake Visit Reasons: Neck pain Intake Note: Mr. Beyer is here today c/o neck pain. Promotions Representative Required: No Allergies No Known Allergies Allergy (Verified 04/16/24 13:18) Physical Exam Vital Signs: BMI result Body Mass Index 26.5 Assessment & Plan Assessment & Plan (1) Degenerative disc disease, cervical: Code(s): M50.30 - Other cervical disc degeneration, unspecified cervical region Category: Medical Plan Dear colleague Thank you for referring Mateus Beyer to the office today with a chief complaint of neck pain. HPI: This 68-year-old male comes into the office complaining of chronic pain in his shoulders knees neck. He states that he had several surgeries done and multiple injections that only made him worse. He does not know why he is seeing me, although he was told he has cervical spinal stenosis and needed to see a neurosurgeon. He complains of right-sided deltoid weakness and partly frozen shoulder after right shoulder surgery. He denies dexterity loss. No balance problems The following conservative treatment options were tried without success antiinflammatories, tylenol, physician guided home exercise plan, cortisone shots Physical Exam: Pleasant male. No signs of cervical myelopathy. Radiological Studies: MRI of the cervical spine done at [facility] shows diffuse arthritic changes without significant spinal cord compression or nerve root compression. Impression/Plan: This patient is suffering from chronic pain syndrome. He has no signs of cervical myelopathy or cervical radiculopathy. He is not a surgical candidate, although he was not looking for surgery. Pain management in the form of pain medication should be taken care of by either pain management or the primary care physician. Thank you for allowing me to participate in your patients care. total time spent was 50 minutes in counseling ,coordination of plan, personal review of imaging, surgical decision making and subsequent plan Saúl Hartmann MD, PhD Spine Fellowship Trained Neurosurgeon Director, [facility] Coding Level of Care Code New Pt Level 4 (44894) Diagnoses Degenerative disc disease, cervical M50.30
[2024-04-16 13:18] VITALS: BMI 26.5
--- OUTSIDE RECORDS SUMMARY | 2024-04-16 13:25 | XMS_ITS | Clinical Summary ---
Author Organization [facility] Address [address] [place] [address] Care Team Providers Care Cooling Tower Technician Name Role Phone Unavailable Primary Care Provider Unavailabl e Source Comments PLEASE NOTE, if this patient is a minor, it may be UNLAWFUL to discuss sensitive information that is contained in these records (such as FAMILY PLANNING, MENTAL HEALTH or SUBSTANCE ABUSE) with the minor patient's parent or other person without the patient's specific authorization.[facility] Allergies No known active allergies Medications amoxicillin (AMOXIL) 500 mg capsuleIndicati ons:Prophylacti c antibiotic Take 4 (four) tablets 1 hour before dental appointment. 4 Capsule 3 Active celecoxib (CELEBREX) 200 mg capsule Take 200 mg by mouth 2 (two) times daily Active cloNIDine (CATAPRES) 0.1 mg tablet Take 1 Tablet by mouth 1 Active diazePAM (VALIUM) 2 mg tablet Take 4 mg by mouth 2 (two) times daily Active esomeprazole (NEXIUM) [address] capsule Take 40 mg by mouth once daily 3 Active ALLERGY RELIEF, FEXOFENADINE, 180 mg tablet Take 180 mg by mouth once daily 3 Active ipratropium (ATROVENT) 42 mcg (0.06 %) nasal spray USE 2 SPRAYS IN EACH NOSTRIL THREE TIMES DAILY FOR 14 DAYS 3 Active lidocaine-prilo zakiya (EMLA KIT) 2.5-2.5 % kit See Instructions, Apply a small pea size amount to the affected area up to 4 times per day as needed, # 30 Gm, 2 Refills, Soft Stop, 07/07/20 13:00:00 EDT, [facility]/pharmacy #[id number], Partial fill upon patient request if the prescription is for a schedule II... 1 Active lisinopriL 30 mg tablet Take 30 mg by mouth 3 Active acetaminophen (TYLENOL) 500 mg tabletIndicatio ns:Caries of pulp Take 1 Tablet by mouth every 6 (six) hours as needed for pain 20 Tablet 4 Active fluoride, sodium, (PREVIDENT) 1.1 % gelIndications: At high risk for dental caries Place in mouth once daily for 30 days 56 g 4 Active Active Problems Problem Noted Date Diagnosed Date Diverticula of intestine 01/30/2023 Dysphagia 01/30/2023 Hyperlipidemia 01/30/2023 Hypertension 01/30/2023 Insomnia 01/30/2023 PTSD (post-traumatic stress disorder) 01/30/2023 Chronic GERD 07/15/2021 Anxiety and depression 07/12/2021 Social History Tobacco Use Types Packs/Day Years Used Date Smoking Tobacco: Never Smokeless Tobacco: Never Social Connections Answer Date Recorded Connectedness 0 11/14/2023 Financial Resource Strain Answer Date R ecorded Financial Resource Strain 0 2021 Stress Answer Date Recorded Stress 0 07/31/2021 Physical Activity Answer Date Recorded Physical Activity 0 07/31/2021 Food Insecurity Answer Date Recorded Food 0 11/20/2023 Transportation Needs Answer Date Record ed Transportation 0 07/31/2021 Housing Stability Answer Date Recorded Housing 0 07/31/2021 Safety and Environment Answer Date Eric rded Safety 0 07/31/2021 Utilities Answer Date Recorded Utilities 0 07/31/2021 Employment Answer Date Recorded Stress 0 11/14/2023 Sex and Gender Information Value Date Recorded Sex Assigned at Not on file Legal Sex Male 7:27 AM PST Gender Identity Not on file Sexual Orientation Not on file Last Filed Vital Signs Vital Sign Reading Time Taken Comments Blood Pressure 137/88 10/20/2023 5:28 PM EDT Pulse 72 10/20/2023 5:28 PM EDT Temperature - - Respiratory Rate - - Oxygen Saturation - - Inhaled Oxygen Concentration - - Weight - - Height - - Body Mass Index - - Plan of Treatment Health Maintenance Due Date Last Done Comments Dental FMX/Pano 1957 Depression Monitoring 1957 Diabetes Screening 1957 Hepatitis C Screening 1955 Lipid Screening [address] Colonography 2002 Colonoscopy 2002 Colorectal Cancer Screening 2002 FIT/gFOBT 2002 Fecal DNA 2002 Flexible Sigmoidoscopy 2002 Imm-Pneumococcal 65+ (1 of 1 - PCV) 06/20/2007 Imm-Zoster, Recombinant (1 of 2) 06/20/2007 Falls Prevention 2022 [id number] (1 - season) 2023 Imm-Influenza (#1) 2023 Alcohol and Drug Screen 02/25/2024 Dental BW 08/01/2024 07/31/2023, 06/2022, 01/30/2022, Additional history exists Dental Examination 08/01/2024 07/31/2023, 1 03/31/2022, 01/30/2022, Additional history exists Dental Perio Charting 08/01/2024 07/31/2023, 022 Dental Prophy 08/01/2024 07/31/2023, 06/2022, 01/30/2022, Additional history exists Imm-DTaP/Tdap/Td (2 - Td or Tdap) 07/09/2028 019 Procedures Procedure Name Priority Date/Time Associated Diagnosis Comments COMP PERIODONTAL EVALUATION - NEW/EST PATIENT Routine 07/31/2023 1:00 PM EDT Caries Encounter for dental examination BITEWINGS - FOUR RADIOGRAPHIC IMAGES Routine 07/31/2023 1:00 PM EDT Caries Defective dental moravian Encounter for dental examination PROPHYLAXIS - ADULT Routine 07/31/2023 1 :00 PM EDT Caries Encounter for dental examination PERIODIC ORAL EVALUATION ESTABLISHED PATIENT Routine 07/31/2023 1:00 PM EDT Caries Encounter for dental examination from Last 3 Months or Most Recently Relevant to Health Maintenance [place]
--- OUTSIDE RECORDS SUMMARY | 2024-04-16 13:25 | XMS_ITS | Encounter Summary ---
Author Organization [facility] Address [address] [place] [address] Care Team Providers Care Casino Cage Supervisor Name Role Phone Unavailable Primary Care Provider Unavailabl e Encounter Details Date Type Department Care Team (Late st Contact Info) Description 08/24/2021 Dental Interim Note [facility]aring [facility] Dental [address] [place] [address] Corry Flores DMD [address] [place] [address] Social History Tobacco Use Types Packs/Day Years Used Date Smoking Tobacco: Never Assessed Social Connections Answer Date Recorded Social Connections and Isolation 0 07/31/2021 Financial Resource Strain Answer Date R ecorded Financial Resource Strain 0 2021 Stress Answer Date Recorded Stress 0 07/31/2021 Physical Activity Answer Date Recorded Physical Activity 0 07/31/2021 Food Insecurity Answer Date Recorded Food 0 07/31/2021 Transportation Needs Answer Date Record ed Transportation 0 07/31/2021 Housing Stability Answer Date Recorded Housing 0 07/31/2021 Safety and Environment Answer Date Eric rded Safety 0 07/31/2021 Utilities Answer Date Recorded Utilities 0 07/31/2021 Employment Answer Date Recorded Employment 0 07/31/2021 Sex and Gender Information Value Date Recorded Sex Assigned at Not on file Legal Sex Male 7:27 AM PST Gender Identity Not on file Sexual Orientation Not on file COVID-19 Exposure Response Date Recorded In the last 10 days, have yo u been in contact with someone who was confirmed or suspected to have Coronavirus/COVID-19? No / Unsure 07/31/2021 1:20 PM EDT documented as of this encounter Plan of Treatment Not on file documented as of this encounter Visit Diagnoses Not on filedocumented in this encounter
--- OUTSIDE RECORDS SUMMARY | 2024-04-16 13:25 | XMS_ITS | Encounter Summary ---
Author Organization [facility] Address [address] [place] [address] Care Team Providers Care After School Tutor Name Role Phone Unavailable Primary Care Provider Unavailabl e Encounter Details Date Type Department Care Team (Late st Contact Info) Description 10/12/2021 Dental Interim Note Caring [facility] Main Dental [address] [place] [address] Corry Flores, RENNY [address] [place] [address] Social History Tobacco Use Types Packs/Day Years [...] on file Sexual Orientation Not on file documented as of this encounter Plan of Treatment Not on file documented as of this encounter Visit Diagnoses Not on filedocumented in this encounter
--- OUTSIDE RECORDS SUMMARY | 2024-04-16 13:25 | XMS_ITS | Clinical Summary ---
Author Organization [facility] Address [address] [place] [address] Care Team Providers Care Environmental Assistant Name Role Phone ShayNicole Jo MCDOWELL Primary Care Provider [phone] Allergies No known active allergies Medications Medication Sig Dispensed Refills Start Date End Date Status diazePAM (VALIUM) 2 MG tablet TAKE 1 TABLET BY MOUTH 3 TIMES A DAY 0 01/09/2018 Active HYDROmorphone (DILAUDID) 2 MG tablet Take 2 mg by mouth every 4 (four) hours as needed. for pain 0 07/27/2018 Active lisinopril (PRINIVIL,ZESTRIL) tablet 30 mg Take 30 mg by mouth daily. 3 07/11/2018 Active meloxicam (MOBIC) 15 MG tablet Take 30 mg by mouth daily. 3 07/10/2018 Active traMADol (ULTRAM) 50 MG tablet Take 50 mg by mouth every 6 (six) hours as needed. 0 07/09/2018 Active traZODone (DESYREL) 100 MG tablet Take 100 mg by mouth every night at bedtime. 3 06/10/2018 Active zaleplon (SONATA) 10 MG capsule Take 10 mg by mouth. 0 Active Active Problems No known active problems Social History Tobacco Use Types Packs/Day Years Used Date Smoking Tobacco: Never Smokeless Tobacco: Never Alcohol Use Standard Drinks/Week Comments No 0 (1 standard drink = 0.6 oz pur e alcohol) Sex and Gender Information Value Date Recorded Sex Assigned at Not on file Gender Identity Not on file Sexual Orientation Not on file Last Filed Vital Signs Vital Sign Reading Time Taken Comments Blood Pressure - - Pulse - - Temperature - - Respiratory Rate - - Oxygen Saturation - - Inhaled Oxygen Concentration - - Weight 81.6 kg (180 lb) 08/03/2018 9:13 AM EDT Height 167.6 cm (5' 6 ) 08/03/2018 9:13 AM EDT Body Mass Index 29.05 08/03/2018 9:13 AM EDT Plan of Treatment Health Maintenance Due Date Last Done Comments Hepatitis C Screening 1955 COVID-19 Vaccine (#1) 1957 Depression Screening 1969 BMI Counseling 06/20/1975 Preventative Health Evaluation 06/20/1975 DTap / Tdap / Td (1 - Tdap) 1976 Colon Cancer Screening (Colonoscopy) 2002 Shingrix-Zoster Vaccine (1 of 2) 06/20/2007 Fall Risk Assessment 2022 Pneumococcal Vaccine (1 of 1 - PCV) 2022 Influenza Vaccine (#1) 2023 RSV Adult > 60+ Yrs or Pregn ant (1 - 1-dose 75+ series) 2032 Hepatitis B Vaccines Aged Out No long er eligible based on patient's age to complete this topic RSV Ped < 20 months Aged Out No longe r eligible based on patient's age to complete this topic Care Teams Environmental Assistant Relationship Specialty Start Date End Date Nicole Day NP [address] [place] [address] PCP - General Family Medicine 08/03/18
== END 2024-04-16 13:59 | disposition home or self-care (01) ==
PROVIDERS: PCP Nurse Practitioner Family; Visit Provider Neurological Surgery
DX: M50.30 Other cervical disc degeneration, unspecified cervical region (principal)
CPT/HCPCS: 99204

== ENCOUNTER → 2024-04-16 12:55 | Outpatient (BNVA) | payer MEDICARE, MEDICAID, SELFPAY | PROVIDERS: PCP Nurse Practitioner Family; Visit Provider Neurological Surgery | DX: M50.30 Other cervical disc degeneration, unspecified cervical region (principal) | CPT/HCPCS: 99202 ==

== ENCOUNTER 2024-05-26 11:06 | Outpatient (AMB) | payer MEDICARE, MEDICAID, SELFPAY ==
[2024-05-26 11:12] VITALS: BP 130/72; PULSE 74; O2SAT 100
--- NOTE | 2024-05-26 11:12 | MHC.OFFVIS ---
Vital Signs 05/26/24 11:12 Height 5 ft 5 in BP 130/72 Blood Pressure Location Lt brachial Position Sitting Pulse 74 Pulse Source Pulse Oximeter Pulse Oximetry (%) 100 Oxygen Delivery Method Room Air Intake Visit Reasons: 3 Month Follow Up/Left Knee Inj. Maintainer Operator Required: No Allergies No Known Allergies Allergy (Verified 05/26/24 11:14) [facility] Medical History (Updated 04/16/24 @ 16:28 by Saúl Hartmann MD, PhD) Occasional tremors Cervical spinal stenosis Hand weakness ADHD OCD (obsessive compulsive disorder) Anxiety and depression Diverticulosis Hyperlipidemia Hypertension Insomnia PTSD (post-traumatic stress disorder) Surgical History History of esophagogastroduodenoscopy (EGD) Hx of colonoscopy History of left hip replacement Social History Alcohol intake: never Patient Tobacco Use Status: Former Tobacco user Current occupational status: employed and disabled Current occupation: rt handed Physical Exam Vital Signs: Last Vital Signs Pulse 74 05/26/24 11:12 BP 130/72 05/26/24 11:12 Pulse Ox 100 05/26/24 11:12 Oxygen Delivery Method Room Air 05/26/24 11:12 Office Procedures AMB Joint Injection/Aspiration Joint Injection/Aspiration Secondary Site: left knee Prep: site was prepped using sterile technique Injected: 40 mg of, Kenalog, with 3 mL of (0.25% ropivacaine) and in the joint Approach Used: other (US guided suprapatellar) Procedure: The patient tolerated the procedure well Coding 48709 - Large joint Procedure code (CPT) selection complete Assessment & Plan Assessment & Plan (1) Rotator cuff tear arthropathy of both shoulders: Code(s): M75.101 - Unspecified rotator cuff tear or rupture of right shoulder, not specified as traumatic; M12.811 - Other specific arthropathies, not elsewhere classified, right shoulder; M12.812 - Other specific arthropathies, not elsewhere classified, left shoulder; M75.102 - Unspecified rotator cuff tear or rupture of left shoulder, not specified as traumatic Category: Medical (2) Osteoarthritis of left knee: Code(s): M17.12 - Unilateral primary osteoarthritis, left knee Category: Medical Plan Patient is status post left knee US guided injection. Patient tolerated procedure well and was discharged home in stable condition with discharge instructions. All questions were answered. PT ordered for shoulder pain. Follow up prn. Orders: Orders PT Evaluation and Treatment 05/26/24 M75.101 - Unspecified rotator cuff tear or rupture of right shoulder, not specified as traumatic, M12.811 - Other specific arthropathies, not elsewhere classified, right shoulder, M12.812 - Other specific arthropathies, not elsewhere classified, left shoulder, M75.102 - Unspecified rotator cuff tear or rupture of left shoulder, not specified as traumatic Coding Level of Care Code Procedure Only Diagnoses Rotator cuff tear arthropathy of both shoulders M75.101; M12.811; M12.812; M75.102 Osteoarthritis of left knee M17.12 CPT Codes Coding - 60772 Large joint: 71065 - Large joint ([id number])
--- OUTSIDE RECORDS SUMMARY | 2024-05-26 13:27 | XMS_ITS | Encounter Summary ---
Author Organization [facility] Address [address] [address] [place] [address] Care Team Providers Care Kraft Mill Operator Name Role Phone Unavailable Primary Care Provider Unavailabl e Encounter Details Date Type Department Care Team (Late st Contact Info) Description 08/24/2021 Dental Interim Note [facility] Dental [address] [place] [address] Corry Flores DMD [address] [place] [address] Social History Tobacco Use Types Packs/Day Years [...]
--- OUTSIDE RECORDS SUMMARY | 2024-05-26 13:27 | XMS_ITS | Encounter Summary ---
Author Organization [facility] Address [address] [place] [address] Care Team Providers Care Manager Printing Name Role Phone Unavailable Primary Care Provider Unavailabl e Encounter Details Date Type Department Care Team (Late st Contact Info) Description 10/12/2021 Dental Interim Note [facility]aring [facility] Main Dental [address] [place] [address] Corry Flores, RENNY [address] [place] [address] Social History Tobacco Use Types Packs/Day Years [...]
--- OUTSIDE RECORDS SUMMARY | 2024-05-26 13:27 | XMS_ITS | Clinical Summary ---
Author Organization [facility] Address [address] [place] [address] Care Team Providers Care Visitor Services Associate Name Role Phone Unavailable Primary Care Provider [...] 2 Refills, Soft Stop, 07/07/20 13:00:00 EDT, [facility]/pharmacy #[id number], Partial fill upon patient request if the [...] (1 of 2) 06/20/2007 Falls Prevention 2022 [id number] (1 - season) 2023 Imm-Influenza (#1) 2023 [...] 07/31/2023 1:00 PM EDT Caries Defective dental advent Encounter for dental examination PROPHYLAXIS - ADULT Routine 07/31/2023 1 :00 PM EDT Caries Encounter for dental examination PERIODIC ORAL EVALUATION ESTABLISHED PATIENT Routine 07/31/2023 1:00 PM EDT Caries Encounter for dental examination from Last 3 Months or Most Recently Relevant to Health Maintenance [place]
--- OUTSIDE RECORDS SUMMARY | 2024-05-26 13:27 | XMS_ITS | Clinical Summary ---
Author Organization [facility] Address [address] [place] [address] Care Team Providers Care Branch Customer Service Representative Name Role Phone ShayNicole Jo MCDOWELL Primary Care Provider [phone] Allergies No known active allergies Medications Medication [...] age to complete this topic Care Teams Branch Customer Service Representative Relationship Specialty Start Date End Date Nicole Day NP [address] [place] [address] PCP - General Family Medicine 08/03/18
== END 2024-05-26 11:37 | disposition home or self-care (01) ==
PROVIDERS: PCP Nurse Practitioner Family; Visit Provider Internal Medicine
DX: M17.12 Unilateral primary osteoarthritis, left knee (principal)
CPT/HCPCS: 20610

== ENCOUNTER → 2024-05-26 11:06 | Outpatient (BNVA) | payer MEDICARE, MEDICAID, SELFPAY | PROVIDERS: PCP Nurse Practitioner Family; Visit Provider Internal Medicine | DX: M17.12 Unilateral primary osteoarthritis, left knee (principal); M75.101 Unspecified rotator cuff tear or rupture of right shoulder, not specified as traumatic; M12.811 Other specific arthropathies, not elsewhere classified, right shoulder; M12.812 Other specific arthropathies, not elsewhere classified, left shoulder; M75.102 Unspecified rotator cuff tear or rupture of left shoulder, not specified as traumatic | CPT/HCPCS: 20610 ==

== ENCOUNTER 2024-06-22 12:01 | Day surgery (SDC) | payer MEDICARE, MEDICAID, SELFPAY ==
[2024-06-18 14:51] VITALS: BMI 26.5
--- NOTE | 2024-06-21 09:16 | HO.ANESPROP2 ---
Documented by User: Nicole Salinas NP 06/21/24 09:16 HPI - Anesthesia Eval Consult details Narrative: 69yo M for Upper Endoscopy with Dilitation PMFSH Active Problems Active Problems: All Active Problems Degenerative disc disease, cervical (Acute) Cervical radiculitis (Acute) Adhesive capsulitis of shoulder (Acute) GERD (gastroesophageal reflux disease) (Acute) Rotator cuff tear arthropathy of both shoulders (Acute) Lateral epicondylitis (Acute) Rotator cuff insufficiency of left shoulder (Acute) Left shoulder pain (Acute) Impingement of right shoulder (Acute) Pulmonary nodules (Acute) Abnormal CT lung screening (Acute) Abnormal CXR (Acute) Unintended weight loss (Acute) Biceps tendonitis of both shoulders (Acute) Malnutrition (Acute) Globus pharyngeus (Acute) Osteoarthritis of left hip (Acute) Right shoulder pain (Acute) Osteoarthritis of left knee (Acute) Lumbar radiculopathy (Acute) Paresthesia of bilateral legs (Acute) Peripheral neuropathy (Acute) Biceps tendonitis on left (Acute) Left rotator cuff tear (Acute) Piriformis syndrome of right side (Acute) Tricompartment osteoarthritis of left knee (Acute) Occasional tremors (Acute) Cervical spinal stenosis (Acute) Hand weakness (Acute) PTSD (post-traumatic stress disorder) (Acute) Anxiety and depression (Acute) Past Medical History Medical History (Updated 04/16/24 @ 16:28 by Saúl Hartmann MD, PhD) Occasional tremors Cervical spinal stenosis Hand weakness ADHD OCD (obsessive compulsive disorder) Anxiety and depression Diverticulosis Hyperlipidemia Hypertension Insomnia PTSD (post-traumatic stress disorder) Surgical History Surgical History (Updated 06/18/24 @ 14:47 by Niurka Brice RN) History of esophagogastroduodenoscopy (EGD) Hx of colonoscopy History of left hip replacement Social History Social History Alcohol intake: never Patient Tobacco Use Status: Former Tobacco user Use of substances other than those prescribed or required for medical reasons: No Are you DNR?: No Advance Directives: No Advance Directives Information Provided: Yes Current occupational status: employed and disabled Current occupation: rt handed Meds Allergies Allergy/AdvReac Type Severity Reaction Status Date / Time No Known Allergies Allergy Verified 05/26/24 11:14 Home Medications ?Medication ?Instructions ?Recorded ?Confirmed ?Last Taken ?Type clonidine HCl 0.1 mg tablet 0.1 mg PO BID 05/10/21 06/18/24 Unknown History lisinopril 30 mg tablet 30 mg PO DAILY 05/10/21 06/18/24 Unknown History trazodone 100 mg tablet 100 mg PO BEDTIME 05/10/21 06/18/24 Unknown History Exam Height,Weight and Vital Signs: Height 5 ft 5 in Weight 72.121 kg Assessment and Plan Assessment Anesthesia Assessment: Chart Reviewed Documented by User: Brandon Beckford MD 06/22/24 14:24 [facility] Past Medical History Medical History (Updated 04/16/24 @ 16:28 by Saúl Hartmann MD, PhD) Occasional tremors Cervical spinal stenosis Hand weakness ADHD OCD (obsessive compulsive disorder) Anxiety and depression Diverticulosis Hyperlipidemia Hypertension Insomnia PTSD (post-traumatic stress disorder) Family History Family history of problems with anesthesia: No Surgical History Surgical History (Updated 06/18/24 @ 14:47 by Niurka Brice RN) History of esophagogastroduodenoscopy (EGD) Hx of colonoscopy History of left hip replacement History of Problems with Anesthesia: Yes (PONV) Social History Social History Alcohol intake: never Patient Tobacco Use Status: Former Tobacco user Use of substances other than those prescribed or required for medical reasons: No Are you DNR?: No Advance Directives: No Advance Directives Information Provided: Yes Current occupational status: employed and disabled Current occupation: rt handed Meds Allergies Allergy/AdvReac Type Severity Reaction Status Date / Time No Known Allergies Allergy Verified 05/26/24 11:14 Home Medications ?Medication ?Instructions ?Recorded ?Confirmed ?Last Taken ?Type clonidine HCl 0.1 mg tablet 0.1 mg PO BID 05/10/21 06/18/24 Unknown History lisinopril 30 mg tablet 30 mg PO DAILY 05/10/21 06/18/24 Unknown History trazodone 100 mg tablet 100 mg PO BEDTIME 05/10/21 06/18/24 Unknown History Exam Airway Mallampati Class: II TM Dist: <=3cm Neck ROM: Full Heart: ok Lungs: ok Assessment and Plan Assessment Anesthesia Assessment: Anesthesia Plan Discussed Final Anesthetic Review Family History of Problems with Anesthesia: No History of Problems with Anesthesia: Yes (PONV) NPO: Yes ASA Class: III Final Preanesthetic Review: No Changes in Pt Med Stat, Meds/Allgs Chart Reviewed, Consent Obtained/Reviewed and Anes Risks/Benef Reviewed Patient Risk: High Procedure Risk: Intermediate Anesthetic Plan Anesthetic Plan: Agree w/ Assess. and Plan and TIVA Disposition: Standard PACU
[2024-06-22 12:39] VITALS: BMI 25.7
--- NOTE | 2024-06-22 13:22 | P.HPSUR_ITS ---
Pre-Procedural Eval Section A - 24 Hr Update-Section A only Date of Service: 06/22/24 Section B - Complete if H&P > 30 days Chief Complaint: Dysphagia, unspecified Relevant Family History (Specify if Yes): No Relevant Social History: None Present Medications: see Short Stay Collaborative assessment Medical History: Significant History ( Occasional tremors Cervical spinal stenosis Hand weakness ADHD OCD (obsessive compulsive disorder) Anxiety and depression Diverticulosis Hyperlipidemia Hypertension Insomnia PTSD (post- traumatic stress disorder)) History of Previous Operations: Relevant previous surgery/procedure and date(s) (History of esophagogastroduodenoscopy (EGD) Hx of colonoscopy History of left hip replacement) Allergies: Allergies Allergy/AdvReac Type Severity Reaction Status Date / Time No Known Allergies Allergy Verified 05/26/24 11:14 Review of Systems Sugical H&P ROS: Negative: Constitution, Cardiovascular, Respiratory, Neurological, Psychiatric, Hem-Onc, Allergic/Immunologic, Gastrointestinal, Genitourinary, Musculoskeletal, Integumentary, Endocrine and Eyes/Ears/Nose/Throat Exam Surgical H&P Exam: Normal: HEENT, Normal: Heart, Normal: Lungs, Normal: Extremities, Normal: Abdomen, Normal: Skin and Normal: Neurological Plan Diagnosis/Plan: Unchanged I have reviewed the history and physical and performed a pertinent physical examination on my patient. No changes have occurred unless specified. Time Spent With Patient Time: Total time managing care of this patient today ____ minutes.
--- NOTE | 2024-06-22 14:28 | W.PM.OPN ---
Operative Note Operative Note Date of Service: 06/22/24 Narrative: Procedure Description: EGD Indication: abn swallowing and sensation in esophagus Anesthesia: MAC FLEXIBLE TRANSORAL UPPER GASTROINTESTINAL ENDOSCOPY UPPER ENDOSCOPY Consent: Indications for the procedure and potential complications of bleeding, perforation, reaction to medications and missed diagnosis were discussed with the patient and informed consent was obtained. Instrument: Olympus GIF H 190 J mid size upper endoscope Monitoring: Vital signs and clinical assessment, continuous EKG monitoring, Pulse oximetry, Carbon Dioxide monitoring and blood pressure monitoring were done throughout the procedure. Procedure: The patient was placed in the left lateral decubitis position and pre-procedure medications were administered and a bite block was placed. The endoscope was inserted into the mouth and advanced under direct vision to the third part of duodenum. A careful inspection was made as the upper endoscope was withdrawn including a retroflexed examination of the proximal stomach; Findings and interventions are described below. Findings: Larynx:normal Esophagus: GE junction at 38 cm, diaphragm hiatus at 38 cm, mild esophagitis, bx taken from GEJ, distal and proximal esophagus, balloon dilation done to 20 mm at LES and 19 mm UES, no tears seen Stomach: patchy erythema . Biopsies were obtained. Grade 2 flap valve on retroflexed examination of the cardia. Duodenum: mild bulbar duodenitis bx taken Intervention: Biopsies as noted above, balloon dilation Impression/Findings: gastritis duodenitis esophagitis PLAN: confirm taking PPI, correct timing etc, can change PPI if needed or even K-H channel kike GERD precautions
[2024-06-22 14:35] VITALS: BP 101/61; PULSE 84; RESP 20; TEMP 37.2; O2SAT 98
[2024-06-22 14:50] VITALS: BP 150/86; PULSE 76; RESP 20; TEMP 37.2; O2SAT 100
== END 2024-06-22 15:09 | disposition home or self-care (01) ==
PROVIDERS: PCP Nurse Practitioner Family; Visit Provider Internal Medicine Gastroenterology
PROC: (CPT 43249; principal; 2024-06-22 14:10)
DX: R13.10 Dysphagia, unspecified (principal); K20.80 Other esophagitis without bleeding; K29.80 Duodenitis without bleeding; K29.70 Gastritis, unspecified, without bleeding; R09.89 Other specified symptoms and signs involving the circulatory and respiratory systems; J84.10 Pulmonary fibrosis, unspecified; K44.9 Diaphragmatic hernia without obstruction or gangrene; I10 Essential (primary) hypertension; E78.5 Hyperlipidemia, unspecified; F41.9 Anxiety disorder, unspecified; F43.10 Post-traumatic stress disorder, unspecified; Z79.899 Other long term (current) drug therapy; Z87.891 Personal history of nicotine dependence; Z96.642 Presence of left artificial hip joint
CPT/HCPCS: 43249; 43239; 88305; 88313; 88342; C1726; J2003; J2704; J3010

== ENCOUNTER → 2024-06-22 12:01 | Outpatient (BNV) | payer MEDICARE, MEDICAID, SELFPAY | PROVIDERS: PCP Nurse Practitioner Family; Visit Provider Internal Medicine Gastroenterology | DX: R13.10 Dysphagia, unspecified (principal); K20.90 Esophagitis, unspecified without bleeding; K29.70 Gastritis, unspecified, without bleeding; K29.80 Duodenitis without bleeding | CPT/HCPCS: 43239; 43249 ==

== ENCOUNTER 2024-07-01 12:38 | Outpatient (REF) | payer MEDICARE, MEDICAID, SELFPAY ==
--- NOTE | ~2024-07-01 | CT_ITS ---
CLINICAL HISTORY: R91.8 - Other nonspecific abnormal finding of lung field CT chest without contrast Comparison: CT/REG/AZ/SR - CT CHEST WO IV CON - 05/01/23 12:57 EST Findings: Pericardial calcifications noted may reflect sequela of pericarditis. Diffuse esophageal mural thickening, nonspecific. Mildly prominent mediastinal and axillary nodes may be reactive however are nonspecific. Gynecomastia. Stable appearing scarring throughout the left lung. Developing lingual nodular like scarring measuring 1.8 cm on axial series 3, image 87. Additional scattered anterior right middle left upper lobe micronodules measuring no more than 3 mm. Trace left-sided effusion. Cholelithiasis. Colonic diverticulosis. Bilateral perinephric stranding, nonspecific. Osteopenia with diffuse multilevel spondylosis. IMPRESSION: 1. New nodular like scarring in the lingula, detailed above. Consider close follow-up in 3 months, PET-CT or tissue sampling. 2. Trace left-sided effusion. 3. Additional findings described. This document has been electronically signed by: Chu Scott MD on 07/02/2024 05:16:20
--- OUTSIDE RECORDS SUMMARY | 2024-07-01 13:45 | XMS_ITS | Encounter Summary ---
Author Organization [facility] Address [address] [place] [address] [place] [address] Care Team Providers Care Draw Tender Name Role Phone Unavailable Primary Care Provider Unavailabl e Encounter Details Date Type Department Care Team (Late st Contact Info) Description 08/24/2021 Dental Interim Note [facility]aring [facility] Dental [address] [place] [address] Corry Flores DMD [address] [place] [address] Social History Tobacco Use Types Packs/Day Years [...]
--- OUTSIDE RECORDS SUMMARY | 2024-07-01 13:45 | XMS_ITS | Clinical Summary ---
Author Organization [facility] Address [address] [place] [address] [place] [address] Care Team Providers Care Assistant Professor Of Art Name Role Phone Unavailable Primary Care Provider [...] 2 Refills, Soft Stop, 07/07/20 13:00:00 EDT, [facility]/pharmacy #[id number], Partial fill upon patient request if the [...] (1 of 2) 06/20/2007 Falls Prevention 2022 [id number] (1 - season) 2023 Imm-Influenza (#1) 2023 [...] 07/31/2023 1:00 PM EDT [facility] Defective dental sikhism Encounter for dental examination PROPHYLAXIS - ADULT Routine 07/31/2023 1 :00 PM EDT [facility] Encounter for dental examination PERIODIC ORAL EVALUATION ESTABLISHED PATIENT Routine 07/31/2023 1:00 PM EDT [facility] Encounter for dental examination from Last 3 Months or Most Recently Relevant to Health Maintenance [place]
--- OUTSIDE RECORDS SUMMARY | 2024-07-01 13:45 | XMS_ITS | Clinical Summary ---
Author Organization [facility] Address [address] [place] [address] Care Team Providers Care Incising Machine Operator Name Role Phone ShayNicole Jo MCDOWELL Primary Care Provider Allergies No known active allergies Medications Medication [...] age to complete this topic Care Teams Incising Machine Operator Relationship Specialty Start Date End Date Nicole Day NP [address] [place] [address] PCP - General Family Medicine 08/03/18
--- OUTSIDE RECORDS SUMMARY | 2024-07-01 13:45 | XMS_ITS | Encounter Summary ---
Author Organization [facility] Address [address] [place] [address] [place] [address] Care Team Providers Care Social Media Intern Name Role Phone Unavailable Primary Care Provider Unavailabl e Encounter Details Date Type Department Care Team (Late st Contact Info) Description 10/12/2021 Dental Interim Note Caring [facility] Main Dental [address] [place] [address] Corry Flores, RENNY [address] [place] [address] Social History Tobacco Use Types Packs/Day Years [...]
--- OUTSIDE RECORDS SUMMARY | 2024-07-01 13:45 | XMS_ITS | Data Portability ---
Author Organization [place] - [facility], Allergy Address [address] [facility] [address] [place] [address] Care Team Providers Care Tin Pot Operator Name Role Phone ARAM SALEH Primary Care Provider Assessment Encounter Date Assessment Date Assessment LastModified by Organization Details LastModified Time 02/04/2024 02/04/2024 Cerumen removed successfully. Patient dislikes suction, would prefer flush. Otologic exam otherwise unremarkable. Nasal exam reveals intact mucosa without ulceration, inflammation, nor erythema. Reminded patient ipratropium spray works best for gustatory rhinorrhea when taken 15 minutes before each meal. Refills called in today. Follow up in 6 months for re-examination and refills. Note to future examiner: patient would like us to knock on the door before entering due to PTSD [email or web address] Not available 02/04/2024 13:40:23 Plan of Treatment Reminders Order Date Submit Date Provider Last Modified By Organization Details Last Modified Time Details Appointments Establish ed 30 2024 01:00P M TEETEE FIELD MD Not available Not available Not available Lab None recorded. Referral None recorded. Procedures None recorded. Surgeries None recorded. Imaging None recorded. Medication Orders ipratropi um bromide 42 mcg (0.06 %) nasal spray 2023 024 [id number], [address], [place], [id number], 02/04/2024 13:37:52 Patient TargetsNo targets recorded. Patient InstructionsNo instructions recorded. Reason for Referral None Reported. Problems Name Problem SNOMED Code Status Onset Date Resolution Date Notes Provider Name and Address Organization Details Recorded Time Edema of larynx 47349575 Active 2023 Edema of larynx; Note: Date Diagnosed : 05/14/2023 1:25 PM (J38.4) Not Available [facility] 4 02:57:06 Disturban ce of salivary secretion 29707673 Active 2023 Xerostomi a; Note: Date Diagnosed : 05/14/2023 1:25 PM (K11.7) Not Available [facility] 4 02:57:06 Chronic rhinitis 24797888 Active 2023 Chronic rhinitis; Note: Date Diagnosed : 05/14/2023 1:25 PM (J31.0) Not Available [facility] 4 02:57:06 Hypertrop hy of tongue papillae 8917035 Active 2023 Coated tongue; Note: Date Diagnosed : 06/26/2023 3:49 PM (K14.3) Not Available [facility] 02:57:06 Gastroeso phageal reflux disease without esophagit is 934935941 Active 2023 Esophagea l reflux NOS; Note: Date Diagnosed : 05/14/2023 1:25 PM (K21.9) Not Available [facility] 4 02:57:07 Impacted cerumen of bilateral ears 50007104227 17508 Active 2023 Impacted cerumen, bilateral ; Note: Date Diagnosed : 06/26/2023 3:49 PM (H61.23) Not Available [facility] 4 02:57:07 Vasomotor rhinitis 1578668 Active 2023 Vasomotor rhinitis; Note: Date Diagnosed : 06/26/2023 3:48 PM (J30.0) Not Available [facility] 4 02:57:08 Problem Notes None recorded. Procedures Surgical History Date Name Laterality Status Provider Name and Address Organization Details Recorded Time Cerumen removal without microscope bilat radha REYNOLDS PA-C [address] [place] [address], [phone], [facility] - [facility] 02/04/2024 13:36:49 Imaging Results None recorded. Procedure Notes None recorded. Medical Equipment None Reported. Medications Name Sig Start Date Stop Date Status Note LastModified by Organization Details LastModified Time celecoxib 200 mg capsule TAKE 1 CAPSULE BY MOUTH TWICE DAILY active Not Available Not Available No t Available methocarb naveed 500 mg tablet active Medicati on ID: [id number] B rand Name: kapil pennol Se nd Method: E-Prescr ibed Sub s Allowed: subs [place] Medic ationGen ericName : methocar bamol Not Available Not Available Not Available nystatin 100,000 unit/mL oral suspensio n SWISH AND SWALLOW 1 ML BY MOUTH FOUR TIMES DAILY FOR 14 DAYS active Not Available Not Available No t Available clonidine HCl 0.1 mg tablet TAKE 1 TABLET BY MOUTH TWICE DAILY active Not Available Not Available No t Available Saline Mist 0.65 % nasal spray aerosol 2023 active Medicati on ID: [id number] D uration Value: 30 Brand Name: Saline Mist Sen d Method: E-Prescr ibed Sub s Allowed: subs [place] Speci al Instruct ion: 2 sprays in both nostrils 4-6 times daily as needed M edicatio nGenermanas Name: Saline Mist Not Available Not Available Not Available sucralfat e 100 mg/mL oral suspensio n SHAKE LIQUID AND TAKE 10 ML BY MOUTH TWICE DAILY active Not Available Not Available No t Available acetamino phen 500 mg tablet active Not Available Not Available No t Available oxycodone -acetamin ophen 5 mg-325 mg tablet TAKE 1 TABLET BY MOUTH TWICE DAILY NEEDED FOR PAIN active Not Available Not Available No t Available vitamin A 3,000 mcg (10,000 unit) capsule TAKE 1 CAPSULE BY MOUTH ONCE DAILY active Not Available Not Available No t Available pravastat in 10 mg tablet TAKE 1 TABLET BY MOUTH DAILY AT BEDTIME active Not Available Not Available No t Available trazodone 100 mg tablet TAKE 1 TABLET BY MOUTH DAILY AT BEDTIME active Not Available Not Available No t Available diazepam 2 mg tablet TAKE 2 TABLETS BY MOUTH TWICE DAILY active Not Available Not Available No t Available esomepraz ole magnesium 40 mg capsule,d elayed release TAKE 1 CAPSULE BY MOUTH DAILY active Not Available Not Available No t Available ibuprofen 400 mg tablet TAKE 1 TABLET BY MOUTH THREE TIMES DAILY NEEDED FOR PAIN active Not Available Not Available No t Available nitroglyc buck 0.4 mg sublingua l tablet DISSOLVE 1 TABLET UNDER THE TONGUE EVERY DAY NEEDED FOR CHEST PAIN DIRECTED active Not Available Not Available No t Available lisinopri l 30 mg tablet TAKE 1 TABLET BY MOUTH DAILY active Not Available Not Available No t Available hydroxyzi ne HCl 25 mg tablet active Not Available Not Available No t Available methylpre dnisolone 4 mg tablets in a dose pack FOLLOW PACKAGE DIRECTIO NS FOR 6 DAYS active Not Available Not Available No t Available ipratropi um bromide 42 mcg (0.06 %) nasal spray USE 2 SPRAYS IN EACH NOSTRIL THREE TIMES DAILY 15 MINUTES BEFORE MEALS active Not Available Not Available No t Available fluticaso ne propionat e 50 mcg/actua tion nasal spray,taz pension 05/13 completed Medicati on ID: [id number] B rand Name: fluticas one propiona te Send Method: E-Prescr ibed Sub s Allowed: subs [place] Speci al Instruct ion: SHAKE LIQUID AND USE 1 SPRAY IN EACH NOSTRIL TWICE DAILY Me dication GenericN nasreen: fluticas one propiona te Not Available Not Available Not Available sodium fluoride 1.1 % dental gel PLACE IN MOUTH ONCE DAILY FOR 30 DAYS. active Not Available Not Available No t Available bupropion HCl XL 150 mg 24 hr tablet, extended release TAKE 1 TABLET BY MOUTH EVERY 24 HOURS active Not Available Not Available No t Available pregabali n 75 mg capsule TAKE 1 CAPSULE BY MOUTH TWICE DAILY active Not Available Not Available No t Available quetiapin e 50 mg tablet TAKE 1 TABLET BY MOUTH DAILY AT BEDTIME active Not Available Not Available No t Available quetiapin e ER 50 mg tablet,ex tended release 24 hr TAKE 1 TABLET BY MOUTH DAILY AT BEDTIME active Not Available Not Available No t Available Allergy Relief (fexofena dine) 180 mg tablet 05/13 completed Medicati on ID: [id number] B rand Name: Allergy Relief (fexofen adine) S end Method: E-Prescr ibed Sub s Allowed: subs [place] Speci al Instruct ion: TAKE ONE TABLET BY MOUTH DAILY. Jasmin Johnston Name: Allergy Relief (fexofen adine) Not Available Not Available Not Available Biotene Dry Mouth Oral Rinse mouthwash 2023 active Medicati on ID: [id number] D uration Value: 30 Brand Name: Biotene Dry Mouth Oral Rinse Se nd Method: E-Prescr ibed Sub s Allowed: subs [place] Speci al Instruct ion: 30 cc gargle twice daily Me dication GenericN nasreen: Biotene Dry Mouth Oral Rinse Not Available Not Available Not Available Linzess 72 mcg capsule TAKE 1 CAPSULE BY MOUTH DAILY active Not Available Not Available No t Available Vitals Date Recorded Body weight Body mass index (BMI) Body height Provider Name and Address Organization Details Last Updated DateTime 02/04/2024 52038.86 g 25 kg/m2 165.1 cm Patricia Harris [place] - [facility] 02/04/2024 13:15:48 Social History None recorded. Functional Status None recorded. Mental Status None recorded. Family History Nothing Reported. Medical History No medical history recorded. Past Encounters Encounter ID Performer Location Encounter Start Date Encounter Closed Date Diagnosis/Indication Diagnosis SNOMED-CT Code Diagnosis ICD10 Code Diagnosis Note [id number] RAJWINDER REYNOLDS PA-C [facility] [address] [phone] 02/04/2024 12:32:02 02/04/2024 13:31:17 Impacted cerumen of bilateral ears [id number] 231563 H61.23 Vasomotor rhinitis 00216 03 J30.0 Health Concerns Section Related Observation LastModified by Organization Detai ls LastModified Time None Recorded Concern Status LastModified by Organization Details LastModified Time None Recorded Advance Directives Directive None Recorded Payers Insurance Date Sequence Insurance Name Policy Number Policy Kennedy Covered Member ID Kennedy Member ID Guarantor Name 02/04/2024 1 [place] [employer] Mateus Beyer [id number] Mateus Beyer 02/04/2024 2 [place] [facility] Mateus Beyer [id number] Mateus Beyer Notes Date Note Type Note Provider Name and Address Organization Details Recorded Time 02/04/2024 text/html 68 year old male presents for re-evaluation. States his nose runs at mealtimes despite Atrovent spray. He does not take this before meals. He also notes his PCP said he had a cerumen impaction. He has had this flushed successfully at urgent care in the past. He denies otalgia and otorrhea. TEETEE BRADFORD MD [address] [place], [place] [address], [place], [address], [facility] - [facility] 02/04/2024 16:42:51
== END 2024-07-01 12:39 | disposition home or self-care (01) ==
LOC: HO.CT 12:38
PROVIDERS: PCP Nurse Practitioner Family; Visit Provider Internal Medicine Pulmonary Disease
DX: R91.8 Other nonspecific abnormal finding of lung field (principal)
CPT/HCPCS: 71250

== ENCOUNTER → 2024-07-01 12:46 | Outpatient (BNV) | payer MEDICARE, MEDICAID, SELFPAY | PROVIDERS: PCP Nurse Practitioner Family; Visit Provider Radiology Diagnostic Radiology | DX: R91.8 Other nonspecific abnormal finding of lung field (principal) | CPT/HCPCS: 71250 ==

== ENCOUNTER 2024-07-28 13:13 | Outpatient (AMB) | payer MEDICARE, MEDICAID, SELFPAY ==
--- OUTSIDE RECORDS SUMMARY | 2024-07-28 13:32 | XMS_ITS | Encounter Summary ---
Author Organization [facility] Address [address] [place] [address] [place] [address] Care Team Providers Care District Administrative Assistant Name Role Phone Unavailable Primary Care Provider Unavailabl e Encounter Details Date Type Department Care Team (Late st Contact Info) Description 10/12/2021 Dental Interim Note Caring [facility] Main Dental [address] [place] [address] Corry Flores, RENNY [address] [place] [address] Social History Tobacco Use Types Packs/Day Years [...]
[2024-07-28 13:40] VITALS: BP 122/60; PULSE 79; O2SAT 99; BMI 25.6
--- NOTE | 2024-07-28 13:40 | A.OFFVIS_ITS ---
Vital Signs 07/28/24 13:40 Height 5 ft 5 in Weight 154 lb BMI 25.6 BP 122/60 Blood Pressure Location Rt brachial Position Sitting Pulse 79 Pulse Source Pulse Oximeter Pulse Oximetry (%) 99 Oxygen Delivery Method Room Air Intake Visit Reasons: pulmonar nodules Allergies No Known Allergies Allergy (Verified 07/28/24 13:48) HPI HPI pulmonar nodules: Details: 69-year-old gentleman, minimal smoker in his 20, with no history of exposure to industrial dusts referred for evaluation of abnormal CT scan that showed left diffuse pleural thickening and small 3 mm pulmonary nodules. Patient had a follow-up CT chest in June of 2024 that showed new 1.8 cm lingular nodule. [facility] Medical History (Updated 07/28/24 @ 14:09 by Yung Campo MD) Occasional tremors Cervical spinal stenosis Hand weakness ADHD OCD (obsessive compulsive disorder) Anxiety and depression Diverticulosis Hyperlipidemia Hypertension Insomnia PTSD (post-traumatic stress disorder) Surgical History (Updated 06/18/24 @ 14:47 by Niurka Brice RN) History of esophagogastroduodenoscopy (EGD) Hx of colonoscopy History of left hip replacement Social History Alcohol intake: never Patient Tobacco Use Status: Former Tobacco user Current occupational status: employed and disabled Current occupation: rt handed Review of Systems Card Reports dyspnea on exertion and Reports orthopnea Resp Reports cough, Reports dyspnea on exertion and Reports wheezing Aller/Immun Reports wheezing Physical Exam Vital Signs: Last Vital Signs Pulse 79 07/28/24 13:40 BP 122/60 07/28/24 13:40 Pulse Ox 99 07/28/24 13:40 Oxygen Delivery Method Room Air 07/28/24 13:40 BMI result Body Mass Index 25.6 Const General: no acute distress and alert Nutritional Appearance: not obese Orientation/consciousness: Other orientation findings ( oriented) HEENT Head: Yes atraumatic Eyes General: appearance normal, both eyes and all related structures Sclerae: sclerae normal EOM: EOMs intact bilaterally Neck Neck: Yes supple Lymphatic: no lymphadenopathy noted Resp Effort & Inspection: normal respiratory effort and no use of accessory muscles Auscultation: clear to auscultation bilaterally Cardio Rate: regular rate Rhythm: regular rhythm Heart sounds: no gallops, no murmurs and no rubs Skin General skin exam: other ( warm) Extrem General: No clubbing, No cyanosis and No edema Assessment & Plan Assessment & Plan (1) Pulmonary nodule 1 cm or greater in diameter: Code(s): R91.1 - Solitary pulmonary nodule Category: Medical Plan: New 1.8 cm pulmonary nodule that patient is anxious about. Will repeat CT chest in 3 months and refer to thoracic surgery. Orders: Orders CT chest wo IV con 09/27/24 R91.1 - Solitary pulmonary nodule Referrals Thoracic/General Surgery Referral R91.1 - Solitary pulmonary nodule Coding Level of Care Code Est Pt Level 3 (27108) Diagnoses Pulmonary nodule 1 cm or greater in diameter R91.1
== END 2024-07-28 14:07 | disposition home or self-care (01) ==
PROVIDERS: PCP Nurse Practitioner Family; Visit Provider Internal Medicine Pulmonary Disease
DX: R91.1 Solitary pulmonary nodule (principal)
CPT/HCPCS: 99213

== ENCOUNTER → 2024-07-28 13:13 | Outpatient (BNVA) | payer MEDICARE, MEDICAID, SELFPAY | PROVIDERS: PCP Nurse Practitioner Family; Visit Provider Internal Medicine Pulmonary Disease | DX: R91.1 Solitary pulmonary nodule (principal) | CPT/HCPCS: 99212 ==

== ENCOUNTER 2024-08-03 11:29 | Day surgery (SDC) | payer MEDICARE, MEDICAID, SELFPAY ==
--- OUTSIDE RECORDS SUMMARY | 2024-07-05 06:24 | XMS_ITS | Clinical Summary ---
Author Organization [facility] Address [address] [place] [address] [place] [address] Care Team Providers Care Forklift Wheel Loader Name Role Phone Unavailable Primary Care Provider [...] 2 Refills, Soft Stop, 07/07/20 13:00:00 EDT, [facility]/pharmacy #[id number], Partial fill upon patient request if the [...] (1 of 2) 06/20/2007 Falls Prevention 2022 [id number] (1 - season) 2023 Imm-Influenza (#1) 2023 [...] 07/31/2023 1:00 PM EDT [facility] Defective dental yazdanism Encounter for dental examination PROPHYLAXIS - ADULT Routine 07/31/2023 1 :00 PM EDT [facility] Encounter for dental examination PERIODIC ORAL EVALUATION ESTABLISHED PATIENT Routine 07/31/2023 1:00 PM EDT [facility] Encounter for dental examination from Last 3 Months or Most Recently Relevant to Health Maintenance [place]
--- OUTSIDE RECORDS SUMMARY | 2024-07-05 06:24 | XMS_ITS | Encounter Summary ---
Author Organization [facility] Address [address] [place] [address] [place] [address] Care Team Providers Care Continuous Miner Operator Name Role Phone Unavailable Primary Care Provider Unavailabl e Encounter Details Date Type Department Care Team (Late st Contact Info) Description 10/12/2021 Dental Interim Note [facility] Main Dental [address] [place] [address] Corry Flores, RENNY [address] [place] [address] Social History Tobacco Use Types Packs/Day Years [...]
--- OUTSIDE RECORDS SUMMARY | 2024-07-05 06:24 | XMS_ITS | Encounter Summary ---
Author Organization [facility] Address [address] [place] [address] [place] [address] Care Team Providers Care Suture Gauger Name Role Phone Unavailable Primary Care Provider Unavailabl e Encounter Details Date Type Department Care Team (Late st Contact Info) Description 08/24/2021 Dental Interim Note Caring [facility] Dental [address] [place] [address] Corry Flores DMD [address] [place] [address] Social History Tobacco Use Types Packs/Day Years [...]
--- OUTSIDE RECORDS SUMMARY | 2024-07-05 06:24 | XMS_ITS | Data Portability ---
Author Organization MD - [facility], Allergy Address [address] [facility] [address] [place] [address] Care Team Providers Care Hot Baller Name Role Phone ARAM SALEH Primary Care [...] mcg (0.06 %) nasal spray 2023 024 [id number], [address] [place], [place], [phone], 02/04/2024 13:37:52 Patient TargetsNo targets recorded. Patient InstructionsNo instructions recorded. Reason for Referral None Reported. Problems Name Problem SNOMED Code Status Onset Date Resolution Date Notes Provider Name and Address Organization Details Recorded Time Edema of larynx 26055237 Active 2023 Edema of larynx; Note: Date Diagnosed : 05/14/2023 1:25 PM (J38.4) Not Available [facility] 4 02:57:06 Disturban ce of salivary secretion 74522339 Active 2023 Xerostomi a; Note: Date Diagnosed : 05/14/2023 1:25 PM (K11.7) Not Available [facility] 4 02:57:06 Chronic rhinitis 68802852 Active 2023 Chronic rhinitis; Note: Date Diagnosed : 05/14/2023 1:25 PM (J31.0) Not Available [facility] 4 02:57:06 Hypertrop hy of tongue papillae 4107052 Active 2023 Coated tongue; Note: Date Diagnosed : 06/26/2023 3:49 PM (K14.3) Not Available [facility] 02:57:06 Gastroeso phageal reflux disease without esophagit is 397935809 Active 2023 Esophagea l reflux NOS; Note: Date Diagnosed : 05/14/2023 1:25 PM (K21.9) Not Available [facility] 4 02:57:07 Impacted cerumen of bilateral ears 23140204133 44461 Active 2023 Impacted cerumen, bilateral ; Note: Date Diagnosed : 06/26/2023 3:49 PM (H61.23) Not Available [facility] 4 02:57:07 Vasomotor rhinitis 5207842 Active 2023 Vasomotor rhinitis; Note: Date Diagnosed : 06/26/2023 3:48 PM (J30.0) Not Available [facility] 4 02:57:08 Problem Notes None recorded. Procedures Surgical History Date Name Laterality Status Provider Name and Address Organization Details Recorded Time Cerumen removal without microscope bilat radha REYNOLDS PA-C [address] [place] [address], [phone], [facility] - [facility] 02/04/2024 13:36:49 Imaging Results None recorded. Procedure Notes None recorded. Medical Equipment None Reported. Medications Name Sig Start Date Stop Date Status Note LastModified by Organization Details LastModified Time celecoxib 200 mg capsule TAKE 1 CAPSULE BY MOUTH TWICE DAILY active Not Available Not Available No t Available methocarb naveed 500 mg tablet active Medicati on ID: [id number] B rand Name: kapil pennol Se nd [...] spray aerosol 2023 active Medicati on ID: [id number] D uration Value: 30 Brand Name: Saline [...] spray,taz pension 05/13 completed Medicati on ID: [id number] B rand Name: fluticas one propiona te [...] mg tablet 05/13 completed Medicati on ID: [id number] B rand Name: Allergy Relief (fexofen adine) S end Method: E-Prescr ibed Sub s Allowed: subs OK Speci al Instruct ion: TAKE ONE TABLET BY MOUTH DAILY. Jasmin Johnston Name: Allergy Relief (fexofen adine) Not Available Not Available Not Available Biotene Dry Mouth Oral Rinse mouthwash 2023 active Medicati on ID: [id number] D uration Value: 30 Brand Name: Biotene [...] Address Organization Details Last Updated DateTime 02/04/2024 07614.86 g 25 kg/m2 165.1 cm Patricia Harris [place] - [facility] 02/04/2024 13:15:48 Social History None recorded. Functional Status None recorded. Mental Status None recorded. Family History Nothing Reported. Medical History No medical history recorded. Past Encounters Encounter ID Performer Location Encounter Start Date Encounter Closed Date Diagnosis/Indication Diagnosis SNOMED-CT Code Diagnosis ICD10 Code Diagnosis Note [id number] RAJWINDER REYNOLDS PA-C [facility] [address] [address] 02/04/2024 12:32:02 02/04/2024 13:31:17 Impacted cerumen of bilateral ears 5640882066 180862 H61.23 Vasomotor rhinitis 28647 03 J30.0 Health Concerns Section Related Observation LastModified by Organization Detai ls LastModified Time None Recorded Concern Status LastModified by Organization Details LastModified Time None Recorded Advance Directives Directive None Recorded Payers Insurance Date Sequence Insurance Name Policy Number Policy Kennedy Covered Member ID Kennedy Member ID Guarantor Name 02/04/2024 1 [place] [employer] Mateus Beyer [id number] Mateus Beyer 02/04/2024 2 [place] [facility] Mateus Beyer [id number] Mateus Beyer Notes Date Note Type Note [...] denies otalgia and otorrhea. TEETEE BRADFORD MD [address] [place], [place] [address], [address], [facility] - [facility] 02/04/2024 16:42:51
--- OUTSIDE RECORDS SUMMARY | 2024-07-05 06:24 | XMS_ITS | Clinical Summary ---
Author Organization [facility] Address [address] [place] [address] Care Team Providers Care Advertising Sales Representative Name Role Phone MaconNicole Jo MCDOWELL Primary Care Provider [phone] Allergies No known active allergies Medications Medication [...] age to complete this topic Care Teams Advertising Sales Representative Relationship Specialty Start Date End Date Nicole Day NP [address] [place] [address] PCP - General Family Medicine 08/03/18
[2024-07-30 13:46] VITALS: BMI 25.6
--- NOTE | 2024-08-02 09:37 | HO.ANESPROP2 ---
Documented by User: Nicole Salinas NP 08/12/24 14:09 HPI - Anesthesia Eval Consult details Narrative: 69yo M for Colonoscopy s/p EGD 05/2024 with [facility] PMFSH Active Problems Active Problems: All Active Problems Pulmonary nodule 1 cm or greater in diameter (Acute) Degenerative disc disease, cervical (Acute) Cervical radiculitis (Acute) Adhesive capsulitis of shoulder (Acute) GERD (gastroesophageal reflux disease) (Acute) Rotator cuff tear arthropathy of both shoulders (Acute) Lateral epicondylitis (Acute) Rotator cuff insufficiency of left shoulder (Acute) Left shoulder pain (Acute) Impingement of right shoulder (Acute) Pulmonary nodules (Acute) Abnormal CT lung screening (Acute) Abnormal CXR (Acute) Unintended weight loss (Acute) Biceps tendonitis of both shoulders (Acute) Malnutrition (Acute) Globus pharyngeus (Acute) Osteoarthritis of left hip (Acute) Right shoulder pain (Acute) Osteoarthritis of left knee (Acute) Lumbar radiculopathy (Acute) Paresthesia of bilateral legs (Acute) Peripheral neuropathy (Acute) Biceps tendonitis on left (Acute) Left rotator cuff tear (Acute) Piriformis syndrome of right side (Acute) Tricompartment osteoarthritis of left knee (Acute) Occasional tremors (Acute) Cervical spinal stenosis (Acute) Hand weakness (Acute) PTSD (post-traumatic stress disorder) (Acute) Anxiety and depression (Acute) Past Medical History Medical History Occasional tremors Cervical spinal stenosis Hand weakness ADHD OCD (obsessive compulsive disorder) Anxiety and depression Diverticulosis Hyperlipidemia Hypertension Insomnia PTSD (post-traumatic stress disorder) Family History Family history of problems with anesthesia: No Surgical History Surgical History History of esophagogastroduodenoscopy (EGD) Hx of colonoscopy History of left hip replacement History of Problems with Anesthesia: Yes (PONV) Social History Social History Are you a primary career services representative to a significant other at home: No Do you presently have visiting nurse or other home services: No Alcohol intake: never Patient Tobacco Use Status: Former Tobacco user Current occupational status: employed and disabled Current occupation: rt handed Meds Allergies Allergy/AdvReac Type Severity Reaction Status Date / Time No Known Allergies Allergy Verified 08/05/24 12:26 Home Medications ?Medication ?Instructions ?Recorded ?Confirmed ?Last Taken ?Type clonidine HCl 0.1 mg tablet 0.1 mg PO BID 05/10/21 08/05/24 Unknown History lisinopril 30 mg tablet 30 mg PO DAILY 05/10/21 08/05/24 Unknown History trazodone 100 mg tablet 100 mg PO BEDTIME 05/10/21 08/05/24 Unknown History Exam Height,Weight and Vital Signs: Height 5 ft 5 in Weight 69.853 kg Assessment and Plan Assessment Anesthesia Assessment: Chart Reviewed Final Anesthetic Review Family History of Problems with Anesthesia: No History of Problems with Anesthesia: Yes (PONV) Documented by User: Marciano Bridges MD 08/17/24 15:13 PMFSH Past Medical History Medical History Occasional tremors Cervical spinal stenosis Hand weakness ADHD OCD (obsessive compulsive disorder) Anxiety and depression Diverticulosis Hyperlipidemia Hypertension Insomnia PTSD (post-traumatic stress disorder) Surgical History Surgical History History of esophagogastroduodenoscopy (EGD) Hx of colonoscopy History of left hip replacement Social History Social History Are you a primary career services representative to a significant other at home: No Do you presently have visiting nurse or other home services: No Alcohol intake: never Patient Tobacco Use Status: Former Tobacco user Current occupational status: employed and disabled Current occupation: rt handed Meds Allergies Allergy/AdvReac Type Severity Reaction Status Date / Time No Known Allergies Allergy Verified 08/05/24 12:26 Home Medications ?Medication ?Instructions ?Recorded ?Confirmed ?Last Taken ?Type clonidine HCl 0.1 mg tablet 0.1 mg PO BID 05/10/21 08/05/24 Unknown History lisinopril 30 mg tablet 30 mg PO DAILY 05/10/21 08/05/24 Unknown History trazodone 100 mg tablet 100 mg PO BEDTIME 05/10/21 08/05/24 Unknown History Assessment and Plan Assessment Anesthesia Assessment: Anesthesia Plan Discussed Final Anesthetic Review NPO: Yes ASA Class: III Final Preanesthetic Review: No Changes in Pt Med Stat, Meds/Allgs Chart Reviewed, Consent Obtained/Reviewed and Anes Risks/Benef Reviewed Patient Risk: Intermediate Procedure Risk: Low Anesthetic Plan Anesthetic Plan: MAC: Disposition: Standard PACU
[2024-08-03] MEDS: Lactated Ringers 1,000 ML 100 ML IVCONT (12:02)
[2024-08-03 12:03] VITALS: BP 137/84; PULSE 85; RESP 18; TEMP 36.7; O2SAT 100
--- NOTE | 2024-08-03 12:03 | PC.NURSE ---
Brittny Hickey present to help patient to remain calm and feel comfortable. Patient is being very cooperative and calm.
[2024-08-03 12:07] VITALS: BMI 25.2
--- NOTE | 2024-08-03 12:37 | P.HPSUR_ITS ---
Pre-Procedural Eval Section A - 24 Hr Update-Section A only Date of Service: 08/03/24 Section B - Complete if H&P > 30 days Chief Complaint: screening, Relevant Family History (Specify if Yes): No Relevant Social History: None Present Medications: see Short Stay Collaborative assessment Medical History: Significant History (Occasional tremors Cervical spinal stenosis Hand weakness ADHD OCD (obsessive compulsive disorder) Anxiety and depression Diverticulosis Hyperlipidemia Hypertension Insomnia PTSD (post- traumatic stress disorder)) History of Previous Operations: Relevant previous surgery/procedure and date(s) ( History of esophagogastroduodenoscopy (EGD) Hx of colonoscopy History of left hip replacement) Allergies: Allergies Allergy/AdvReac Type Severity Reaction Status Date / Time No Known Allergies Allergy Verified 08/03/24 12:09 Review of Systems Sugical H&P ROS: Negative: Constitution, Cardiovascular, Respiratory, Neurological, Psychiatric, Hem-Onc, Allergic/Immunologic, Gastrointestinal, Genitourinary, Musculoskeletal, Integumentary, Endocrine and Eyes/Ears/Nose/Throat Exam Surgical H&P Exam: Normal: HEENT, Normal: Heart, Normal: Lungs, Normal: Extremities, Normal: Abdomen, Normal: Skin and Normal: Neurological Plan Diagnosis/Plan: Unchanged I have reviewed the history and physical and performed a pertinent physical examination on my patient. No changes have occurred unless specified. Time Spent With Patient Time: Total time managing care of this patient today ____ minutes.
--- NOTE | 2024-08-03 13:46 | HO.OPN-COLON ---
Colonoscopy Operative Note Operative Note Date of Service: 08/03/24 Narrative: Operative Information Procedure Description: Colonoscopy Indication: screening Anesthesia: MAC COLONOSCOPY Instrument: Olympus variable stiffness pediatric scope 190L Colonoscopy Monitoring: Vital signs and clinical assessment, continuous EKG monitoring, Pulse oximetry, Carbon Dioxide monitoring and blood pressure monitoring were done throughout the procedure. Colon withdrawal time was 8 minutes. Procedure: The patient was placed in the left lateral decubitis position and pre-procedure medications were administered. After a digital rectal examination of the ano-rectum, the video colonoscope was inserted into the rectum and advanced through the colon to the cecum/TI. The colonoscope was slowly withdrawn in a retrograde panoramic fashion and the colon mucosa was carefully examined including a retroflexed view of the rectum. Findings and interventions are described below. Procedure Difficulty: easy Findings: Terminal Ileum-normal Cecum:normal right sided retroflexion- normal Ascending Colon: normal Transverse Colon -normal Descending Colon:normal Sigmoid Colon: normal Rectum: Retroflexion with small to medium inflammed internal hemorrhoids seen, grade I, 4-5 mm sessile polyp removed with cold forceps Anorectum - normal Intervention: cold forcep Colon preparation: [place] Bowel Preparation Scale Right colon; 1-2 Transverse colon: 1-2 Left colon; 2 (0 = Unprepared colon segment with mucosa not seen due to solid stool that cannot be cleared. 1 = Portion of mucosa of the colon segment seen, but other areas of the colon segment not well seen due to staining, residual stool and/or opaque liquid. 2 = Minor amount of residual staining, small fragments of stool and/or opaque liquid, but mucosa of colon segment seen well. 3 = Entire mucosa of colon segment seen well with no residual staining, small fragments of stool or opaque liquid) Impression and Post Procedure Diagnosis: internal hemorrhoids Plan: High fiber diet leaflet Avoid straining at stool, epsom salts and sitz bath, anusol supps or cream Repeat Colonoscopy in 1-2 years due to some areas of fair prep or earlier if clinically indicated Above findings were reviewed with the patient and relevant handouts were provided if indicated.
[2024-08-03 13:52] VITALS: BP 96/59; PULSE 74; RESP 16; TEMP 36.4; O2SAT 96
[2024-08-03 14:05] VITALS: BP 123/75; PULSE 83; RESP 16; TEMP 36.4; O2SAT 96
== END 2024-08-03 15:02 | disposition home or self-care (01) ==
PROVIDERS: PCP Nurse Practitioner Family; Visit Provider Internal Medicine Gastroenterology
PROC: 0DJD8ZZ Inspection of Lower Intestinal Tract, Via Natural or Artificial Opening Endoscopic (ICD-10-PCS; CPT 45378; principal; 2024-08-03 13:50)
DX: Z12.11 Encounter for screening for malignant neoplasm of colon (principal); K62.1 Rectal polyp; K64.0 First degree hemorrhoids; K57.30 Diverticulosis of large intestine without perforation or abscess without bleeding; I10 Essential (primary) hypertension; E78.5 Hyperlipidemia, unspecified; R25.1 Tremor, unspecified; F90.9 Attention-deficit hyperactivity disorder, unspecified type; G47.00 Insomnia, unspecified; F42.9 Obsessive-compulsive disorder, unspecified; F41.8 Other specified anxiety disorders; F43.10 Post-traumatic stress disorder, unspecified; Z79.899 Other long term (current) drug therapy; Z96.642 Presence of left artificial hip joint; Z87.891 Personal history of nicotine dependence
CPT/HCPCS: 45380; 88305; J2003; J2704

== ENCOUNTER → 2024-08-03 11:29 | Outpatient (BNV) | payer MEDICARE, MEDICAID, SELFPAY | PROVIDERS: PCP Nurse Practitioner Family; Visit Provider Internal Medicine Gastroenterology | DX: Z12.11 Encounter for screening for malignant neoplasm of colon (principal); D12.8 Benign neoplasm of rectum; K64.0 First degree hemorrhoids | CPT/HCPCS: 45380 ==

== ENCOUNTER 2024-08-05 12:02 | Outpatient (AMB) | payer MEDICARE, MEDICAID, SELFPAY ==
[2024-08-05 12:24] VITALS: BMI 25.5
--- NOTE | 2024-08-05 12:24 | A.OFFVIS_ITS ---
Vital Signs 08/05/24 12:24 Height 5 ft 5 in Weight 153 lb BMI 25.5 Intake Visit Reasons: 4mon follow-up Intake Note: Patient following up referred to spine note scanned 04/16/24; [facility] note scanned 05/17/24 Allergies No Known Allergies Allergy (Verified 08/05/24 12:26) Medication List - Last Reconciled 08/05/24 by Lupe Brennan MD celecoxib 200 mg PO BID clonidine HCl 0.1 mg PO BID cromolyn 200 mg (10 mL) PO QID 30 days cromolyn (Nasalcrom) 1 spray intranasal TID diclofenac sodium 1% (Voltaren Arthritis Pain) 4 grams topical QID esomeprazole magnesium 40 mg PO DAILY fluticasone propionate 50 mcg/actuation 1 spray intranasal BID hydrocortisone 2.5% (Procto-Med HC) 1 appl MT BEDTIME 1 week linaclotide 72 mcg PO DAILY lisinopril 30 mg PO DAILY loratadine (Claritin) 10 mg PO DAILY nitroglycerin 0.4 mg sublingual ONCE PRN pregabalin 75 mg PO BID rifaximin 550 mg PO TID 2 weeks sucralfate 10 mL PO BID sucralfate (Carafate) 1 g PO BID trazodone 100 mg PO BEDTIME vitamin A 1 cap PO DAILY HPI Comments Details: 69 Right handed male comes for f/u tremors. He was seen by Neurospine- not a surgical candidate , suggested pain management.He is anxious that he has parkinsons He feels his anxiety is poorly controlled.He says no one is helping him. He is on lorazepam . History from initial visit-He has latanya rotator cuff issues, was seen by [facility] and had plasma injection to his Right shoulder in June 2023. Since then he started noticing tremors in both his hands -which he thinks is related to plasma injection. The inner shaking starts in certain postures and action and has intermittent jerky movements. Prior to June 2023 he had a right elbow injection - he reports right hand weakness since then. He also feels his right hand is weak and he cannot lift it. His right hand is weak and has trouble some trouble with dressing. Cognition- forgetful, writes everything down Sleep- takes clonidine , trazadone - sleeps 4-4 1/2 hrs Mood- depression, OCD anxiety ,PTSD ADHD- saw a psychiatrist.not on any medications. He declined medications.He has anger issues . He does not see a psychologist either. He talks about how his sister at age 25 and his nephew was killed. [facility] Medical History Occasional tremors Cervical spinal stenosis Hand weakness ADHD OCD (obsessive compulsive disorder) Anxiety and depression Diverticulosis Hyperlipidemia Hypertension Insomnia PTSD (post-traumatic stress disorder) Surgical History History of esophagogastroduodenoscopy (EGD) Hx of colonoscopy History of left hip replacement Social History Are you a primary nurse care manager to a significant other at home: No Do you presently have visiting nurse or other home services: No Alcohol intake: never Patient Tobacco Use Status: Former Tobacco user Current occupational status: employed and disabled Current occupation: rt handed Physical Exam Vital Signs: BMI result Body Mass Index 25.5 Const General: alert, awake and anxious Nutritional Appearance: average body habitus Orientation/consciousness: patient oriented x3 Eyes Pupils: Equal, round and reactive pupils present Neuro Other: mild weakness in right shoulder General: patient oriented x3, gait normal, tone normal, moves all extremities and no focal motor deficits Cranial nerves: Yes Facial sensation intact/muscles of mastication intact, Yes Equal, round and reactive pupils present, Yes Bilaterally intact EOM present, Yes Nystagmus not present, Yes Normal facial strength present, Yes Midline tongue present, Yes Symmetric palate elevation present and Yes Ability to bi laterally elevate shoulders present Cognition (Neuro): abnormal cognition Gait exam (Neuro): Normal gait present Motor exam (neuro): 5/5 motor strength present throughout and Normal motor muscle tone present throughout Coordination: [id number] test normal Psych Speech and movement: Pressured speech present and Psychomotor agitation in speech present Affect: Anxious affect present, Depressed mood present and Irritable affect present Attitude: cooperative Thought process: Tangential thought process present Assessment & Plan Assessment & Plan (1) Occasional tremors: Comment: exaggerated physiological tremors Code(s): R25.1 - Tremor, unspecified Category: Medical (2) Cervical spinal stenosis: Code(s): M48.02 - Spinal stenosis, cervical region Category: Medical Plan Information on BHN was given with number and address given to patient counseled that his tremors are related to poorly controlled mood and no evidence of Parkinsons disease. Coding Level of Care Code Est Pt Level 4 (13133) Complex EM visit Add On G2211 Diagnoses Occasional tremors R25.1 Cervical spinal stenosis M48.02
--- OUTSIDE RECORDS SUMMARY | 2024-08-05 14:08 | XMS_ITS | Encounter Summary ---
Author Organization [facility] Address [address] [place] [address] [place] [address] Care Team Providers Care Lcsw Name Role Phone Unavailable Primary Care Provider Unavailabl e Encounter Details Date Type Department Care Team (Late st Contact Info) Description 10/12/2021 Dental Interim Note Caring [facility] Main Dental [address] [place] [address] Corry Flores, RENNY [address] [place] [address] Social History Tobacco Use Types Packs/Day Years [...]
== END 2024-08-05 13:05 | disposition home or self-care (01) ==
LOC: HO.HSMS 12:02
PROVIDERS: PCP Nurse Practitioner Family; Visit Provider Psychiatry & Neurology Neurology
DX: R25.1 Tremor, unspecified (principal); M48.02 Spinal stenosis, cervical region
CPT/HCPCS: 99214; G2211

== ENCOUNTER → 2024-08-05 12:02 | Outpatient (BNVA) | payer MEDICARE, MEDICAID, SELFPAY | PROVIDERS: PCP Nurse Practitioner Family; Visit Provider Psychiatry & Neurology Neurology | DX: M48.02 Spinal stenosis, cervical region (principal); R25.1 Tremor, unspecified | CPT/HCPCS: 99212 ==

== ENCOUNTER 2024-08-23 12:01 | Outpatient (AMB) | payer MEDICARE, MEDICAID, SELFPAY ==
[2024-08-23 12:03] VITALS: BP 152/72; PULSE 75; O2SAT 99; BMI 25.1
--- NOTE | 2024-08-23 12:03 | A.OFFVIS_ITS ---
Vital Signs 08/23/24 12:03 Height 5 ft 5 in Weight 151 lb BMI 25.1 BP 152/72 H Blood Pressure Location Lt brachial Position Sitting Pulse 75 Pulse Source Pulse Oximeter Pulse Oximetry (%) 99 Oxygen Delivery Method Room Air Intake Visit Reasons: Right shoulder numbness Cloud Engagement Partner Required: No Allergies No Known Allergies Allergy (Verified 08/23/24 12:06) Medication List - Last Reconciled 08/23/24 by Anju León, CLOUD ENGINEER celecoxib 200 mg PO BID clonidine HCl 0.1 mg PO BID cromolyn (Nasalcrom) 1 spray intranasal TID cromolyn 200 mg (10 mL) PO QID 30 days diclofenac sodium 1% (Voltaren Arthritis Pain) 4 grams topical QID esomeprazole magnesium 40 mg PO DAILY fluticasone propionate 50 mcg/actuation 1 spray intranasal BID hydrocortisone 2.5% (Procto-Med HC) 1 appl SC BEDTIME 1 week linaclotide 72 mcg PO DAILY lisinopril 30 mg PO DAILY loratadine (Claritin) 10 mg PO DAILY mesalamine ER 1.5 grams (4 x 0.375 gram) PO QAM nitroglycerin 0.4 mg sublingual ONCE PRN pregabalin 75 mg PO BID rifaximin 550 mg PO TID 2 weeks sucralfate 10 mL PO BID sucralfate (Carafate) 1 g PO BID trazodone 100 mg PO BEDTIME vitamin A 1 cap PO DAILY HPI HPI Right shoulder numbness: Details: History of Present Illness The patient is a 69-year-old male presenting with right shoulder pain and management of chronic conditions. The patient reports persistent right shoulder pain, which has been ongoing for an unspecified duration. He has been attempting home exercises using stress bands to improve strength and range of motion, noting some improvement but still experiencing significant discomfort. The patient has a history of constipation and internal hemorrhoids, for which he has been prescribed Linzess and other medications to manage symptoms. He describes episodes of explosive diarrhea following medication intake, indicating a need for adjustment in his regimen. The patient has a past medical history of diverticulitis, which required hospitalization and surgical intervention to remove a portion of his intestine. He expresses concern about potential recurrence due to recent gastrointestinal symptoms. The patient reports osteoarthritis affecting multiple joints, leading to chronic pain and functional limitations. He has tried various anti-inflammatory medications with limited success and is seeking alternative treatments. The patient also experiences trigger finger, which has been treated with corticosteroid injections, and he anticipates needing further treatment. The patient has high cholesterol and hypertension, managed with medications, and reports a recent increase in blood sugar levels, raising concerns about potential diabetes. Pain Description - Right shoulder pain: Persistent, significant discomfort despite home exercises - Osteoarthritis pain: Chronic, affecting multiple joints, leading to functional limitations Physical Exam - Appears afebrile. - Alert and oriented. - Mood and affect appropriate. - Follows and participates in conversation appropriately. - Respiratory effort is unlabored. - Able to transition from sit to stand unassisted. - Ambulates with bilaterally normal heel strike and toe off. - Able to stand and walk on toes and heels. Results Pain Management - Affect: Pain impacting daily activities and causing significant discomfort - Analgesia: Current medications include Linzess, Celebrex, and pregabalin; seeking alternative treatments for osteoarthritis - Adverse Effects: Episodes of explosive diarrhea following Linzess intake - Activities of Daily Living: Pain limits physical activities and functional capabilities - Aberrant Drug Related Behaviors: None reported [facility] Medical History Occasional tremors Cervical spinal stenosis Hand weakness ADHD OCD (obsessive compulsive disorder) Anxiety and depression Diverticulosis Hyperlipidemia Hypertension Insomnia PTSD (post-traumatic stress disorder) Surgical History History of esophagogastroduodenoscopy (EGD) Hx of colonoscopy History of left hip replacement Social History Are you a primary reproductive healthcare assistant to a significant other at home: No Do you presently have visiting nurse or other home services: No Alcohol intake: never Patient Tobacco Use Status: Former Tobacco user Current occupational status: employed and disabled Current occupation: rt handed Physical Exam Vital Signs: Last Vital Signs Pulse 75 08/23/24 12:03 BP 152/72 H 08/23/24 12:03 Pulse Ox 99 08/23/24 12:03 Oxygen Delivery Method Room Air 08/23/24 12:03 BMI result Body Mass Index 25.1 Assessment & Plan Assessment & Plan (1) Rotator cuff tear arthropathy of both shoulders: Code(s): M75.101 - Unspecified rotator cuff tear or rupture of right shoulder, not specified as traumatic; M12.811 - Other specific arthropathies, not elsewhere classified, right shoulder; M12.812 - Other specific arthropathies, not elsewhere classified, left shoulder; M75.102 - Unspecified rotator cuff tear or rupture of left shoulder, not specified as traumatic Category: Medical (2) Impingement of right shoulder: Code(s): M25.811 - Other specified joint disorders, right shoulder Category: Medical Plan Plan - Prescribed nabumetone 500 mg twice daily for osteoarthritis pain management. - Discontinued Celebrex due to inefficacy and potential side effects. - Recommended continuation of home exercises with stress bands for shoulder pain. - Advised to follow up with Dr. Rasheed for trigger finger treatment. - Suggested monitoring blood sugar levels due to recent increase and family history of diabetes. - Encouraged to maintain current hypertension and cholesterol management strategies. Patient was informed and verbally consented to the use of an ambient scribe for clinic note documentation during this visit. Discussion Notes During the visit, we discussed the management of osteoarthritis pain, including the prescription of niflumetone and discontinuation of Celebrex due to its inefficacy and potential side effects. We also reviewed the importance of continuing home exercises for shoulder pain and the need for follow-up with Dr. Rasheed for trigger finger treatment. Additionally, we addressed the patient's concerns about blood sugar levels and emphasized the importance of monitoring due to his family history of diabetes. Patient Instructions - Take niflumetone 5 mg twice daily as prescribed. - Discontinue Celebrex and monitor for any changes in symptoms. - Continue home exercises with stress bands for shoulder pain management. - Follow up with Dr. Rasheed for trigger finger treatment. - Monitor blood sugar levels regularly and report any significant changes. - Maintain current hypertension and cholesterol management strategies. Orders: Orders PT Evaluation and Treatment Today M12.811 - Other specific arthropathies, not elsewhere classified, right shoulder, M12.812 - Other specific arthropathies, not elsewhere classified, left shoulder, M25.811 - Other specified joint disorders, right shoulder, M75.101 - Unspecified rotator cuff tear or rupture of right shoulder, not specified as traumatic, M75.102 - Unspecified rotator cuff tear or rupture of left shoulder, not specified as traumatic Medications: New nabumetone 500 mg PO BID 60 tabs 0RF Discontinued celecoxib Discontinued Reason: Duplicate 200 mg PO BID 60 caps 6RF Coding Level of Care Code Est Pt Level 3 (76663) Diagnoses Rotator cuff tear arthropathy of both shoulders M75.101; M12.811; M12.812; M75.102 Impingement of right shoulder M25.811
--- OUTSIDE RECORDS SUMMARY | 2024-08-23 12:40 | XMS_ITS | Encounter Summary ---
Author Organization [facility] Address [address] [place] [address] [place] [address] Care Team Providers Care Stereotyper Apprentice Name Role Phone Unavailable Primary Care Provider Unavailabl e Encounter Details Date Type Department Care Team (Late st Contact Info) Description 10/12/2021 Dental Interim Note Caring [facility] Main Dental [address] [place] [address] Corry Flores, RENNY [address] [place] [address] Social History Tobacco Use Types Packs/Day Years [...]
== END 2024-08-23 12:25 | disposition home or self-care (01) ==
PROVIDERS: PCP Nurse Practitioner Family; Visit Provider Internal Medicine
DX: M75.101 Unspecified rotator cuff tear or rupture of right shoulder, not specified as traumatic (principal); M12.811 Other specific arthropathies, not elsewhere classified, right shoulder; M12.812 Other specific arthropathies, not elsewhere classified, left shoulder; M75.102 Unspecified rotator cuff tear or rupture of left shoulder, not specified as traumatic; M25.811 Other specified joint disorders, right shoulder
CPT/HCPCS: 99213

== ENCOUNTER → 2024-08-23 12:01 | Outpatient (BNVA) | payer MEDICARE, MEDICAID, SELFPAY | PROVIDERS: PCP Nurse Practitioner Family; Visit Provider Internal Medicine | DX: M12.812 Other specific arthropathies, not elsewhere classified, left shoulder (principal); M12.811 Other specific arthropathies, not elsewhere classified, right shoulder; M75.102 Unspecified rotator cuff tear or rupture of left shoulder, not specified as traumatic; M75.101 Unspecified rotator cuff tear or rupture of right shoulder, not specified as traumatic; M25.811 Other specified joint disorders, right shoulder; Z79.899 Other long term (current) drug therapy | CPT/HCPCS: 99212 ==

== ENCOUNTER 2024-09-06 12:52 | Outpatient (AMB) | payer MEDICARE, MEDICAID, SELFPAY ==
--- NOTE | 2024-09-06 12:58 | MHC.OFFVIS ---
Intake Visit Reasons: s/p colo Allergies No Known Allergies Allergy (Verified 08/23/24 12:06) HPI HPI s/p colo: Details: 69 yr old m here for f/u RECAP: Saw Arlene originally he had been having issues with dysphagia had balloon dilations x 5 with variable success he has had manometry at [facility] as well he had low vit A which has been replaced He had EGD 07/2022-- dilated with 17 mm bougie --there was no inlet patch He had seen [facility] recently, and was given nitroglycerin CT chest with scarred lungs and nodules EGD: 06/18- bx --normal He had colo- 08/18-- benign polyp, hemorrhoids, INTERIM: he feels mesalamine is helping still has hemorrhoid protruding out at times no n/v he has lung bx coming up he generally feels unwell EXAM: GENERAL: The patient is well developed and nontoxic. VITAL SIGNS:see workflow HEENT: Nonicteric sclerae, PERRLA, EOMI. Oropharynx clear. Moist mucous membranes. Conjunctivae appear well perfused. No thyroid mass. CHEST: Chest wall is nontender. HEART: Regular rate and rhythm without murmurs. LUNGS: Clear to auscultation bilaterally. ABDOMEN: Soft, positive bowel sounds, tender epigastrium, no organomegaly.no flank tenderness SKIN: No rash, no excessive bruising, petechiae, or purpura. NEUROLOGIC: Cranial nerves II-XII intact without motor/sensory deficit. Pscyh: pressure of speech A/P: 1/ glbus sensation, possible mechanical, nutritonal, functional, eagles syndrome from the elongated styloid process, or post nasal drip, imrpovement with Nitro prn 2/ Concern for weight loss with poor appetite, ? related to lung disease, thinks may have had asbestos inhalation in past--will get CT A/P due to ongoing sx and abn bowel habits 3/ possible low testosterone PLAN: 1/ cont mesalamine for the moment 2/ CT A/P- with IV and PO 3/ check TSH and testo levels in the AM [facility] Medical History Occasional tremors Cervical spinal stenosis Hand weakness ADHD OCD (obsessive compulsive disorder) Anxiety and depression Diverticulosis Hyperlipidemia Hypertension Insomnia PTSD (post-traumatic stress disorder) Surgical History History of esophagogastroduodenoscopy (EGD) Hx of colonoscopy History of left hip replacement Social History Are you a primary career transition specialist to a significant other at home: No Do you presently have visiting nurse or other home services: No Alcohol intake: never Patient Tobacco Use Status: Former Tobacco user Current occupational status: employed and disabled Current occupation: rt handed Assessment & Plan Assessment & Plan (1) Abnormal bowel habits: Code(s): R19.8 - Other specified symptoms and signs involving the digestive system and abdomen Category: Medical Plan: as above (2) Unintended weight loss: Code(s): R63.4 - Abnormal weight loss Category: Medical Plan: as above Orders: Orders Testosterone, Free/Total Today N52.9 - Male erectile dysfunction, unspecified, R19.8 - Other specified symptoms and signs involving the digestive system and abdomen Testosterone, Total Today N52.9 - Male erectile dysfunction, unspecified, R19.8 - Other specified symptoms and signs involving the digestive system and abdomen TSH reflex Free T4 Today R63.4 - Abnormal weight loss CT abdomen pelvis w IV con Today R19.8 - Other specified symptoms and signs involving the digestive system and abdomen Comprehensive Met. Panel Today K75.81 - Nonalcoholic steatohepatitis (VALDOVINOS) Medications: New barium sulfate 2%(w/v) (Readi-Cat 2) 900 mL PO ONCE 900 mL 0RF Coding Level of Care Code Est Pt Level 4 (99567) Diagnoses Abnormal bowel habits R19.8 Unintended weight loss R63.4
--- OUTSIDE RECORDS SUMMARY | 2024-09-06 13:50 | XMS_ITS | Clinical Summary ---
Author Organization [facility] Address [address] [place] [address] Care Team Providers Care Database Marketing Analyst Name Role Phone ShayNicole Jo CMDOWELL Primary Care Provider Allergies No known active [...] 1 - PCV) 2022 Influenza Vaccine (#1) 2024 RSV Adult > 60+ Yrs or Pregn ant (1 - 1-dose 75+ series) 2032 Hepatitis B Vaccines Aged Out No long er eligible based on patient's age to complete this topic RSV Ped < 20 months Aged Out No longe r eligible based on patient's age to complete this topic Care Teams Database Marketing Analyst Relationship Specialty Start Date End Date Nicole Day NP [address] [place] [address] PCP - General Family Medicine 08/03/18
--- OUTSIDE RECORDS SUMMARY | 2024-09-06 13:50 | XMS_ITS | Encounter Summary ---
Author Organization [facility] Address [address] [place] [address] [place] [address] Care Team Providers Care Power Plant Superintendent Name Role Phone Unavailable Primary Care Provider Unavailabl e Encounter Details Date Type Department Care Team (Late st Contact Info) Description 10/12/2021 Dental Interim Note Caring [facility] Main Dental [address] [place] [address] Corry Flores, RENNY [address] [place] [address] Social History Tobacco Use Types Packs/Day Years [...]
--- OUTSIDE RECORDS SUMMARY | 2024-09-06 13:50 | XMS_ITS | Data Portability ---
Author Organization [place] - [facility], Allergy Address [address] [address] Care Team Providers Care Seismic Interpreter Name Role Phone ARAM SALEH Primary Care [...] to PTSD [email or web address] Not available 02/04/2024 13:40:23 08/04/2024 08/04/2024 Chronic vasomotor rhinitis with eating. Suggest using the ipratropium bromide prior to meals. No evidence of any cerumen or masses. Return annually [email or web address] Not available 08/04/2024 13:23:21 Plan of Treatment Reminders Order Date Submit Date Provider Last Modified By Organization Details Last Modified Time Details Appointments Establish ed 30 2025 01:00P M TEETEE FIELD MD Not available Not available Not available Lab None recorded. Referral None recorded. Procedures None recorded. Surgeries None recorded. Imaging None recorded. Medication Orders ipratropi um bromide 21 mcg (0.03 %) nasal spray 2024 025 [employer] [id number], [address] [place], [place], [id number], 08/06/2024 15:56:22 ipratropi um bromide 42 mcg (0.06 %) nasal spray 2023 024 [id number], [address] [place], [place], [id number], 02/04/2024 13:37:52 Patient TargetsNo targets recorded. Patient InstructionsNo instructions recorded. Reason for Referral None Reported. Problems Name Problem SNOMED Code Status Onset Date Resolution Date Notes Provider Name and Address Organization Details Recorded Time Edema of larynx 13628417 Active 2023 Edema of larynx; Note: Date Diagnosed : 05/14/2023 1:25 PM (J38.4) Not Available [facility] 4 02:57:06 Disturban ce of salivary secretion 97910366 Active 2023 Xerostomi a; Note: Date Diagnosed : 05/14/2023 1:25 PM (K11.7) Not Available [facility] 4 02:57:06 Chronic rhinitis 55367679 Active 2023 Chronic rhinitis; Note: Date Diagnosed : 05/14/2023 1:25 PM (J31.0) Not Available [facility] 4 02:57:06 Hypertrop hy of tongue papillae 2626927 Active 2023 Coated tongue; Note: Date Diagnosed : 06/26/2023 3:49 PM (K14.3) Not Available [facility] 4 02:57:06 Gastroeso phageal reflux disease without esophagit is 115224088 Active 2023 Esophagea l reflux NOS; Note: Date Diagnosed : 05/14/2023 1:25 PM (K21.9) Not Available [facility] 4 02:57:07 Impacted cerumen of bilateral ears 65089428682 60285 Active 2023 Impacted cerumen, bilateral ; Note: Date Diagnosed : 06/26/2023 3:49 PM (H61.23) Not Available [facility] 4 02:57:07 Vasomotor rhinitis 9874942 Active 2023 Vasomotor rhinitis; Note: Date Diagnosed : 06/26/2023 3:48 PM (J30.0) Not Available [facility] 4 02:57:08 Problem Notes None recorded. Procedures Surgical History Date Name Laterality Status Provider Name and Address Organization Details Recorded Time 5 JMSNasal/Sinus Endoscopy completed TEETEE BRADFORD MD [address] [facility],[place] [address], [place], [address], [facility] 08/04/2024 13:22:20 4 Cerumen removal without microscope bilat completed RAJWINDER REYNOLDS PA-C 100 [facility], [place], [address], [facility] 02/04/2024 13:36:49 Imaging Results None recorded. Procedure Notes None recorded. Medical Equipment None Reported. Allergies No known drug allergies Medications Name Sig Start Date Stop Date Status Note LastModified by Organization Details LastModified Time multivita min tablet TAKE 1 TABLET BY MOUTH EVERY DAY active Not Available Not Available No t Available celecoxib 200 mg capsule TAKE 1 CAPSULE BY MOUTH TWICE DAILY active Not Available Not Available No t Available methocarb naveed 500 mg tablet 08/04 completed Medicati on ID: [id number] B rand Name: methocar bamol Se nd Method: E-Prescr ibed Sub s Allowed: subs OK Medic ationGen ericName : methocar bamol Not Available Not Available Not Available nystatin 100,000 unit/mL oral suspensio n SWISH AND SWALLOW 1 ML BY MOUTH FOUR TIMES DAILY FOR 14 DAYS 08/04 completed Not Available Not Available Not Available clonidine HCl 0.1 mg tablet TAKE 1 TABLET BY MOUTH TWICE DAILY active Not Available Not Available No t Available Saline Mist 0.65 % nasal spray aerosol 08/04 completed Medicati on ID: [id number] D uration Value: 30 Brand Name: Saline Mist Sen d Method: E-Prescr ibed Sub s Allowed: subs OK Speci al Instruct ion: 2 sprays in both nostrils 4-6 times daily as needed M edicatio nGeneric Name: Saline Mist Not Available Not Available Not Available sucralfat e 100 mg/mL oral suspensio n SHAKE LIQUID AND TAKE 10 ML BY MOUTH TWICE DAILY 08/04 completed Not Available Not Available Not Available sucralfat e 1 gram tablet TAKE 1 TABLET BY MOUTH TWICE DAILY active Not Available Not Available No t Available acetamino phen 500 mg tablet 08/04 completed Not Available Not Available Not Available oxycodone -acetamin ophen 5 mg-325 mg tablet TAKE 1 TABLET BY MOUTH TWICE DAILY NEEDED FOR PAIN 08/04 completed Not Available Not Available Not Available hydrocort isone 2.5 % topical cream with perineal applicato r APPLY RECTALLY TO THE AFFECTED AREA AT BEDTIME FOR 1 WEEK active Not Available Not Available No t Available vitamin A 3,000 mcg (10,000 unit) capsule TAKE 1 CAPSULE BY MOUTH ONCE DAILY active Not Available Not Available No t Available lorazepam 0.5 mg tablet TAKE 1 TO 2 TABLETS BY MOUTH TWICE DAILY NEEDED FOR ANXIETY 08/04 completed Not Available Not Available Not Available pravastat in 10 mg tablet TAKE 1 TABLET BY MOUTH DAILY AT BEDTIME active Not Available Not Available No t Available trazodone 100 mg tablet TAKE 1 TABLET BY MOUTH DAILY AT BEDTIME active Not Available Not Available No t Available diazepam 2 mg tablet TAKE 2 TABLETS BY MOUTH TWICE DAILY 08/04 completed Not Available Not Available Not Available esomepraz ole magnesium 40 mg capsule,d elayed release TAKE 1 CAPSULE BY MOUTH DAILY active Not Available Not Available No t Available ibuprofen 400 mg tablet TAKE 1 TABLET BY MOUTH THREE TIMES DAILY NEEDED FOR PAIN 08/04 completed Not Available Not Available Not Available nitroglyc buck 0.4 mg sublingua l tablet DISSOLVE 1 TABLET UNDER THE TONGUE EVERY DAY NEEDED FOR CHEST PAIN DIRECTED active Not Available Not Available No t Available lisinopri l 30 mg tablet TAKE 1 TABLET BY MOUTH DAILY active Not Available Not Available No t Available hydroxyzi ne HCl 25 mg tablet 08/04 completed Not Available Not Available Not Available lorazepam 1 mg tablet TAKE 1 TABLET BY MOUTH TWICE DAILY NEEDED FOR ANXIETY active Not Available Not Available No t Available methylpre dnisolone 4 mg tablets in a dose pack FOLLOW PACKAGE DIRECTIO NS FOR 6 DAYS 08/04 completed Not Available Not Available Not Available ipratropi um bromide 42 mcg (0.06 %) nasal spray USE 2 SPRAYS IN EACH NOSTRIL THREE TIMES DAILY 15 MINUTES BEFORE MEALS active Not Available Not Available No t Available fluticaso ne propionat e 50 mcg/actua tion nasal spray,taz pension 05/13 completed Medicati on ID: [id number] B rand Name: fluticas one propiona te Send Method: E-Prescr ibed Sub s Allowed: subs OK Speci al Instruct ion: SHAKE LIQUID AND USE 1 SPRAY IN EACH NOSTRIL TWICE DAILY Me dication GenericN nasreen: fluticas one propiona te Not Available Not Available Not Available sodium fluoride 1.1 % dental gel PLACE IN MOUTH ONCE DAILY FOR 30 DAYS. 08/04 completed Not Available Not Available Not Available ipratropi um bromide 21 mcg (0.03 %) nasal spray USE 2 SPRAYS IN EACH NOSTRIL THREE TIMES DAILY active Not Available Not Available No t Available bupropion HCl XL 150 mg 24 hr tablet, extended release TAKE 1 TABLET BY MOUTH EVERY 24 HOURS 08/04 completed Not Available Not Available Not Available duloxetin e 60 mg capsule,d elayed release TAKE 1 CAPSULE BY MOUTH DAILY active Not Available Not Available No t Available pregabali n 75 mg capsule TAKE 1 CAPSULE BY MOUTH TWICE DAILY active Not Available Not Available No t Available quetiapin e 50 mg tablet TAKE 1 TABLET BY MOUTH DAILY AT BEDTIME 08/04 completed Not Available Not Available Not Available mesalamin e ER 0.375 gram capsule,e xtended release 24 hr TAKE 4 CAPSULES BY MOUTH EVERY MORNING active Not Available Not Available No t Available quetiapin e ER 50 mg tablet,ex tended release 24 hr TAKE 1 TABLET BY MOUTH DAILY AT BEDTIME active Not Available Not Available No t Available Allergy Relief (fexofena dine) 180 mg tablet 05/13 completed Medicati on ID: [id number] B rand Name: Allergy Relief (fexofen adine) S end Method: E-Prescr ibed Sub s Allowed: subs OK Mynori al Instruct ion: TAKE ONE TABLET BY MOUTH DAILY. Jasmin Johnston Name: Allergy Relief (fexofen adine) Not Available Not Available Not Available Biotene Dry Mouth Oral Rinse mouthwash 2023 active Medicati on ID: [id number] D uration Value: 30 Brand Name: Biotene [...] No t Available Vitals Date Recorded Body height Body mass index (BMI) Body weight Provider Name and Address Organization Details Last Updated DateTime 08/04/2024 165.1 cm 25.5 kg/m2 70976.63 g Haydee Velazquezsage [facility] 08/04/2024 13:02:37 Date Recorded Body weight Body mass index (BMI) Body height Provider Name and Address Organization Details Last Updated DateTime 02/04/2024 06092.86 g 25 kg/m2 165.1 cm Patricia Harris [facility] 02/04/2024 13:15:48 Social History None recorded. Functional Status None recorded. Mental Status None recorded. Family History Nothing Reported. Medical History No medical history recorded. Past Encounters Encounter ID Performer Location Encounter Start Date Encounter Closed Date Diagnosis/Indication Diagnosis SNOMED-CT Code Diagnosis ICD10 Code Diagnosis Note [id number] RAJWINDER REYNOLDS PA-C [facility] [address] [address] 02/04/2024 12:32:02 02/04/2024 13:31:17 Impacted cerumen of bilateral ears 2368444881 220429 H61.23 Vasomotor rhinitis 64741 03 J30.0 [id number] TEETEE KASPER MD [facility] [address] [address] 08/04/2024 12:54:24 08/04/2024 13:25:35 Gastroesophageal reflux disease without esophagitis 705034158 K21.9 Dietary modificati ons discuss Vasomotor rhinitis 03786 03 J30.0 Use the Atrovent 20 min before meals Health Concerns Section Related Observation LastModified by Organization Detai ls LastModified Time None Recorded Concern Status LastModified by Organization Details LastModified Time None Recorded Advance Directives Directive None Recorded Payers Insurance Date Sequence Insurance Name Policy Number Policy Kennedy Covered Member ID Kennedy Member ID Guarantor Name 08/01/2024 1 MEDICARE B-[place]: [facility] [employer] Mateus Beyer [id number] Mateus Beyer 08/01/2024 2 [place]: [facility] Mateus Beyer [id number] Mateus Beyer Notes Date Note Type Note [...] denies otalgia and otorrhea. TEETEE BRADFORD MD [address] [place] [address],[address], [address], [facility] - [facility] 02/04/2024 16:42:51 08/04/2024 text/html Pt with hx of GE RD and PTSD. Has rhinorrhea with eating. Using Atrovent after eatingChronic issues iwht burping and flatulence TEETEE BRADFORD MD [address] [place] [address],[place] [address], [place], [address], [facility] - [facility] 08/04/2024 13:24:08
== END 2024-09-06 13:45 | disposition home or self-care (01) ==
LOC: HO.HGI 12:53
PROVIDERS: PCP Nurse Practitioner Family; Visit Provider Internal Medicine Gastroenterology
DX: R19.8 Other specified symptoms and signs involving the digestive system and abdomen (principal); R63.4 Abnormal weight loss
CPT/HCPCS: 99214

== ENCOUNTER → 2024-09-06 12:52 | Outpatient (BNVA) | payer MEDICARE, MEDICAID, SELFPAY | PROVIDERS: PCP Nurse Practitioner Family; Visit Provider Internal Medicine Gastroenterology | DX: R19.8 Other specified symptoms and signs involving the digestive system and abdomen (principal); R63.4 Abnormal weight loss; K75.81 Nonalcoholic steatohepatitis (NASH); N52.9 Male erectile dysfunction, unspecified | CPT/HCPCS: 99212 ==

== ENCOUNTER 2024-10-08 11:09 | Outpatient (REF) | payer MEDICARE, MEDICAID, SELFPAY ==
--- NOTE | ~2024-10-08 | CT_ITS ---
CLINICAL HISTORY: R19.8 - Other specified symptoms and signs involving the digestive syste... --- Additional Notes or Special Instructions: general malaise, and poor appetite, abn bowel habits CT abdomen and pelvis with contrast Comparison: CT/NH/SR - CT ABDOMEN PELVIS W IV CON - 08/30/22 15:19 EDT Findings: The liver is normal in size without suspicious focal hepatic lesions. No intrahepatic or extrahepatic ductal dilatation is seen. The hepatic and portal veins are patent. There are gallstones in the gallbladder. Pancreas, spleen and adrenals are normal in appearance. No suspicious focal lesion of the kidneys. No hydronephrosis or calculi. The abdominal aorta demonstrates no evidence of aneurysmal dilatation or dissection. The colon is without wall thickening or inflammatory change. No evidence of bowel obstruction. Stool impaction in the rectum. Appendix is not visualized. Evaluation of the pelvis is limited by the artifact. No intraperitoneal free air or fluid is visualized. No pathologic lymphadenopathy is seen. Right hip replacement. Degenerative changes of the lumbar spine. IMPRESSION: Cholelithiasis. Stool impaction of the rectum. This document has been electronically signed by: Thomas Chapa MD on 10/08/2024 15:54:07
--- NOTE | ~2024-10-08 | CT_ITS ---
CLINICAL HISTORY: R91.1 - Solitary pulmonary nodule CT chest without contrast Comparison: CT/SR - CT CHEST WO IV CON - 07/01/24 13:04 EDT Findings: The heart is normal size. Atherosclerosis calcification of the coronary artery. The visualized thyroid and mediastinum are unremarkable. Calcified granulomas. Scarring of the left lung. Stable 1.5 cm nodular density of the lingula series 4, image 96. No acute fractures. IMPRESSION: Stable nodular density of the lingula. CT chest follow-up in 6 months is recommended. This document has been electronically signed by: Thomas Chapa MD on 10/08/2024 15:38:26
--- OUTSIDE RECORDS SUMMARY | 2024-10-08 11:17 | XMS_ITS | Clinical Summary ---
Author Organization [facility] Address [address] [place] [address] Care Team Providers Care Marine Resource Economist Name Role Phone [place]Nicole Jo MCDOWELL Primary Care Provider [phone] Allergies No known active allergies Medications Medication [...] age to complete this topic Care Teams Marine Resource Economist Relationship Specialty Start Date End Date Nicole Day NP [address] [place] [address] PCP - General Family Medicine 08/03/18
--- OUTSIDE RECORDS SUMMARY | 2024-10-08 11:17 | XMS_ITS | Encounter Summary ---
Author Organization [facility] Address [address] [place] [address] [place] [address] Care Team Providers Care Assistant Softball Coach Name Role Phone Unavailable Primary Care Provider Unavailabl e Encounter Details Date Type Department Care Team (Late st Contact Info) Description 10/12/2021 Dental Interim Note [facility]aring [facility] Main Dental [address] [place] [address] Corry Flores, RENNY [address] [place] [address] Social History Tobacco Use Types Packs/Day Years [...]
[2024-10-08 12:31] LABS: Alanine Aminotransferase 23 U/L (0-40); Albumin Level 5.0 g/dL (3.5-5.0); Alkaline Phosphatase 96 U/L (39-117); Anion Gap 16 (12-20); Aspartate Amino Transferase 26 U/L (5-37); Blood Urea Nitrogen 26 mg/dL (9-16); Calcium 9.9 mg/dL (8.4-10.2); Carbon Dioxide 25 mmol/L (22-29); Chloride 98 mmol/L (96-108); Estimated Glomerular Filt Rate > 60; Potassium 4.6 mmol/L (3.3-5.1); Sodium 134 mmol/L (135-145); Total Protein 7.5 g/dL (6.5-8.0)
[2024-10-08] MEDS: iohexoL 350 MG/ML 100 ML INFUS..BTL IV (14:50)
[2024-10-08] MEDS: Barium Sulfate Oral (Vanilla) 450 ML ORAL.SUSP 900 ML PO (14:50)
== END 2024-10-08 11:10 | disposition home or self-care (01) ==
LOC: HO.CT 11:09
PROVIDERS: Internal Medicine Gastroenterology; PCP Nurse Practitioner Family; Visit Provider Internal Medicine Pulmonary Disease
DX: R19.8 Other specified symptoms and signs involving the digestive system and abdomen (principal); R91.1 Solitary pulmonary nodule; N52.9 Male erectile dysfunction, unspecified; R63.4 Abnormal weight loss; K75.81 Nonalcoholic steatohepatitis (NASH)
CPT/HCPCS: 36415; 71250; 74177; 80053; 84402; 84403; 84443; Q9967

== ENCOUNTER → 2024-10-08 11:13 | Outpatient (BNV) | payer MEDICARE, MEDICAID, SELFPAY | PROVIDERS: PCP Nurse Practitioner Family; Visit Provider Nuclear Medicine | DX: K56.41 Fecal impaction (principal); R91.1 Solitary pulmonary nodule | CPT/HCPCS: 71250; 74177 ==

== ENCOUNTER 2024-10-20 11:16 | Outpatient (AMB) | payer MEDICARE, MEDICAID, SELFPAY ==
[2024-10-20 11:21] VITALS: BP 132/64; PULSE 68; O2SAT 100; BMI 25.6
--- NOTE | 2024-10-20 11:21 | MHC.OFFVIS ---
Vital Signs 10/20/24 11:21 Height 5 ft 5 in Weight 154 lb BMI 25.6 BP 132/64 Blood Pressure Location Lt brachial Position Sitting Pulse 68 Pulse Source Pulse Oximeter Pulse Oximetry (%) 100 Oxygen Delivery Method Room Air Intake Visit Reasons: CT Scan results Allergies No Known Allergies Allergy (Verified 10/20/24 11:27) HPI HPI CT Scan results: Details: 69-year-old gentleman, minimal smoker in his 20, with no history of exposure to industrial dusts no follow-up for newly noted pulmonary nodule up to 1.8 cm. Patient had a follow-up CT chest in 3 months from prior that shows the index nodule to be 1.5 cm. Patient also had a negative PET scan and thoracic surgery evaluation. [facility] Medical History Occasional tremors Cervical spinal stenosis Hand weakness ADHD OCD (obsessive compulsive disorder) Anxiety and depression Diverticulosis Hyperlipidemia Hypertension Insomnia PTSD (post-traumatic stress disorder) Surgical History History of esophagogastroduodenoscopy (EGD) Hx of colonoscopy History of left hip replacement Social History Are you a primary geriatric personal care aide to a significant other at home: No Do you presently have visiting nurse or other home services: No Alcohol intake: never Patient Tobacco Use Status: Former Tobacco user Current occupational status: employed and disabled Current occupation: rt handed Physical Exam Vital Signs: Last Vital Signs Pulse 68 10/20/24 11:21 BP 132/64 10/20/24 11:21 Pulse Ox 100 10/20/24 11:21 Oxygen Delivery Method Room Air 10/20/24 11:21 BMI result Body Mass Index 25.6 Const General: no acute distress and alert Nutritional Appearance: not obese Orientation/consciousness: Other orientation findings ( oriented) HEENT Head: Yes atraumatic Eyes General: appearance normal, both eyes and all related structures Sclerae: sclerae normal EOM: EOMs intact bilaterally Neck Neck: Yes supple Lymphatic: no lymphadenopathy noted Resp Effort & Inspection: normal respiratory effort and no use of accessory muscles Cardio Rate: regular rate Skin General skin exam: other ( warm) Extrem General: No clubbing, No cyanosis and No edema Assessment & Plan Assessment & Plan (1) Pulmonary nodule 1 cm or greater in diameter: Code(s): R91.1 - Solitary pulmonary nodule Category: Medical Plan: Three months follow-up CT showing decreasing size to 1.5 cm, will repeat CT chest in 6 months. Orders: Orders CT chest wo IV con 04/22/25 R91.1 - Solitary pulmonary nodule Coding Level of Care Code Est Pt Level 3 (16311) Diagnoses Pulmonary nodule 1 cm or greater in diameter R91.1
--- OUTSIDE RECORDS SUMMARY | 2024-10-20 12:10 | XMS_ITS | Encounter Summary ---
Author Organization [facility] Address PO [address] [address] Care Team Providers Care Abstract Writer Name Role Phone Unavailable Primary Care Provider Unavailabl e Encounter Details Date Type Department Care Team (Late st Contact Info) Description 08/24/2021 Dental Interim Note Caring [facility] Dental [address] [place] [address] Corry Flores DMD [address] [place] [address] Social History Tobacco Use Types Packs/Day Years [...]
--- OUTSIDE RECORDS SUMMARY | 2024-10-20 12:10 | XMS_ITS | Clinical Summary ---
Author Organization [facility] Address [address] [place] [address] [place] [address] Care Team Providers Care Body Joiner Name Role Phone Unavailable Primary Care Provider [...] 2 Refills, Soft Stop, 07/07/20 13:00:00 EDT, [facility]/pharmacy #[id number], Partial fill upon patient request if the [...] Fecal DNA 2002 Flexible Sigmoidoscopy 2002 Imm-Pneumococcal 50+ (1 of 1 - PCV) 06/20/2007 Imm-Zoster, Recombinant (1 of 2) 06/20/2007 Falls Prevention 2022 [id number] (1 - season) 2023 Alcohol and Drug Screen 02/25/2024 Dental BW 08/01/2024 07/31/2023, 06/2022, 01/30/2022, Additional history exists Dental Examination 08/01/2024 07/31/2023, 1 03/31/2022, 01/30/2022, Additional history exists Dental Perio Charting 08/01/2024 07/31/2023, 022 Dental Prophy 08/01/2024 07/31/2023, 06/2022, 01/30/2022, Additional history exists Imm-Influenza (#1) 2024 Imm-DTaP/Tdap/Td (2 - Td or Tdap) 07/09/2028 019 Procedures Procedure Name Priority Date/Time Associated Diagnosis Comments COMP PERIODONTAL EVALUATION - NEW/EST PATIENT Routine 07/31/2023 1:00 PM EDT Caries Encounter for dental examination BITEWINGS - FOUR RADIOGRAPHIC IMAGES Routine 07/31/2023 1:00 PM EDT Caries Defective dental mosque Encounter for dental examination PROPHYLAXIS - ADULT Routine 07/31/2023 1 :00 PM EDT Caries Encounter for dental examination PERIODIC ORAL EVALUATION ESTABLISHED PATIENT Routine 07/31/2023 1:00 PM EDT Caries Encounter for dental examination from Last 3 Months or Most Recently Relevant to Health [place]
--- OUTSIDE RECORDS SUMMARY | 2024-10-20 12:10 | XMS_ITS | Clinical Summary ---
Author Organization [facility] Address [address] [place] [address] Care Team Providers Care Manufacturer Agent Name Role Phone PlymouthNicole Jo MCDOWELL Primary Care Provider [phone] Allergies No known active allergies Medications Medication [...] age to complete this topic Care Teams Manufacturer Agent Relationship Specialty Start Date End Date Nicole Day NP [address] [place] [address] PCP - General Family Medicine 08/03/18
--- OUTSIDE RECORDS SUMMARY | 2024-10-20 12:10 | XMS_ITS | Encounter Summary ---
Author Organization [facility] Address PO [place] [address] [place] [address] Care Team Providers Care Blanching Machine Operator Name Role Phone Unavailable Primary Care Provider Unavailabl e Encounter Details Date Type Department Care Team (Late st Contact Info) Description 10/12/2021 Dental Interim Note Caring [facility] Main Dental [address] [place] [address] Corry Flores, RENNY [address] [place] [address] Social History Tobacco Use Types Packs/Day Years [...]
== END 2024-10-20 11:43 | disposition home or self-care (01) ==
LOC: HO.HPS 11:17
PROVIDERS: PCP Nurse Practitioner Family; Visit Provider Internal Medicine Pulmonary Disease
DX: R91.1 Solitary pulmonary nodule (principal)
CPT/HCPCS: 99213

== ENCOUNTER → 2024-10-20 11:16 | Outpatient (BNVA) | payer MEDICARE, MEDICAID, SELFPAY | PROVIDERS: PCP Nurse Practitioner Family; Visit Provider Internal Medicine Pulmonary Disease | DX: R91.1 Solitary pulmonary nodule (principal) | CPT/HCPCS: 99212 ==

== ENCOUNTER 2024-11-02 13:10 | Outpatient (REF) | payer MEDICARE, MEDICAID, SELFPAY ==
--- OUTSIDE RECORDS SUMMARY | 2024-11-02 18:23 | XMS_ITS | Encounter Summary ---
Author Organization [facility] Address [address] [place] [address] [place] [address] Care Team Providers Care Data Collection Technician Name Role Phone Unavailable Primary Care Provider Unavailabl e Encounter Details Date Type Department Care Team (Late st Contact Info) Description 10/12/2021 Dental Interim Note [facility] Main Dental [address] [place] [address] Corry Flores, RENNY [address] [place] [address] Social History Tobacco Use Types Packs/Day Years [...]
--- OUTSIDE RECORDS SUMMARY | 2024-11-02 18:23 | XMS_ITS | Clinical Summary ---
Author Organization [facility] Address PO [place] [address] [place] [address] Care Team Providers Care Call Taker Name Role Phone Unavailable Primary Care Provider [...] 2 Refills, Soft Stop, 07/07/20 13:00:00 EDT, [facility]/pharmacy #[id number], Partial fill upon patient request if the [...] (1 of 2) 06/20/2007 Falls Prevention 2022 Alcohol and Drug Screen 02/25/2024 Dental BW 08/01/2024 07/31/2023, 0 06/2022, 01/30/2022, Additional history exists Dental Examination 08/01/2024 07/31/2023, 1 03/31/2022, 01/30/2022, Additional history exists Dental Perio Charting 08/01/2024 07/31/2023, 022 Dental Prophy 08/01/2024 07/31/2023, 06/2022, 01/30/2022, Additional history exists [id number] (1 - season) 2024 Imm-Influenza (#1) 2024 Imm-DTaP/Tdap/Td (2 - Td or Tdap) 07/09/2028 019 Procedures Procedure Name Priority Date/Time Associated Diagnosis Comments COMP PERIODONTAL EVALUATION - NEW/EST PATIENT Routine 07/31/2023 1:00 PM EDT Caries Encounter for dental examination BITEWINGS - FOUR RADIOGRAPHIC IMAGES Routine 07/31/2023 1:00 PM EDT Caries Defective dental amish Encounter for dental examination PROPHYLAXIS - ADULT Routine 07/31/2023 1 :00 PM EDT Caries Encounter for dental examination PERIODIC ORAL EVALUATION ESTABLISHED PATIENT Routine 07/31/2023 1:00 PM EDT Caries Encounter for dental examination from Last 3 Months or Most Recently Relevant to Health Maintenance [place]
--- OUTSIDE RECORDS SUMMARY | 2024-11-02 18:23 | XMS_ITS | Encounter Summary ---
Author Organization [facility] Address PO [place] [address] [place] [address] Care Team Providers Care Information Systems Planner Name Role Phone Unavailable Primary Care Provider Unavailabl e Encounter Details Date Type Department Care Team (Late st Contact Info) Description 08/24/2021 Dental Interim Note [facility] Dental [address] [place] [address] Corry Flores DMD [address] [place] [address] Social History Tobacco Use Types Packs/Day Years [...]
== END 2024-11-02 13:11 | disposition home or self-care (01) ==
LOC: HO.LNP 13:10
PROVIDERS: PCP Nurse Practitioner Family; Visit Provider Urology
DX: N52.9 Male erectile dysfunction, unspecified (principal); R39.11 Hesitancy of micturition; Z13.89 Encounter for screening for other disorder
CPT/HCPCS: 51798; 81003; 88112; 99202

== ENCOUNTER 2024-11-02 13:10 | Outpatient (AMB) | payer MEDICARE, MEDICAID, SELFPAY ==
--- NOTE | 2024-11-02 13:13 | MHC.OFFVIS ---
Intake Visit Reasons: dysuria Intake Note: New Patient is present for dysuria Urology Rx:none PVR:22mls Blood Thinners:none Imaging completed: none Marine Engine Mechanic Required: No Accompanied by: Self / Same As Patient Allergies No Known Allergies Allergy (Verified 11/02/24 13:14) HPI Comments Details: - erectile deficiency - urinary urgency Microhematuria Imaging - 10/18 CT of the pelvis NAD Urinary hesitancy Start terazosin Bladder ultrasound 2 month follow-up uroflow PFSH Medical History Occasional tremors Cervical spinal stenosis Hand weakness ADHD OCD (obsessive compulsive disorder) Anxiety and depression Diverticulosis Hyperlipidemia Hypertension Insomnia PTSD (post-traumatic stress disorder) Surgical History History of esophagogastroduodenoscopy (EGD) Hx of colonoscopy History of left hip replacement Social History Are you a primary home health care respiratory therapist to a significant other at home: No Do you presently have visiting nurse or other home services: No Alcohol intake: never Patient Tobacco Use Status: Former Tobacco user Current occupational status: employed and disabled 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 Procedures Post Void Residual Post Residual Void Post Void Residual (PVR): 22 [id number] Void Residual by ultrasound Results AMB Urinalysis, Automated UA Leukoctes 0 Brent/uL Last Edit by SHIN Lord on 11/02/24 14:55 UA Nitrite Negative Last Edit by SHIN Lord on 11/02/24 14:55 UA Urobilinogen 0.2 mg/dL Last Edit by SHIN Lord on 11/02/24 14:55 UA Protein 0 mg/dL Last Edit by SHIN Lord on 11/02/24 14:55 UA pH 6.0 Last Edit by SHIN Lord on 11/02/24 14:55 UA Blood 80 Rodney/uL Last Edit by SHIN Lord on 11/02/24 14:55 UA Specific [place] 1.015 Last Edit by SHIN Lord on 11/02/24 14:55 UA Ketone Negative Last Edit by SHIN Lord on 11/02/24 14:55 UA Bilirubin 0 mg/dL Last Edit by SHIN Lord on 11/02/24 14:55 UA Glucose 0 mg/dL Last Edit by SHIN Lord on 11/02/24 14:55 Assessment & Plan Assessment & Plan Orders: Orders AMB Urinalysis Automated Today Z13.9 - Encounter for screening, unspecified US bladder Today R39.11 - Hesitancy of micturition Urine Cytology Today N39.0 - Urinary tract infection, site not specified AMB Post Void Residual by ultrasound Today N52.9 - Male erectile dysfunction, unspecified Medications: New terazosin 5 mg PO BEDTIME 30 days 30 caps 1RF R39.11 - Hesitancy of micturition Coding CPT Codes Post Residual Void - PVR CPT Code: [id number]-[id number] Void Residual by ultrasound ([id number])
--- OUTSIDE RECORDS SUMMARY | 2024-11-02 15:31 | XMS_ITS | Clinical Summary ---
Author Organization [facility] Address [address] [place] [address] Care Team Providers Care Care Worker Name Role Phone ShayNicole Jo MCDOWELL Primary Care Provider [phone] Allergies No known active allergies Medications Medication [...] age to complete this topic Care Teams Care Worker Relationship Specialty Start Date End Date Nicole Day NP [address] [place] [address] PCP - General Family Medicine 08/03/18
== END 2024-11-02 13:52 | disposition home or self-care (01) ==
LOC: HO.HUSH 13:10
PROVIDERS: PCP Nurse Practitioner Family; Visit Provider Urology
DX: Z13.9 Encounter for screening, unspecified (principal)

== ENCOUNTER 2024-11-04 11:20 | Outpatient (AMB) | payer MEDICARE, MEDICAID, SELFPAY ==
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
[2024-11-04 11:41] VITALS: BP 100/60; PULSE 70; RESP 16; TEMP 36.4; O2SAT 98; BMI 27.3
--- OUTSIDE RECORDS SUMMARY | 2024-11-04 15:39 | XMS_ITS | Clinical Summary ---
Author Organization [facility] Address [address] [place] [address] [place] [address] Care Team Providers Care Rig Superintendent Name Role Phone Unavailable Primary Care [...] 2 Refills, Soft Stop, 07/07/20 13:00:00 EDT, [facility]/pharmacy #[id number], Partial fill upon patient request if the [...] 08/01/2024 07/31/2023, 06/2022, 01/30/2022, Additional history exists [id number] (1 - season) 2024 Imm-Influenza (#1) 2024 Imm-DTaP/Tdap/Td (2 - Td or Tdap) 07/09/2028 019 Procedures Procedure Name Priority Date/Time Associated Diagnosis Comments COMP PERIODONTAL EVALUATION - NEW/EST PATIENT Routine 07/31/2023 1:00 PM EDT Caries Encounter for dental examination BITEWINGS - FOUR RADIOGRAPHIC IMAGES Routine 07/31/2023 1:00 PM EDT Caries Defective dental oriental orthodox Encounter for dental examination PROPHYLAXIS - ADULT Routine 07/31/2023 1 :00 PM EDT Caries Encounter for dental examination PERIODIC ORAL EVALUATION ESTABLISHED PATIENT Routine 07/31/2023 1:00 PM EDT Caries Encounter for dental examination from Last 3 Months or Most Recently Relevant to Health Maintenance [place]
--- OUTSIDE RECORDS SUMMARY | 2024-11-04 15:39 | XMS_ITS | Encounter Summary ---
Author Organization [facility] Address PO [place] [address] [place] [address] Care Team Providers Care Highway Patrol Commander Name Role Phone Unavailable Primary Care Provider Unavailabl e Encounter Details Date Type Department Care Team (Late st Contact Info) Description 08/24/2021 Dental Interim Note [facility] Dental [address] [place] [address] Corry Flores DMD [address] [place] [address] Social History Tobacco Use Types Packs/Day Years [...]
--- OUTSIDE RECORDS SUMMARY | 2024-11-04 15:39 | XMS_ITS | Encounter Summary ---
Author Organization [facility] Address PO [place] [address] [place] [address] Care Team Providers Care Pre Kindergarten Teacher Name Role Phone Unavailable Primary Care Provider Unavailabl e Encounter Details Date Type Department Care Team (Late st Contact Info) Description 10/12/2021 Dental Interim Note [facility] Main Dental [address] [place] [address] Corry Flores, RENNY [address] [place] [address] Social History Tobacco Use Types Packs/Day Years [...]
--- OUTSIDE RECORDS SUMMARY | 2024-11-04 15:39 | XMS_ITS | Clinical Summary ---
Author Organization [facility] Address [address] [place] [address] Care Team Providers Care Tour Agent Name Role Phone ShayNicole Jo MCDOWELL Primary Care Provider [phone] Allergies No known active allergies Medications Medication [...] age to complete this topic Care Teams Tour Agent Relationship Specialty Start Date End Date Nicole Day NP [address] [place] [address] PCP - General Family Medicine 08/03/18
== END 2024-11-04 12:30 | disposition home or self-care (01) ==
LOC: HO.HMCFMS 11:20
PROVIDERS: PCP Student in an Organized Health Care Education/Training Program; Visit Provider Student in an Organized Health Care Education/Training Program
DX: F43.10 Post-traumatic stress disorder, unspecified (principal); F41.9 Anxiety disorder, unspecified; F32.A Depression, unspecified; E66.3 Overweight; Z79.899 Other long term (current) drug therapy; F42.9 Obsessive-compulsive disorder, unspecified; F90.9 Attention-deficit hyperactivity disorder, unspecified type

== ENCOUNTER 2024-11-04 11:20 | Outpatient (REF) | payer MEDICARE, MEDICAID, SELFPAY ==
[2024-11-04 17:28] LABS: MANUAL DIFF FLAG NO
[2024-11-04 17:36] LABS: Hematocrit 38.2 % (42.0-52.0); Hemoglobin 12.6 g/dl (14.0-18.0); Imm Gran Abs Auto 0.02 X10*3/uL (0.00-0.03); Imm Gran Pct Auto 0.3 % (0.0-0.4); Lymphocytes Absolute Auto 1.4 X10*3/uL (1.2-4.9); Mean Corpuscular HGB Conc 33.0 g/dl (31.0-36.0); Mean Corpuscular Hemoglobin 29.0 pg (27.0-33.0); Mean Corpuscular Volume 88.0 fL (80.0-98.0); NRBC Abs Auto 0.000 X10*3/uL (0.0-0.012); NRBC Pct Auto 0.0 /100WBC (0.0-0.2); Platelet Count 281 X10*3/uL (160-400); Red Blood Count 4.34 X10*6/uL (4.60-5.80); White Blood Count 6.3 X10*3/uL (4.8-10.8)
[2024-11-04 17:40] LABS: Hemoglobin A1C 125.1009 umol/L
[2024-11-04 17:41] LABS: Appearance Urine Clear; Glucose Urine UA Negative (Negative); PH 6.0 (5.0-9.0); Specific Gravity - Urine 1.020 (1.005-1.025)
[2024-11-04 18:13] LABS: Alanine Aminotransferase 21 U/L (0-40); Albumin Level 5.0 g/dL (3.5-5.0); Alkaline Phosphatase 102 U/L (39-117); Anion Gap 14 (12-20); Aspartate Amino Transferase 36 U/L (5-37); Blood Urea Nitrogen 31 mg/dL (9-16); Calcium 9.7 mg/dL (8.4-10.2); Carbon Dioxide 27 mmol/L (22-29); Chloride 100 mmol/L (96-108); Cholesterol 176 mg/dL (<200); Estimated Glomerular Filt Rate > 60; HDL Cholesterol 48 mg/dL (>40); Magnesium 2.0 mg/dL (1.6-2.6); Potassium 4.5 mmol/L (3.3-5.1); Sodium 136 mmol/L (135-145); Total Protein 7.6 g/dL (6.5-8.0); Triglycerides 84 mg/dL (<150)
[2024-11-05 08:30] LABS: HBS Num1 0.20 mIU/mL (0-7.99); HBsAGNum1 0.47 S/CO (0.00-0.99); HIV Num 1 0.05 S/CO (0.00-0.99); Hepatitis B Surface Antigen Negative (Negative); ~HepC Num1 0.06 S/CO (0.00-0.79); ~Hepatitis B Surface Antibody NONREACTIVE (Nonreactive); ~Hepatitis C Antibody Nonreactive (Nonreactive)
[2024-11-12 03:13] LABS: VITAMIN D (1,25 OH) D3 42 pg/mL; Vit D (1,25-Dihydroxy) Total 42 pg/mL (18-72); Vitamin D (1,25 OH) D2 <8 pg/mL
== END 2024-11-04 11:21 | disposition home or self-care (01) ==
LOC: HO.HKASLDS 11:20
PROVIDERS: PCP Nurse Practitioner Family; Visit Provider Student in an Organized Health Care Education/Training Program
DX: Z76.89 Persons encountering health services in other specified circumstances (principal); Z01.89 Encounter for other specified special examinations; Z11.4 Encounter for screening for human immunodeficiency virus [HIV]; Z13.1 Encounter for screening for diabetes mellitus; Z71.9 Counseling, unspecified; E66.3 Overweight; F43.10 Post-traumatic stress disorder, unspecified; F41.9 Anxiety disorder, unspecified; F32.A Depression, unspecified; F42.9 Obsessive-compulsive disorder, unspecified; F90.9 Attention-deficit hyperactivity disorder, unspecified type; Z79.899 Other long term (current) drug therapy
CPT/HCPCS: 36415; 80053; 80061; 81003; 82652; 83036; 83735; 84443; 85025; 86706; 86803; 87340; 87389; 99202

== ENCOUNTER 2024-11-08 12:13 | Outpatient (AMB) | payer MEDICARE, MEDICAID, SELFPAY ==
--- NOTE | 2024-11-08 12:19 | A.OFFVIS_ITS ---
Vital Signs 11/08/24 12:31 Height 5 ft 2 in Weight 151 lb BMI 27.6 BP 108/63 Blood Pressure Location Lt brachial Position Sitting Pulse 101 H Intake Visit Reasons: ct and labs Intake Note: Patient follow up for lab and CT scan Patient cc: painfull BM and denies any other GI issues. Flow Manager Required: No Accompanied by: Self / Same As Patient Allergies No Known Allergies Allergy (Verified 11/08/24 12:25) HPI HPI ct and labs: Details: 69 yr old m here for f/u RECAP: Saw Arlene originally he had been having issues with dysphagia had balloon dilations x 5 with variable success he has had [facility]ometry [facility] as well he had low vit A which has been replaced He had EGD 07/2022-- dilated with 17 mm bougie --there was no inlet patch He had seen [facility] recently, and was given nitroglycerin CT chest with scarred lungs and nodules EGD: 06/18- bx --normal He had colo- 08/18-- benign polyp, hemorrhoids, INTERIM: he is happy with mesalamine he feels mesalamine is helping but can be slow he is following up with urology for bladder urgency and prostate no n/v he has lung bx coming up he generally feels unwell EXAM: GENERAL: The patient is well developed and nontoxic. VITAL SIGNS:see workflow HEENT: Nonicteric sclerae, PERRLA, EOMI. Oropharynx clear. Moist mucous membranes. Conjunctivae appear well perfused. No thyroid mass. CHEST: Chest wall is nontender. HEART: Regular rate and rhythm without murmurs. LUNGS: Clear to auscultation bilaterally. ABDOMEN: Soft, positive bowel sounds, tender epigastrium, no organomegaly.no flank tenderness SKIN: No rash, no excessive bruising, petechiae, or purpura. NEUROLOGIC: Cranial nerves II-XII intact without motor/sensory deficit. Pscyh: pressure of speech A/P: 1/ Constipation, uncertain etiology, better with mesalamine PLAN: 1/ cont mesalamine for the moment go to 2 tabs BID, add colace 2/f/u urology PFSH Medical History Occasional tremors Cervical spinal stenosis Hand weakness ADHD OCD (obsessive compulsive disorder) Anxiety and depression Diverticulosis Hyperlipidemia Hypertension Insomnia PTSD (post-traumatic stress disorder) Surgical History History of esophagogastroduodenoscopy (EGD) Hx of colonoscopy History of left hip replacement Family History Father No problems noted. Mother No problems noted. Social History Housing: Apartment Are you a primary customer care team coach to a significant other at home: No Do you presently have visiting nurse or other home services: No Alcohol intake: never Patient Tobacco Use Status: Never used Tobacco service: No Current occupational status: employed Cognitive needs: No Hearing needs: No Vision needs: No Physical Exam Vital Signs: Last Vital Signs Pulse 101 H 11/08/24 12:31 BP 108/63 11/08/24 12:31 BMI result Body Mass Index 27.6 Assessment & Plan Assessment & Plan (1) Abnormal bowel habits: Code(s): R19.8 - Other specified symptoms and signs involving the digestive system and abdomen Category: Medical Plan: as above Medications: New docusate sodium (Colace) 100 mg PO BID 60 caps 2RF Refilled esomeprazole magnesium 40 mg PO DAILY 90 caps 2RF Coding Level of Care Code Est Pt Level 3 (94133) Diagnoses Abnormal bowel habits R19.8
[2024-11-08 12:31] VITALS: BP 108/63; PULSE 101; BMI 27.6
--- OUTSIDE RECORDS SUMMARY | 2024-11-08 16:46 | XMS_ITS | Encounter Summary ---
Author Organization [facility] Address PO [place] [address] [place] [address] Care Team Providers Care Pipe Racker Name Role Phone Unavailable Primary Care Provider Unavailabl e Encounter Details Date Type Department Care Team (Late st Contact Info) Description 10/12/2021 Dental Interim Note [facility] Main Dental [address] [place] [address] Corry Flores, RENNY [address] [place] [address] Social History Tobacco Use Types Packs/Day Years [...]
--- OUTSIDE RECORDS SUMMARY | 2024-11-08 16:47 | XMS_ITS | Clinical Summary ---
Author Organization [facility] Address [address] [place] [address] Care Team Providers Care Malt Liquors Sales Representative Name Role Phone ShayNicole Jo MCDOWELL Primary Care Provider [phone] Allergies No known active allergies Medications Medication [...] age to complete this topic Care Teams Malt Liquors Sales Representative Relationship Specialty Start Date End Date Nicole Day NP [address] [place] [address] PCP - General Family Medicine 08/03/18
--- OUTSIDE RECORDS SUMMARY | 2024-11-08 16:47 | XMS_ITS | Clinical Summary ---
Author Organization [facility] Address [address] [place] [address] Care Team Providers Care Boilermaking Supervisor Name Role Phone Unavailable Primary Care [...] 2 Refills, Soft Stop, 07/07/20 13:00:00 EDT, [id number], Partial fill upon patient request if the [...] 08/01/2024 07/31/2023, 06/2022, 01/30/2022, Additional history exists [id number] (1 - season) 2024 Imm-Influenza (#1) 2024 Imm-DTaP/Tdap/Td (2 - Td or Tdap) 07/09/2028 019 Procedures Procedure Name Priority Date/Time Associated Diagnosis Comments COMP PERIODONTAL EVALUATION - NEW/EST PATIENT Routine 07/31/2023 1:00 PM EDT Caries Encounter for dental examination BITEWINGS - FOUR RADIOGRAPHIC IMAGES Routine 07/31/2023 1:00 PM EDT Caries Defective dental hindu Encounter for dental examination PROPHYLAXIS - ADULT Routine 07/31/2023 1 :00 PM EDT Caries Encounter for dental examination PERIODIC ORAL EVALUATION ESTABLISHED PATIENT Routine 07/31/2023 1:00 PM EDT Caries Encounter for dental examination from Last 3 Months or Most Recently Relevant to Health Maintenance Insurance MD MEDICAID MD MEDICAID DENTAL
--- OUTSIDE RECORDS SUMMARY | 2024-11-08 16:47 | XMS_ITS | Encounter Summary ---
Author Organization [facility] Address [address] [place] [address] [place] [address] Care Team Providers Care Value Analyst Name Role Phone Unavailable Primary Care Provider Unavailabl e Encounter Details Date Type Department Care Team (Late st Contact Info) Description 08/24/2021 Dental Interim Note [facility] Dental [address] [place] [address] Corry Flores DMD [address] [place] [address] Social History Tobacco Use Types Packs/Day Years [...]
== END 2024-11-08 13:05 | disposition home or self-care (01) ==
LOC: HO.HGI 12:13
PROVIDERS: PCP Student in an Organized Health Care Education/Training Program; Visit Provider Internal Medicine Gastroenterology
DX: R19.8 Other specified symptoms and signs involving the digestive system and abdomen (principal)
CPT/HCPCS: 99213

== ENCOUNTER → 2024-11-08 12:13 | Outpatient (BNVA) | payer MEDICARE, MEDICAID, SELFPAY | PROVIDERS: PCP Student in an Organized Health Care Education/Training Program; Visit Provider Internal Medicine Gastroenterology | DX: Z71.2 Person consulting for explanation of examination or test findings (principal); K59.00 Constipation, unspecified; R19.8 Other specified symptoms and signs involving the digestive system and abdomen; R13.10 Dysphagia, unspecified | CPT/HCPCS: 99212 ==

== ENCOUNTER 2024-11-22 12:45 | Outpatient (AMB) | payer MEDICARE, MEDICAID, SELFPAY ==
--- NOTE | 2024-11-22 12:47 | MHC.OFFVIS ---
Vital Signs 11/22/24 13:04 Height 5 ft 2 in Weight 154 lb 4 oz BMI 28.2 BP 131/60 Blood Pressure Location Lt brachial Position Sitting Pulse 85 Pulse Source Pulse Oximeter Pulse Oximetry (%) 97 Oxygen Delivery Method Room Air Intake Visit Reasons: (L) Knee Injection (Per [employer] for Office) Career Services Coordinator Required: No Artisan Plasterer: Artisan Plasterer Present Accompanied by: Self / Same As Patient Allergies No Known Allergies Allergy (Verified 11/24/24 12:43) HPI HPI (L) Knee Injection (Per [employer] for Office): Details: History of Present Illness The patient is a 69-year-old male presenting with arm numbness and tingling. He reports that his arm becomes hard as a rock and falls asleep frequently, regardless of position, with associated tingling sensations. The symptoms have been worsening over time, and he is concerned about the possibility of a stroke, although it has been suggested that the symptoms are related to his neck. The patient has a history of spinal stenosis, described as moderate in severity. He experiences chronic neck discomfort, which is believed to contribute to the numbness and tingling in his arm. The patient also reports issues with constipation, attributed to medications and recent dental procedures. He expresses frustration with the lack of effective pain management and the impact of these issues on his quality of life. Pain Description - Onset: Symptoms have been occurring frequently and worsening over time. - Quality: Arm becomes hard as a rock and falls asleep, with tingling sensations. - Location: Primarily affects the arm, with concerns about neck involvement. - Exacerbating factors: Symptoms occur regardless of arm position. - Impact: Significant concern about potential stroke and impact on quality of life. Physical Exam - Appears afebrile. - Alert and oriented. - Mood and affect appropriate. - Follows and participates in conversation appropriately. - Respiratory effort is unlabored. - Able to transition from sit to stand unassisted. - Ambulates with bilaterally normal heel strike and toe off. - Able to stand and walk on toes and heels. Pain Management - Affect: Patient expresses significant frustration and distress due to pain and lack of effective management. - Analgesia: No effective pain medication currently being used; patient reports inadequate pain relief. - Adverse Effects: Constipation attributed to medications and recent dental procedures. - Activities of Daily Living: Pain significantly impacts quality of life and daily functioning. - Aberrant Drug Related Behaviors: Patient expresses concern about obtaining pain medication from non-medical sources due to inadequate pain management. [facility] Medical History (Updated 11/24/24 @ 12:48 by Edward Beth MD) Anemia Anemia Occasional tremors Cervical spinal stenosis Hand weakness ADHD OCD (obsessive compulsive disorder) Anxiety and depression Diverticulosis Hyperlipidemia Hypertension Insomnia PTSD (post-traumatic stress disorder) Surgical History History of esophagogastroduodenoscopy (EGD) Hx of colonoscopy History of left hip replacement Family History Father No problems noted. Mother No problems noted. Social History Housing: Apartment Are you a primary rn palliative care to a significant other at home: No Do you presently have visiting nurse or other home services: No Alcohol intake: never Patient Tobacco Use Status: Never used Tobacco service: No Current occupational status: employed Cognitive needs: No Hearing needs: No Vision needs: No Physical Exam Vital Signs: Last Vital Signs Pulse 85 11/22/24 13:04 BP 131/60 11/22/24 13:04 Pulse Ox 97 11/22/24 13:04 Oxygen Delivery Method Room Air 11/22/24 13:04 BMI result Body Mass Index 28.2 Office Procedures AMB Joint Injection/Aspiration Joint Injection/Aspiration Primary Site: left knee Prep: site was prepped using sterile technique Injected: 40 mg of, Kenalog and with 3 mL of (Ropivacaine 0.5%) Approach Used: medial parapatellar (Runnells guided) Procedure: The patient tolerated the procedure well Coding 14145 - Large joint Procedure code (CPT) selection complete Assessment & Plan Assessment & Plan (1) Cervical radiculitis: Code(s): M54.12 - Radiculopathy, cervical region Category: Medical (2) Cervical spinal stenosis: Code(s): M48.02 - Spinal stenosis, cervical region Category: Medical Plan Plan Patient was informed and verbally consented to the use of an ambient scribe for clinic note documentation during this visit. 1. Lumbar Spinal Stenosis - Plan: Stable. No specific interventions discussed during the visit. 2. Arm Numbness And Tingling - Plan: Symptoms attributed to spinal stenosis; recommend continuation of physical therapy. Did not respond to previous cervical epidural steroid injection. 3. Constipation - Plan: No specific interventions discussed during the visit. Discussion Notes During the visit, we discussed the patient's symptoms of arm numbness and tingling, which are likely related to spinal stenosis in the neck. The patient expressed concerns about the possibility of a stroke, but I reassured him that the symptoms are not indicative of a stroke. We also talked about the patient's frustration with pain management and the lack of effective interventions for his symptoms. Patient Instructions - Follow up with PT for further evaluation of spinal stenosis and arm symptoms. - Monitor symptoms and seek immediate care if symptoms worsen or new symptoms develop. Orders: Orders PT Evaluation and Treatment 11/22/24 M48.02 - Spinal stenosis, cervical region, M54.12 - Radiculopathy, cervical region Medications: New gabapentin 300 mg PO BID 60 caps 0RF Discontinued pregabalin Discontinued Reason: Duplicate 75 mg PO BID 60 caps 5RF Coding Level of Care Code Est Pt Level 4 (55976) Procedure Only Diagnoses Cervical radiculitis M54.12 Cervical spinal stenosis M48.02 CPT Codes Coding - 51355 Large joint: 57246 - Large joint ([id number])
[2024-11-22 13:04] VITALS: BP 131/60; PULSE 85; O2SAT 97; BMI 28.2
--- OUTSIDE RECORDS SUMMARY | 2024-11-22 13:53 | XMS_ITS | Clinical Summary ---
Author Organization [facility] Address [address] [place] [address] Care Team Providers Care Costing Manager Name Role Phone ShayNicole Jo MCDOWELL Primary Care Provider [phone] Allergies No known active allergies Medications Medication [...] age to complete this topic Care Teams Costing Manager Relationship Specialty Start Date End Date Nicole Day NP [address] [place] [address] PCP - General Family Medicine 08/03/18
== END 2024-11-22 13:48 | disposition home or self-care (01) ==
PROVIDERS: PCP Student in an Organized Health Care Education/Training Program; Visit Provider Internal Medicine
DX: M54.12 Radiculopathy, cervical region (principal); M48.02 Spinal stenosis, cervical region
CPT/HCPCS: 20610; 99214

== ENCOUNTER → 2024-11-22 12:45 | Outpatient (BNVA) | payer MEDICARE, MEDICAID, SELFPAY | PROVIDERS: PCP Student in an Organized Health Care Education/Training Program; Visit Provider Internal Medicine | DX: M17.0 Bilateral primary osteoarthritis of knee (principal); M54.12 Radiculopathy, cervical region; M48.02 Spinal stenosis, cervical region | CPT/HCPCS: 20610; 99212; J2795; J3301 ==

== ENCOUNTER 2024-11-24 12:37 | Outpatient (AMB) | payer MEDICARE, MEDICAID, SELFPAY ==
[2024-11-24 12:43] VITALS: BP 117/62; PULSE 80; RESP 16; TEMP 36.3; O2SAT 98; BMI 28.9
--- NOTE | 2024-11-24 12:43 | MHC.PC.OV ---
Vital Signs 11/24/24 12:43 Height 5 ft 2 in Weight 158 lb BMI 28.9 BP 117/62 Blood Pressure Location Rt brachial Position Sitting Respiration 16 Pulse 80 Pulse Source Pulse Oximeter Temp 97.3 F Temp Source Oral Pulse Oximetry (%) 98 Oxygen Delivery Method Room Air Intake Visit Reasons: follow up Intake Note: set pcp Purchasing And Claims Supervisor Required: No Accompanied by: Self / Same As Patient Allergies No Known Allergies Allergy (Verified 11/24/24 12:43) Tobacco use date assessed: 11/04/24 Fall risk assessment: No Falls in past year Last assessed Fall Risk: 11/04/24 Dental Screening Dental Screen Date: 11/04/24 Did you have a dental visit in the last 12 months?: Yes Did you have a dental problem in the last 6 months where you did not have access to dental care?: No Was dental information given to patient?: Patient has dentist HPI HPI Comments History of Present Illness Details History of Present Illness The patient is a 69-year-old male presenting for follow-up on multiple health concerns including lung nodule monitoring, cholesterol management, and anemia treatment. Lung nodule: - The patient has a history of lung nodules, with the most recent recommendation being to repeat imaging in six months. - The patient expresses anxiety about repeated imaging and the anticipation of results. Tooth extraction: - The patient underwent a tooth extraction due to a decayed tooth that could not be saved. - The patient experienced anxiety during the procedure and had difficulty finding a provider for the extraction. Hypercholesterolemia: - The patient has elevated cholesterol levels despite being on pravastatin 10 mg. - The patient was not fasting during the last blood test, which may have affected the results. Iron deficiency anemia: - The patient has low hemoglobin and hematocrit levels, suggestive of iron deficiency anemia. - The patient is prescribed iron supplements and advised to take vitamin C to enhance absorption. Constipation: - The patient reports constipation, potentially exacerbated by current medications. - The patient is advised to increase dietary fiber and consider using Metamucil. Anxiety: - The patient experiences anxiety and is prescribed lorazepam for management. - The patient expresses concerns about medication management and refills. Review of Systems - Cardiovascular: Denies chest pain or palpitations. - Gastrointestinal: Reports constipation. Denies abdominal pain. - Neurological: Denies headaches or dizziness. - Psychological: Reports anxiety and depression. 10-point ROS reviewed and negative except as noted in HPI Past Medical History - History of lung nodules - History of tooth extraction - Hypercholesterolemia - Iron deficiency anemia - Anxiety Health Maintenance - Lung nodule monitoring with repeat imaging in six months - Cholesterol management with pravastatin and dietary modifications - Anemia management with iron supplementation and vitamin C Physical Exam General: Well-appearing, in no acute distress. Vital signs: Within normal limits. HEENT: Normocephalic, atraumatic. PERRLA, EOMI. Conjunctiva clear, sclera anicteric. Oropharynx clear, mucous membranes moist. TMs intact bilaterally. Neck: Supple, no lymphadenopathy, no thyromegaly, no JVD or carotid bruits. Cardiovascular: RRR, normal S1/S2, no murmurs, rubs, or gallops. Peripheral pulses 2+ and symmetric. No edema. Respiratory: Lungs clear to auscultation bilaterally, no wheezes, rales, or rhonchi. Normal effort. Abdomen: Soft, non-tender, non-distended. Normoactive bowel sounds. No hepatosplenomegaly, no masses. MSK: Full range of motion, no joint swelling or deformity. Normal gait. Skin: Warm, dry, intact. No rashes, lesions, or pallor. Neuro: Alert and oriented x3. Cranial nerves II-XII intact. Strength 5/5 throughout. Sensation intact. Reflexes 2+ symmetric. Normal coordination and gait. Psych: Appropriate mood and affect. Normal judgment and insight. Plan 1. Lung Nodule - Plan to repeat imaging in six months to monitor the lung nodule. 2. Tooth Extraction - No further intervention required post-extraction. 3. Hypercholesterolemia - Continue pravastatin 10 mg and consider dietary modifications. - Repeat lipid panel in three months to reassess cholesterol levels. 4. Iron Deficiency Anemia - Prescribed iron supplements and vitamin C to enhance absorption. - Monitor for constipation and consider referral to hematology if symptoms persist. 5. Constipation - Advise increased dietary fiber intake and use of Metamucil. - Monitor bowel movements and adjust treatment as needed. 6. Anxiety - Continue lorazepam for anxiety management. - Address concerns about medication refills and management. Discussion Notes During the visit, we discussed the management of the patient's lung nodule, emphasizing the importance of follow-up imaging in six months. We also reviewed the patient's cholesterol levels and the need for dietary modifications alongside pravastatin therapy. The patient was advised on iron supplementation for anemia, with instructions to take vitamin C to enhance absorption. We addressed the patient's concerns about constipation and recommended increasing dietary fiber. Anxiety management was discussed, and lorazepam was prescribed with a plan to monitor and manage medication refills. Patient was informed and verbally consented to the use of an ambient scribe for clinic note documentation during this visit. Patient Instructions - Follow up with imaging for lung nodule in six months. - Continue taking pravastatin and consider dietary changes to manage cholesterol. - Take prescribed iron supplements with vitamin C to improve absorption. - Increase dietary fiber intake to help with constipation. - Continue lorazepam for anxiety and ensure timely refills. [facility] Medical History Occasional tremors Cervical spinal stenosis Hand weakness ADHD OCD (obsessive compulsive disorder) Anxiety and depression Diverticulosis Hyperlipidemia Hypertension Insomnia PTSD (post-traumatic stress disorder) Surgical History History of esophagogastroduodenoscopy (EGD) Hx of colonoscopy History of left hip replacement Family History Father No problems noted. Mother No problems noted. Social History Housing: Apartment Are you a primary in home caregiver to a significant other at home: No Do you presently have visiting nurse or other home services: No Alcohol intake: never Patient Tobacco Use Status: Never used Tobacco service: No Current occupational status: employed Cognitive needs: No Hearing needs: No Vision needs: No Questionnaire PHQ-9 Over the last 2 weeks, how often have you been bothered by any of the following problems? 1. Little interest or pleasure in doing things: not at all 2. Feeling down, depressed, or hopeless: not at all 3. Trouble falling or staying asleep, or sleeping too much: not at all 4. Feeling tired or having little energy: not at all 5. Poor appetite or overeating: not at all 6. Feeling bad about yourself - or that you are a failure or have let yourself or your family down: not at all 7. Trouble concentrating on things, such as reading the newspaper or watching television: not at all 8. Moving or speaking so slowly that other people could have noticed. Or the opposite - being so fidgety or restless that you have been moving around a lot more than usual: not at all 9. Thoughts that you would be better off or of hurting yourself in some way: not at all Total score: 0 Source: Developed by Drs. Lon Mercedes, Elba Rodriguez, Darian Flores and colleagues, with an educational sharron from [employer]. Thrive Questionnaire Date Thrive assessed: 11/04/24 I am a: Patient What is your living situation today?: I have a steady place to live Within the past 12 months, did the food you bought not last and you didn't have the money to get more?: Never true Within the past 12 months, did you worry whether your food would run out before you got money to buy more?: Never true Do you have trouble paying for medicines?: No Do you have trouble getting transportation to medical appointments?: No Do you have trouble paying your heating and electricity bill?: No Do you have trouble taking care of your child, family member or friend?: No Do you have trouble with day-to-day activities such as bathing, preparing meals, shopping, managing finances, etc.?: No Are you currently unemployed and looking for a job?: No Are you interested in more education?: No Please select the resources that you would like help with: None Currently or been in a relationship where the following occur: No concerns reported THRIVE Score: 0 AUDIT C Alcohol Use Questionnaire (AUDIT-C) 1. How often do you have a drink containing alcohol?: Never 3. How often do you have six or more drinks on one occasion?: Never Total Score: 0 BLAIR-7 AMB Questionnaire BLAIR-7 Date BLAIR - 7 assessed: 11/04/24 Feeling nervous, anxious, or on edge: 0 = Not at all Not being able to stop or control worryin = Not at all Worrying too much about different things: 0 = Not at all Trouble relaxin = Not at all Being so restless that it is hard to sit still: 0 = Not at all Becoming easily annoyed or irritable: 0 = Not at all Feeling afraid as if something awful might happen: 0 = Not at all Total BLAIR-7 score (0-4 normal; 5-9 mild; 10-14 moderate; 15-21 severe): 0 Source: Developed by Drs. Lon Mercedes, Elba Rodriguez, Darian Flores and colleagues, with an educational sharron from [employer]. Physical exam (Primary Care) Tobacco/Smoking Status: Tobacco use Status Tobacco use date assessed 11/04/24 11/24/24 12:44 Patient Tobacco Use Status Never used Tobacco 11/24/24 12:44 PHQ-9: PHQ-9 Score PHQ-9: Total score 0 11/24/24 12:44 Thrive Assessment: Date of Thrive Assessment Date Thrive assessed 11/04/24 11/24/24 12:44 Currently or been in a relationship where the following occur: No concerns reported Coding Level of Care Code Est Pt Level 3 (78798) Diagnoses Low hemoglobin and low hematocrit D64.9 Erythrocytopenia D64.9 Encounter to discuss test results Z71.2 Elevated LDL cholesterol level E78.00 Anemia, unspecified type D64.9 Anemia type: unspecified type Anxiety and depression F41.9; F32.A Assessment & Plan Assessment & Plan (1) Low hemoglobin and low hematocrit: Code(s): D64.9 - Anemia, unspecified (2) Erythrocytopenia: Code(s): D64.9 - Anemia, unspecified (3) Encounter to discuss test results: Code(s): Z71.2 - Person consulting for explanation of examination or test findings (4) Elevated LDL cholesterol level: Code(s): E78.00 - Pure hypercholesterolemia, unspecified (5) Anemia: Code(s): D64.9 - Anemia, unspecified Category: Medical Qualifiers: Anemia type: unspecified type Qualified Code(s): D64.9 - Anemia, unspecified (6) Anxiety and depression: Code(s): F41.9 - Anxiety disorder, unspecified; F32.A - Depression, unspecified Category: Medical Plan Orders: Referrals Nurse Navigator Referral D64.9 - Anemia, unspecified, E78.00 - Pure hypercholesterolemia, unspecified Medications: New ferrous sulfate 325 mg PO DAILY 90 tabs 0RF D64.9 - Anemia, unspecified lorazepam 1 mg PO BID PRN 60 tabs 0RF anxiety F32.A - Depression, unspecified, F41.9 - Anxiety disorder, unspecified, F43.10 - Post-traumatic stress disorder, unspecified ascorbic acid (vitamin C) 500 mg PO DAILY 90 tabs 0RF D64.9 - Anemia, unspecified
--- OUTSIDE RECORDS SUMMARY | 2024-11-24 13:55 | XMS_ITS | Clinical Summary ---
Author Organization [facility] Address [address] [place] [address] Care Team Providers Care Business Continuity Planner Name Role Phone FairhopeNicole Jo MCDOWELL Primary Care Provider [phone] Allergies No known active allergies Medications Medication [...] age to complete this topic Care Teams Business Continuity Planner Relationship Specialty Start Date End Date Nicole Day NP [address] [place] [address] PCP - General Family Medicine 08/03/18
--- OUTSIDE RECORDS SUMMARY | 2024-11-24 13:55 | XMS_ITS | Encounter Summary ---
Author Organization [facility] Address [address] [place] [address] [place] [address] Care Team Providers Care Residential Caregiver Name Role Phone Unavailable Primary Care Provider Unavailabl e Encounter Details Date Type Department Care Team (Late st Contact Info) Description 10/12/2021 Dental Interim Note [facility]aring [facility] Main Dental [address] [place] [address] Corry Flores, RENNY [address] [place] [address] Social History Tobacco Use Types Packs/Day Years [...]
--- OUTSIDE RECORDS SUMMARY | 2024-11-24 13:55 | XMS_ITS | Encounter Summary ---
Author Organization [facility] Address [address] [place] [address] [place] [address] Care Team Providers Care Paratransit Operator Name Role Phone Unavailable Primary Care Provider Unavailabl e Encounter Details Date Type Department Care Team (Late st Contact Info) Description 08/24/2021 Dental Interim Note Caring [facility] Dental [address] [place] [address] Corry Flores DMD [address] [place] [address] Social History Tobacco Use Types Packs/Day Years [...]
--- OUTSIDE RECORDS SUMMARY | 2024-11-24 13:55 | XMS_ITS | Encounter Summary ---
Author Organization [facility] Address [address] [address] [place] [id number] Care Team Providers Care Punch Press Operator Name Role Phone Unavailable Primary Care Provider Unavailabl e Reason for Visit * Reason Comments After Hours Call Encounter Details Date Type Department Care Team ([facility] st Contact Info) Description 11/24/2024 Telemedicine Visit [facility] [address] [place] [id number] Ralph Nagel PA-C [address] [place] [address] Social History Tobacco Use Types Packs/Day Years [...] on file documented as of this encounter Progress Notes * Ralph Nagel PA-C - 11/24/2024 1:20 PM EDT 11/24/2024 Received a call from the patient during on-call hours. During the conversation, the patient initially stated he needed a tooth extracted but had been referred to an oral surgeon. He expressed frustration, stating that back in the day they would just pull teeth. The conversation then took a concerning turn when the patient made inappropriate and racially charged remarks, stating that we would have helped him if he wasn't white. He continued speaking about this being Kimberly, that everyoneshould speak Russian, and made derisive comments about Citizen Of [place] being spoken in the clinic, as wellas derogatory remarks about Kristie Ricans, Hispanics, and other minority groups. I attempted to redirect the conversation and clarify his needs. The patient stated he wanted to cancel a dental appointment as the issue had been resolved. I informed him that there was no appointment currently scheduled in the system and advised him to contact the dental department directly if anything changed. Despite efforts to de-escalate, the patient continued making inappropriate remarks. At that point, I informed him I would be ending the call and did so. documented in this encounter Miscellaneous Notes * Patient Instructions - Ralph Nagel PA-C - 11/24/2024 1:29 PM EDT If you are not able to keep your appointment please call 24-48 hours before your appointment to cancel or reschedule. documented in this encounter Plan of Treatment Not on file documented as of this encounter Visit Diagnoses Diagnosis Toothache- Primary Unspecified disorder of the teeth and supporting structures documented in this encounter
--- OUTSIDE RECORDS SUMMARY | 2024-11-24 13:55 | XMS_ITS | Clinical Summary ---
Author Organization [facility] Address [address] [place] [address] Care Team Providers Care Grades 1 6 Tutor Name Role Phone Unavailable Primary Care [...] 2 Refills, Soft Stop, 07/07/20 13:00:00 EDT, [facility]/pharmacy #[id number], Partial fill upon patient request if the [...] Chronic GERD 07/15/2021 Anxiety and depression 07/12/2021 Encounters Date Type Department Care Team Description 11/24/2024 Telemedicine Visit [address] [phone] Ralph Nagel PA-C from Last 3 Months Social History Tobacco Use Types Packs/Day Years [...] 08/01/2024 07/31/2023, 06/2022, 01/30/2022, Additional history exists [id number] ( - 2023- season) 2024 Imm-Influenza (#1) 2024 Imm-DTaP/Tdap/Td (2 - Td or Tdap) 07/09/2028 019 Procedures Procedure Name Priority Date/Time Associated Diagnosis Comments COMP PERIODONTAL EVALUATION - NEW/EST PATIENT Routine 07/31/2023 1:00 PM EDT Caries Encounter for dental examination BITEWINGS - FOUR RADIOGRAPHIC IMAGES Routine 07/31/2023 1:00 PM EDT Caries Defective dental jehovah's witness Encounter for dental examination PROPHYLAXIS - ADULT Routine 07/31/2023 1 :00 PM EDT Caries Encounter for dental examination PERIODIC ORAL EVALUATION ESTABLISHED PATIENT Routine 07/31/2023 1:00 PM EDT Caries Encounter for dental examination from Last 3 Months or Most Recently Relevant to Health Maintenance [place]
== END 2024-11-24 13:32 | disposition home or self-care (01) ==
LOC: HO.HMCFMS 12:37
PROVIDERS: PCP Student in an Organized Health Care Education/Training Program; Visit Provider Student in an Organized Health Care Education/Training Program
DX: D64.9 Anemia, unspecified (principal); E78.00 Pure hypercholesterolemia, unspecified; F41.9 Anxiety disorder, unspecified; F32.A Depression, unspecified; Z71.2 Person consulting for explanation of examination or test findings

== ENCOUNTER → 2024-11-24 12:37 | Outpatient (BNVA) | payer MEDICARE, MEDICAID, SELFPAY | PROVIDERS: PCP Student in an Organized Health Care Education/Training Program; Visit Provider Student in an Organized Health Care Education/Training Program | DX: D64.9 Anemia, unspecified (principal); E78.00 Pure hypercholesterolemia, unspecified; F41.9 Anxiety disorder, unspecified; F32.9 Major depressive disorder, single episode, unspecified; R91.1 Solitary pulmonary nodule; Z13.30 Encounter for screening examination for mental health and behavioral disorders, unspecified | CPT/HCPCS: 96127; 99212 ==

== ENCOUNTER 2024-12-07 13:36 | Outpatient (AMB) | payer MEDICARE, MEDICAID, SELFPAY ==
[2024-12-07 13:37] VITALS: BP 120/57; PULSE 78; TEMP 36.9; O2SAT 98; BMI 27.4
--- NOTE | 2024-12-07 13:37 | A.OFFPC_ITS ---
Vital Signs 12/07/24 13:37 Height 5 ft 2 in Weight 150 lb BMI 27.4 BP 120/57 L Blood Pressure Location Lt brachial Position Sitting Pulse 78 Pulse Source Pulse Oximeter Temp 98.4 F Temp Source Oral Pulse Oximetry (%) 98 Oxygen Delivery Method Room Air Intake Visit Reasons: med follow-up Accompanied by: Self / Same As Patient Allergies No Known Allergies Allergy (Verified 12/07/24 13:38) Tobacco use date assessed: 12/07/24 Fall risk assessment: No Falls in past year Last assessed Fall Risk: 12/07/24 Dental Screening Dental Screen Date: 12/07/24 Did you have a dental visit in the last 12 months?: Yes Was dental information given to patient?: Patient has dentist HPI HPI Comments History of Present Illness Details Consent Patient was informed and verbally consented to the use of an ambient scribe for clinic note documentation during this visit. History of Present Illness The patient is a 69-year-old male presenting with concerns about anemia and medication. Anemia: - The patient was recently diagnosed wit h anemia, with a hemoglobin level of 12.6 g/dL and hematocrit of 38.2%, which is below the normal range. - The anemia was identified after switch ing from a regular multivitamin to one provided by [employer]. Review of Systems - Gastrointestinal: Reports diarrhea fol lowing iron and vitamin C intake. Denies constipation. - Musculoskeletal: Reports chronic pain in multiple joints, including knees and shoulders. - Neurological: Reports neuropathic pain . Denies headaches or dizziness. 10-point ROS reviewed and negative excep t as noted in HPI Past Medical History - History of diverticulitis requiring IC U admission and surgery. - Chronic pain management with gabapenti n and pregabalin. - Diagnosed with fibromyalgia and spinal stenosis. - Osteoarthritis affecting multiple join ts. Health Maintenance Physical Exam General: Well-appearing, in no acute distress. Vital signs: Within normal limits. HEENT: Normocephalic, atraumatic. PERRLA, EOMI. Conjunctiva clear, sclera anicteric. Oropharynx clear, mucous membranes moist. TMs intact bilaterally. Neck: Supple, no lymphadenopathy, no thyromegaly, no JVD or carotid bruits. Cardiovascular: RRR, normal S1/S2, no murmurs, rubs, or gallops. Peripheral pulses 2+ and symmetric. No edema. Respiratory: Lungs clear to auscultation bilaterally, no wheezes, rales, or rhonchi. Normal effort. Abdomen: Soft, non-tender, non-distended. Normoactive bowel sounds. No hepatosplenomegaly, no masses. MSK: Full range of motion, no joint swelling or deformity. Normal gait. Skin: Warm, dry, intact. No rashes, lesions, or pallor. Neuro: Alert and oriented x3. Cranial nerves II-XII intact. Strength 5/5 throughout. Sensation intact. Reflexes 2+ symmetric. Normal coordination and gait. Psych: Appropriate mood and affect. Normal judgment and insight. Plan 1. Anemia - The patient is advised to take vitamin C before iron supplements to enhance absorption. - Iron should be taken one hour before o r two hours after meals to improve absorption. Discussion Notes I discussed with the patient the importance of taking vitamin C before iron supplements to enhance absorption and advised on the timing of iron intake rela tive to meals. Patient Instructions - Take vitamin C before iron supplements to improve absorption. - Take iron one hour before or two hours after meals. Medical Decision Making The patient's anemia is likely due to inadequate supplementation after switching multivitamins. Enhancing iron absorption with vitamin C is a weber strategy. His chronic pain management is complex, involving multiple conditions like neuropathic pain, fibromyalgia, and osteoarthritis. Current dissatisfaction with pain management suggests a need for reassessment and potential adjustment of his regimen. Total time spent caring for the patient today was 30 minutes. This includes time spent before the visit reviewing the chart, time spent documenting, and time spent reviewing laboratory results, diagnostic imaging, medications, performing a medically necessary evaluation, counseling on diagnoses, care coordination, ordering appropriate tests, ordering appropriate medications. [facility] Medical History Anemia Anemia Occasional tremors Cervical spinal stenosis Hand weakness ADHD OCD (obsessive compulsive disorder) Anxiety and depression Diverticulosis Hyperlipidemia Hypertension Insomnia PTSD (post-traumatic stress disorder) Surgical History History of esophagogastroduodenoscopy (EGD) Hx of colonoscopy History of left hip replacement Family History Father No problems noted. Mother No problems noted. Social History Housing: Apartment Are you a primary career and transition teacher to a significant other at home: No Do you presently have visiting nurse or other home services: No Alcohol intake: never Patient Tobacco Use Status: Never used Tobacco service: No Current occupational status: employed Cognitive needs: No Hearing needs: No Vision needs: No Questionnaire PHQ-9 Over the last 2 weeks, how often have you been bothered by any of the following problems? 1. Little interest or pleasure in doing things: not at all 2. Feeling down, depressed, or hopeless: not at all 3. Trouble falling or staying asleep, or sleeping too much: not at all 4. Feeling tired or having little energy: not at all 5. Poor appetite or overeating: not at all 6. Feeling bad about yourself - or that you are a failure or have let yourself or your family down: not at all 7. Trouble concentrating on things, such as reading the newspaper or watching television: not at all 8. Moving or speaking so slowly that other people could have noticed. Or the opposite - being so fidgety or restless that you have been moving around a lot m ore than usual: not at all 9. Thoughts that you would be better off or of hurting yourself in some way: not at all Total score: 0 Source: Developed by Drs. Lon Mercedes, Elba Rodriguez, Darian Flores and colleagues, with an educational sharron from [employer]. Thrive Questionnaire Date Thrive assessed: 12/07/24 I am a: Patient What is your living situation today?: I have a steady place to live Within the past 12 months, did the food you bought not last and you didn't have the money to get more?: Never true Within the past 12 months, did you worry whether your food would run out before you got money to buy more?: Never true Do you have trouble paying for medicines?: No Do you have trouble getting transportation to medical appointments?: No Do you have trouble paying your heating and electricity bill?: No Do you have trouble taking care of your child, family member or friend?: No Do you have trouble with day-to-day activities such as bathing, preparing meals, shopping, managing finances, etc.?: No Are you currently unemployed and looking for a job?: No Are you interested in more education?: No Please select the resources that you would like help with: None Currently or been in a relationship where the following occur: No concerns reported THRIVE Score: 0 AUDIT C Alcohol Use Questionnaire (AUDIT-C) 1. How often do you have a drink containing alcohol?: Never 3. How often do you have six or more drinks on one occasion?: Never Total Score: 0 BLAIR-7 AMB Questionnaire BLAIR-7 Date BLAIR - 7 assessed: 12/07/24 Feeling nervous, anxious, or on edge: 0 = Not at all Not being able to stop or control worryin = Not at all Worrying too much about different things: 0 = Not at all Trouble relaxin = Not at all Being so restless that it is hard to sit still: 0 = Not at all Becoming easily annoyed or irritable: 0 = Not at all Feeling afraid as if something awful might happen: 0 = Not at all Total BLAIR-7 score (0-4 normal; 5-9 mild; 10-14 moderate; 15-21 severe): 0 Source: Developed by Drs. Lon Mercedes, Elba Rodriguez, Darian Flores and colleagues, with an educational sharron from [employer]. Physical exam (Primary Care) Vital Signs: Last Vital Signs Temp 98.4 F 12/07/24 13:37 Pulse 78 12/07/24 13:37 BP 120/57 L 12/07/24 13:37 Pulse Ox 98 12/07/24 13:37 Oxygen Delivery Method Room Air 12/07/24 13:37 BMI result Body Mass Index 27.4 Tobacco/Smoking Status: Tobacco use Status Tobacco use date assessed 12/07/24 12/07/24 13:40 Patient Tobacco Use Status Never used Tobacco 12/07/24 13:40 PHQ-9: PHQ-9 Score PHQ-9: Total score 0 12/07/24 13:40 Thrive Assessment: Date of Thrive Assessment Date Thrive assessed 12/07/24 12/07/24 13:40 Currently or been in a relationship where the following occur: No concerns reported Coding Level of Care Code Est Pt Level 4 (34145) Diagnoses Anemia D64.9 Assessment & Plan Assessment & Plan (1) Anemia: Code(s): D64.9 - Anemia, unspecified Category: Medical Plan
--- OUTSIDE RECORDS SUMMARY | 2024-12-07 16:29 | XMS_ITS | Clinical Summary ---
Author Organization [facility] Address [address] [place] [address] Care Team Providers Care Environmental Education Specialist Name Role Phone ShayNicole Jo MCDOWELL Primary Care Provider [phone] Allergies No known active allergies Medications Medication [...] to complete this topic Care Teams Environmental Education Specialist Relationship Specialty Start Date End Date Nicole Day NP [address] [place] [address] PCP - General Family Medicine 08/03/18
== END 2024-12-07 14:30 | disposition home or self-care (01) ==
PROVIDERS: PCP Student in an Organized Health Care Education/Training Program; Visit Provider Student in an Organized Health Care Education/Training Program
DX: D64.9 Anemia, unspecified (principal)

== ENCOUNTER → 2024-12-07 13:36 | Outpatient (BNVA) | payer MEDICARE, MEDICAID, SELFPAY | PROVIDERS: PCP Student in an Organized Health Care Education/Training Program; Visit Provider Student in an Organized Health Care Education/Training Program | DX: D64.9 Anemia, unspecified (principal); G89.29 Other chronic pain; M79.7 Fibromyalgia; M48.00 Spinal stenosis, site unspecified; M19.90 Unspecified osteoarthritis, unspecified site; Z79.899 Other long term (current) drug therapy; Z13.30 Encounter for screening examination for mental health and behavioral disorders, unspecified; Z13.39 Encounter for screening examination for other mental health and behavioral disorders | CPT/HCPCS: 96127; 99212 ==

== ENCOUNTER 2024-12-28 12:41 | Outpatient (REF) | payer MEDICARE, MEDICAID, SELFPAY ==
--- OUTSIDE RECORDS SUMMARY | 2024-12-25 22:59 | XMS_ITS | Continuity of Care Document ---
Author Organization [facility] Sophy christian Address [address] [place] [address] [address] [place] [address]- Care Team Providers Care Electric Organ Assembler And Checker Name Role Phone Not on Staff, PCP Primary Care Physician Unavail able [place] [facility] [place]): [place]25[place]24 - 12/25/24 [facility] [address] [id number] Attending Physician: Maty Patel Admitting Physician: Maty Patel Referring Physician: AdmtrMaty Encounter Type: Triage Allergies, Adverse Reactions, Alerts No Known Allergies Immunizations Given and Recorded Vaccine Date Status Refusal Reason tetanus/diphtheria/pertussis, acel(Tdap) 07/09/18 Given Medications Ativan 1 mg oral tablet 1 tablet = 1 mg, By Mouth, 2 times a day, PRN as needed for anxiety, # 60 tablet, 0 Refills, Maintenance, 10/07/24 4:12:00 PM EDT, Tablet, [facility] #[id number], Partial fill upon patient request if the prescription is for a schedule II opioid drug., 165, cm, 09/28/24 14:17:00 EDT, Height Start Date: 10/07/24 Stop Date: 11/06/24 Status: Ordered Medication Dispense Status: Completed Quantity: 60.0 Unit: tablet Total Allowed Fills: 1 Fills Dispensed: 0 CeleBREX 200 mg oral capsule 1 capsule = 200 mg, By Mouth, 2 times a day, 0 Refills, Maintenance, 04/30/21 1:17:00 PM EST, Capsule, Partial fill upon patient request if the prescription is for a schedule II opioid drug. Start Date: 04/30/21 Status: Ordered Medication Dispense Status: Completed Total Allowed Fills: 1 Fills Dispensed: 0 cloNIDine 0.1 mg oral tablet 1, tablet, By Mouth, 2 times a day, # 180 tablet, Refills 3, Tot. Refills 3, Maintenance, 05/11/24 12:20:00 PM EDT, Route to Pharmacy Electronically, [facility] #[id number], 165, cm, 05/11/24 11:51:00 EDT, Height Start Date: 05/11/24 Stop Date: 05/06/25 Status: Ordered Medication Dispense Status: Completed Quantity: 180.0 Unit: tablet Total Allowed Fills: 4 Fills Dispensed: 0 esomeprazole 40 mg oral enteric coated capsule TAKE 1 CAPSULE BY MOUTH DAILY Start Date: 05/11/24 Status: Ordered Medication Dispense Status: Completed Total Allowed Fills: 1 Fills Dispensed: 0 hydrocortisone 1% topical cream 1 application, Topically, 2 times a day, # 45 Gm, 0 Refills, Maintenance, 01/08/21 5:21:00 PM EST, Cream, [facility]/pharmacy #[id number], Partial fill upon patient request if the prescription is for a schedule II opioid drug., 1 application Topically 2 times a day, 165, cm, 12/25/20 14:31:00 EDT, Height, 71.5,kg, 09/20/20 13:46:00 EDT, Dry Weight Start Date: 01/08/21 Status: Ordered Medication Dispense Status: Completed Quantity: 45.0 Unit: g Total Allowed Fills: 1 Fills Dispensed: 0 lisinopril 30 mg oral tablet 1 tablet, By Mouth, Daily, # 90 tablet, 3 Refills, Maintenance, 05/11/24 12:20:00 PM EDT, [facility] #[id number], 165, cm, 05/11/24 11:51:00 EDT, Height Start Date: 05/11/24 Stop Date: 05/06/25 Status: Ordered Medication Dispense Status: Completed Quantity: 90.0 Unit: tablet Total Allowed Fills: 4 Fills Dispensed: 0 Multivitamin Daily, 0 Refills, Maintenance, 06/08/18 2:18:26 PM EDT Start Date: 06/08/18 Status: Ordered Medication Dispense Status: Completed Total Allowed Fills: 1 Fills Dispensed: 0 multivitamin Multiple Vitamins oral tablet 1 tablet, By Mouth, Daily, # 90 tablet, 3 Refills, Maintenance, 08/16/24 1:57:00 PM EDT, Tablet, [facility] #[id number], Partial fill upon patient request if the prescription is for a schedule IIopioid drug., 1 tablet By Mouth Daily,x90 days, 165, cm, 08/16/24 13:26:00 EDT, Height Start Date: 08/16/24 Stop Date: 08/11/25 Status: Ordered Medication Dispense Status: Completed Quantity: 90.0 Unit: tablet Total Allowed Fills: 4 Fills Dispensed: 0 nitroglycerin 0.4 mg sublingual tablet 1 tablet = 0.4 mg, Sublingual, Every 5 minutes, PRN for chest pain, # 100 tablet, 9 Refills, Maintenance, 12/09/22 11:18:00 AM EDT, Tablet, [facility] #[id number], Partial fill upon patient request if the prescription is for a schedule II opioid drug., 165, cm, 06/21/22 14:07:00 EDT, Height Start Date: 12/09/22 Status: Ordered Medication Dispense Status: Completed Quantity: 100.0 Unit: tablet Total Allowed Fills: 10 Fills Dispensed: 0 pravastatin 10 mg oral tablet 1 tablet, By Mouth, Daily at bedtime, # 90 tablet, 3 Refills, Maintenance, 05/11/24 12:21:00 PM EDT,[facility] #[id number], 165, cm, 05/11/24 11:51:00 EDT, Height Start Date: 05/11/24 Stop Date: 05/06/25 Status: Ordered Medication Dispense Status: Completed Quantity: 90.0 Unit: tablet Total Allowed Fills: 4 Fills Dispensed: 0 pregabalin 75 mg oral capsule 1 capsule = 75 mg, By Mouth, 2 times a day, # 180 capsule, 0 Refills, Maintenance, 06/21/22 2:10:00 PM EDT, Capsule, Partial fill upon patient request if the prescription is for a schedule II opioid drug. Start Date: 06/21/22 Status: Ordered Medication Dispense Status: Completed Quantity: 180.0 Unit: capsule Total Allowed Fills: 1 Fills Dispensed: 0 traZODone 100 mg oral tablet 100 mg, 1, tablet, By Mouth, Daily at bedtime, # 90 tablet, Refills 3, Tot. Refills 3, Maintenance,05/11/24 12:20:00 PM EDT, Route to Pharmacy Electronically, [facility] #[id number], Partial fill upon patient request if the prescription is for a schedule II opioid drug., 165, cm, 05/11/24 11:51 :00 EDT, Height Start Date: 05/11/24 Stop Date: 05/06/25 Status: Ordered Medication Dispense Status: Completed Quantity: 90.0 Unit: tablet Total Allowed Fills: 4 Fills Dispensed: 0 Problem List Condition Confirmation Course Effective Dates Status H ealth Status Informant Anxiety and depression Confirmed Active Diverticulosis Confirmed Active Dysphagia Confirmed Active Hyperlipidemia Confirmed Active Hypertension Confirmed Active Insomnia Confirmed Active PTSD (post-traumatic stress disorder) Confirmed Active Prediabetes Confirmed Active Social History Social History Type Response Smoking Status Former smoker, quit more than 30 days ago entered on: 09/14/24 Sexual Orientation Self described orien tation: ; Straight or heterosexual Sex Sex Representation Male (finding) Patient Care team information Care Team Personnel Name: Evelio Serrano MD Position: [facility] Physician - Gastroenterology Member Role: Lifetime Consulting Physician Address: [address] [place] [address], [address] [facility] [address] Telecom: Name: Gosia Collins RN Position: [facility] RN Member Role: Primary Care Nurse Name: Stella Turk Position: [facility] Outreach Member Role: Lifetime Consulting Physician Name: Not on Staff, PCP Position: [facility] Physician (General Medicine) Member Role: PCP Name: Missy Lancaster RN Position: [facility] RN Member Role: Primary Care Nurse Name: Kiera Prescott Position: [facility] Outreach Member Role: Lifetime Consulting Physician Name: Amy Del Toro RN Position: [facility] ED RN W/OE and Tasks Member Role: Primary Care Nurse Name: Rachael Garcia RN Position: [facility] AMB Nurse Member Role: Primary Care Nurse Name: Sole Rodriguez RN Position: [facility] Hospital Macroeconomics Professor Member Role: Primary Care Nurse Care Team Related Persons Name: OZIEL MACK Name: OZIEL MACK Name: GHADA QUISPE Insurance Providers Guarantor name: ZE GEE Hopela [facility] Information #: 1 Payer: MEDICARE B Payer Identifier: NA Member Number: [id number] Group Number: NA Subscriber Identifier: NA Relationship to Subscriber: self Coverage Type: NA Coverage Verification Date: NA Telecom: NA Address: NA Health Plan Information #: 2 Payer: [facility] [employer] Payer Identifier: NA Member Number: [id number] Group Number: [id number] Subscriber Identifier: NA Relationship to Subscriber: self Coverage Type: MEDICAID Coverage Verification Date: NA Telecom: NA Address: NA
--- NOTE | ~2024-12-28 | US_ITS ---
CLINICAL HISTORY: R39.11 - Hesitancy of micturition US bladder Comparison: None provided Findings: The urinary bladder is unremarkable. Prevoid volume 131 mL. Post void volume 16 mL. Bilateral ureteral jets visualized. Impression: No significant abnormalities. Ultrasound prostate Comparison: None provided Findings: Prostate volume 40.5 mL. Prostate measures 4.5 x 4.2 x 4.1 cm. Heterogeneous prostate with calcification. No focal prostate nodule. Impression: Heterogeneous enlarged prostate This document has been electronically signed by: Maxi Arita MD on 12/28/2024 20:19:17
--- OUTSIDE RECORDS SUMMARY | 2024-12-28 15:24 | XMS_ITS | Clinical Summary ---
Author Organization [facility] Address [address] [place] [address] Care Team Providers Care School Custodian Name Role Phone ShayNicole Jo MCDOWELL Primary Care Provider [phone] Allergies No known active allergies Medications Medication [...] age to complete this topic Care Teams School Custodian Relationship Specialty Start Date End Date Nicole Day NP [address] [place] [address] PCP - General Family Medicine 08/03/18
--- OUTSIDE RECORDS SUMMARY | 2024-12-28 15:24 | XMS_ITS | Data Portability ---
Author Organization [place] - [facility], Allergy Address [address] [address] Care Team Providers Care Mobile Mechanic Name Role Phone ARAM SALEH Primary Care [...] mcg (0.03 %) nasal spray 2024 025 [facility] [employer][id number], [address], [place], [id number], 08/06/2024 15:56:22 ipratropi um bromide 42 mcg (0.06 %) nasal spray 2023 024 [facility][id number], [address], [place], [id number], 02/04/2024 13:37:52 Patient TargetsNo targets recorded. Patient InstructionsNo instructions recorded. Reason for Referral None Reported. Problems Name Problem SNOMED Code Status Onset Date Resolution Date Notes Provider Name and Address Organization Details Recorded Time Edema of larynx 45789446 Active 2023 Edema of larynx; Note: Date Diagnosed : 05/14/2023 1:25 PM (J38.4) Not Available [facility] 4 02:57:06 Disturban ce of salivary secretion 28876071 Active 2023 Xerostomi a; Note: Date Diagnosed : 05/14/2023 1:25 PM (K11.7) Not Available [facility] 4 02:57:06 Chronic rhinitis 52042033 Active 2023 Chronic rhinitis; Note: Date Diagnosed : 05/14/2023 1:25 PM (J31.0) Not Available [facility] 4 02:57:06 Gastroeso phageal reflux disease without esophagit is 966728329 Active 2023 Esophagea l reflux NOS; Note: Date Diagnosed : 05/14/2023 1:25 PM (K21.9) Not Available [facility] 4 02:57:07 Hypertrop hy of tongue papillae 9750489 Active 2023 Coated tongue; Note: Date Diagnosed : 06/26/2023 3:49 PM (K14.3) Not Available [facility] 4 02:57:06 Impacted cerumen of bilateral ears 14232627332 36887 Active 2023 Impacted cerumen, bilateral ; Note: Date Diagnosed : 06/26/2023 3:49 PM (H61.23) Not Available [facility] 4 02:57:07 Vasomotor rhinitis 7781810 Active 2023 Vasomotor rhinitis; Note: Date Diagnosed : 06/26/2023 3:48 PM (J30.0) Not Available [facility] 4 02:57:08 Problem Notes None recorded. Procedures Surgical History Date Name Laterality Status Provider Name and Address Organization Details Recorded Time 5 JMSNasal/Sinus Endoscopy completed TEETEE BRADFORD MD [address] [place] [address],[address], [address], [place] - [facility] 08/04/2024 13:22:20 4 Cerumen removal without microscope bilat completed Delilah Reynolds [place] - [facility] 02/04/2024 13:36:49 Imaging Results None recorded. [...] mg tablet 08/04 completed Medicati on ID: [id number] B rand Name: methocar bamol Se nd [...] spray aerosol 08/04 completed Medicati on ID: [id number] D uration Value: 30 Brand Name: Saline [...] spray,taz pension 05/13 completed Medicati on ID: [id number] B rand Name: fluticas one propiona te [...] mg tablet 05/13 completed Medicati on ID: [id number] B rand Name: Allergy Relief (fexofen adine) S end Method: E-Prescr ibed Sub s Allowed: subs OK Mynori al Instruct ion: TAKE ONE TABLET BY MOUTH DAILY. M dmitri Johnston Name: Allergy Relief (fexofen adine) Not Available Not Available Not Available Biotene Dry Mouth Oral Rinse mouthwash 2023 active Medicati on ID: [id number] D uration Value: 30 Brand Name: Biotene [...] Updated DateTime 08/04/2024 165.1 cm 25.5 kg/m2 26997.63 g Haydee Steve [place] - [facility] 08/04/2024 13:02:37 Date Recorded Body weight Body mass index (BMI) Body height Provider Name and Address Organization Details Last Updated DateTime 02/04/2024 08239.86 g 25 kg/m2 165.[address] [facility] 02/04/2024 13:15:48 Social History None recorded. Functional Status None recorded. Mental Status None recorded. Family History Nothing Reported. Medical History No medical history recorded. Past Encounters Encounter ID Performer Location Encounter Start Date Encounter Closed Date Diagnosis/Indication Diagnosis SNOMED-CT Code Diagnosis ICD10 Code Diagnosis IMO Codes Diagnosis Note [id number] DELILAH REYNOLDS PA-C [facility] [address] [address] 02/04/2024 12:32:02 02/04/2024 13:31:17 Impacted cerumen of bilateral ears 3186932316 498035 H61.23 Vasomotor rhinitis 60850 03 J30.0 [id number] TEETEE KASPER MD [facility] [address] [address] 08/04/2024 12:54:24 08/04/2024 13:25:35 Gastroesophageal reflux disease without esophagitis 993085740 K21.9 Dietary modificati ons discuss Vasomotor rhinitis 18865 03 J30.0 Use the Atrovent 20 min before meals Health Concerns Section Related Observation LastModified by Organization Detai ls LastModified Time None Recorded Concern Status LastModified by Organization Details LastModified Time None Recorded Advance Directives Directive None Recorded Payers Insurance Date Sequence Insurance Name Policy Number Policy Kennedy Covered Member ID Kennedy Member ID Guarantor Name 08/01/2024 1 [place] [employer] Mateus Beyer [id number] Mateus Will Kayleen 08/01/2024 2 [place] [facility] Mateus Beyer [id number] Mateus Will Kayleen Notes Date Note Type Note Provider Name and Address Organization Details Recorded Time 02/04/2024 text/html ROS as noted in the HPI 68 year old male presents for re-evaluation. States his nose runs at mealtimes despite Atrovent spray. He does not take this before meals. He also notes his PCP said he had a cerumen impaction. He has had this flushed successfully at urgent care in the past. He denies otalgia and otorrhea. TEETEE BRADFORD MD [address] [place] [address],[address], [address], [place] - [facility] 02/04/2024 16:42:51 08/04/2024 text/html Pt with hx of GERD and PTSD. Has rhinorrhea with eating. Using Atrovent after eatingChronic issues iwht burping and flatulence TEETEE BRADFORD MD [address] [place] [address],[place] [address], [place], [address], [facility] - [facility] 08/04/2024 13:24:08
== END 2024-12-28 12:42 | disposition home or self-care (01) ==
LOC: HO.US 12:41
PROVIDERS: PCP Student in an Organized Health Care Education/Training Program; Visit Provider Urology
DX: R39.11 Hesitancy of micturition (principal)
CPT/HCPCS: 76857

== ENCOUNTER → 2024-12-28 12:44 | Outpatient (BNV) | payer MEDICARE, MEDICAID, SELFPAY | PROVIDERS: PCP Student in an Organized Health Care Education/Training Program; Visit Provider Radiology Diagnostic Radiology | DX: N40.1 Benign prostatic hyperplasia with lower urinary tract symptoms (principal) | CPT/HCPCS: 76857 ==

== ENCOUNTER 2025-01-04 12:49 | Outpatient (AMB) | payer MEDICARE, MEDICAID, SELFPAY ==
--- NOTE | 2025-01-04 12:51 | A.OFFVIS_ITS ---
Intake Visit Reasons: Uroflow Intake Note: Patient is present for Uroflow ( unable to perform test as pt did not drink 32oz of water , Pt is not pleased with medication outcome , Urology Rx:Vit-C ,Terazosin LAST PVR:28mls Blood Thinners:none Imaging completed: Bladder Ultrasound 12/28/24 Junior Manufacturing Engineer Required: No Accompanied by: Self / Same As Patient Allergies No Known Allergies Allergy (Verified 01/04/25 12:52) HPI Comments Details: Mateus is a pleasant male. He is a patient of . He is seen for the following urologic conditions - erectile deficiency - urinary urgency 2 month follow-up PVR 30 cc Significant background of constipation. Been seen by GI Feels primary symptom is 1 of frequency Stopped terazosin We will trial OAB medication. Solifenacin prescribed. Prescription coverage uncertain on Myrbetriq and Gemtesa Three-month follow-up office cystoscopy Microhematuria Imaging - 10/18 CT of the pelvis NAD Urinary hesitancy Given terazosin Bladder ultrasound 40 cc prostate PFSH Medical History Anemia Anemia Occasional tremors Cervical spinal stenosis Hand weakness ADHD OCD (obsessive compulsive disorder) Anxiety and depression Diverticulosis Hyperlipidemia Hypertension Insomnia PTSD (post-traumatic stress disorder) Surgical History History of esophagogastroduodenoscopy (EGD) Hx of colonoscopy History of left hip replacement Family History Father No problems noted. Mother No problems noted. Social History Housing: Apartment Are you a primary long term acute care registered nurse to a significant other at home: No Do you presently have visiting nurse or other home services: No Alcohol intake: never Patient Tobacco Use Status: Never used Tobacco service: No Current occupational status: employed Cognitive needs: No Hearing needs: No Vision needs: No Review of Systems Const Denies chills and Denies fever(s) Card Reports no additional complaints and Denies syncope Resp Denies cough GI Denies abdominal pain and Denies heartburn Reports as per HPI and Denies change in libido Neuro Denies syncope Psych Denies change in libido Endo Denies change in libido Physical Exam Const General: cooperative, healthy appearing, comfortable and no acute distress Orientation/consciousness: patient oriented x3 HEENT Face and sinus: Yes normal facial exam Mouth: moist mucous membranes Neck Neck: Yes normal visual inspection, Yes full ROM and Yes trachea midline Chest Chest palpation & inspection: normal inspection of the chest Resp Effort & Inspection: normal respiratory effort, able to speak in complete sentences and no respiratory distress GI Inspection: Yes normal to inspection Back/Spine/Pelvis Cervical Spine: normal cervical lordosis Thoracic/Lumbar Spine: thoracic and lumbar spine normal to inspection Skin General skin exam: no rashes or lesions noted Neuro General: patient oriented x3, gait normal, tone normal and moves all extremities Extrem General: Yes normal to inspection and Yes capillary refill normal Office Procedures Post Void Residual Post Residual Void Post Void Residual (PVR): 28 54161-[id number] Void Residual by ultrasound Assessment & Plan Assessment & Plan (1) Urinary urgency: Code(s): R39.15 - Urgency of urination Category: Medical Plan Three-month follow-up office cystoscopy Medications: New solifenacin 5 mg PO DAILY 30 tabs 1RF 30 days R39.15 - Urgency of urination Patient Instructions: This note is constructed using voice recognition software. While every effort has been made to ensure accuracy willow machine operator errors may have been included. Imaging studies, laboratory and physical exam results were discussed and reviewed in detail. No major barriers to patient understanding were identified. An opportunity to ask questions regarding the treatment plan was provided. All questions were answered. The patient expressed understanding and agreement with the above treatment plan. The patient is aware they should contact our office by phone for worsening of their current condition or the appearance of new urologic symptoms. Compliance is encouraged with any medications and followup testing that is ordered. It is a privilege to participate in the urologic care of your patient. If you have any questions or concerns regarding treatment for the above conditions, or other urologic issues, please do not hesitate to contact me. The office telephone contact is [phone]. Sincerely, Dr Zach Manning MD, [facility]AT[facility] - Urology Compassionate Specialist Care for the Genitourinary System Coding Level of Care Code Est Pt Level 3 (55451) Complex EM visit Add On G2211 Diagnoses Urinary urgency R39.15 CPT Codes Post Residual Void - PVR CPT Code: 69220-Nxwc Void Residual by ultrasound ([id number])
--- OUTSIDE RECORDS SUMMARY | 2025-01-04 14:33 | XMS_ITS | Data Portability ---
Author Organization [place] - [facility], Allergy Address [address] [address] Care Team Providers Care Medical Transcriptionist Name Role Phone ARAM SALEH Primary Care [...] Establish ed 30 2025 01:00P M TEETEE FIEDL MD Not available Not available Not available Lab None recorded. Referral None recorded. Procedures None recorded. Surgeries None recorded. Imaging None recorded. Medication Orders ipratropi um bromide 21 mcg (0.03 %) nasal spray 2024 025 [employer] [facility] #73152, [address] [place], [place], [id number], 08/06/2024 15:56:22 ipratropi um bromide 42 mcg (0.06 %) nasal spray 2023 024 [facility] #58141, [address] [place], [place], [id number], 02/04/2024 13:37:52 Patient TargetsNo targets recorded. Patient InstructionsNo instructions recorded. Reason for Referral None Reported. Problems Name Problem SNOMED Code Status Onset Date Resolution Date Notes Provider Name and Address Organization Details Recorded Time Edema of larynx 99959318 Active 2023 Edema of larynx; Note: Date Diagnosed : 05/14/2023 1:25 PM (J38.4) Not Available [facility] 4 02:57:06 Disturban ce of salivary secretion 88155743 Active 2023 Xerostomi a; Note: Date Diagnosed : 05/14/2023 1:25 PM (K11.7) Not Available [facility] 4 02:57:06 Chronic rhinitis 40784706 Active 2023 Chronic rhinitis; Note: Date Diagnosed : 05/14/2023 1:25 PM (J31.0) Not Available [facility] 4 02:57:06 Gastroeso phageal reflux disease without esophagit is 333467511 Active 2023 Esophagea l reflux NOS; Note: Date Diagnosed : 05/14/2023 1:25 PM (K21.9) Not Available [facility] 4 02:57:07 Hypertrop hy of tongue papillae 3833466 Active 2023 Coated tongue; Note: Date Diagnosed : 06/26/2023 3:49 PM (K14.3) Not Available [facility] 4 02:57:06 Impacted cerumen of bilateral ears 95257183598 57275 Active 2023 Impacted cerumen, bilateral ; Note: Date Diagnosed : 06/26/2023 3:49 PM (H61.23) Not Available [facility] 4 02:57:07 Vasomotor rhinitis 0541621 Active 2023 Vasomotor rhinitis; Note: Date Diagnosed : 06/26/2023 3:48 PM (J30.0) Not Available [facility] 4 02:57:08 Problem Notes None recorded. Procedures Surgical History Date Name Laterality Status Provider Name and Address Organization Details Recorded Time 5 JMSNasal/Sinus Endoscopy completed TEETEE BRADFORD MD [address] [place] [address],[address], [address], [place] - [facility] 08/04/2024 13:22:20 4 Cerumen removal without microscope bilat completed Delilah Reynolds [place] - [facility] 02/04/2024 13:36:49 Imaging Results None recorded. [...] mg tablet 08/04 completed Medicati on ID: [id number] B rand Name: methocar bamol Se nd [...] spray aerosol 08/04 completed Medicati on ID: [id number] D uration Value: 30 Brand Name: Saline [...] spray,taz pension 05/13 completed Medicati on ID: [id number] B rand Name: fluticas one propiona te [...] mg tablet 05/13 completed Medicati on ID: [id number] B rand Name: Allergy Relief (fexofen adine) S end Method: E-Prescr ibed Sub s Allowed: subs OK Mynori al Instruct ion: TAKE ONE TABLET BY MOUTH DAILY. M dmitri Johnston Name: Allergy Relief (fexofen adine) Not Available Not Available Not Available Biotene Dry Mouth Oral Rinse mouthwash 2023 active Medicati on ID: [id number] D uration Value: 30 Brand Name: Biotene [...] Updated DateTime 08/04/2024 165.1 cm 25.5 kg/m2 13662.63 g Haydee Steve [place] - [facility] 08/04/2024 13:02:37 Date Recorded Body weight Body mass index (BMI) Body height Provider Name and Address Organization Details Last Updated DateTime 02/04/2024 18460.86 g 25 kg/m2 165.1 cm Patricia Steven [facility] 02/04/2024 13:15:48 Social History None recorded. Functional Status None recorded. Mental Status None recorded. Family History Nothing Reported. Medical History No medical history recorded. Past Encounters Encounter ID Performer Location Encounter Start Date Encounter Closed Date Diagnosis/Indication Diagnosis SNOMED-CT Code Diagnosis ICD10 Code Diagnosis IMO Codes Diagnosis Note [id number] DELILAH REYNOLDS PA-C [facility] [address] [address] 02/04/2024 12:32:02 02/04/2024 13:31:17 Impacted cerumen of bilateral ears 3748799076 884688 H61.23 Vasomotor rhinitis 04537 03 J30.0 [id number] TEETEE KASPER MD [facility] [address] [address] 08/04/2024 12:54:24 08/04/2024 13:25:35 Gastroesophageal reflux disease without esophagitis 353697149 K21.9 Dietary modificati ons discuss Vasomotor rhinitis 28195 03 J30.0 Use the Atrovent 20 min before meals Health Concerns Section Related Observation LastModified by Organization Detai ls LastModified Time None Recorded Concern Status LastModified by Organization Details LastModified Time None Recorded Advance Directives Directive None Recorded Payers Insurance Date Sequence Insurance Name Policy Number Policy Kennedy Covered Member ID Kennedy Member ID Guarantor Name 08/01/2024 1 [place] B-[place] [employer] Mateus Beyer [id number] Mateus Will Kayleen 08/01/2024 2 [place]: [facility] Mateus Beyer [id number] Mateus Will Kayleen Notes Date Note Type [...] denies otalgia and otorrhea. TEETEE BRADFORD MD [address] [place] [address],[address], [address], [place] - [facility] 02/04/2024 16:42:51 08/04/2024 text/html Pt with hx of GERD and PTSD. Has rhinorrhea with eating. Using Atrovent after eatingChronic issues iwht burping and flatulence TEETEE BRADFORD MD [address] [place] [address],[place] [address], [place], [address], [facility] - [facility] 08/04/2024 13:24:08
--- OUTSIDE RECORDS SUMMARY | 2025-01-04 14:33 | XMS_ITS | Encounter Summary ---
Author Organization [facility] Address [place] [address] [place] [address] Care Team Providers Care Family Partner Name Role Phone Unavailable Primary Care Provider Unavailabl e Encounter Details Date Type Department Care Team (Late st Contact Info) Description 10/12/2021 Dental Interim Note [facility] Main Dental [address] [place] [address] Corry Flores, RENNY [address] [place] [address] Social History Tobacco Use Types Packs/Day Years [...]
--- OUTSIDE RECORDS SUMMARY | 2025-01-04 14:33 | XMS_ITS | Encounter Summary ---
Author Organization [facility] Address [address] [place] [address] [place] [address] Care Team Providers Care Appeals Specialist Name Role Phone Unavailable Primary Care Provider Unavailabl e Encounter Details Date Type Department Care Team (Late st Contact Info) Description 08/24/2021 Dental Interim Note [facility] Dental [address] [place] [address] Corry lFores DMD [address] [place] [address] Social History Tobacco Use Types Packs/Day Years [...]
--- OUTSIDE RECORDS SUMMARY | 2025-01-04 14:33 | XMS_ITS | Clinical Summary ---
Author Organization [facility] Address [address] [place] [address] [place] [address] Care Team Providers Care Beauty Specialist Name Role Phone Unavailable Primary Care [...] 2 Refills, Soft Stop, 07/07/20 13:00:00 EDT, [facility]/pharmacy #[id number], Partial fill upon patient request if the [...] Department Care Team Description 11/24/2024 Telemedicine Visit [address] [address] Ralph Nagel PA-C from Last [...] 1957 Lipid Screening 1957 Tobacco Screening 1955 Medicare Annual Wellness Visit 06/20/1975 CT Colonography 2002 Colonoscopy 2002 Colorectal Cancer [...] 08/01/2024 07/31/2023, 06/2022, 01/30/2022, Additional history exists [id number] (1 - season) 2024 Imm-Influenza (#1) 2024 Imm-DTaP/Tdap/Td (2 - Td or Tdap) 07/09/2028 019 Procedures Procedure Name Priority Date/Time Associated Diagnosis Comments COMP PERIODONTAL EVALUATION - NEW/EST PATIENT Routine 07/31/2023 1:00 PM EDT [facility] Encounter for dental examination BITEWINGS - FOUR RADIOGRAPHIC IMAGES Routine 07/31/2023 1:00 PM EDT [facility] Defective dental rastafarian Encounter for dental examination PROPHYLAXIS - ADULT Routine 07/31/2023 1 :00 PM EDT [facility] Encounter for dental examination PERIODIC ORAL EVALUATION ESTABLISHED PATIENT Routine 07/31/2023 1:00 PM EDT [facility] Encounter for dental examination from Last 3 Months or Most Recently Relevant to Health Maintenance [place]
== END 2025-01-04 13:22 | disposition home or self-care (01) ==
LOC: HO.HUSH 12:49
PROVIDERS: PCP Student in an Organized Health Care Education/Training Program; Visit Provider Urology
DX: R39.15 Urgency of urination (principal)
CPT/HCPCS: 99213; G2211

== ENCOUNTER → 2025-01-04 12:49 | Outpatient (BNVA) | payer MEDICARE, MEDICAID, SELFPAY | PROVIDERS: PCP Student in an Organized Health Care Education/Training Program; Visit Provider Urology | DX: R39.15 Urgency of urination (principal) | CPT/HCPCS: 51798; 99212 ==

== ENCOUNTER 2025-01-06 12:39 | Outpatient (AMB) | payer MEDICARE, MEDICAID, SELFPAY ==
[2025-01-06 13:04] VITALS: BP 111/65; PULSE 82; TEMP 36.7; O2SAT 96; BMI 28.0
--- NOTE | 2025-01-06 13:04 | A.OFFPC_ITS ---
Vital Signs 01/06/25 13:04 Height 5 ft 2 in Weight 153 lb BMI 28.0 BP 111/65 Blood Pressure Location Lt brachial Position Sitting Pulse 82 Pulse Source Pulse Oximeter Temp 98.1 F Temp Source Oral Pulse Oximetry (%) 96 Oxygen Delivery Method Room Air Intake Visit Reasons: Med Review Accompanied by: Self / Same As Patient Allergies No Known Allergies Allergy (Verified 01/06/25 13:04) Medication List - Last Reconciled 01/06/25 by Edward Beth MD ascorbic acid (vitamin C) 500 mg PO DAILY celecoxib 200 mg PO BID PRN clonidine HCl 0.1 mg PO BID cromolyn (Nasalcrom) 1 spray intranasal TID diclofenac sodium 1% (Voltaren Arthritis Pain) 4 grams topical QID docusate sodium (Colace) 100 mg PO BID esomeprazole magnesium 40 mg PO DAILY ferrous sulfate 325 mg PO DAILY fluticasone propionate 50 mcg/actuation 1 spray intranasal BID gabapentin 300 mg PO BID hydrocortisone 2.5% (Procto-Med HC) 1 appl NE BEDTIME 1 week linaclotide 72 mcg PO DAILY lisinopril 30 mg PO DAILY loratadine (Claritin) 10 mg PO DAILY lorazepam 1 mg PO BID PRN mesalamine ER 1.5 grams (4 x 0.375 gram) PO QAM nabumetone 500 mg PO BID nitroglycerin 0.4 mg sublingual ONCE PRN pravastatin 10 mg PO BEDTIME psyllium husk (Metamucil) 1 tbsp PO BID rifaximin 550 mg PO TID 2 weeks solifenacin 5 mg PO DAILY 30 days sucralfate 10 mL PO BID sucralfate (Carafate) 1 g PO BID terazosin 5 mg PO BEDTIME 30 days trazodone 100 mg PO BEDTIME vitamin A 1 cap PO DAILY Tobacco use date assessed: 01/06/25 Fall risk assessment: No Falls in past year Last assessed Fall Risk: 01/06/25 Dental Screening Dental Screen Date: 01/06/25 Did you have a dental visit in the last 12 months?: Yes Was dental information given to patient?: Patient has dentist HPI HPI Comments History of Present Illness Details History of Present Illness The patient is a 69-year-old male presenting for follow-up and management of multiple chronic conditions, including urologic and gastrointestinal complaints, anemia, and review of recent laboratory results. Anemia: The patient was diagnosed with anemia after it was identified on recent lab work, a finding missed by a previous physician. He was taking a ferrous sulfate supplement but reports it caused significant constipation, even with the use of Colace. He reports feeling tired as a result of the anemia. The patient has an upcoming appointment with a dietitian to discuss an iron-rich diet. He was previously taking a prescription multivitamin but is considering switching back to an htwn-jhk-fafnfbk Centrum with iron. Overactive Bladder: The patient complains of urinary frequency, urgency, and incontinence, describing an inability to hold his urine once the urge occurs. He recently saw a urologist, who diagnosed him with overactive bladder after a workup that included a post-void residual of 30 cc. The urologist determined he does not have an enlarged prostate, contrary to what the patient previously believed. He also reports that his ejaculate is backing up into his bladder. A previous trial of terazosin was ineffective, and he has now been prescribed solifenacin. The patient has a history of microhematuria, but imaging studies were normal. Chronic Constipation: The patient reports chronic constipation, which has been exacerbated by iron supplements. He describes spending 20-25 minutes on the toilet for a bowel movement, which causes his legs and toes to become numb. He has also experienced an episode of fecal incontinence. He is scheduled to see a new [facility] oenterologist for this issue. 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 - Reports feeling melancholy and crying. - Reports cannabis use. - Lives in a 55+ community but feels john t he does not fit in. - Does not have a computer, internet, or smartphone. Diagnostic Results: - Labs: - Hemoglobin A1c: 5.6%. - Random Glucose: 106 mg/dL. - Red Blood Cells: Noted to be just a l ittle low. - Magnesium: 2.0 mEq/L (Normal 1.6-2.6). - Calcium: Normal. - Testosterone: Normal. - Tests and Diagnostics: - Post-void residual: 30 cc. - Urinalysis: History of microhematuria with subsequent imaging studies being normal. - Ultrasound/CT Scan: No evidence of enl arged prostate. Past Medical History - Anemia - Overactive bladder - Chronic constipation - Previous diagnosis of prediabetes, whi ch has been ruled out based on current labs (A1c 5.6%) - History of microhematuria with a negat keeley workup Health Maintenance - The patient has an appointment with a dietitian on January 13 for dietary counseling, specifically regarding an iron-rich diet. - The patient is scheduled to see a new dynamite reclaimer. - The patient is scheduled to see a rheu matologist. - Lab results were reviewed, confirming an A1c of 5.6%, which rules out diabetes and prediabetes. [facility] Medical History Anemia Anemia Occasional tremors Cervical spinal stenosis Hand weakness ADHD OCD (obsessive compulsive disorder) Anxiety and depression Diverticulosis Hyperlipidemia Hypertension Insomnia PTSD (post-traumatic stress disorder) Surgical History History of esophagogastroduodenoscopy (EGD) Hx of colonoscopy History of left hip replacement Family History Father No problems noted. Mother No problems noted. Social History Housing: Apartment Are you a primary assurance services manager health care to a significant other at home: No Do you presently have visiting nurse or other home services: No Alcohol intake: never Patient Tobacco Use Status: Never used Tobacco service: No Current occupational status: employed Cognitive needs: No Hearing needs: No Vision needs: No Questionnaire PHQ-9 Over the last 2 weeks, how often have you been bothered by any of the following problems? 1. Little interest or pleasure in doing things: not at all 2. Feeling down, depressed, or hopeless: not at all 3. Trouble falling or staying asleep, or sleeping too much: not at all 4. Feeling tired or having little energy: not at all 5. Poor appetite or overeating: not at all 6. Feeling bad about yourself - or that you are a failure or have let yourself or your family down: not at all 7. Trouble concentrating on things, such as reading the newspaper or watching television: not at all 8. Moving or speaking so slowly that other people could have noticed. Or the opposite - being so fidgety or restless that you have been moving around a lot more than usual: not at all 9. Thoughts that you would be better off or of hurting yourself in some way: not at all Total score: 0 Source: Developed by Drs. Lon Mercedes, Elba Rodriguez, Darian Flores and colleagues, with an educational sharron from [employer] Thrive Questionnaire Date Thrive assessed: 01/06/25 I am a: Patient What is your living situation today?: I have a steady place to live Within the past 12 months, did the food you bought not last and you didn't have the money to get more?: Never true Within the past 12 months, did you worry whether your food would run out before you got money to buy more?: Never true Do you have trouble paying for medicines?: No Do you have trouble getting transportation to medical appointments?: No Do you have trouble paying your heating and electricity bill?: No Do you have trouble taking care of your child, family member or friend?: No Do you have trouble with day-to-day activities such as bathing, preparing meals, shopping, managing finances, etc.?: No Are you currently unemployed and looking for a job?: No Are you interested in more education?: No Please select the resources that you would like help with: None Currently or been in a relationship where the following occur: No concerns reported THRIVE Score: 0 AUDIT C Alcohol Use Questionnaire (AUDIT-C) 1. How often do you have a drink containing alcohol?: Never 3. How often do you have six or more drinks on one occasion?: Never Total Score: 0 BLAIR-7 AMB Questionnaire BLAIR-7 Date BLAIR - 7 assessed: 01/06/25 Feeling nervous, anxious, or on edge: 0 = Not at all Not being able to stop or control worryin = Not at all Worrying too much about different things: 0 = Not at all Trouble relaxin = Not at all Being so restless that it is hard to sit still: 0 = Not at all Becoming easily annoyed or irritable: 0 = Not at all Feeling afraid as if something awful might happen: 0 = Not at all Total BLAIR-7 score (0-4 normal; 5-9 mild; 10-14 moderate; 15-21 severe): 0 Source: Developed by Drs. Lon Mercedes, Elba Rodriguez, Darian Flores and colleagues, with an educational sharron from [employer]. Review of Systems Narrative Review of Systems - Constitutional: Reports feeling tired. - Gastrointestinal: Reports chronic constipation and prolonged time for bowel movements. - Reports an episode of fecal incontinence. - Genitourinary: Reports urinary frequency, urgency, and incontinence. - Reports decreased force of ejaculation, which he describes as backing up into the bladder. - Psychiatric: Reports feeling melancholy and crying. - Reports feelings of loneliness. - Neurological: Reports his toes and legs getting numb while sitting on the toilet for prolonged periods. 10-point ROS reviewed and negative except as noted in HPI Physical exam (Primary Care) Vital Signs: Last Vital Signs Temp 98.1 F 01/06/25 13:04 Pulse 82 01/06/25 13:04 BP 111/65 01/06/25 13:04 Pulse Ox 96 01/06/25 13:04 Oxygen Delivery Method Room Air 01/06/25 13:04 BMI result Body Mass Index 28.0 Tobacco/Smoking Status: Tobacco use Status Tobacco use date assessed 01/06/25 01/06/25 13:05 Patient Tobacco Use Status Never used Tobacco 01/06/25 13:05 PHQ-9: PHQ-9 Score PHQ-9: Total score 0 01/06/25 13:05 Thrive Assessment: Date of Thrive Assessment Date Thrive assessed 01/06/25 01/06/25 13:05 Currently or been in a relationship where the following occur: No concerns reported Narrative Physical Exam General: Well-appearing, in no acute distress. Vital signs: Within normal limits. HEENT: Normocephalic, atraumatic. PERRLA, EOMI. Conjunctiva clear, sclera anicteric. Oropharynx clear, mucous membranes moist. TMs intact bilaterally. Neck: Supple, no lymphadenopathy, no thyromegaly, no JVD or carotid bruits. Cardiovascular: RRR, normal S1/S2, no murmurs, rubs, or gallops. Peripheral pulses 2+ and symmetric. No edema. Respiratory: Lungs clear to auscultation bilaterally, no wheezes, rales, or rhonchi. Normal effort. Abdomen: Soft, non-tender, non-distended. Normoactive bowel sounds. No hepatosplenomegaly, no masses. MSK: Full range of motion, no joint swelling or deformity. Normal gait. Skin: Warm, dry, intact. No rashes, lesions, or pallor. Neuro: Alert and oriented x3. Cranial nerves II-XII intact. Strength 5/5 throughout. Sensation intact. Reflexes 2+ symmetric. Normal coordination and gait. Psych: Appropriate mood and affect. Normal judgment and insight. Coding Level of Care Code Est Pt Level 3 (73162) Diagnoses Abnormal bowel habits R19.8 Urinary urgency R39.15 Anemia D64.9 Assessment & Plan Assessment & Plan (1) Abnormal bowel habits: Code(s): R19.8 - Other specified symptoms and signs involving the digestive system and abdomen Category: Medical (2) Urinary urgency: Code(s): R39.15 - Urgency of urination Category: Medical (3) Anemia: Code(s): D64.9 - Anemia, unspecified Category: Medical Plan Consent Patient was informed and verbally consented to the use of an ambient scribe for clinic note documentation during this visit. Plan 1. Anemia - The patient was advised to stop taking his ferrous sulfate supplement due to its constipating side effects. - Recommended to try switching from his prescription multivitamin to an wnet-mab-ncnfbzo Centrum with iron. - Encouraged the patient to follow up with his dietitian to discuss implementing an iron-rich diet, including foods like spinach, broccoli, and kale. - Reassured the patient that the mild anemia is not cancerous and the main symptom is fatigue. 2. Overactive Bladder - Reviewed the urologist's plan to start solifenacin 5 mg for overactive bladder, as terazosin was not effective. - Instructed the patient to take the solifenacin 5 mg tablet once daily in the morning to help manage daytime urgency and frequency. - Will monitor the effectiveness of the new medication. If symptoms do not improve, further evaluation will be considered. 3. Chronic Constipation - The primary intervention is to stop the iron supplement, which is a known contributor to constipation. - The patient will proceed with his scheduled appointment with a new dynamite reclaimer for further management. Discussion Notes I reviewed the patient's recent lab results with him, highlighting that his A1c of 5.6% and random glucose of 106 mg/dL confirm that he is not diabetic or prediabetic, contrary to what another provider had told him. I also pointed out his normal magnesium and calcium levels. We discussed his mild anemia, and I reassured him that it is not a sign of cancer and mainly causes fatigue. We discussed the management of his anemia, and I recommended he stop the iron supplement causing his constipation and instead try an rlec-ktx-lidrryp multivitamin with iron, in addition to pursuing an iron-rich diet. We also reviewed his recent urology consultation for overactive bladder. I provided instructions for his new medication, solifenacin 5 mg, advising him to take it in the morning to control daytime urinary symptoms. Patient Instructions - Stop taking the separate iron pill (ferrous sulfate), as it is making your constipation worse. - You may switch your current prescription multivitamin to an azsb-lll-pjegudl brand like Centrum that contains iron. - Start taking the new medication, solifenacin (brand name Sophizin) 5 mg, once every morning to help with your bladder urgency. - Continue with your plan to see the dietitian on January 13 and discuss adding iron-rich foods like spinach and broccoli to your diet. - Keep your appointment with the new gut doctor (dynamite reclaimer) to address your constipation. - If the new bladder medication does not seem to be helping, please let us know. Medical Decision Making The patient is a 69-year-old male with multiple active complaints. His urologic symptoms of frequency, urgency, and incontinence are consistent with the urology diagnosis of overactive bladder, supported by a post-void residual of 30 cc and failure of terazosin. A trial of the antimuscarinic agent solifenacin 5 mg daily is a reasonable next step. Urology has appropriately ruled out enlarged prostate as the cause. The patient's mild anemia requires management, but his significant constipation secondary to oral iron supplementation is a barrier to treatment. The plan to discontinue supplemental iron, encourage dietary modification via a purchasing coordinator consult, and switch to a potentially better-tolerated multivitamin with iron is a practical approach to balance these competing issues. The patient's chronic constipation and recent onset of fecal incontinence warrant the gastroenterology follow-up he has arranged. Review of recent labs was reassuring, effectively ruling out prediabetes/diabetes (A1c 5.6%) and confirming normal electrolytes. The patient's reported mood symptoms (melancholy) and social isolation are noted and will be monitored. Total Time Statement 20 min Total time spent caring for the patient today includes pre-visit chart review, documentation, review of laboratory and diagnostic imaging results, medication reconciliation, medically necessary evaluation, counseling on diagnoses, care coordination, ordering appropriate tests and medications, review of tests performed by other providers, reporting test results to the patient, and communication with other healthcare providers. Orders: Orders Influenza [id number] Immunization Today Z23 - Encounter for immunization Medications: New Fluarix [id number] (PF) (flu vac ts (6mos up)-PF) 0.5 mL IM ONCE 0.5 mL 0RF NS Z23 - Encounter for immunization lorazepam 1 mg PO BID PRN 60 tabs 0RF anxiety
--- OUTSIDE RECORDS SUMMARY | 2025-01-06 15:46 | XMS_ITS | Encounter Summary ---
Author Organization [facility] Address [place] [address] [place] [address] Care Team Providers Care Government Clerk Name Role Phone Unavailable Primary Care Provider Unavailabl e Encounter Details Date Type Department Care Team (Late st Contact Info) Description 10/12/2021 Dental Interim Note Caring [facility] Dental [address] [place] [address] Corry Flores, RENNY [address] [place] [address] Social History Tobacco Use Types Packs/Day Years [...]
--- OUTSIDE RECORDS SUMMARY | 2025-01-06 15:46 | XMS_ITS | Data Portability ---
Author Organization [place] - [facility], Allergy Address [address] [address] Care Team Providers Care Political Science Research Assistant Name Role Phone ARAM SALEH Primary Care [...] mcg (0.03 %) nasal spray 2024 025 [id number], [address], [place], [id number], 08/06/2024 15:56:22 ipratropi um bromide 42 mcg (0.06 %) nasal spray 2023 024 [id number], [address], [place], [id number], 02/04/2024 13:37:52 Patient TargetsNo targets recorded. Patient InstructionsNo instructions recorded. Reason for Referral None Reported. Problems Name Problem SNOMED Code Status Onset Date Resolution Date Notes Provider Name and Address Organization Details Recorded Time Edema of larynx 99975901 Active 2023 Edema of larynx; Note: Date Diagnosed : 05/14/2023 1:25 PM (J38.4) Not Available [facility] 4 02:57:06 Disturban ce of salivary secretion 05771212 Active 2023 Xerostomi a; Note: Date Diagnosed : 05/14/2023 1:25 PM (K11.7) Not Available [facility] 4 02:57:06 Chronic rhinitis 79059009 Active 2023 Chronic rhinitis; Note: Date Diagnosed : 05/14/2023 1:25 PM (J31.0) Not Available [facility] 4 02:57:06 Gastroeso phageal reflux disease without esophagit is 898924375 Active 2023 Esophagea l reflux NOS; Note: Date Diagnosed : 05/14/2023 1:25 PM (K21.9) Not Available [facility] 4 02:57:07 Hypertrop hy of tongue papillae 9015732 Active 2023 Coated tongue; Note: Date Diagnosed : 06/26/2023 3:49 PM (K14.3) Not Available [facility] 4 02:57:06 Impacted cerumen of bilateral ears 09617106402 27886 Active 2023 Impacted cerumen, bilateral ; Note: Date Diagnosed : 06/26/2023 3:49 PM (H61.23) Not Available [facility] hospital 4 02:57:07 Vasomotor rhinitis 6234055 Active 2023 Vasomotor rhinitis; Note: Date Diagnosed : 06/26/2023 3:48 PM (J30.0) Not Available [facility] 4 02:57:08 Problem Notes None recorded. Procedures Surgical History Date Name Laterality Status Provider Name and Address Organization Details Recorded Time 5 JMSNasal/Sinus Endoscopy completed TEETEE BRADFORD MD [address] [place] [address],[address], [address], [place] - [facility] 08/04/2024 13:22:20 4 Cerumen removal without microscope bilat completed Delilah Reynolds [place] - [facility] 02/04/2024 13:36:49 Imaging Results None recorded. [...] mg tablet 08/04 completed Medicati on ID: [id number] B rand Name: methocar bamol Se nd [...] spray aerosol 08/04 completed Medicati on ID: [id number] D uration Value: 30 Brand Name: Saline [...] spray,taz pension 05/13 completed Medicati on ID: [id number] B rand Name: fluticas one propiona te [...] mg tablet 05/13 completed Medicati on ID: [id number] B rand Name: Allergy Relief (fexofen adine) S end Method: E-Prescr ibed Sub s Allowed: subs OK Mynori al Instruct ion: TAKE ONE TABLET BY MOUTH DAILY. M dmitri Johnston Name: Allergy Relief (fexofen adine) Not Available Not Available Not Available Biotene Dry Mouth Oral Rinse mouthwash 2023 active Medicati on ID: [id number] D uration Value: 30 Brand Name: Biotene [...] Updated DateTime 08/04/2024 165.1 cm 25.5 kg/m2 83719.63 g Haydee Steve [place] - [facility] 08/04/2024 13:02:37 Date Recorded Body weight Body mass index (BMI) Body height Provider Name and Address Organization Details Last Updated DateTime 02/04/2024 29672.86 g 25 kg/m2 165.1 cm Patricia Steven [facility] 02/04/2024 13:15:48 Social History None recorded. Functional Status None recorded. Mental Status None recorded. Family History Nothing Reported. Medical History No medical history recorded. Past Encounters Encounter ID Performer Location Encounter Start Date Encounter Closed Date Diagnosis/Indication Diagnosis SNOMED-CT Code Diagnosis ICD10 Code Diagnosis IMO Codes Diagnosis Note [id number] DELILAH REYNOLDS PA-C [facility] [address] [address] 02/04/2024 12:32:02 02/04/2024 13:31:17 Impacted cerumen of bilateral ears 5206037586 311807 H61.23 Vasomotor rhinitis 87955 03 J30.0 [id number] TEETEE KASPER MD [facility] [address] [address] 08/04/2024 12:54:24 08/04/2024 13:25:35 Gastroesophageal reflux disease without esophagitis 200313056 K21.9 Dietary modificati ons discuss Vasomotor rhinitis 37730 03 J30.0 Use the Atrovent 20 min before meals Health Concerns Section Related Observation LastModified by Organization Detai ls LastModified Time None Recorded Concern Status LastModified by Organization Details LastModified Time None Recorded Advance Directives Directive None Recorded Payers Insurance Date Sequence Insurance Name Policy Number Policy Kennedy Covered Member ID Kennedy Member ID Guarantor Name 08/01/2024 1 [place]: [employer] Mateus Beyer [id number] Mateus Will Kayleen 08/01/2024 2 [place] [facility] Mateus Beyer [id number] Mateus Will Kayleen Notes Date Note Type [...] denies otalgia and otorrhea. TEETEE BRADFORD MD [address] [place] [address],[address], [address], [place] - [facility] 02/04/2024 16:42:51 08/04/2024 text/html Pt with hx of GERD and PTSD. Has rhinorrhea with eating. Using Atrovent after eatingChronic issues iwht burping and flatulence TEETEE BRADFORD MD [address] [place] [address],[place] [address], [place], [address], [facility] - [facility] 08/04/2024 13:24:08
--- OUTSIDE RECORDS SUMMARY | 2025-01-06 15:46 | XMS_ITS | Encounter Summary ---
Author Organization [facility] Address [address] [place] [address] [place] [address] Care Team Providers Care Mineral Economist Name Role Phone Unavailable Primary Care Provider Unavailabl e Encounter Details Date Type Department Care Team (Late st Contact Info) Description 08/24/2021 Dental Interim Note [facility] [address] [place] [address] Coryr Flores DMD [address] [place] [address] Social History Tobacco Use Types Packs/Day Years [...]
--- OUTSIDE RECORDS SUMMARY | 2025-01-06 15:46 | XMS_ITS | Clinical Summary ---
Author Organization [facility] Address [address] [place] [address] Care Team Providers Care Special Warfare Operator Name Role Phone ShayNicole Jo MCDOWELL Primary Care Provider [phone] Allergies No known active allergies Medications Medication [...] age to complete this topic Care Teams Special Warfare Operator Relationship Specialty Start Date End Date Nicole Day NP [address] [place] [address] PCP - General Family Medicine 08/03/18
--- OUTSIDE RECORDS SUMMARY | 2025-01-06 15:46 | XMS_ITS | Clinical Summary ---
Author Organization [facility] Address [address] [place] [address] Care Team Providers Care Instructional Design Consultant Name Role Phone Unavailable Primary Care Provider [...] 2 Refills, Soft Stop, 07/07/20 13:00:00 EDT, [facility]/pharmacy #[id number], Partial fill upon patient request if the [...] Department Care Team Description 11/24/2024 Telemedicine Visit [address] [address] Ralph Nagel PA-C from Last [...] 08/01/2024 07/31/2023, 06/2022, 01/30/2022, Additional history exists Tht-HDRPN-61 (1 - season) 2024 Imm-Influenza (#1) 2024 Imm-DTaP/Tdap/Td (2 - Td or Tdap) 07/09/2028 019 Procedures Procedure Name Priority Date/Time Associated Diagnosis Comments COMP PERIODONTAL EVALUATION - NEW/EST PATIENT Routine 07/31/2023 1:00 PM EDT Caries Encounter for dental examination BITEWINGS - FOUR RADIOGRAPHIC IMAGES Routine 07/31/2023 1:00 PM EDT Caries Defective dental restorationist Encounter for dental examination PROPHYLAXIS - ADULT Routine 07/31/2023 1 :00 PM EDT Caries Encounter for dental examination PERIODIC ORAL EVALUATION ESTABLISHED PATIENT Routine 07/31/2023 1:00 PM EDT Caries Encounter for dental examination from Last 3 Months or Most Recently Relevant to Health Maintenance Insurance MD MEDICAID [place] MED[place] MED[place] - [place]
== END 2025-01-06 14:00 | disposition home or self-care (01) ==
LOC: HO.HMCFMS 12:39
PROVIDERS: PCP Student in an Organized Health Care Education/Training Program; Visit Provider Student in an Organized Health Care Education/Training Program
DX: R19.8 Other specified symptoms and signs involving the digestive system and abdomen (principal); R39.15 Urgency of urination; D64.9 Anemia, unspecified

== ENCOUNTER → 2025-01-06 12:39 | Outpatient (BNVA) | payer MEDICARE, MEDICAID, SELFPAY | PROVIDERS: PCP Student in an Organized Health Care Education/Training Program; Visit Provider Student in an Organized Health Care Education/Training Program | DX: R39.15 Urgency of urination (principal); R19.8 Other specified symptoms and signs involving the digestive system and abdomen; D64.9 Anemia, unspecified; K59.04 Chronic idiopathic constipation; Z13.31 Encounter for screening for depression; Z13.39 Encounter for screening examination for other mental health and behavioral disorders | CPT/HCPCS: 96127; 99212 ==

== ENCOUNTER 2025-01-13 12:57 | Outpatient (AMB) | payer MEDICARE, MEDICAID, SELFPAY ==
--- NOTE | 2025-01-13 12:59 | MHC.AMNUTRGE ---
Intake Visit Reasons: Initial GI Nutrition Assessment Allergies No Known Allergies Allergy (Verified 01/06/25 13:04) Nutrition Presentation Details: Does not take trazadone everyday. Is trying to wean off it. Stopped a MVI. On Iron. Has had a bowel resection, about 1 foot removed. Is not doing much physical activity. Only eats twice a day. Has to really strain to go to the bathroom. Does eat fast and may not chew food well. After about 10-15 minutes of staying on topic the remainder of the visit consisted of patient going on numerous tangents and ultimately dismissing the recommendations made by the RD. At the end, the patient was apologetic but also not interested in making any changes on his part to help with improvement in regard to his gut health and overall lifestyle. Reason for consult: other (IBS) GI symptoms: reports constipation Diet Assmnt Dietary counseling: Mediterranean Who buys your food: self Who prepares/cooks your food: self Meal frequency: regular: breakfast (2 eggs, Milk, toast) and dinner (Shepherds Pie, milk), irregular: snacks (Banana muffin, grapes, & candy (stops eating around 10pm)) and never: lunch (none (wakes at noon)) Lifestyle Exercise: No (admits to laying on couch for hours and days on end due to depression) Assessment Nutrition recommendation: RD nutrition education Focused findings Nutrition-focused findings: constipation DKL-Zltbjzc-Mf.Jeor Equation Calculated Activity Level: Sedentary Diagnosis Nutrition problem #1: food nutri know defi and undesirable food choices As related to (etiology) #1: lack of nutrit education, unsure how to apply info, unwilling to learn/apply and physical inactivity As evidenced by (sign/symptom) #1: noncompliance to diet/hx, poor PO intake, constipation, prior fail - chg behavior, knowledge deficit of diet and verbalize inaccurate info Monitoring/Goals Nutrition problem monitoring: total energy intake, level of knowledge/skill and oral fluids Nutrition goal/outcome: list 3 high fiber foods Outcome progress: progressing Learning/Education Readiness to learn: poor Stages of change: pre-contemplation Educational materials provided: Yes Date of nutrition screenin01/13/25 Follow up Follow-up frequency: monthly Time Outcome assessment time: 60 minutes [facility] Medical History Anemia Anemia Occasional tremors Cervical spinal stenosis Hand weakness ADHD OCD (obsessive compulsive disorder) Anxiety and depression Diverticulosis Hyperlipidemia Hypertension Insomnia PTSD (post-traumatic stress disorder) Surgical History History of esophagogastroduodenoscopy (EGD) Hx of colonoscopy History of left hip replacement Family History Father No problems noted. Mother No problems noted. Social History Housing: Apartment Are you a primary caretaker grounds to a significant other at home: No Do you presently have visiting nurse or other home services: No Alcohol intake: never Patient Tobacco Use Status: Never used Tobacco service: No Current occupational status: employed Cognitive needs: No Hearing needs: No Vision needs: No Review of Systems GI Reports constipation Assessment & Plan Assessment & Plan (1) Abnormal bowel habits: Code(s): R19.8 - Other specified symptoms and signs involving the digestive system and abdomen Category: Medical Plan: 1. Eat slow, chew well 2. Use a stool when going to the bathroom 3. Consider buying frozen veggies Plan 1. Eat slow, chew well 2. Use a stool when going to the bathroom 3. Consider buying frozen veggies Coding Level of Care Code Nutr Indiv Intake (51209) Diagnoses Abnormal bowel habits R19.8
--- OUTSIDE RECORDS SUMMARY | 2025-01-13 18:36 | XMS_ITS | Data Portability ---
Author Organization [place] - [facility], Allergy Address [address] [address] Care Team Providers Care Blood Bank Laboratory Technologist Name Role Phone ARAM SALEH Primary Care Provider [phone] Assessment Encounter Date Assessment Date Assessment LastModified [...] mcg (0.03 %) nasal spray 2024 025 [employer] [id number], [address] [place], [place], [phone], 08/06/2024 15:56:22 ipratropi um bromide 42 mcg (0.06 %) nasal spray 2023 024 [id number], [address] [place], [place], [id number], 02/04/2024 13:37:52 Patient TargetsNo targets recorded. Patient InstructionsNo instructions recorded. Reason for Referral None Reported. Problems Name Problem SNOMED Code Status Onset Date Resolution Date Notes Provider Name and Address Organization Details Recorded Time Edema of larynx 96272787 Active 2023 Edema of larynx; Note: Date Diagnosed : 05/14/2023 1:25 PM (J38.4) Not Available [facility] 4 02:57:06 Disturban ce of salivary secretion 86475615 Active 2023 Xerostomi a; Note: Date Diagnosed : 05/14/2023 1:25 PM (K11.7) Not Available [facility] 4 02:57:06 Chronic rhinitis 56475481 Active 2023 Chronic rhinitis; Note: Date Diagnosed : 05/14/2023 1:25 PM (J31.0) Not Available [facility] 4 02:57:06 Gastroeso phageal reflux disease without esophagit is 763330005 Active 2023 Esophagea l reflux NOS; Note: Date Diagnosed : 05/14/2023 1:25 PM (K21.9) Not Available [facility] 4 02:57:07 Hypertrop hy of tongue papillae 9495172 Active 2023 Coated tongue; Note: Date Diagnosed : 06/26/2023 3:49 PM (K14.3) Not Available [facility] 4 02:57:06 Impacted cerumen of bilateral ears 48918172326 75115 Active 2023 Impacted cerumen, bilateral ; Note: Date Diagnosed : 06/26/2023 3:49 PM (H61.23) Not Available [facility] 4 02:57:07 Vasomotor rhinitis 9680234 Active 2023 Vasomotor rhinitis; Note: Date Diagnosed : 06/26/2023 3:48 PM (J30.0) Not Available [facility] 4 02:57:08 Problem Notes None recorded. Procedures Surgical History Date Name Laterality Status Provider Name and Address Organization Details Recorded Time 5 JMSNasal/Sinus Endoscopy completed TEETEE BRADFORD MD [address] [place] [address],[address], [address], [place] - [facility] 08/04/2024 13:22:20 4 Cerumen removal without microscope bilat completed Delilah Reynolds [place] - [facility] 02/04/2024 13:36:49 Imaging Results None recorded. Procedure [...] mg tablet 08/04 completed Medicati on ID: [id number] B rand Name: methocar bamol Se nd [...] spray aerosol 08/04 completed Medicati on ID: [id number] D uration Value: 30 Brand Name: Saline [...] spray,taz pension 05/13 completed Medicati on ID: [id number] B rand Name: fluticas one propiona te [...] mg tablet 05/13 completed Medicati on ID: [id number] B rand Name: Allergy Relief (fexofen adine) S end Method: E-Prescr ibed Sub s Allowed: subs OK Mynori al Instruct ion: TAKE ONE TABLET BY MOUTH DAILY. M dmitri Johnston Name: Allergy Relief (fexofen adine) Not Available Not Available Not Available Biotene Dry Mouth Oral Rinse mouthwash 2023 active Medicati on ID: [id number] D uration Value: 30 Brand Name: Biotene [...] Updated DateTime 08/04/2024 165.1 cm 25.5 kg/m2 80273.63 g Haydee Steve [place] - [facility] 08/04/2024 13:02:37 Date Recorded Body weight Body mass index (BMI) Body height Provider Name and Address Organization Details Last Updated DateTime 02/04/2024 25263.86 g 25 kg/m2 165.1 cm Patricia Steven [facility] 02/04/2024 13:15:48 Social History None recorded. Functional Status None recorded. Mental Status None recorded. Family History Nothing Reported. Medical History No medical history recorded. Past Encounters Encounter ID Performer Location Encounter Start Date Encounter Closed Date Diagnosis/Indication Diagnosis SNOMED-CT Code Diagnosis ICD10 Code Diagnosis IMO Codes Diagnosis Note [id number] DELILAH REYNOLDS PA-C [facility] [address] [address] 02/04/2024 12:32:02 02/04/2024 13:31:17 Impacted cerumen of bilateral ears 7510640630 891789 H61.23 Vasomotor rhinitis 21917 03 J30.0 [id number] TEETEE KASPER MD [facility] [address] [address] 08/04/2024 12:54:24 08/04/2024 13:25:35 Gastroesophageal reflux disease without esophagitis 133389920 K21.9 Dietary modificati ons discuss Vasomotor rhinitis 33301 03 J30.0 Use the Atrovent 20 min before meals Health Concerns Section Related Observation LastModified by Organization Detai ls LastModified Time None Recorded Concern Status LastModified by Organization Details LastModified Time None Recorded Advance Directives Directive None Recorded Payers Insurance Date Sequence Insurance Name Policy Number Policy Kennedy Covered Member ID Kennedy Member ID Guarantor Name 08/01/2024 1 MEDICARE B-[place]: [employer] [facility] Mateus Beyer [id number] Mateus Will Kayleen 08/01/2024 2 [place] [facility] Mateus Beyer [id number] Mateus Will Kayleen Notes Date Note Type [...] denies otalgia and otorrhea. TEETEE BRADFORD MD [address] [place] [address],[address], [address], [place] - [facility] 02/04/2024 16:42:51 08/04/2024 text/html Pt with hx of GERD and PTSD. Has rhinorrhea with eating. Using Atrovent after eatingChronic issues iwht burping and flatulence TEETEE BRADFORD MD [address] [place] [address],[place] [address], [place], [address], [facility] - [facility] 08/04/2024 13:24:08
--- OUTSIDE RECORDS SUMMARY | 2025-01-13 18:36 | XMS_ITS | Clinical Summary ---
Author Organization [facility] Address [address] [place] [address] Care Team Providers Care Per Diem Physical Therapist Name Role Phone ShayNicole Jo MCDOWELL Primary Care Provider [phone] Allergies No known active allergies Medications Medication [...] age to complete this topic Care Teams Per Diem Physical Therapist Relationship Specialty Start Date End Date Nicole Day NP [address] [place] [address] PCP - General Family Medicine 08/03/18
== END 2025-01-13 14:13 | disposition home or self-care (01) ==
LOC: HO.HMCCN 12:57
PROVIDERS: PCP Student in an Organized Health Care Education/Training Program; Visit Provider Dietitian, Registered
DX: R19.8 Other specified symptoms and signs involving the digestive system and abdomen (principal)

== ENCOUNTER → 2025-01-13 12:57 | Outpatient (BNVA) | payer MEDICARE, MEDICAID, SELFPAY | PROVIDERS: PCP Student in an Organized Health Care Education/Training Program; Visit Provider Dietitian, Registered | DX: R19.8 Other specified symptoms and signs involving the digestive system and abdomen (principal); K58.1 Irritable bowel syndrome with constipation; Z91.118 Patient's noncompliance with dietary regimen for other reason; Z71.3 Dietary counseling and surveillance | CPT/HCPCS: 97802 ==

== ENCOUNTER 2025-02-01 12:47 | Outpatient (AMB) | payer MEDICARE, MEDICAID, SELFPAY ==
--- NOTE | 2025-02-01 12:59 | A.OFFPC_ITS ---
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 Overactive Bladder: The patient reports ongoing issues with urinary frequency and urgency, stating he has to urinate all the time. He experiences urinary incontinence with urgency, describing leakage before reaching the toilet and needing to manually express residual urine. He was previously on a medication for this that was ineffective and was recently switched by his urologist, Dr. Manning, to solifenacin 5 mg. The patient reports no improvement with the current solifenacin dosage. He attributes his nocturia to drinking water late in the day, a necessity due to his other medications. A bladder ultrasound performed on 12/28/22 was unremarkable. Benign Prostatic Hyperplasia: A prostate ultrasound on 12/28/22 showed a heterogenous, enlarged prostate with a volume of 40.5 mL, with findings of calcifications and no focal nodule, consistent with mildly enlarged prostate due to benign prostatic hyperplasia. The patient is confused because he states his urologist, Dr. Manning, told him that he does not have an enlarged prostate. Inflammatory Bowel Disease and Constipation: The patient has a history of inflammatory bowel disease and constipation. He is prescribed mesalamine for IBD and docusate for constipation. He is also awaiting an appointment with a GI specialist at [facility]. Prescription Management: The patient reports significant difficulty getting his lorazepam prescription filled at [facility], which is the only pharmacy he can use. The pharmacy has cited issues with [employer] numbers and required codes on the prescription, which has caused delays. His next refill is due on the , and he is concerned about being able to fill it. Medications: - Lorazepam for anxiety - Solifenacin 5mg for overactive bladder - Mesalamine for inflammatory bowel dise ase - Docusate for constipation Social History: - The patient is on disability and has a low income. - He reports being unable to get SNAP be nefits. - He has applied for fuel assistance. - The patient relies on the bus for [place] sport[place]. - He reports having issues with all [facility] pharmacies and can only use [facility], though he experiences issues with them as well. Diagnostic Results: - Bladder Ultrasound (12/28/22): Unremar kable, no significant abnormalities. - Prostate Ultrasound (12/28/22): Hetero geneous, mildly enlarged prostate with a volume of 40.5 mL, with calcifications and no focal nodule. - Total Testosterone: 709 ng/dL (normal range 250-1100 ng/dL). - CAT scan of stomach and bladder: Compl eted a couple of months ago, prompted the prescription of medication for bladder issues. Past Medical History - Inflammatory bowel disease - Attention-deficit/hyperactivity disord er (ADHD) - Constipation Health Maintenance [facility] Medical History (Updated 02/05/25 @ 10:06 by Edward Beth MD) BPH (benign prostatic hyperplasia) Overactive bladder Anemia Anemia Occasional tremors Cervical spinal stenosis Hand weakness ADHD OCD (obsessive compulsive disorder) Anxiety and depression Diverticulosis Hyperlipidemia Hypertension Insomnia PTSD (post-traumatic stress disorder) Surgical History History of esophagogastroduodenoscopy (EGD) Hx of colonoscopy History of left hip replacement Family History Father No problems noted. Mother No problems noted. Social History (Updated 02/01/25 @ 13:03 by Kyle Sutton CMA) Housing: Apartment Are you a primary child caregiver private home to a significant other at home: No Do you presently have visiting nurse or other home services: No Alcohol intake: never Patient Tobacco Use Status: Never used Tobacco e-Cigarette/Vaping Use: Never Used service: No Current occupational status: employed Cognitive needs: No Hearing needs: No Vision needs: No Questionnaire PHQ-9 Over the last 2 weeks, how often have you been bothered by any of the following problems? 1. Little interest or pleasure in doing things: not at all 2. Feeling down, depressed, or hopeless: not at all 3. Trouble falling or staying asleep, or sleeping too much: not at all 4. Feeling tired or having little energy: not at all 5. Poor appetite or overeating: not at all 6. Feeling bad about yourself - or that you are a failure or have let yourself or your family down: not at all 7. Trouble concentrating on things, such as reading the newspaper or watching television: not at all 8. Moving or speaking so slowly that other people could have noticed. Or the opposite - being so fidgety or restless that you have been moving around a lot more than usual: not at all 9. Thoughts that you would be better off or of hurting yourself in some way: not at all Total score: 0 77019 - PHQ-9 Billing: Yes Source: Developed by Drs. Lon Mercedes, Elba Rodriguez, Darian Flores and colleagues, with an educational sharron from [employer]. Thrive Questionnaire Date Thrive assessed: 01/06/25 I am a: Patient What is your living situation today?: I have a steady place to live Within the past 12 months, did the food you bought not last and you didn't have the money to get more?: Never true Within the past 12 months, did you worry whether your food would run out before you got money to buy more?: Never true Do you have trouble paying for medicines?: No Do you have trouble getting transportation to medical appointments?: No Do you have trouble paying your heating and electricity bill?: No Do you have trouble taking care of your child, family member or friend?: No Do you have trouble with day-to-day activities such as bathing, preparing meals, shopping, managing finances, etc.?: No Are you currently unemployed and looking for a job?: No Are you interested in more education?: No Please select the resources that you would like help with: None Currently or been in a relationship where the following occur: No concerns reported THRIVE Score: 0 AUDIT C Alcohol Use Questionnaire (AUDIT-C) 1. How often do you have a drink containing alcohol?: Never 3. How often do you have six or more drinks on one occasion?: Never Total Score: 0 BLAIR-7 AMB Questionnaire BLAIR-7 Date BLAIR - 7 assessed: 01/06/25 Feeling nervous, anxious, or on edge: 0 = Not at all Not being able to stop or control worryin = Not at all Worrying too much about different things: 0 = Not at all Trouble relaxin = Not at all Being so restless that it is hard to sit still: 0 = Not at all Becoming easily annoyed or irritable: 0 = Not at all Feeling afraid as if something awful might happen: 0 = Not at all Total BLAIR-7 score (0-4 normal; 5-9 mild; 10-14 moderate; 15-21 severe): 0 Source: Developed by Drs. Lon Mercedes, Elba Rodriguez, Darian Flores and colleagues, with an educational sharron from [employer]. BLAIR-7 Assessment Billing BLAIR-7 Assessment Tool: BLAIR-7 Assessment 07675 Review of Systems Narrative Review of Systems - Genitourinary: Reports urinary frequency, urgency, and urgency incontinence. He has to squeeze his penis to fully void. - Gastrointestinal: Reports constipation. Denies diarrhea. - Endocrine: Denies symptoms of low testosterone. - Psychiatric: Reports feeling wound up due to ADHD. 10-point ROS reviewed and negative except as noted in HPI Physical exam (Primary Care) Vital Signs: Last Vital Signs Temp 97.8 F 02/01/25 13:04 Pulse 78 02/01/25 13:04 Resp 18 02/01/25 13:04 BP 141/75 H 02/01/25 13:04 Pulse Ox 98 02/01/25 13:04 Oxygen Delivery Method Room Air 02/01/25 13:04 BMI result Body Mass Index 28.0 Tobacco/Smoking Status: Tobacco use Status Tobacco use date assessed 01/06/25 02/01/25 13:04 Patient Tobacco Use Status Never used Tobacco 02/01/25 13:04 e-Cigarette/Vaping Use Never Used 02/01/25 13:04 PHQ-9: PHQ-9 Score PHQ-9: Total score 0 02/01/25 13:04 Thrive Assessment: Date of Thrive Assessment Date Thrive assessed 01/06/25 02/01/25 13:04 Currently or been in a relationship where the following occur: No concerns reported Narrative Physical Exam General: Well-appearing, in no acute distress. Vital signs: Within normal limits. HEENT: Normocephalic, atraumatic. PERRLA, EOMI. Conjunctiva clear, sclera anicteric. Oropharynx clear, mucous membranes moist. TMs intact bilaterally. Neck: Supple, no lymphadenopathy, no thyromegaly, no JVD or carotid bruits. Cardiovascular: RRR, normal S1/S2, no murmurs, rubs, or gallops. Peripheral pulses 2+ and symmetric. No edema. Respiratory: Lungs clear to auscultation bilaterally, no wheezes, rales, or rhonchi. Normal effort. Abdomen: Soft, non-tender, non-distended. Normoactive bowel sounds. No hepatosplenomegaly, no masses. MSK: Full range of motion, no joint swelling or deformity. Normal gait. Skin: Warm, dry, intact. No rashes, lesions, or pallor. Neuro: Alert and oriented x3. Cranial nerves II-XII intact. Strength 5/5 throughout. Sensation intact. Reflexes 2+ symmetric. Normal coordination and gait. Psych: Appropriate mood and affect. Normal judgment and insight. Coding Level of Care Code Est Pt Level 3 (51947) Add On Problem Visit Only Diagnoses Overactive bladder N32.81 BPH (benign prostatic hyperplasia) N40.0 Abnormal bowel habits R19.8 Gastroesophageal reflux disease without esophagitis K21.9 Esophagitis presence: without esophagitis Anxiety and depression F41.9; F32.A PTSD (post-traumatic stress disorder) F43.10 Additional Codes BLAIR-7 Assessment Billing - BLAIR-7 Assessment Tool: BLAIR-7 Assessment 33940 ([id number]) PHQ-9 - 20381 - PHQ-9 Billing: Yes ([id number]) Assessment & Plan Assessment & Plan (1) Overactive bladder: Code(s): N32.81 - Overactive bladder Category: Medical (2) BPH (benign prostatic hyperplasia): Code(s): N40.0 - Benign prostatic hyperplasia without lower urinary tract symptoms Category: Medical (3) Abnormal bowel habits: Code(s): R19.8 - Other specified symptoms and signs involving the digestive system and abdomen Category: Medical (4) GERD (gastroesophageal reflux disease): Code(s): K21.9 - Gastro-esophageal reflux disease without esophagitis Category: Medical Qualifiers: Esophagitis presence: without esophagitis Qualified Code(s): K21.9 - Gastro-esophageal reflux disease without esophagitis (5) Anxiety and depression: Code(s): F41.9 - Anxiety disorder, unspecified; F32.A - Depression, unspecified Category: Medical (6) PTSD (post-traumatic stress disorder): Code(s): F43.10 - Post-traumatic stress disorder, unspecified Category: Medical Plan Consent Patient was informed and verbally consented to the use of an ambient scribe for clinic note documentation during this visit. Plan 1. Overactive Bladder - The patient reports that the current dose of solifenacin 5 mg is not effective. - Plan is for the patient to inform his urologist that the medication is not working at the current dose so that it can be increased, as the starting dose is low and can be titrated up to 10 mg. 2. Benign Prostatic Hyperplasia - The patient was provided with a copy of his prostate ultrasound report, which shows a mildly enlarged prostate. - He is advised to discuss this finding with his urologist, Dr. Manning, to understand the discrepancy with what he was previously told and to discuss treatment options, which may include medication or surgery. 3. Prescription Management - A note will be made regarding the upcoming lorazepam refill due on the . - Discussed that there have been ongoing issues with sending controlled substance prescriptions to [facility] due to a computer or [employer] number issue on their end. Discussion Notes I reviewed the patient's recent diagnostic results with him. I explained that his total testosterone level of 709 is normal. We discussed the results of his bladder and prostate ultrasounds from 12/28/22. I clarified that while the bladder ultrasound was unremarkable, the prostate ultrasound showed it is mildly enlarged. Given his confusion because his urologist, Dr. Manning, reportedly told him his prostate was not enlarged, I provided a copy of the report and advised him to hold his urologist accountable for an explanation. I also explained that the solifenacin he is taking for overactive bladder was started at a low dose and can be increased by his urologist if it is not providing relief. Regarding his difficulty obtaining [facility]epam, I explained the [facility] and that I would make a note for his upcoming refill. Patient Instructions - Follow up with your urologist, Dr. Manning, to discuss the results of your recent prostate ultrasound which showed a mildly enlarged prostate. Show him the copy of the report provided to you. - When you see your urologist, let him know that the solifenacin 5 mg medication is not helping your urinary symptoms. The dose may need to be increased. - A note will be made to process your lorazepam refill, which is due on the 18 of the month. Medical Decision Making The patient, a 69-year-old male, presented with concerns about urinary symptoms and prescription refill issues. His primary urological complaint is urinary frequency and urgency incontinence, which has not improved on the starting dose of solifenacin 5 mg prescribed by his urologist. Review of his recent imaging from 12/28/22 revealed a mildly enlarged prostate (40.5 mL volume) with calcifications, contrary to the patient's understanding from his urologist. The bladder ultrasound was unremarkable. The patient's symptoms are likely multifactorial, stemming from both his benign prostatic hyperplasia and a component of overactive bladder. Given that he is on a low dose of solifenacin, it is appropriate for him to follow up with urology to consider a dose escalation, which may improve his symptoms. I provided him a copy of the ultrasound report to facilitate a clear discussion with his specialist. I also addressed his difficulty in obtaining his lorazepam prescription. The issue appears to be specific to [facility] pharmacy's system for processing controlled substances. I will make a note to ensure his upcoming refill on the is processed correctly from our end. His testosterone level was reviewed and found to be normal. Total Time Statement Total time spent caring for the patient today includes pre-visit chart review, documentation, review of laboratory and diagnostic imaging results, medication reconciliation, medically necessary evaluation, counseling on diagnoses, care coordination, ordering appropriate tests and medications, review of tests performed by other providers, reporting test results to the patient, and communication with other healthcare providers.
[2025-02-01 13:04] VITALS: BP 141/75; PULSE 78; RESP 18; TEMP 36.6; O2SAT 98; BMI 28.0
== END 2025-02-01 13:27 | disposition home or self-care (01) ==
LOC: HO.HMCFMS 12:47
PROVIDERS: PCP Student in an Organized Health Care Education/Training Program; Visit Provider Student in an Organized Health Care Education/Training Program
DX: N32.81 Overactive bladder (principal); N40.0 Benign prostatic hyperplasia without lower urinary tract symptoms; R19.8 Other specified symptoms and signs involving the digestive system and abdomen; K21.9 Gastro-esophageal reflux disease without esophagitis; F41.9 Anxiety disorder, unspecified; F32.A Depression, unspecified; F43.10 Post-traumatic stress disorder, unspecified

== ENCOUNTER → 2025-02-01 12:47 | Outpatient (BNVA) | payer MEDICARE, MEDICAID, SELFPAY | PROVIDERS: PCP Student in an Organized Health Care Education/Training Program; Visit Provider Student in an Organized Health Care Education/Training Program | DX: N32.81 Overactive bladder (principal); N40.0 Benign prostatic hyperplasia without lower urinary tract symptoms; R91.8 Other nonspecific abnormal finding of lung field; K21.9 Gastro-esophageal reflux disease without esophagitis; F41.9 Anxiety disorder, unspecified; F32.A Depression, unspecified; F43.10 Post-traumatic stress disorder, unspecified; Z13.30 Encounter for screening examination for mental health and behavioral disorders, unspecified | CPT/HCPCS: 96127; 99212 ==

== ENCOUNTER 2025-02-14 12:42 | Outpatient (AMB) | payer MEDICARE, MEDICAID, SELFPAY ==
[2025-02-14 12:54] VITALS: BP 136/70; PULSE 91; O2SAT 100; BMI 29.4
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
--- OUTSIDE RECORDS SUMMARY | 2025-02-14 15:51 | XMS_ITS | Data Portability ---
Author Organization [place] - [facility], Allergy Address [address] [address] Care Team Providers Care Truck Driver Salesperson Name Role Phone ARAM SALEH Primary Care [...] mcg (0.03 %) nasal spray 2024 025 [id number], [address], [place], [id number], 08/06/2024 15:56:22 ipratropi um bromide 42 mcg (0.06 %) nasal spray 2023 024 [id number], [address] [place], [place], [id number], 02/04/2024 13:37:52 Patient TargetsNo targets recorded. Patient InstructionsNo instructions recorded. Reason for Referral None Reported. Problems Name Problem SNOMED Code Status Onset Date Resolution Date Notes Provider Name and Address Organization Details Recorded Time Edema of larynx 04276287 Active 2023 Edema of larynx; Note: Date Diagnosed : 05/14/2023 1:25 PM (J38.4) Not Available [facility] 4 02:57:06 [place] ce of salivary secretion 94622811 Active 2023 Xerostomi a; Note: Date Diagnosed : 05/14/2023 1:25 PM (K11.7) Not Available [facility] 4 02:57:06 Chronic rhinitis 60800513 Active 2023 Chronic rhinitis; Note: Date Diagnosed : 05/14/2023 1:25 PM (J31.0) Not Available [facility] 4 02:57:06 Gastroeso phageal reflux disease without esophagit is 348392924 Active 2023 Esophagea l reflux NOS; Note: Date Diagnosed : 05/14/2023 1:25 PM (K21.9) Not Available [facility] 4 02:57:07 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 Procedures Surgical History Date Name Laterality Status Provider Name and Address Organization Details Recorded Time 5 JMSNasal/Sinus Endoscopy completed TEETEE BRADFORD MD [address] [place] [address],[address], [address], [place] - [facility] 08/04/2024 13:22:20 4 Cerumen removal without microscope bilat completed Delilah Reynolds [place] - [facility] 02/04/2024 13:36:49 Imaging Results None [...] mg tablet 08/04 completed Medicati on ID: [id number] B rand Name: methocar bamol Se nd [...] spray aerosol 08/04 completed Medicati on ID: [id number] D uration Value: 30 Brand Name: Saline [...] spray,taz pension 05/13 completed Medicati on ID: [id number] B rand Name: fluticas one propiona te [...] mg tablet 05/13 completed Medicati on ID: [id number] B rand Name: Allergy Relief (fexofen adine) S end Method: E-Prescr ibed Sub s Allowed: subs OK Mynori al Instruct ion: TAKE ONE TABLET BY MOUTH DAILY. M dmitri Johnston Name: Allergy Relief (fexofen adine) Not Available Not Available Not Available Biotene Dry Mouth Oral Rinse mouthwash 2023 active Medicati on ID: [id number] D uration Value: 30 Brand Name: Biotene [...] Updated DateTime 08/04/2024 165.1 cm 25.5 kg/m2 70457.63 g Haydee Steve [place] - [facility] 08/04/2024 13:02:37 Date Recorded Body weight Body mass index (BMI) Body height Provider Name and Address Organization Details Last Updated DateTime 02/04/2024 97171.86 g 25 kg/m2 165.1 cm Patricia Steven [facility] 02/04/2024 13:15:48 Social History None recorded. Functional Status None recorded. Mental Status None recorded. Family History Nothing Reported. Medical History No medical history recorded. Past Encounters Encounter ID Performer Location Encounter Start Date Encounter Closed Date Diagnosis/Indication Diagnosis SNOMED-CT Code Diagnosis ICD10 Code Diagnosis IMO Codes Diagnosis Note [id number] DELILAH REYNOLDS PA-C [facility] [address] [address] 02/04/2024 12:32:02 02/04/2024 13:31:17 Impacted cerumen of bilateral ears 3700285685 413705 H61.23 Vasomotor rhinitis 10757 03 J30.0 [id number] TEETEE KASPER MD [facility] [address] [address] 08/04/2024 12:54:24 08/04/2024 13:25:35 Gastroesophageal reflux disease without esophagitis 585633826 K21.9 Dietary modificati ons discuss Vasomotor rhinitis 63360 03 J30.0 Use the Atrovent 20 min before meals Health Concerns Section Related Observation LastModified by Organization Detai ls LastModified Time None Recorded Concern Status LastModified by Organization Details LastModified Time None Recorded Advance Directives Directive None Recorded Payers Insurance Date Sequence Insurance Name Policy Number Policy Kennedy Covered Member ID Kennedy Member ID Guarantor Name 08/01/2024 1 MEDICARE B-[place]: [employer] Mateus Beyer [id number] Mateus Will Kayleen 08/01/2024 2 [place]: [facility] Mateus Beyer [id number] Mateus Will Kayleen Notes Date Note Type [...] denies otalgia and otorrhea. TEETEE BRADFORD MD [address] [place] [address],[address], [address], [place] - [facility] 02/04/2024 16:42:51 08/04/2024 text/html Pt with hx of GERD and PTSD. Has rhinorrhea with eating. Using Atrovent after eatingChronic issues iwht burping and flatulence TEETEE BRADFORD MD [address] [place] [address],[place] [address], [place], [address], [facility] - [facility] 08/04/2024 13:24:08
--- OUTSIDE RECORDS SUMMARY | 2025-02-14 15:51 | XMS_ITS | Clinical Summary ---
Author Organization [employer] [facility] Prior to 07/24/24 Address [address] [place] [address] Care Team Providers Care Environmental Systems Coordinator Name Role Phone Nicole Day NP Primary Care Provider [phone] Allergies No known active allergies Medications Medication [...] to complete this topic Care Teams Environmental Systems Coordinator Relationship Specialty Start Date End Date Nicole Day NP [address] [place] [address] PCP - General Family Medicine 08/03/18
== END 2025-02-14 13:56 | disposition home or self-care (01) ==
LOC: HO.RHES 12:43
PROVIDERS: PCP Student in an Organized Health Care Education/Training Program; Visit Provider Student in an Organized Health Care Education/Training Program
DX: M17.32 Unilateral post-traumatic osteoarthritis, left knee (principal); M25.512 Pain in left shoulder; G89.29 Other chronic pain; M75.01 Adhesive capsulitis of right shoulder; M75.02 Adhesive capsulitis of left shoulder; M25.50 Pain in unspecified joint; M25.811 Other specified joint disorders, right shoulder
CPT/HCPCS: 99205

== ENCOUNTER → 2025-02-14 12:42 | Outpatient (BNVA) | payer MEDICARE, MEDICAID, SELFPAY | PROVIDERS: PCP Student in an Organized Health Care Education/Training Program; Visit Provider Student in an Organized Health Care Education/Training Program | DX: M17.32 Unilateral post-traumatic osteoarthritis, left knee (principal); M25.512 Pain in left shoulder; F41.9 Anxiety disorder, unspecified; F43.10 Post-traumatic stress disorder, unspecified | CPT/HCPCS: 99202 ==